=== PATIENT | female | born 1960 | race Caucasian/White ===

== ENCOUNTER 2017-02-24 22:33 | Inpatient (IN) | payer MEDICAID, MEDICARE ==
--- NOTE | 2017-02-24 23:05 | ED Physician Chart ---
ED Chief Complaint/HPI - Patient Information Date Seen:: 02/24/17 Time Seen:: 22:50 Chief Complaint:: depression History of Present Illness:: exhibiting increased sadness and hopelessness at [facility]. Allergies:: Allergies Allergy/AdvReac Type Severity Reaction Status Date / Time No Known Allergies Allergy Verified 02/24/17 22:47 Historian:: Patient Review:: Nurse's Note Reviewed ED Review of Systems - Review of Systems General/Constitutional: No fever, Weight loss Skin: No skin lesions Head: No headache Eyes: No loss of vision ENT: No earache Neck: Neck pain Cardio Vascular: No chest pain Pulmonary: No SOB GI: No nausea, No vomiting G/U: No dysuria, No hematuria Musculoskeletal: No bone or joint pain, No muscle pain Endocrine: No polyuria, No polydipsia Psychiatric: Prior psych history Hematopoietic: No bruising, No lymphadenopathy Allergic/Immuno: No urticaria Neurological: No syncope ED Past Medical History - Past Medical History Past Medical History: Seizures, Thyroid disorder, Other (major depression; schizoaffective disorder; hypothyroidism; cataract; cardiomegaly) Family History: Other (asthma) Social History: Non Smoker, No Alcohol Surgical History: None Psychiatricy History: Depression, Schizophrenia Medication: Reviewed Family Medical History - Family Member Mother History Unknown: Yes ED Physical Exam - Physical Examination General/Constitutional: Well-developed, well-nourished, Alert, No distress Other Gen/Cons comments:: knows the correct date Head: Atraumatic Eyes: Lids, conjuctiva normal, PERRL Skin: Nl inspection, No rash, No skin lesions, No ecchymosis, Well hydrated, No lymphadenopathy ENMT: External ears, nose nl, TM canals nl, Nasal exam nl Other ENMT comments:: edentulous Neck: No nuchal rigidity Respiratory: Nl effort/Exclusion, Clear to Auscultation Cardio Vascular: RRR, No murmur, gallop, rubs GI: No tenderness/rebounding/guarding, No organomegaly, No hernia, Normal BS's : No CVA tenderness Other Extremities comments:: 2/4 pre-tibial pitting edema Neuro/Psych: Alert/oriented, No focal deficits Misc: No paraspinal tenderness ED Labs/Radiology/EKG Results - EKG Interpretations Rate & Rhythm: NSR; rate 70 [place]: left ED Septic Shock - . Is Septic Shock (SBP<90, OR Lactate>4 mmol\L) present?: No ED Reassessment (Disposition) - Reassessment Reassessment Condition:: Unchanged - Diagnosis Diagnosis:: depression - Patient Disposition Admitted to:: [facility] Admitting Medical Physician:: Kwasi Dempsey Admitting Psych Physician:: Meghan Matthew Condition at Disposition:: Stable, Unchanged
[2017-02-24 23:51] LABS: % BASOPHILS 2.2 % (0.0-2.0); % EOSINOPHILS 6.5 % (0.0-5.0); % LYMPHOCYTES 30.3 % (20.0-50.0); % MONOCYTES 8.5 % (2.0-10.0); % NEUTROPHILS 52.5 % (40.0-80.0); HEMATOCRIT 39.4 % (35.0-45.0); HEMOGLOBIN 13.2 gm/dL (11.7-15.5); MEAN CELL VOLUME 85.9 fl (81-100); MEAN CORPUSCULAR HEMOGLOBIN 28.8 pg (27.0-31.0); MEAN CORPUSCULAR HGB CONC 33.5 pg (28.0-36.0); MEAN PLATELET VOLUME 7.3 fl; NEUTROPHILE ABSOLUTE 3.6 Th/cmm (1.8-8.0); RED BLOOD COUNT 4.59 Mil/cmm (3.80-5.10); RED CELL DISTRIBUTION WIDTH 12.7 % (11.5-20.0)
[2017-02-24 23:54] LABS: WHITE BLOOD COUNT 7.1 Th/cmm (4.8-10.8)
[2017-02-24 23:55] LABS: PLATELET COUNT 304 Th/cmm (150-400)
[2017-02-25 00:08] LABS: ANION GAP 7.8 (7.0-16.0); BUN - UREA NITROGEN 16 mg/dL (7-25); CALCIUM SERUM 9.3 mg/dL (8.6-10.3); CARBON DIOXIDE 27.9 mEq/L (21.0-31.0); CHLORIDE 100 mEq/L (98-107); CREATININE - SERUM 0.5 mg/dL (0.6-1.2); GLUCOSE 95 mg/dL (70-105); POTASSIUM SERUM 3.7 mEq/L (3.5-5.1); SODIUM SERUM 132 mEq/L (136-145)
[2017-02-25 00:09] LABS: CHOLESTEROL 242 mg/dL (<200); TRIGLYCERIDES 109 mg/dL (<150)
--- NOTE | 2017-02-25 12:56 | Internal Medicine Prog Note ---
Internal Medicine Subjective - Subjective Service Date: 02/25/17 ([facility] dictated [id number]) Internal Medicine Objective - Results Result Diagrams: 02/24/17 23:45 02/24/17 23:45 Recent Labs: Laboratory Last Values WBC 7.1 Th/cmm (4.8-10.8) D 02/24/17 23:45 RBC 4.59 Mil/cmm (3.80-5.10) 02/24/17 23:45 Hgb 13.2 gm/dL (11.7-15.5) 02/24/17 23:45 Hct 39.4 % (35.0-45.0) 02/24/17 23:45 MCV 85.9 fl (81-100) 02/24/17 23:45 MCH 28.8 pg (27.0-31.0) 02/24/17 23:45 MCHC Differential 33.5 pg (28.0-36.0) 02/24/17 23:45 RDW 12.7 % (11.5-20.0) 02/24/17 23:45 Plt Count 304 Th/cmm (150-400) D 02/24/17 23:45 MPV 7.3 fl 02/24/17 23:45 Neutrophils % 52.5 % (40.0-80.0) 02/24/17 23:45 Lymphocytes % 30.3 % (20.0-50.0) 02/24/17 23:45 Monocytes % 8.5 % (2.0-10.0) 02/24/17 23:45 Eosinophils % 6.5 % (0.0-5.0) H 02/24/17 23:45 Basophils % 2.2 % (0.0-2.0) H 02/24/17 23:45 Sodium 132 mEq/L (136-145) L 02/24/17 23:45 Potassium 3.7 mEq/L (3.5-5.1) 02/24/17 23:45 Chloride 100 mEq/L (98-107) 02/24/17 23:45 Carbon Dioxide 27.9 mEq/L (21.0-31.0) 02/24/17 23:45 Anion Gap 7.8 (7.0-16.0) 02/24/17 23:45 BUN 16 mg/dL (7-25) 02/24/17 23:45 Creatinine 0.5 mg/dL (0.6-1.2) L 02/24/17 23:45 Est GFR ( Amer) > 60.0 ml/min (>90) 02/24/17 23:45 Est GFR (Non-Af Amer) > 60.0 ml/min 02/24/17 23:45 BUN/Creatinine Ratio 32.0 02/24/17 23:45 Glucose 95 mg/dL (70-105) 02/24/17 23:45 Calcium 9.3 mg/dL (8.6-10.3) 02/24/17 23:45 Triglycerides 109 mg/dL (<150) 02/24/17 23:45 Cholesterol 242 mg/dL (<200) H 02/24/17 23:45 LDL Cholesterol Direct 181 mg/dL (75-193) 02/24/17 23:45 HDL Cholesterol 52 mg/dL (23-92) 02/24/17 23:45 TSH 2.67 uIU/ml (0.34-5.60) 02/24/17 23:45 - Physical Exam Vitals and I&O: Vital Signs Temp 97.7 F 02/25/17 06:28 Pulse 64 02/25/17 06:28 Resp 16 02/25/17 06:28 BP 132/69 02/25/17 06:28 Pulse Ox 95 02/25/17 06:28 - Procedures Procedures: Procedures Procedure Code Date GROUP PSYCHOTHERAPY 45159 10/14/15 GROUP PSYCHOTHERAPY GZHZZZZ 10/14/15 Internal Medicine Assmt/Plan - Assessment Assessment: DEPRESSION CATARACT HYPOTHYROIDISM HYPONATREMIA
[2017-02-25] MEDS ORDERED: Fleet Enema 135 mL RC PRN (13:46)
[2017-02-25 15:02] VITALS: BP 136/81
[2017-02-25] MEDS: POLYETHYLENE GLYCOL 3350 17 GM PACK PO SCH (15:40)
--- NOTE | 2017-02-25 19:41 | History & Physical ---
ADMIT DATE: 02/25/2017 CHIEF COMPLAINT: Depression. HISTORY OF PRESENT ILLNESS: This is a 56-year-old female who is a resident of ____ [facility] who was brought here to [facility] for a 1-day history of depression. PAST MEDICAL HISTORY: Seizures, thyroid, major depression, schizoaffective disorder, hypothyroidism, cataract, cardiomegaly. PAST SURGICAL HISTORY: Unknown. SOCIAL HISTORY: The patient is a shelter resident, requiring 24-hour nursing care. PSYCHIATRIC HISTORY: Depression and schizophrenia. MEDICATIONS: Please see medication reconciliation sheet. REVIEW OF SYSTEMS: GENERAL: Denies any fevers and chills. CARDIOVASCULAR: Denies chest pain. RESPIRATORY: Denies any shortness of breath. GASTROINTESTINAL: Denies any nausea, vomiting, abdominal pain. GENITOURINARY: Denies dysuria. All other systems are reviewed by me and are negative. PHYSICAL EXAMINATION: GENERAL: The patient is awake, alert, in no present distress. VITAL SIGNS: Temperature 97.7, heart rate 64, blood pressure is 130/69, respirations 16, O2 95%. HEENT: Head; normocephalic, atraumatic. NECK: Supple. No mass. LUNGS: Clear bilaterally. ABDOMEN: Soft, nontender. LABORATORY DATA: WBC 7.1, H and H 13.2 and 39.4, platelets 304. Sodium 132, potassium 3.7, chloride 100, BUN 16, creatinine 0.5. ASSESSMENT: Depression, hypothyroidism, cataract, cardiomegaly, schizophrenia, hyponatremia. PLAN: The patient to be admitted to the Geropsych Unit, a psychiatrist on board. The patient to continue shelter medications, continue to monitor this patient. JOB# [id number]
[2017-02-26] MEDS: Levothyroxine 0.088 Mg Tab PO SCH (06:42)
[2017-02-26] MEDS: Potassium Chloride 10 mEq ER Tab PO SCH (10:02)
--- NOTE | 2017-02-26 15:24 | Internal Medicine Prog Note ---
Internal Medicine Subjective - Subjective Patient seen and examined:: with staff, chart reviewed Patient is:: awake, verbal, interactive Per staff patient has:: no adverse event, no episodes of fall, eating well, tolerating meds Internal Medicine Objective - Results Result Diagrams: 02/24/17 23:45 02/24/17 23:45 Recent Labs: Laboratory Last Values WBC 7.1 Th/cmm (4.8-10.8) D 02/24/17 23:45 RBC 4.59 Mil/cmm (3.80-5.10) 02/24/17 23:45 Hgb 13.2 gm/dL (11.7-15.5) 02/24/17 23:45 Hct 39.4 % (35.0-45.0) 02/24/17 23:45 MCV 85.9 fl (81-100) 02/24/17 23:45 MCH 28.8 pg (27.0-31.0) 02/24/17 23:45 MCHC Differential 33.5 pg (28.0-36.0) 02/24/17 23:45 RDW 12.7 % (11.5-20.0) 02/24/17 23:45 Plt Count 304 Th/cmm (150-400) D 02/24/17 23:45 MPV 7.3 fl 02/24/17 23:45 Neutrophils % 52.5 % (40.0-80.0) 02/24/17 23:45 Lymphocytes % 30.3 % (20.0-50.0) 02/24/17 23:45 Monocytes % 8.5 % (2.0-10.0) 02/24/17 23:45 Eosinophils % 6.5 % (0.0-5.0) H 02/24/17 23:45 Basophils % 2.2 % (0.0-2.0) H 02/24/17 23:45 Sodium 132 mEq/L (136-145) L 02/24/17 23:45 Potassium 3.7 mEq/L (3.5-5.1) 02/24/17 23:45 Chloride 100 mEq/L (98-107) 02/24/17 23:45 Carbon Dioxide 27.9 mEq/L (21.0-31.0) 02/24/17 23:45 Anion Gap 7.8 (7.0-16.0) 02/24/17 23:45 BUN 16 mg/dL (7-25) 02/24/17 23:45 Creatinine 0.5 mg/dL (0.6-1.2) L 02/24/17 23:45 Est GFR ( Amer) > 60.0 ml/min (>90) 02/24/17 23:45 Est GFR (Non-Af Amer) > 60.0 ml/min 02/24/17 23:45 BUN/Creatinine Ratio 32.0 02/24/17 23:45 Glucose 95 mg/dL (70-105) 02/24/17 23:45 Calcium 9.3 mg/dL (8.6-10.3) 02/24/17 23:45 Triglycerides 109 mg/dL (<150) 02/24/17 23:45 Cholesterol 242 mg/dL (<200) H 02/24/17 23:45 LDL Cholesterol Direct 181 mg/dL (75-193) 02/24/17 23:45 HDL Cholesterol 52 mg/dL (23-92) 02/24/17 23:45 TSH 2.67 uIU/ml (0.34-5.60) 02/24/17 23:45 RPR NONREACTIVE (NONREACTIVE) 02/24/17 23:45 - Physical Exam Vitals and I&O: Vital Signs Temp 98.6 F 02/26/17 06:49 Pulse 76 02/26/17 06:49 Resp 19 02/26/17 06:49 BP 100/65 02/26/17 06:49 Pulse Ox 96 02/26/17 06:49 Intake & Output 02/25/17 02/26/17 02/26/17 18:59 06:59 18:59 Other: # Voids 3 # Bowel Movements 0 Active Medications: Current Medications Acetaminophen (Tylenol) 325 mg PO Q4HR PRN PRN Reason: Pain (Mild) Stop: 04/26/17 13:45 Aripiprazole (Abilify) 2 mg PO DAILY DIA PRN Reason: Protocol Stop: 04/27/17 08:59 Last Admin: 02/26/17 09:56 Dose: 2 mg Bisacodyl (Dulcolax 10 Mg Supp) 10 mg RC DAILY PRN PRN Reason: Constipation Stop: 04/26/17 13:45 Docusate Sodium (Colace) 100 mg PO BID DIA Stop: 04/26/17 16:59 Last Admin: 02/26/17 10:01 Dose: Not Given Duloxetine HCl (Cymbalta) 30 mg PO DAILY DIA PRN Reason: Protocol Stop: 04/27/17 08:59 Last Admin: 02/26/17 10:00 Dose: 30 mg Furosemide (Lasix) 40 mg PO DAILY DIA Stop: 04/27/17 08:59 Last Admin: 02/26/17 09:59 Dose: Not Given Lacosamide (Vimpat) 100 mg PO BID DIA Stop: 04/26/17 16:59 Last Admin: 02/26/17 10:00 Dose: 100 mg Levetiracetam (Keppra) 1,000 mg PO BID DIA Stop: 04/26/17 16:59 Last Admin: 02/26/17 09:58 Dose: 1,000 mg Levothyroxine Sodium (Synthroid) 0.088 mg PO QDAC DIA Stop: 04/27/17 07:29 Last Admin: 02/26/17 06:42 Dose: 0.088 mg Lorazepam (Ativan) 0.5 mg PO Q4HR PRN; Protocol PRN Reason: Anxiety Stop: 03/27/17 14:44 Magnesium Hydroxide (Milk Of Magnesia) 30 ml PO DAILY PRN PRN Reason: Constipation Stop: 04/26/17 13:45 Phenobarbital (Phenobarbital) 64.8 mg PO DAILY DIA Stop: 04/27/17 08:59 Last Admin: 02/26/17 10:00 Dose: 64.8 mg Polyethylene Glycol (Miralax) 17 gm PO Q48HR DIA Stop: 04/26/17 13:59 Last Admin: 02/25/17 15:40 Dose: Not Given Potassium Chloride (Klor-Con) 10 meq PO DAILY DIA Stop: 04/27/17 08:59 Last Admin: 02/26/17 10:02 Dose: Not Given Senna (Senna) 8.6 mg PO HS DIA Stop: 04/26/17 20:59 Last Admin: 02/25/17 20:29 Dose: 8.6 mg Sodium Phosphate (Fleet Enema) 135 ml RC Q48HR PRN PRN Reason: Constipation Stop: 04/26/17 13:45 Sorbitol (Sorbitol) 30 ml PO Q48H DIA Stop: 04/26/17 13:59 Last Admin: 02/25/17 15:40 Dose: Not Given Zolpidem Tartrate (Ambien) 5 mg PO HS PRN PRN Reason: Insomnia Stop: 04/26/17 14:44 General: demented HEENT: NC/AT, PERRLA, EOMI Neck: Supple, No thyromegaly, No LAD Lungs: CTAB Cardiovascular: RRR, Normal S1, Normal S2 Abdomen: soft, non-tender, globular Extremities: excoriation Neurological: no change, disorganized - Procedures Procedures: Procedures Procedure Code Date GROUP PSYCHOTHERAPY 16080 10/14/15 GROUP PSYCHOTHERAPY GZHZZZZ 10/14/15 Internal Medicine Assmt/Plan - Assessment Assessment: Depression, hypothyroidism, cataract, cardiomegaly, schizophrenia, hyponatremia. - Plan Plan: PLAN: The patient to be admitted to the Geropsych Unit, a psychiatrist on board. The patient to continue group home medications, continue to monitor this patient.
--- NOTE | 2017-02-27 03:20 | Psychosocial Evaluation ---
DATE OF SERVICE: 02/25/2017 IDENTIFYING DATA: The patient is a 56-year-old woman, resident of [facility] in [place]. JUSTIFICATION OF HOSPITALIZATION: The patient is admitted on a voluntary basis in view of her aggressive behavior. CHIEF COMPLAINT: "I don't like, people are not caring about my art. I want to hurt myself, the voices are telling me to do so." HISTORY OF PRESENT ILLNESS: This is one of multiple psychiatric hospitalizations for this patient who is reported to have been diagnosed in the past with major depressive disorder, schizoaffective disorder, and patient has been maintained on Cymbalta and Abilify. On the day of hospitalization, the patient is screaming that the people are not recognizing her and appreciating her art work. The patient started to hit herself on the right side of the face in response to the command hallucinations, and the patient has to be hospitalized for stabilization. PAST PSYCHIATRIC HISTORY: The patient reports that she was here at [facility] before. MEDICAL HISTORY: Physical examination is requested and done by Dr. Dempsey. SUBSTANCE ABUSE HISTORY: None. PHYSICAL OR SEXUAL ABUSE HISTORY: None. LEGAL PROBLEMS: None at this time. SOCIAL HISTORY: The patient is single. The patient is stating that she has a brother that keeps an eye on her and she is worried that he is going to be getting upset that she is here. SOCIAL HISTORY: The patient is a resident of [facility]. MENTAL STATUS EXAMINATION: The patient is a 56-year-old woman looking her stated age, superficially cooperative. Eye contact is poor. Mood is noted to be irritable. Affect is constricted. Insight and judgment at this time are noted to be still impaired. Impulse control seems to be poor. Coping skills are also noted to be poor. The patient has been having difficult time to cope with the stress. The patient is still responding to internal stimuli and has been thinking of hurting herself. The patient is not able to contract for safety at this time. The patient's insight and judgment are noted to be very much impaired. Impulse control seems to be limited at this time. The patient is still not able to contract for safety. However, the patient is noted to be alert and oriented x 3. The patient's attention span and concentration are noted to be fair at this time. No memory deficits are noted. The patient in 1 minute has been stating that she wanted to get some attention from people to pay some attention to art work and in the next minute, she is stating that she wanted to hurt herself ____. The patient's behavior is a clear danger to self at this time. The patient is not homicidal. DIAGNOSTIC IMPRESSION: AXIS I: Major depressive disorder, recurrent with psychotic symptoms, rule out schizoaffective disorder. AXIS II: None. AXIS III: As per Dr. Dempsey. IMMEDIATE TREATMENT PLAN: The patient is going to be observed on the inpatient unit, provided with supportive psychotherapy. The patient is going to be closely monitored. Once stabilized, the patient is going to be discharged to the [facility] to be followed up on an outpatient basis. JOB# [id number]
[2017-02-27] MEDS: Levothyroxine 0.088 Mg Tab PO SCH (06:50)
--- NOTE | 2017-02-27 14:14 | Internal Medicine Prog Note ---
Internal Medicine Subjective - Subjective Patient seen and examined:: with staff, chart reviewed Patient is:: awake, verbal, interactive Per staff patient has:: no adverse event, no episodes of fall, eating well, tolerating meds Internal Medicine Objective - Results Result Diagrams: 02/24/17 23:45 02/24/17 23:45 Recent Labs: Laboratory Last Values WBC 7.1 Th/cmm (4.8-10.8) D 02/24/17 23:45 RBC 4.59 Mil/cmm (3.80-5.10) 02/24/17 23:45 Hgb 13.2 gm/dL (11.7-15.5) 02/24/17 23:45 Hct 39.4 % (35.0-45.0) 02/24/17 23:45 MCV 85.9 fl (81-100) 02/24/17 23:45 MCH 28.8 pg (27.0-31.0) 02/24/17 23:45 MCHC Differential 33.5 pg (28.0-36.0) 02/24/17 23:45 RDW 12.7 % (11.5-20.0) 02/24/17 23:45 Plt Count 304 Th/cmm (150-400) D 02/24/17 23:45 MPV 7.3 fl 02/24/17 23:45 Neutrophils % 52.5 % (40.0-80.0) 02/24/17 23:45 Lymphocytes % 30.3 % (20.0-50.0) 02/24/17 23:45 Monocytes % 8.5 % (2.0-10.0) 02/24/17 23:45 Eosinophils % 6.5 % (0.0-5.0) H 02/24/17 23:45 Basophils % 2.2 % (0.0-2.0) H 02/24/17 23:45 Sodium 132 mEq/L (136-145) L 02/24/17 23:45 Potassium 3.7 mEq/L (3.5-5.1) 02/24/17 23:45 Chloride 100 mEq/L (98-107) 02/24/17 23:45 Carbon Dioxide 27.9 mEq/L (21.0-31.0) 02/24/17 23:45 Anion Gap 7.8 (7.0-16.0) 02/24/17 23:45 BUN 16 mg/dL (7-25) 02/24/17 23:45 Creatinine 0.5 mg/dL (0.6-1.2) L 02/24/17 23:45 Est GFR ( Amer) > 60.0 ml/min (>90) 02/24/17 23:45 Est GFR (Non-Af Amer) > 60.0 ml/min 02/24/17 23:45 BUN/Creatinine Ratio 32.0 02/24/17 23:45 Glucose 95 mg/dL (70-105) 02/24/17 23:45 Calcium 9.3 mg/dL (8.6-10.3) 02/24/17 23:45 Triglycerides 109 mg/dL (<150) 02/24/17 23:45 Cholesterol 242 mg/dL (<200) H 02/24/17 23:45 LDL Cholesterol Direct 181 mg/dL (75-193) 02/24/17 23:45 HDL Cholesterol 52 mg/dL (23-92) 02/24/17 23:45 TSH 2.67 uIU/ml (0.34-5.60) 02/24/17 23:45 RPR NONREACTIVE (NONREACTIVE) 02/24/17 23:45 - Physical Exam Vitals and I&O: Vital Signs Temp 98.6 F 02/27/17 06:41 Pulse 73 02/27/17 06:41 Resp 19 02/27/17 06:41 BP 113/67 02/27/17 06:41 Pulse Ox 96 02/27/17 06:41 Intake & Output 02/26/17 02/27/17 02/27/17 18:59 06:59 18:59 Intake Total 1800 120 Balance 1800 120 Intake: Oral 1800 120 Other: # Voids 4 3 # Bowel Movements 1 Stool Characteristics Hard Active Medications: Current Medications Acetaminophen (Tylenol) 325 mg PO Q4HR PRN PRN Reason: Pain (Mild) Stop: 04/26/17 13:45 Last Admin: 02/26/17 18:24 Dose: 325 mg Aripiprazole (Abilify) 2 mg PO DAILY DIA PRN Reason: Protocol Stop: 04/27/17 08:59 Last Admin: 02/27/17 08:56 Dose: 2 mg Bisacodyl (Dulcolax 10 Mg Supp) 10 mg RC DAILY PRN PRN Reason: Constipation Stop: 04/26/17 13:45 Docusate Sodium (Colace) 100 mg PO BID DIA Stop: 04/26/17 16:59 Last Admin: 02/27/17 08:56 Dose: 100 mg Duloxetine HCl (Cymbalta) 30 mg PO DAILY DIA PRN Reason: Protocol Stop: 04/27/17 08:59 Last Admin: 02/27/17 08:56 Dose: 30 mg Furosemide (Lasix) 40 mg PO DAILY DIA Stop: 04/27/17 08:59 Last Admin: 02/26/17 09:59 Dose: Not Given Lacosamide (Vimpat) 100 mg PO BID DIA Stop: 04/26/17 16:59 Last Admin: 02/27/17 08:56 Dose: 100 mg Levetiracetam (Keppra) 1,000 mg PO BID DIA Stop: 04/26/17 16:59 Last Admin: 02/27/17 08:55 Dose: 1,000 mg Levothyroxine Sodium (Synthroid) 0.088 mg PO QDAC DIA Stop: 04/27/17 07:29 Last Admin: 02/27/17 06:50 Dose: 0.088 mg Lorazepam (Ativan) 0.5 mg PO Q4HR PRN; Protocol PRN Reason: Anxiety Stop: 03/27/17 14:44 Magnesium Hydroxide (Milk Of Magnesia) 30 ml PO DAILY PRN PRN Reason: Constipation Stop: 04/26/17 13:45 Phenobarbital (Phenobarbital) 64.8 mg PO DAILY DIA Stop: 04/27/17 08:59 Last Admin: 02/27/17 08:56 Dose: 64.8 mg Polyethylene Glycol (Miralax) 17 gm PO Q48HR DIA Stop: 04/26/17 13:59 Last Admin: 02/25/17 15:40 Dose: Not Given Potassium Chloride (Klor-Con) 10 meq PO DAILY DIA Stop: 04/27/17 08:59 Last Admin: 02/26/17 10:02 Dose: Not Given Senna (Senna) 8.6 mg PO HS DIA Stop: 04/26/17 20:59 Last Admin: 02/26/17 21:36 Dose: Not Given Sodium Phosphate (Fleet Enema) 135 ml RC Q48HR PRN PRN Reason: Constipation Stop: 04/26/17 13:45 Sorbitol (Sorbitol) 30 ml PO Q48H DIA Stop: 04/26/17 13:59 Last Admin: 02/25/17 15:40 Dose: Not Given Zolpidem Tartrate (Ambien) 5 mg PO HS PRN PRN Reason: Insomnia Stop: 04/26/17 14:44 General: demented HEENT: NC/AT, PERRLA, EOMI Neck: Supple, No thyromegaly, No LAD Lungs: CTAB Cardiovascular: RRR, Normal S1, Normal S2 Abdomen: soft, non-tender, globular Extremities: excoriation Neurological: no change, disorganized - Procedures Procedures: Procedures Procedure Code Date GROUP PSYCHOTHERAPY 53389 10/14/15 GROUP PSYCHOTHERAPY GZHZZZZ 10/14/15 Internal Medicine Assmt/Plan - Assessment Assessment: Depression, hypothyroidism, cataract, cardiomegaly, schizophrenia, hyponatremia. - Plan Plan: PLAN: The patient to be admitted to the Geropsych Unit, a psychiatrist on board. The patient to continue assisted medications, continue to monitor this patient.
[2017-02-27] MEDS: POLYETHYLENE GLYCOL 3350 17 GM PACK PO SCH (14:22)
[2017-02-27] MEDS: Potassium Chloride 10 mEq ER Tab PO SCH (14:38)
--- NOTE | 2017-02-27 20:52 | Progress Notes ---
DATE: 02/26/2017 SUBJECTIVE: Staff was spoken to. The patient is interviewed. Mood is noted to be irritable. Affect is constricted. Insight and judgment at this time are noted to be still impaired. Impulse control seems to be limited. Coping skills are also noted to be limited. The patient has been having difficult time to cope with the stress. The patient is stating that no one is paying any attention, that is one of the reasons why she wanted to hurt herself. The patient is still impulsive. The patient is currently on duloxetine and Abilify, and has been able to tolerate the medication. ASSESSMENT: The patient is still impulsive and psychotic. PLAN: To continue the patient with the supportive therapy. I encouraged the patient to verbalize the concerns rather than to act out. JOB# [id number]
--- NOTE | 2017-02-28 04:51 | Progress Notes ---
DATE: 02/27/2017 Staff was spoken to. The patient is interviewed. Mood is noted to be irritable. Affect is constricted. The patient's insight and judgment are very much impaired. The patient is isolative and withdrawn. The patient is very depressed. The patient is stating that she does not like the food in here and does not want eat. The patient's coping skills are noted to be very poor. The patient is currently on duloxetine 30 mg and aripiprazole 2 mg for her depression. The patient has been able to tolerate the medication. ASSESSMENT: The patient is still depressed and suicidal. The patient is not ready to be discharged to a lower level of care. JOB# [id number]
[2017-02-28] MEDS: Levothyroxine 0.088 Mg Tab PO SCH (06:49)
[2017-02-28] MEDS: Potassium Chloride 10 mEq ER Tab PO SCH (09:23)
--- NOTE | 2017-02-28 11:20 | Internal Medicine Prog Note ---
Internal Medicine Subjective - Subjective Service Date: 02/28/17 Patient is:: awake, verbal, interactive Per staff patient has:: no adverse event, no episodes of fall, eating well, tolerating meds Internal Medicine Objective - Results Result Diagrams: 02/24/17 23:45 02/24/17 23:45 Recent Labs: Laboratory Last Values WBC 7.1 Th/cmm (4.8-10.8) D 02/24/17 23:45 RBC 4.59 Mil/cmm (3.80-5.10) 02/24/17 23:45 Hgb 13.2 gm/dL (11.7-15.5) 02/24/17 23:45 Hct 39.4 % (35.0-45.0) 02/24/17 23:45 MCV 85.9 fl (81-100) 02/24/17 23:45 MCH 28.8 pg (27.0-31.0) 02/24/17 23:45 MCHC Differential 33.5 pg (28.0-36.0) 02/24/17 23:45 RDW 12.7 % (11.5-20.0) 02/24/17 23:45 Plt Count 304 Th/cmm (150-400) D 02/24/17 23:45 MPV 7.3 fl 02/24/17 23:45 Neutrophils % 52.5 % (40.0-80.0) 02/24/17 23:45 Lymphocytes % 30.3 % (20.0-50.0) 02/24/17 23:45 Monocytes % 8.5 % (2.0-10.0) 02/24/17 23:45 Eosinophils % 6.5 % (0.0-5.0) H 02/24/17 23:45 Basophils % 2.2 % (0.0-2.0) H 02/24/17 23:45 Sodium 132 mEq/L (136-145) L 02/24/17 23:45 Potassium 3.7 mEq/L (3.5-5.1) 02/24/17 23:45 Chloride 100 mEq/L (98-107) 02/24/17 23:45 Carbon Dioxide 27.9 mEq/L (21.0-31.0) 02/24/17 23:45 Anion Gap 7.8 (7.0-16.0) 02/24/17 23:45 BUN 16 mg/dL (7-25) 02/24/17 23:45 Creatinine 0.5 mg/dL (0.6-1.2) L 02/24/17 23:45 Est GFR ( Amer) > 60.0 ml/min (>90) 02/24/17 23:45 Est GFR (Non-Af Amer) > 60.0 ml/min 02/24/17 23:45 BUN/Creatinine Ratio 32.0 02/24/17 23:45 Glucose 95 mg/dL (70-105) 02/24/17 23:45 Calcium 9.3 mg/dL (8.6-10.3) 02/24/17 23:45 Triglycerides 109 mg/dL (<150) 02/24/17 23:45 Cholesterol 242 mg/dL (<200) H 02/24/17 23:45 LDL Cholesterol Direct 181 mg/dL (75-193) 02/24/17 23:45 HDL Cholesterol 52 mg/dL (23-92) 02/24/17 23:45 TSH 2.67 uIU/ml (0.34-5.60) 02/24/17 23:45 Levetiracetam 33.2 ug/mL (10.0-40.0) 02/24/17 23:45 RPR NONREACTIVE (NONREACTIVE) 02/24/17 23:45 - Physical Exam Vitals and I&O: Vital Signs Temp 98.8 F 02/28/17 06:35 Pulse 75 02/28/17 06:35 Resp 19 02/28/17 06:35 BP 105/68 02/28/17 09:23 Pulse Ox 93 02/28/17 06:35 Intake & Output 02/27/17 02/28/17 02/28/17 18:59 06:59 18:59 Intake Total 900 Balance 900 Intake: Oral 900 Other: # Voids 3 3 # Bowel Movements 1 0 Stool Characteristics Hard Active Medications: Current Medications Acetaminophen (Tylenol) 325 mg PO Q4HR PRN PRN Reason: Pain (Mild) Stop: 04/26/17 13:45 Last Admin: 02/26/17 18:24 Dose: 325 mg Aripiprazole (Abilify) 2 mg PO DAILY DIA PRN Reason: Protocol Stop: 04/27/17 08:59 Last Admin: 02/28/17 09:21 Dose: 2 mg Bisacodyl (Dulcolax 10 Mg Supp) 10 mg RC DAILY PRN PRN Reason: Constipation Stop: 04/26/17 13:45 Docusate Sodium (Colace) 100 mg PO BID DIA Stop: 04/26/17 16:59 Last Admin: 02/27/17 16:25 Dose: 100 mg Duloxetine HCl (Cymbalta) 60 mg PO DAILY DIA PRN Reason: Protocol Stop: 04/27/17 08:59 Furosemide (Lasix) 40 mg PO DAILY DIA Stop: 04/27/17 08:59 Last Admin: 02/28/17 09:23 Dose: Not Given Lacosamide (Vimpat) 100 mg PO BID DIA Stop: 04/26/17 16:59 Last Admin: 02/28/17 09:23 Dose: 100 mg Levetiracetam (Keppra) 1,000 mg PO BID DIA Stop: 04/26/17 16:59 Last Admin: 02/28/17 09:22 Dose: 1,000 mg Levothyroxine Sodium (Synthroid) 0.088 mg PO QDAC DIA Stop: 04/27/17 07:29 Last Admin: 02/28/17 06:49 Dose: 0.088 mg Lorazepam (Ativan) 0.5 mg PO Q4HR PRN; Protocol PRN Reason: Anxiety Stop: 03/27/17 14:44 Magnesium Hydroxide (Milk Of Magnesia) 30 ml PO DAILY PRN PRN Reason: Constipation Stop: 04/26/17 13:45 Phenobarbital (Phenobarbital) 64.8 mg PO DAILY DIA Stop: 04/27/17 08:59 Last Admin: 02/28/17 09:23 Dose: 64.8 mg Polyethylene Glycol (Miralax) 17 gm PO Q48HR DIA Stop: 04/26/17 13:59 Last Admin: 02/27/17 14:22 Dose: 17 gm Potassium Chloride (Klor-Con) 10 meq PO DAILY DIA Stop: 04/27/17 08:59 Last Admin: 02/28/17 09:23 Dose: 10 meq Senna (Senna) 8.6 mg PO HS DIA Stop: 04/26/17 20:59 Last Admin: 02/27/17 20:45 Dose: 8.6 mg Sodium Phosphate (Fleet Enema) 135 ml RC Q48HR PRN PRN Reason: Constipation Stop: 04/26/17 13:45 Sorbitol (Sorbitol) 30 ml PO Q48H DIA Stop: 04/26/17 13:59 Last Admin: 02/27/17 14:22 Dose: 30 ml Zolpidem Tartrate (Ambien) 5 mg PO HS PRN PRN Reason: Insomnia Stop: 04/26/17 14:44 Last Admin: 02/27/17 21:03 Dose: 5 mg General: demented HEENT: NC/AT, PERRLA, EOMI Neck: Supple, No thyromegaly, No LAD Lungs: CTAB Cardiovascular: RRR, Normal S1, Normal S2 Abdomen: soft, non-tender, globular Extremities: excoriation Neurological: no change, disorganized - Procedures Procedures: Procedures Procedure Code Date GROUP PSYCHOTHERAPY 30020 10/14/15 GROUP PSYCHOTHERAPY GZHZZZZ 10/14/15 Internal Medicine Assmt/Plan - Assessment Assessment: DEPRESSION CATARACT HYPOTHYROIDISM HYPONATREMIA - Plan Plan: continue current medications psych f/u
--- NOTE | 2017-03-01 01:28 | Progress Notes ---
DATE: 02/28/2017 SUBJECTIVE: Staff was spoken to. The patient is interviewed. Mood is noted to be depressed. Affect is constricted. Insight and judgment are noted to be still impaired. Impulse control seems to be poor. Coping skills are also noted to be poor. The patient is still feeling depressed and wanted to hurt herself. The patient is not able to contract for safety. No side effects to the medications are noted. The patient has been having difficult time to cope with the stress. ASSESSMENT: The patient is still depressed. PLAN: To increase the dose on the Cymbalta to 60 mg on a daily basis. Encouraged the patient to verbalize the concerns rather than to act out. The patient is not ready to be discharged to a lower level of care yet. JOB# [id number]
[2017-03-01] MEDS: Levothyroxine 0.088 Mg Tab PO SCH (06:43)
[2017-03-01] MEDS: Potassium Chloride 10 mEq ER Tab PO SCH (08:42)
--- NOTE | 2017-03-01 11:29 | Internal Medicine Prog Note ---
Internal Medicine Subjective - Subjective Service Date: 03/01/17 Patient is:: awake, verbal, interactive, in wheelchair Per staff patient has:: no adverse event, no episodes of fall, eating well, tolerating meds Internal Medicine Objective - Results Result Diagrams: 02/24/17 23:45 02/24/17 23:45 Recent Labs: Laboratory Last Values WBC 7.1 Th/cmm (4.8-10.8) D 02/24/17 23:45 RBC 4.59 Mil/cmm (3.80-5.10) 02/24/17 23:45 Hgb 13.2 gm/dL (11.7-15.5) 02/24/17 23:45 Hct 39.4 % (35.0-45.0) 02/24/17 23:45 MCV 85.9 fl (81-100) 02/24/17 23:45 MCH 28.8 pg (27.0-31.0) 02/24/17 23:45 MCHC Differential 33.5 pg (28.0-36.0) 02/24/17 23:45 RDW 12.7 % (11.5-20.0) 02/24/17 23:45 Plt Count 304 Th/cmm (150-400) D 02/24/17 23:45 MPV 7.3 fl 02/24/17 23:45 Neutrophils % 52.5 % (40.0-80.0) 02/24/17 23:45 Lymphocytes % 30.3 % (20.0-50.0) 02/24/17 23:45 Monocytes % 8.5 % (2.0-10.0) 02/24/17 23:45 Eosinophils % 6.5 % (0.0-5.0) H 02/24/17 23:45 Basophils % 2.2 % (0.0-2.0) H 02/24/17 23:45 Sodium 132 mEq/L (136-145) L 02/24/17 23:45 Potassium 3.7 mEq/L (3.5-5.1) 02/24/17 23:45 Chloride 100 mEq/L (98-107) 02/24/17 23:45 Carbon Dioxide 27.9 mEq/L (21.0-31.0) 02/24/17 23:45 Anion Gap 7.8 (7.0-16.0) 02/24/17 23:45 BUN 16 mg/dL (7-25) 02/24/17 23:45 Creatinine 0.5 mg/dL (0.6-1.2) L 02/24/17 23:45 Est GFR ( Amer) > 60.0 ml/min (>90) 02/24/17 23:45 Est GFR (Non-Af Amer) > 60.0 ml/min 02/24/17 23:45 BUN/Creatinine Ratio 32.0 02/24/17 23:45 Glucose 95 mg/dL (70-105) 02/24/17 23:45 Calcium 9.3 mg/dL (8.6-10.3) 02/24/17 23:45 Triglycerides 109 mg/dL (<150) 02/24/17 23:45 Cholesterol 242 mg/dL (<200) H 02/24/17 23:45 LDL Cholesterol Direct 181 mg/dL (75-193) 02/24/17 23:45 HDL Cholesterol 52 mg/dL (23-92) 02/24/17 23:45 TSH 2.67 uIU/ml (0.34-5.60) 02/24/17 23:45 Levetiracetam 33.2 ug/mL (10.0-40.0) 02/24/17 23:45 RPR NONREACTIVE (NONREACTIVE) 02/24/17 23:45 - Physical Exam Vitals and I&O: Vital Signs Temp 98.4 F 03/01/17 06:12 Pulse 65 03/01/17 06:12 Resp 20 03/01/17 06:12 BP 97/57 03/01/17 08:42 Pulse Ox 95 03/01/17 06:12 Intake & Output 02/28/17 03/01/17 03/01/17 18:59 06:59 18:59 Intake Total 330 Balance 330 Intake: Oral 330 Other: # Voids 1 # Bowel Movements 1 0 Active Medications: Current Medications Acetaminophen (Tylenol) 325 mg PO Q4HR PRN PRN Reason: Pain (Mild) Stop: 04/26/17 13:45 Last Admin: 02/26/17 18:24 Dose: 325 mg Aripiprazole (Abilify) 2 mg PO DAILY DIA PRN Reason: Protocol Stop: 04/27/17 08:59 Last Admin: 03/01/17 08:40 Dose: 2 mg Bisacodyl (Dulcolax 10 Mg Supp) 10 mg RC DAILY PRN PRN Reason: Constipation Stop: 04/26/17 13:45 Docusate Sodium (Colace) 100 mg PO BID DIA Stop: 04/26/17 16:59 Last Admin: 03/01/17 08:40 Dose: 100 mg Duloxetine HCl (Cymbalta) 60 mg PO DAILY DIA PRN Reason: Protocol Stop: 04/27/17 08:59 Last Admin: 03/01/17 08:40 Dose: 60 mg Furosemide (Lasix) 40 mg PO DAILY DIA Stop: 04/27/17 08:59 Last Admin: 03/01/17 08:42 Dose: Not Given Lacosamide (Vimpat) 100 mg PO BID DIA Stop: 04/26/17 16:59 Last Admin: 03/01/17 08:40 Dose: 100 mg Levetiracetam (Keppra) 1,000 mg PO BID DIA Stop: 04/26/17 16:59 Last Admin: 03/01/17 08:41 Dose: 1,000 mg Levothyroxine Sodium (Synthroid) 0.088 mg PO QDAC DIA Stop: 04/27/17 07:29 Last Admin: 03/01/17 06:43 Dose: 0.088 mg Lorazepam (Ativan) 0.5 mg PO Q4HR PRN; Protocol PRN Reason: Anxiety Stop: 03/27/17 14:44 Magnesium Hydroxide (Milk Of Magnesia) 30 ml PO DAILY PRN PRN Reason: Constipation Stop: 04/26/17 13:45 Phenobarbital (Phenobarbital) 64.8 mg PO DAILY DIA Stop: 04/27/17 08:59 Last Admin: 03/01/17 08:42 Dose: 64.8 mg Polyethylene Glycol (Miralax) 17 gm PO Q48HR DIA Stop: 04/26/17 13:59 Last Admin: 02/27/17 14:22 Dose: 17 gm Potassium Chloride (Klor-Con) 10 meq PO DAILY DIA Stop: 04/27/17 08:59 Last Admin: 03/01/17 08:42 Dose: 10 meq Senna (Senna) 8.6 mg PO HS DIA Stop: 04/26/17 20:59 Last Admin: 02/28/17 20:47 Dose: 8.6 mg Sodium Phosphate (Fleet Enema) 135 ml RC Q48HR PRN PRN Reason: Constipation Stop: 04/26/17 13:45 Sorbitol (Sorbitol) 30 ml PO Q48H DIA Stop: 04/26/17 13:59 Last Admin: 02/27/17 14:22 Dose: 30 ml Zolpidem Tartrate (Ambien) 5 mg PO HS PRN PRN Reason: Insomnia Stop: 04/26/17 14:44 Last Admin: 02/28/17 21:04 Dose: 5 mg General: demented HEENT: NC/AT, PERRLA, EOMI Neck: Supple, No thyromegaly, No LAD Lungs: CTAB Cardiovascular: RRR, Normal S1, Normal S2 Abdomen: soft, non-tender, globular Extremities: excoriation Neurological: no change, disorganized - Procedures Procedures: Procedures Procedure Code Date GROUP PSYCHOTHERAPY 44370 10/14/15 GROUP PSYCHOTHERAPY GZHZZZZ 10/14/15 Internal Medicine Assmt/Plan - Assessment Assessment: DEPRESSION CATARACT HYPOTHYROIDISM HYPONATREMIA - Plan Plan: continue current medications psych f/u
[2017-03-01] MEDS: POLYETHYLENE GLYCOL 3350 17 GM PACK PO SCH (14:00)
--- NOTE | 2017-03-02 01:32 | Progress Notes ---
DATE: 03/01/[address] Hannah. Case was discussed with staff of the patient, reviewed records. The patient is a 56-year-old female who was originally admitted on 02/25/[address] to the service of Dr. Matthew and yesterday transferred to the service of Dr. Hannah. The patient was admitted because of psychosis, agitation. She came on a voluntary basis because of aggressive behavior. She said ____ people are not getting about me. I want to hurt myself. The voices were telling her to do so. The patient has multiple prior psychiatric hospitalizations for the same reason. The patient continues to be depressed, overwhelmed; continues to be unpredictable, impulsive, and needing redirection. She denies that she is still hearing voices telling her to harm herself. She has been compliant with the medication with no side effects, no sedation, no nausea, no extrapyramidal symptoms. Dr. Matthew had her on Abilify 2 mg daily and Cymbalta 60 mg daily with no side effects, no sedation, no nausea, no extrapyramidal symptoms. We will continue the patient in group therapy, milieu therapy, and adjust the medication as needed. JOB# [id number]
[2017-03-02] MEDS: Levothyroxine 0.088 Mg Tab PO SCH (06:37)
[2017-03-02] MEDS: Potassium Chloride 10 mEq ER Tab PO SCH (08:45)
--- NOTE | 2017-03-02 10:36 | Internal Medicine Prog Note ---
Internal Medicine Subjective - Subjective Service Date: 03/02/17 Patient is:: awake, verbal, interactive, in wheelchair Per staff patient has:: no adverse event, no episodes of fall, eating well, tolerating meds Internal Medicine Objective - Results Result Diagrams: 02/24/17 23:45 02/24/17 23:45 Recent Labs: Laboratory Last Values WBC 7.1 Th/cmm (4.8-10.8) D 02/24/17 23:45 RBC 4.59 Mil/cmm (3.80-5.10) 02/24/17 23:45 Hgb 13.2 gm/dL (11.7-15.5) 02/24/17 23:45 Hct 39.4 % (35.0-45.0) 02/24/17 23:45 MCV 85.9 fl (81-100) 02/24/17 23:45 MCH 28.8 pg (27.0-31.0) 02/24/17 23:45 MCHC Differential 33.5 pg (28.0-36.0) 02/24/17 23:45 RDW 12.7 % (11.5-20.0) 02/24/17 23:45 Plt Count 304 Th/cmm (150-400) D 02/24/17 23:45 MPV 7.3 fl 02/24/17 23:45 Neutrophils % 52.5 % (40.0-80.0) 02/24/17 23:45 Lymphocytes % 30.3 % (20.0-50.0) 02/24/17 23:45 Monocytes % 8.5 % (2.0-10.0) 02/24/17 23:45 Eosinophils % 6.5 % (0.0-5.0) H 02/24/17 23:45 Basophils % 2.2 % (0.0-2.0) H 02/24/17 23:45 Sodium 132 mEq/L (136-145) L 02/24/17 23:45 Potassium 3.7 mEq/L (3.5-5.1) 02/24/17 23:45 Chloride 100 mEq/L (98-107) 02/24/17 23:45 Carbon Dioxide 27.9 mEq/L (21.0-31.0) 02/24/17 23:45 Anion Gap 7.8 (7.0-16.0) 02/24/17 23:45 BUN 16 mg/dL (7-25) 02/24/17 23:45 Creatinine 0.5 mg/dL (0.6-1.2) L 02/24/17 23:45 Est GFR ( Amer) > 60.0 ml/min (>90) 02/24/17 23:45 Est GFR (Non-Af Amer) > 60.0 ml/min 02/24/17 23:45 BUN/Creatinine Ratio 32.0 02/24/17 23:45 Glucose 95 mg/dL (70-105) 02/24/17 23:45 Calcium 9.3 mg/dL (8.6-10.3) 02/24/17 23:45 Triglycerides 109 mg/dL (<150) 02/24/17 23:45 Cholesterol 242 mg/dL (<200) H 02/24/17 23:45 LDL Cholesterol Direct 181 mg/dL (75-193) 02/24/17 23:45 HDL Cholesterol 52 mg/dL (23-92) 02/24/17 23:45 TSH 2.67 uIU/ml (0.34-5.60) 02/24/17 23:45 Levetiracetam 33.2 ug/mL (10.0-40.0) 02/24/17 23:45 RPR NONREACTIVE (NONREACTIVE) 02/24/17 23:45 - Physical Exam Vitals and I&O: Vital Signs Temp 98.4 F 03/02/17 06:32 Pulse 70 03/02/17 06:32 Resp 20 03/02/17 06:32 BP 94/52 03/02/17 10:30 Pulse Ox 95 03/02/17 06:32 Intake & Output 03/01/17 03/02/17 03/02/17 18:59 06:59 18:59 Intake Total 950 120 Balance 950 120 Intake: Oral 950 120 Other: # Voids 4 3 # Bowel Movements 1 0 Active Medications: Current Medications Acetaminophen (Tylenol) 325 mg PO Q4HR PRN PRN Reason: Pain (Mild) Stop: 04/26/17 13:45 Last Admin: 02/26/17 18:24 Dose: 325 mg Aripiprazole (Abilify) 2 mg PO DAILY DIA PRN Reason: Protocol Stop: 04/27/17 08:59 Last Admin: 03/02/17 08:49 Dose: 2 mg Bisacodyl (Dulcolax 10 Mg Supp) 10 mg RC DAILY PRN PRN Reason: Constipation Stop: 04/26/17 13:45 Docusate Sodium (Colace) 100 mg PO BID DIA Stop: 04/26/17 16:59 Last Admin: 03/02/17 08:48 Dose: 100 mg Duloxetine HCl (Cymbalta) 60 mg PO DAILY DIA PRN Reason: Protocol Stop: 04/27/17 08:59 Last Admin: 03/02/17 08:48 Dose: 60 mg Furosemide (Lasix) 40 mg PO DAILY DIA Stop: 04/27/17 08:59 Last Admin: 03/02/17 10:30 Dose: Not Given Lacosamide (Vimpat) 100 mg PO BID DIA Stop: 04/26/17 16:59 Last Admin: 03/02/17 08:47 Dose: 100 mg Levetiracetam (Keppra) 1,000 mg PO BID DIA Stop: 04/26/17 16:59 Last Admin: 03/02/17 08:48 Dose: 1,000 mg Levothyroxine Sodium (Synthroid) 0.088 mg PO QDAC DIA Stop: 04/27/17 07:29 Last Admin: 03/02/17 06:37 Dose: 0.088 mg Lorazepam (Ativan) 0.5 mg PO Q4HR PRN; Protocol PRN Reason: Anxiety Stop: 03/27/17 14:44 Magnesium Hydroxide (Milk Of Magnesia) 30 ml PO DAILY PRN PRN Reason: Constipation Stop: 04/26/17 13:45 Phenobarbital (Phenobarbital) 64.8 mg PO DAILY DIA Stop: 04/27/17 08:59 Last Admin: 03/02/17 08:48 Dose: 64.8 mg Polyethylene Glycol (Miralax) 17 gm PO Q48HR DIA Stop: 04/26/17 13:59 Last Admin: 03/01/17 14:00 Dose: Not Given Potassium Chloride (Klor-Con) 10 meq PO DAILY DIA Stop: 04/27/17 08:59 Last Admin: 03/02/17 08:45 Dose: 10 meq Senna (Senna) 8.6 mg PO HS DIA Stop: 04/26/17 20:59 Last Admin: 03/01/17 20:07 Dose: 8.6 mg Sodium Phosphate (Fleet Enema) 135 ml RC Q48HR PRN PRN Reason: Constipation Stop: 04/26/17 13:45 Sorbitol (Sorbitol) 30 ml PO Q48H DIA Stop: 04/26/17 13:59 Last Admin: 03/01/17 16:40 Dose: 30 ml Zolpidem Tartrate (Ambien) 5 mg PO HS PRN PRN Reason: Insomnia Stop: 04/26/17 14:44 Last Admin: 03/01/17 20:41 Dose: 5 mg General: demented HEENT: NC/AT, PERRLA, EOMI Neck: Supple, No thyromegaly, No LAD Lungs: CTAB Cardiovascular: RRR, Normal S1, Normal S2 Abdomen: soft, non-tender, globular Extremities: excoriation Neurological: no change, disorganized - Procedures Procedures: Procedures Procedure Code Date GROUP PSYCHOTHERAPY 56208 10/14/15 GROUP PSYCHOTHERAPY GZHZZZZ 10/14/15 Internal Medicine Assmt/Plan - Assessment Assessment: DEPRESSION CATARACT HYPOTHYROIDISM HYPONATREMIA - Plan Plan: continue current medications psych f/u
[2017-03-03] MEDS: Levothyroxine 0.088 Mg Tab PO SCH (06:38)
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
[2017-03-03] MEDS: Potassium Chloride 10 mEq ER Tab PO SCH (08:42)
--- NOTE | 2017-03-03 11:28 | Internal Medicine Prog Note ---
Internal Medicine Subjective - Subjective Service Date: 03/03/17 Patient is:: awake, verbal, interactive, in wheelchair Per staff patient has:: no adverse event, no episodes of fall, eating well, tolerating meds Internal Medicine Objective - Results Result Diagrams: 02/24/17 23:45 02/24/17 23:45 Recent Labs: Laboratory Last Values WBC 7.1 Th/cmm (4.8-10.8) D 02/24/17 23:45 RBC 4.59 Mil/cmm (3.80-5.10) 02/24/17 23:45 Hgb 13.2 gm/dL (11.7-15.5) 02/24/17 23:45 Hct 39.4 % (35.0-45.0) 02/24/17 23:45 MCV 85.9 fl (81-100) 02/24/17 23:45 MCH 28.8 pg (27.0-31.0) 02/24/17 23:45 MCHC Differential 33.5 pg (28.0-36.0) 02/24/17 23:45 RDW 12.7 % (11.5-20.0) 02/24/17 23:45 Plt Count 304 Th/cmm (150-400) D 02/24/17 23:45 MPV 7.3 fl 02/24/17 23:45 Neutrophils % 52.5 % (40.0-80.0) 02/24/17 23:45 Lymphocytes % 30.3 % (20.0-50.0) 02/24/17 23:45 Monocytes % 8.5 % (2.0-10.0) 02/24/17 23:45 Eosinophils % 6.5 % (0.0-5.0) H 02/24/17 23:45 Basophils % 2.2 % (0.0-2.0) H 02/24/17 23:45 Sodium 132 mEq/L (136-145) L 02/24/17 23:45 Potassium 3.7 mEq/L (3.5-5.1) 02/24/17 23:45 Chloride 100 mEq/L (98-107) 02/24/17 23:45 Carbon Dioxide 27.9 mEq/L (21.0-31.0) 02/24/17 23:45 Anion Gap 7.8 (7.0-16.0) 02/24/17 23:45 BUN 16 mg/dL (7-25) 02/24/17 23:45 Creatinine 0.5 mg/dL (0.6-1.2) L 02/24/17 23:45 Est GFR ( Amer) > 60.0 ml/min (>90) 02/24/17 23:45 Est GFR (Non-Af Amer) > 60.0 ml/min 02/24/17 23:45 BUN/Creatinine Ratio 32.0 02/24/17 23:45 Glucose 95 mg/dL (70-105) 02/24/17 23:45 Calcium 9.3 mg/dL (8.6-10.3) 02/24/17 23:45 Triglycerides 109 mg/dL (<150) 02/24/17 23:45 Cholesterol 242 mg/dL (<200) H 02/24/17 23:45 LDL Cholesterol Direct 181 mg/dL (75-193) 02/24/17 23:45 HDL Cholesterol 52 mg/dL (23-92) 02/24/17 23:45 TSH 2.67 uIU/ml (0.34-5.60) 02/24/17 23:45 Levetiracetam 33.2 ug/mL (10.0-40.0) 02/24/17 23:45 RPR NONREACTIVE (NONREACTIVE) 02/24/17 23:45 - Physical Exam Vitals and I&O: Vital Signs Temp 97.3 F 03/03/17 06:37 Pulse 82 03/03/17 06:37 Resp 18 03/03/17 06:37 BP 95/54 03/03/17 08:40 Pulse Ox 98 03/03/17 06:37 Intake & Output 03/02/17 03/03/17 03/03/17 18:59 06:59 18:59 Intake Total 1200 120 Balance 1200 120 Intake: Oral 1200 120 Other: # Voids 4 3 # Bowel Movements 1 Stool Characteristics Formed Active Medications: Current Medications Acetaminophen (Tylenol) 325 mg PO Q4HR PRN PRN Reason: Pain (Mild) Stop: 04/26/17 13:45 Last Admin: 02/26/17 18:24 Dose: 325 mg Aripiprazole (Abilify) 2 mg PO DAILY DIA PRN Reason: Protocol Stop: 04/27/17 08:59 Last Admin: 03/03/17 08:39 Dose: 2 mg Bisacodyl (Dulcolax 10 Mg Supp) 10 mg RC DAILY PRN PRN Reason: Constipation Stop: 04/26/17 13:45 Docusate Sodium (Colace) 100 mg PO BID DIA Stop: 04/26/17 16:59 Last Admin: 03/03/17 08:39 Dose: 100 mg Duloxetine HCl (Cymbalta) 60 mg PO DAILY DIA PRN Reason: Protocol Stop: 04/27/17 08:59 Last Admin: 03/03/17 08:39 Dose: 60 mg Furosemide (Lasix) 40 mg PO DAILY DIA Stop: 04/27/17 08:59 Last Admin: 03/03/17 08:40 Dose: Not Given Lacosamide (Vimpat) 100 mg PO BID DIA Stop: 04/26/17 16:59 Last Admin: 03/03/17 08:40 Dose: 100 mg Levetiracetam (Keppra) 1,000 mg PO BID DIA Stop: 04/26/17 16:59 Last Admin: 03/03/17 08:41 Dose: 1,000 mg Levothyroxine Sodium (Synthroid) 0.088 mg PO QDAC DIA Stop: 04/27/17 07:29 Last Admin: 03/03/17 06:38 Dose: 0.088 mg Lorazepam (Ativan) 0.5 mg PO Q4HR PRN; Protocol PRN Reason: Anxiety Stop: 03/27/17 14:44 Magnesium Hydroxide (Milk Of Magnesia) 30 ml PO DAILY PRN PRN Reason: Constipation Stop: 04/26/17 13:45 Phenobarbital (Phenobarbital) 64.8 mg PO DAILY DIA Stop: 04/27/17 08:59 Last Admin: 03/03/17 08:41 Dose: 64.8 mg Polyethylene Glycol (Miralax) 17 gm PO Q48HR DIA Stop: 04/26/17 13:59 Last Admin: 03/01/17 14:00 Dose: Not Given Potassium Chloride (Klor-Con) 10 meq PO DAILY DIA Stop: 04/27/17 08:59 Last Admin: 03/03/17 08:42 Dose: Not Given Senna (Senna) 8.6 mg PO HS DIA Stop: 04/26/17 20:59 Last Admin: 03/02/17 20:40 Dose: 8.6 mg Sodium Phosphate (Fleet Enema) 135 ml RC Q48HR PRN PRN Reason: Constipation Stop: 04/26/17 13:45 Sorbitol (Sorbitol) 30 ml PO Q48H DIA Stop: 04/26/17 13:59 Last Admin: 03/01/17 16:40 Dose: 30 ml Zolpidem Tartrate (Ambien) 5 mg PO HS PRN PRN Reason: Insomnia Stop: 04/26/17 14:44 Last Admin: 03/01/17 20:41 Dose: 5 mg General: demented HEENT: NC/AT, PERRLA, EOMI Neck: Supple, No thyromegaly, No LAD Lungs: CTAB Cardiovascular: RRR, Normal S1, Normal S2 Abdomen: soft, non-tender, globular Extremities: excoriation Neurological: no change, disorganized - Procedures Procedures: Procedures Procedure Code Date GROUP PSYCHOTHERAPY 93327 10/14/15 GROUP PSYCHOTHERAPY GZHZZZZ 10/14/15 Internal Medicine Assmt/Plan - Assessment Assessment: DEPRESSION CATARACT HYPOTHYROIDISM HYPONATREMIA - Plan Plan: continue current medications psych f/u Nutritional Asmnt/Malnutr-PDOC - Dietary Evaluation Malnutrition Findings (Please click <Entered> for more info): Nutritional Asmnt/Malnutrition Start: 03/02/17 14: 15 Text: Status: Complete Freq: Document 03/02/17 14:15 GSUN (Rec: 03/02/17 14:35 [email or web address]) Nutritional Asmnt/Malnutrition Patient General Information Nutritional Screening Moderate Risk Screening Diagnosis 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 Spoke to pt in wheelchair in hallway, pt was pleasant. Pt is concerned with fluid rentention in lower extremities, therefore requested for a low sodium diet. Pt prefers sweet n low over sugar. Pt is aware of her lab draws and appeared to be health nutrition concious. UBW 157lb. Avg PO intake 75-100% of meals since adm, meeting nutritional needs. No muscle fat wasting. Current Diet Order/ Nutrition Support LOIS, mech soft chopped, low fat Pertinent Medications Colace, Lasix, MOM, Miralax, Klor-Con, Senna, Fleet Enema Pertinent Labs 02/24: cholesterol 242H Nutritional Hx/Data Height 5 ft 2 in Height (Calculated Centimeters) 157.5 Current Weight (lbs) 157 lb Weight (Calculated Kilograms) 71.2 Weight (Calculated Grams) 21141.0 Usual body Weight (lbs) 157 [place] Body Weight 110 Recent Weight Change No Weight Status Overweight GI Symptoms Food Allergies Yes Cultural/Ethnic/Adventist Belief Pt reported allergies to chocolate, causes pt to cough when consumed. Usual diet at home [facility] SNF: mech soft , LOIS, low fat Skin Integrity/Comment: Benjamin 20. skin intact, redness to face and neck. Current %PO Good (75-100%) Estimated Nutritional Goals Calories/Kcals/Kg IBW 110lb/50kg Kcals Calculated 1250-1500kcal (25-30kcal/kg) Protein Calculated 50g (1g/kg) Fluid: ml 1250-1500ml (1ml/kcal) Nutritional Problem 1. Problem Problem Excessive sodium intake related to Etiology fluid retention aeb Signs/Symptoms: pt requested for low sodium diet to aid in her lower extremities fluid retention Intervention/Recommendation Comments 1. Recommend low sodium, mech soft chopped, low fat diet per pt's request. Avg PO intake is adequate. Expected Outcomes/Goals Expected Outcomes/Goals 1. PO intake continue to emet at least 75% of estimated nutritional needs.
[2017-03-03] MEDS: POLYETHYLENE GLYCOL 3350 17 GM PACK PO SCH (13:41)
[2017-03-04] MEDS: Levothyroxine 0.088 Mg Tab PO SCH (06:35)
[2017-03-04 07:29] LABS: ANION GAP 8.7 (7.0-16.0); BUN - UREA NITROGEN 10 mg/dL (7-25); BUN/CREATININE RATIO 16.7; CALCIUM SERUM 9.7 mg/dL (8.6-10.3); CARBON DIOXIDE 28.7 mEq/L (21.0-31.0); CHLORIDE 103 mEq/L (98-107); CREATININE - SERUM 0.6 mg/dL (0.6-1.2); GLUCOSE 87 mg/dL (70-105); POTASSIUM SERUM 5.4 mEq/L (3.5-5.1); SODIUM SERUM 135 mEq/L (136-145)
--- NOTE | 2017-03-04 12:00 | Internal Medicine Prog Note ---
Internal Medicine Subjective - Subjective Service Date: 03/04/17 Patient is:: awake, verbal, interactive, in wheelchair Per staff patient has:: no adverse event, no episodes of fall, eating well, tolerating meds Internal Medicine Objective - Results Result Diagrams: 02/24/17 23:45 03/04/17 06:36 Recent Labs: Laboratory Last Values WBC 7.1 Th/cmm (4.8-10.8) D 02/24/17 23:45 RBC 4.59 Mil/cmm (3.80-5.10) 02/24/17 23:45 Hgb 13.2 gm/dL (11.7-15.5) 02/24/17 23:45 Hct 39.4 % (35.0-45.0) 02/24/17 23:45 MCV 85.9 fl (81-100) 02/24/17 23:45 MCH 28.8 pg (27.0-31.0) 02/24/17 23:45 MCHC Differential 33.5 pg (28.0-36.0) 02/24/17 23:45 RDW 12.7 % (11.5-20.0) 02/24/17 23:45 Plt Count 304 Th/cmm (150-400) D 02/24/17 23:45 MPV 7.3 fl 02/24/17 23:45 Neutrophils % 52.5 % (40.0-80.0) 02/24/17 23:45 Lymphocytes % 30.3 % (20.0-50.0) 02/24/17 23:45 Monocytes % 8.5 % (2.0-10.0) 02/24/17 23:45 Eosinophils % 6.5 % (0.0-5.0) H 02/24/17 23:45 Basophils % 2.2 % (0.0-2.0) H 02/24/17 23:45 Sodium 135 mEq/L (136-145) L 03/04/17 06:36 Potassium 5.4 mEq/L (3.5-5.1) H 03/04/17 06:36 Chloride 103 mEq/L (98-107) 03/04/17 06:36 Carbon Dioxide 28.7 mEq/L (21.0-31.0) 03/04/17 06:36 Anion Gap 8.7 (7.0-16.0) 03/04/17 06:36 BUN 10 mg/dL (7-25) 03/04/17 06:36 Creatinine 0.6 mg/dL (0.6-1.2) 03/04/17 06:36 Est GFR ( Amer) > 60.0 ml/min (>90) 03/04/17 06:36 Est GFR (Non-Af Amer) > 60.0 ml/min 03/04/17 06:36 BUN/Creatinine Ratio 16.7 03/04/17 06:36 Glucose 87 mg/dL (70-105) 03/04/17 06:36 Calcium 9.7 mg/dL (8.6-10.3) 03/04/17 06:36 Triglycerides 109 mg/dL (<150) 02/24/17 23:45 Cholesterol 242 mg/dL (<200) H 02/24/17 23:45 LDL Cholesterol Direct 181 mg/dL (75-193) 02/24/17 23:45 HDL Cholesterol 52 mg/dL (23-92) 02/24/17 23:45 TSH 2.67 uIU/ml (0.34-5.60) 02/24/17 23:45 Levetiracetam 33.2 ug/mL (10.0-40.0) 02/24/17 23:45 RPR NONREACTIVE (NONREACTIVE) 02/24/17 23:45 - Physical Exam Vitals and I&O: Vital Signs Temp 97.1 F 03/04/17 06:37 Pulse 86 03/04/17 06:37 Resp 20 03/04/17 06:37 BP 124/79 03/04/17 09:38 Pulse Ox 98 03/04/17 06:37 Intake & Output 03/03/17 03/04/17 03/04/17 18:59 06:59 18:59 Intake Total 1000 120 Balance 1000 120 Intake: Oral 1000 120 Other: # Voids 4 3 # Bowel Movements 1 Active Medications: Current Medications Acetaminophen (Tylenol) 325 mg PO Q4HR PRN PRN Reason: Pain (Mild) Stop: 04/26/17 13:45 Last Admin: 02/26/17 18:24 Dose: 325 mg Aripiprazole (Abilify) 2 mg PO DAILY DIA PRN Reason: Protocol Stop: 04/27/17 08:59 Last Admin: 03/04/17 09:39 Dose: 2 mg Bisacodyl (Dulcolax 10 Mg Supp) 10 mg RC DAILY PRN PRN Reason: Constipation Stop: 04/26/17 13:45 Docusate Sodium (Colace) 100 mg PO BID DIA Stop: 04/26/17 16:59 Last Admin: 03/04/17 09:39 Dose: 100 mg Duloxetine HCl (Cymbalta) 60 mg PO DAILY DIA PRN Reason: Protocol Stop: 04/27/17 08:59 Last Admin: 03/04/17 09:39 Dose: 60 mg Furosemide (Lasix) 40 mg PO DAILY DIA Stop: 04/27/17 08:59 Last Admin: 03/04/17 09:38 Dose: 40 mg Lacosamide (Vimpat) 100 mg PO BID DIA Stop: 04/26/17 16:59 Last Admin: 03/04/17 09:38 Dose: 100 mg Levetiracetam (Keppra) 1,000 mg PO BID DIA Stop: 04/26/17 16:59 Last Admin: 03/04/17 09:38 Dose: 1,000 mg Levothyroxine Sodium (Synthroid) 0.088 mg PO QDAC DIA Stop: 04/27/17 07:29 Last Admin: 03/04/17 06:35 Dose: 0.088 mg Lorazepam (Ativan) 0.5 mg PO Q4HR PRN; Protocol PRN Reason: Anxiety Stop: 03/27/17 14:44 Magnesium Hydroxide (Milk Of Magnesia) 30 ml PO DAILY PRN PRN Reason: Constipation Stop: 04/26/17 13:45 Phenobarbital (Phenobarbital) 64.8 mg PO DAILY DIA Stop: 04/27/17 08:59 Last Admin: 03/04/17 09:37 Dose: 64.8 mg Polyethylene Glycol (Miralax) 17 gm PO Q48HR DIA Stop: 04/26/17 13:59 Last Admin: 03/03/17 13:41 Dose: 17 gm Senna (Senna) 8.6 mg PO HS DIA Stop: 04/26/17 20:59 Last Admin: 03/03/17 20:14 Dose: 8.6 mg Sodium Phosphate (Fleet Enema) 135 ml RC Q48HR PRN PRN Reason: Constipation Stop: 04/26/17 13:45 Sorbitol (Sorbitol) 30 ml PO Q48H DIA Stop: 04/26/17 13:59 Last Admin: 03/03/17 13:42 Dose: 30 ml Zolpidem Tartrate (Ambien) 5 mg PO HS PRN PRN Reason: Insomnia Stop: 04/26/17 14:44 Last Admin: 03/03/17 20:49 Dose: 5 mg General: demented HEENT: NC/AT, PERRLA, EOMI Neck: Supple, No thyromegaly, No LAD Lungs: CTAB Cardiovascular: RRR, Normal S1, Normal S2 Abdomen: soft, non-tender, globular Extremities: excoriation Neurological: no change, disorganized - Procedures Procedures: Procedures Procedure Code Date GROUP PSYCHOTHERAPY 43695 10/14/15 GROUP PSYCHOTHERAPY GZHZZZZ 10/14/15 Internal Medicine Assmt/Plan - Assessment Assessment: DEPRESSION CATARACT HYPOTHYROIDISM HYPONATREMIA - Plan Plan: continue current medications psych f/u Nutritional Asmnt/Malnutr-PDOC - Dietary Evaluation Malnutrition Findings (Please click <Entered> for more info): Nutritional Asmnt/Malnutrition Start: 03/02/17 14: 15 Text: Status: Complete Freq: Document 03/02/17 14:15 GSUN (Rec: 03/02/17 14:35 [email or web address]) Nutritional Asmnt/Malnutrition Patient General Information Nutritional Screening Moderate Risk Screening Diagnosis 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 Spoke to pt in wheelchair in hallway, pt was pleasant. Pt is concerned with fluid rentention in lower extremities, therefore requested for a low sodium diet. Pt prefers sweet n low over sugar. Pt is aware of her lab draws and appeared to be health nutrition concious. UBW 157lb. Avg PO intake 75-100% of meals since adm, meeting nutritional needs. No muscle fat wasting. Current Diet Order/ Nutrition Support LOIS, mech soft chopped, low fat Pertinent Medications Colace, Lasix, MOM, Miralax, Klor-Con, Senna, Fleet Enema Pertinent Labs 02/24: cholesterol 242H Nutritional Hx/Data Height 5 ft 2 in Height (Calculated Centimeters) 157.5 Current Weight (lbs) 157 lb Weight (Calculated Kilograms) 71.2 Weight (Calculated Grams) 16960.0 Usual body Weight (lbs) 157 [place] Body Weight 110 Recent Weight Change No Weight Status Overweight GI Symptoms Food Allergies Yes Cultural/Ethnic/Jain Belief Pt reported allergies to chocolate, causes pt to cough when consumed. Usual diet at home [facility] SNF: mech soft , LOIS, low fat Skin Integrity/Comment: Benjamin 20. skin intact, redness to face and neck. Current %PO Good (75-100%) Estimated Nutritional Goals Calories/Kcals/Kg IBW 110lb/50kg Kcals Calculated 1250-1500kcal (25-30kcal/kg) Protein Calculated 50g (1g/kg) Fluid: ml 1250-1500ml (1ml/kcal) Nutritional Problem 1. Problem Problem Excessive sodium intake related to Etiology fluid retention aeb Signs/Symptoms: pt requested for low sodium diet to aid in her lower extremities fluid retention Intervention/Recommendation Comments 1. Recommend low sodium, mech soft chopped, low fat diet per pt's request. Avg PO intake is adequate. Expected Outcomes/Goals Expected Outcomes/Goals 1. PO intake continue to emet at least 75% of estimated nutritional needs.
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
[2017-03-05] MEDS: Levothyroxine 0.088 Mg Tab PO SCH (06:40)
[2017-03-05 06:56] LABS: ANION GAP 7.9 (7.0-16.0); BUN - UREA NITROGEN 15 mg/dL (7-25); CALCIUM SERUM 9.5 mg/dL (8.6-10.3); CARBON DIOXIDE 34.7 mEq/L (21.0-31.0); CHLORIDE 101 mEq/L (98-107); CREATININE - SERUM 0.6 mg/dL (0.6-1.2); GLUCOSE 94 mg/dL (70-105); POTASSIUM SERUM 4.6 mEq/L (3.5-5.1); SODIUM SERUM 139 mEq/L (136-145)
--- NOTE | 2017-03-05 15:14 | Internal Medicine Prog Note ---
Internal Medicine Subjective - Subjective Service Date: 03/05/17 (k+ is much improved today) Patient is:: awake, verbal, interactive, in wheelchair Per staff patient has:: no adverse event, no episodes of fall, eating well, tolerating meds Internal Medicine Objective - Results Result Diagrams: 02/24/17 23:45 03/05/17 06:26 Recent Labs: Laboratory Last Values WBC 7.1 Th/cmm (4.8-10.8) D 02/24/17 23:45 RBC 4.59 Mil/cmm (3.80-5.10) 02/24/17 23:45 Hgb 13.2 gm/dL (11.7-15.5) 02/24/17 23:45 Hct 39.4 % (35.0-45.0) 02/24/17 23:45 MCV 85.9 fl (81-100) 02/24/17 23:45 MCH 28.8 pg (27.0-31.0) 02/24/17 23:45 MCHC Differential 33.5 pg (28.0-36.0) 02/24/17 23:45 RDW 12.7 % (11.5-20.0) 02/24/17 23:45 Plt Count 304 Th/cmm (150-400) D 02/24/17 23:45 MPV 7.3 fl 02/24/17 23:45 Neutrophils % 52.5 % (40.0-80.0) 02/24/17 23:45 Lymphocytes % 30.3 % (20.0-50.0) 02/24/17 23:45 Monocytes % 8.5 % (2.0-10.0) 02/24/17 23:45 Eosinophils % 6.5 % (0.0-5.0) H 02/24/17 23:45 Basophils % 2.2 % (0.0-2.0) H 02/24/17 23:45 Sodium 139 mEq/L (136-145) 03/05/17 06:26 Potassium 4.6 mEq/L (3.5-5.1) 03/05/17 06:26 Chloride 101 mEq/L (98-107) 03/05/17 06:26 Carbon Dioxide 34.7 mEq/L (21.0-31.0) H 03/05/17 06:26 Anion Gap 7.9 (7.0-16.0) 03/05/17 06:26 BUN 15 mg/dL (7-25) 03/05/17 06:26 Creatinine 0.6 mg/dL (0.6-1.2) 03/05/17 06:26 Est GFR ( Amer) > 60.0 ml/min (>90) 03/05/17 06:26 Est GFR (Non-Af Amer) > 60.0 ml/min 03/05/17 06:26 BUN/Creatinine Ratio 25.0 03/05/17 06:26 Glucose 94 mg/dL (70-105) 03/05/17 06:26 Calcium 9.5 mg/dL (8.6-10.3) 03/05/17 06:26 Triglycerides 109 mg/dL (<150) 02/24/17 23:45 Cholesterol 242 mg/dL (<200) H 02/24/17 23:45 LDL Cholesterol Direct 181 mg/dL (75-193) 02/24/17 23:45 HDL Cholesterol 52 mg/dL (23-92) 02/24/17 23:45 TSH 2.67 uIU/ml (0.34-5.60) 02/24/17 23:45 Levetiracetam 33.2 ug/mL (10.0-40.0) 02/24/17 23:45 RPR NONREACTIVE (NONREACTIVE) 02/24/17 23:45 - Physical Exam Vitals and I&O: Vital Signs Temp 97.2 F 03/05/17 05:55 Pulse 78 03/05/17 05:55 Resp 18 03/05/17 05:55 BP 106/69 03/05/17 09:58 Pulse Ox 98 03/05/17 05:55 Intake & Output 03/04/17 03/05/17 03/05/17 18:59 06:59 18:59 Intake Total 1200 360 Balance 1200 360 Intake: Oral 1200 360 Other: # Voids 4 2 # Bowel Movements 1 Active Medications: Current Medications Acetaminophen (Tylenol) 325 mg PO Q4HR PRN PRN Reason: Pain (Mild) Stop: 04/26/17 13:45 Last Admin: 02/26/17 18:24 Dose: 325 mg Aripiprazole (Abilify) 2 mg PO DAILY DIA PRN Reason: Protocol Stop: 04/27/17 08:59 Last Admin: 03/05/17 09:58 Dose: 2 mg Bisacodyl (Dulcolax 10 Mg Supp) 10 mg RC DAILY PRN PRN Reason: Constipation Stop: 04/26/17 13:45 Docusate Sodium (Colace) 100 mg PO BID DIA Stop: 04/26/17 16:59 Last Admin: 03/05/17 09:59 Dose: 100 mg Duloxetine HCl (Cymbalta) 60 mg PO DAILY DIA PRN Reason: Protocol Stop: 04/27/17 08:59 Last Admin: 03/05/17 09:58 Dose: 60 mg Furosemide (Lasix) 40 mg PO DAILY DIA Stop: 04/27/17 08:59 Last Admin: 03/05/17 09:58 Dose: 40 mg Lacosamide (Vimpat) 100 mg PO BID DIA Stop: 04/26/17 16:59 Last Admin: 03/05/17 09:57 Dose: 100 mg Levetiracetam (Keppra) 1,000 mg PO BID DIA Stop: 04/26/17 16:59 Last Admin: 03/05/17 09:58 Dose: 1,000 mg Levothyroxine Sodium (Synthroid) 0.088 mg PO QDAC DIA Stop: 04/27/17 07:29 Last Admin: 03/05/17 06:40 Dose: 0.088 mg Lorazepam (Ativan) 0.5 mg PO Q4HR PRN; Protocol PRN Reason: Anxiety Stop: 03/27/17 14:44 Magnesium Hydroxide (Milk Of Magnesia) 30 ml PO DAILY PRN PRN Reason: Constipation Stop: 04/26/17 13:45 Phenobarbital (Phenobarbital) 64.8 mg PO DAILY DIA Stop: 04/27/17 08:59 Last Admin: 03/05/17 09:58 Dose: 64.8 mg Polyethylene Glycol (Miralax) 17 gm PO Q48HR DIA Stop: 04/26/17 13:59 Last Admin: 03/03/17 13:41 Dose: 17 gm Senna (Senna) 8.6 mg PO HS DIA Stop: 04/26/17 20:59 Last Admin: 03/04/17 21:41 Dose: 8.6 mg Sodium Phosphate (Fleet Enema) 135 ml RC Q48HR PRN PRN Reason: Constipation Stop: 04/26/17 13:45 Sorbitol (Sorbitol) 30 ml PO Q48H DIA Stop: 04/26/17 13:59 Last Admin: 03/03/17 13:42 Dose: 30 ml Zolpidem Tartrate (Ambien) 5 mg PO HS PRN PRN Reason: Insomnia Stop: 04/26/17 14:44 Last Admin: 03/04/17 21:41 Dose: 5 mg General: demented HEENT: NC/AT, PERRLA, EOMI Neck: Supple, No thyromegaly, No LAD Lungs: CTAB Cardiovascular: RRR, Normal S1, Normal S2 Abdomen: soft, non-tender, globular Extremities: excoriation Neurological: no change, disorganized - Procedures Procedures: Procedures Procedure Code Date GROUP PSYCHOTHERAPY 39930 10/14/15 GROUP PSYCHOTHERAPY GZHZZZZ 10/14/15 Internal Medicine Assmt/Plan - Assessment Assessment: DEPRESSION CATARACT HYPOTHYROIDISM HYPONATREMIA - Plan Plan: continue current medications psych f/u Nutritional Asmnt/Malnutr-PDOC - Dietary Evaluation Malnutrition Findings (Please click <Entered> for more info): Nutritional Asmnt/Malnutrition Start: 03/02/17 14: 15 Text: Status: Complete Freq: Document 03/02/17 14:15 GSUN (Rec: 03/02/17 14:35 [email or web address]) Nutritional Asmnt/Malnutrition Patient General Information Nutritional Screening Moderate Risk Screening Diagnosis 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 Spoke to pt in wheelchair in hallway, pt was pleasant. Pt is concerned with fluid rentention in lower extremities, therefore requested for a low sodium diet. Pt prefers sweet n low over sugar. Pt is aware of her lab draws and appeared to be health nutrition concious. UBW 157lb. Avg PO intake 75-100% of meals since adm, meeting nutritional needs. No muscle fat wasting. Current Diet Order/ Nutrition Support LOIS, mech soft chopped, low fat Pertinent Medications Colace, Lasix, MOM, Miralax, Klor-Con, Senna, Fleet Enema Pertinent Labs 02/24: cholesterol 242H Nutritional Hx/Data Height 5 ft 2 in Height (Calculated Centimeters) 157.5 Current Weight (lbs) 157 lb Weight (Calculated Kilograms) 71.2 Weight (Calculated Grams) 30785.0 Usual body Weight (lbs) 157 [place] Body Weight 110 Recent Weight Change No Weight Status Overweight GI Symptoms Food Allergies Yes Cultural/Ethnic/Holiness Belief Pt reported allergies to chocolate, causes pt to cough when consumed. Usual diet at home [facility] SNF: mech soft , LOIS, low fat Skin Integrity/Comment: Benjamin Alves. skin intact, redness to face and neck. Current %PO Good (75-100%) Estimated Nutritional Goals Calories/Kcals/Kg IBW 110lb/50kg Kcals Calculated 1250-1500kcal (25-30kcal/kg) Protein Calculated 50g (1g/kg) Fluid: ml 1250-1500ml (1ml/kcal) Nutritional Problem 1. Problem Problem Excessive sodium intake related to Etiology fluid retention aeb Signs/Symptoms: pt requested for low sodium diet to aid in her lower extremities fluid retention Intervention/Recommendation Comments 1. Recommend low sodium, mech soft chopped, low fat diet per pt's request. Avg PO intake is adequate. Expected Outcomes/Goals Expected Outcomes/Goals 1. PO intake continue to emet at least 75% of estimated nutritional needs.
[2017-03-05] MEDS: POLYETHYLENE GLYCOL 3350 17 GM PACK PO SCH (17:34)
--- NOTE | 2017-03-05 21:23 | Progress Notes ---
DATE: 03/04/2017 SUBJECTIVE: Chart reviewed and the patient interviewed. Also discussed the patient's condition with the staff and reviewed records and labs. The patient continued to be severely depressed and she is still feeling hopeless and helpless. The patient also is still withdrawn and her interaction with others is minimum. The patient also is still having intermittent thoughts of suicide and at times wants to be left alone. Otherwise, the patient is more visible and getting out of her isolation more. ASSESSMENT: The patient is still depressed and high risk suicide. TREATMENT PLAN: We will continue monitoring her behavior and her condition closely. Also, continue to work on her ineffective coping and continue adjusting the dose of Lexapro. JOB# [id number]
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
[2017-03-06] MEDS: Levothyroxine 0.088 Mg Tab PO SCH (06:40)
[2017-03-06] MEDS: Magnesium Hydroxide (MOM) 30 mL UDC PO PRN (13:14)
--- NOTE | 2017-03-06 15:00 | Internal Medicine Prog Note ---
Internal Medicine Subjective - Subjective Service Date: 03/06/17 Patient is:: awake, verbal, interactive, in wheelchair Per staff patient has:: no adverse event, no episodes of fall, eating well, tolerating meds Internal Medicine Objective - Results Result Diagrams: 02/24/17 23:45 03/05/17 06:26 Recent Labs: Laboratory Last Values WBC 7.1 Th/cmm (4.8-10.8) D 02/24/17 23:45 RBC 4.59 Mil/cmm (3.80-5.10) 02/24/17 23:45 Hgb 13.2 gm/dL (11.7-15.5) 02/24/17 23:45 Hct 39.4 % (35.0-45.0) 02/24/17 23:45 MCV 85.9 fl (81-100) 02/24/17 23:45 MCH 28.8 pg (27.0-31.0) 02/24/17 23:45 MCHC Differential 33.5 pg (28.0-36.0) 02/24/17 23:45 RDW 12.7 % (11.5-20.0) 02/24/17 23:45 Plt Count 304 Th/cmm (150-400) D 02/24/17 23:45 MPV 7.3 fl 02/24/17 23:45 Neutrophils % 52.5 % (40.0-80.0) 02/24/17 23:45 Lymphocytes % 30.3 % (20.0-50.0) 02/24/17 23:45 Monocytes % 8.5 % (2.0-10.0) 02/24/17 23:45 Eosinophils % 6.5 % (0.0-5.0) H 02/24/17 23:45 Basophils % 2.2 % (0.0-2.0) H 02/24/17 23:45 Sodium 139 mEq/L (136-145) 03/05/17 06:26 Potassium 4.6 mEq/L (3.5-5.1) 03/05/17 06:26 Chloride 101 mEq/L (98-107) 03/05/17 06:26 Carbon Dioxide 34.7 mEq/L (21.0-31.0) H 03/05/17 06:26 Anion Gap 7.9 (7.0-16.0) 03/05/17 06:26 BUN 15 mg/dL (7-25) 03/05/17 06:26 Creatinine 0.6 mg/dL (0.6-1.2) 03/05/17 06:26 Est GFR ( Amer) > 60.0 ml/min (>90) 03/05/17 06:26 Est GFR (Non-Af Amer) > 60.0 ml/min 03/05/17 06:26 BUN/Creatinine Ratio 25.0 03/05/17 06:26 Glucose 94 mg/dL (70-105) 03/05/17 06:26 Calcium 9.5 mg/dL (8.6-10.3) 03/05/17 06:26 Triglycerides 109 mg/dL (<150) 02/24/17 23:45 Cholesterol 242 mg/dL (<200) H 02/24/17 23:45 LDL Cholesterol Direct 181 mg/dL (75-193) 02/24/17 23:45 HDL Cholesterol 52 mg/dL (23-92) 02/24/17 23:45 TSH 2.67 uIU/ml (0.34-5.60) 02/24/17 23:45 Levetiracetam 33.2 ug/mL (10.0-40.0) 02/24/17 23:45 RPR NONREACTIVE (NONREACTIVE) 02/24/17 23:45 - Physical Exam Vitals and I&O: Vital Signs Temp 97.9 F 03/06/17 06:48 Pulse 83 03/06/17 06:48 Resp 19 03/06/17 06:48 BP 84/62 03/06/17 09:04 Pulse Ox 98 03/06/17 06:48 Intake & Output 03/05/17 03/06/17 03/06/17 18:59 06:59 18:59 Intake Total 900 480 Balance 900 480 Intake: Oral 900 480 Other: # Voids 3 1 # Bowel Movements 1 Active Medications: Current Medications Acetaminophen (Tylenol) 325 mg PO Q4HR PRN PRN Reason: Pain (Mild) Stop: 04/26/17 13:45 Last Admin: 02/26/17 18:24 Dose: 325 mg Aripiprazole (Abilify) 2 mg PO DAILY DIA PRN Reason: Protocol Stop: 04/27/17 08:59 Last Admin: 03/06/17 08:10 Dose: 2 mg Bisacodyl (Dulcolax 10 Mg Supp) 10 mg RC DAILY PRN PRN Reason: Constipation Stop: 04/26/17 13:45 Docusate Sodium (Colace) 100 mg PO BID DIA Stop: 04/26/17 16:59 Last Admin: 03/06/17 08:07 Dose: 100 mg Duloxetine HCl (Cymbalta) 60 mg PO DAILY DIA PRN Reason: Protocol Stop: 04/27/17 08:59 Last Admin: 03/06/17 08:12 Dose: 60 mg Furosemide (Lasix) 40 mg PO DAILY DIA Stop: 04/27/17 08:59 Last Admin: 03/06/17 09:04 Dose: Not Given Lacosamide (Vimpat) 100 mg PO BID DIA Stop: 04/26/17 16:59 Last Admin: 03/06/17 08:07 Dose: 100 mg Levetiracetam (Keppra) 1,000 mg PO BID DIA Stop: 04/26/17 16:59 Last Admin: 03/06/17 08:09 Dose: 1,000 mg Levothyroxine Sodium (Synthroid) 0.088 mg PO QDAC DIA Stop: 04/27/17 07:29 Last Admin: 03/06/17 06:40 Dose: 0.088 mg Lorazepam (Ativan) 0.5 mg PO Q4HR PRN; Protocol PRN Reason: Anxiety Stop: 03/27/17 14:44 Magnesium Hydroxide (Milk Of Magnesia) 30 ml PO DAILY PRN PRN Reason: Constipation Stop: 04/26/17 13:45 Last Admin: 03/06/17 13:14 Dose: 30 ml Phenobarbital (Phenobarbital) 64.8 mg PO DAILY DIA Stop: 04/27/17 08:59 Last Admin: 03/06/17 08:10 Dose: 64.8 mg Polyethylene Glycol (Miralax) 17 gm PO Q48HR DIA Stop: 04/26/17 13:59 Last Admin: 03/05/17 17:34 Dose: Not Given Senna (Senna) 8.6 mg PO HS DIA Stop: 04/26/17 20:59 Last Admin: 03/05/17 21:23 Dose: 8.6 mg Sodium Phosphate (Fleet Enema) 135 ml RC Q48HR PRN PRN Reason: Constipation Stop: 04/26/17 13:45 Sorbitol (Sorbitol) 30 ml PO Q48H DIA Stop: 04/26/17 13:59 Last Admin: 03/05/17 17:34 Dose: Not Given Zolpidem Tartrate (Ambien) 5 mg PO HS PRN PRN Reason: Insomnia Stop: 04/26/17 14:44 Last Admin: 03/05/17 21:23 Dose: 5 mg General: demented HEENT: NC/AT, PERRLA, EOMI Neck: Supple, No thyromegaly, No LAD Lungs: CTAB Cardiovascular: RRR, Normal S1, Normal S2 Abdomen: soft, non-tender, globular Extremities: excoriation Neurological: no change, disorganized - Procedures Procedures: Procedures Procedure Code Date GROUP PSYCHOTHERAPY 67005 10/14/15 GROUP PSYCHOTHERAPY GZHZZZZ 10/14/15 Internal Medicine Assmt/Plan - Assessment Assessment: DEPRESSION CATARACT HYPOTHYROIDISM HYPONATREMIA - Plan Plan: continue current medications psych f/u Nutritional Asmnt/Malnutr-PDOC - Dietary Evaluation Malnutrition Findings (Please click <Entered> for more info): Nutritional Asmnt/Malnutrition Start: 03/02/17 14: 15 Text: Status: Complete Freq: Document 03/02/17 14:15 GSUN (Rec: 03/02/17 14:35 [email or web address] [email or web address]) Nutritional Asmnt/Malnutrition Patient General Information Nutritional Screening Moderate Risk Screening Diagnosis 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 Spoke to pt in wheelchair in hallway, pt was pleasant. Pt is concerned with fluid rentention in lower extremities, therefore requested for a low sodium diet. Pt prefers sweet n low over sugar. Pt is aware of her lab draws and appeared to be health nutrition concious. UBW 157lb. Avg PO intake 75-100% of meals since adm, meeting nutritional needs. No muscle fat wasting. Current Diet Order/ Nutrition Support LOIS, mech soft chopped, low fat Pertinent Medications Colace, Lasix, MOM, Miralax, Klor-Con, Senna, Fleet Enema Pertinent Labs 02/24: cholesterol 242H Nutritional Hx/Data Height 5 ft 2 in Height (Calculated Centimeters) 157.5 Current Weight (lbs) 157 lb Weight (Calculated Kilograms) 71.2 Weight (Calculated Grams) 39383.0 Usual body Weight (lbs) 157 [place] Body Weight 110 Recent Weight Change No Weight Status Overweight GI Symptoms Food Allergies Yes Cultural/Ethnic/Tenriism Belief Pt reported allergies to chocolate, causes pt to cough when consumed. Usual diet at home [facility] SNF: mech soft , LOIS, low fat Skin Integrity/Comment: Benjamin Alves. skin intact, redness to face and neck. Current %PO Good (75-100%) Estimated Nutritional Goals Calories/Kcals/Kg IBW 110lb/50kg Kcals Calculated 1250-1500kcal (25-30kcal/kg) Protein Calculated 50g (1g/kg) Fluid: ml 1250-1500ml (1ml/kcal) Nutritional Problem 1. Problem Problem Excessive sodium intake related to Etiology fluid retention aeb Signs/Symptoms: pt requested for low sodium diet to aid in her lower extremities fluid retention Intervention/Recommendation Comments 1. Recommend low sodium, mech soft chopped, low fat diet per pt's request. Avg PO intake is adequate. Expected Outcomes/Goals Expected Outcomes/Goals 1. PO intake continue to emet at least 75% of estimated nutritional needs.
--- NOTE | 2017-03-06 20:31 | Progress Notes ---
DATE: 03/06/2017 SUBJECTIVE: Chart reviewed and the patient interviewed. Also discussed the patient's condition with the staff and reviewed records and labs. The patient is still severely depressed. The patient also is still withdrawn and is still guarded. The patient also is still having thoughts of hurting himself, but less than before and she still had guilty feeling about hurting herself and hitting herself on the face. The patient still has poor eye contact with low tone and rate of speech. The patient also still has bruise in her face from hitting herself. She also is still interacting minimally. ASSESSMENT: The patient is still depressed and can be high risk danger to self. TREATMENT PLAN: Continue to monitor her behavior and her condition closely. Also, continue monitoring psychotropic medications and we will continue to follow up. [facility]# [id number]
[2017-03-07] MEDS: Levothyroxine 0.088 Mg Tab PO SCH (06:34)
--- NOTE | 2017-03-07 13:45 | Internal Medicine Prog Note ---
Internal Medicine Subjective - Subjective Service Date: 03/07/17 Patient is:: awake, verbal, interactive, in wheelchair Per staff patient has:: no adverse event, no episodes of fall, eating well, tolerating meds Internal Medicine Objective - Results Result Diagrams: 02/24/17 23:45 03/05/17 06:26 Recent Labs: Laboratory Last Values WBC 7.1 Th/cmm (4.8-10.8) D 02/24/17 23:45 RBC 4.59 Mil/cmm (3.80-5.10) 02/24/17 23:45 Hgb 13.2 gm/dL (11.7-15.5) 02/24/17 23:45 Hct 39.4 % (35.0-45.0) 02/24/17 23:45 MCV 85.9 fl (81-100) 02/24/17 23:45 MCH 28.8 pg (27.0-31.0) 02/24/17 23:45 MCHC Differential 33.5 pg (28.0-36.0) 02/24/17 23:45 RDW 12.7 % (11.5-20.0) 02/24/17 23:45 Plt Count 304 Th/cmm (150-400) D 02/24/17 23:45 MPV 7.3 fl 02/24/17 23:45 Neutrophils % 52.5 % (40.0-80.0) 02/24/17 23:45 Lymphocytes % 30.3 % (20.0-50.0) 02/24/17 23:45 Monocytes % 8.5 % (2.0-10.0) 02/24/17 23:45 Eosinophils % 6.5 % (0.0-5.0) H 02/24/17 23:45 Basophils % 2.2 % (0.0-2.0) H 02/24/17 23:45 Sodium 139 mEq/L (136-145) 03/05/17 06:26 Potassium 4.6 mEq/L (3.5-5.1) 03/05/17 06:26 Chloride 101 mEq/L (98-107) 03/05/17 06:26 Carbon Dioxide 34.7 mEq/L (21.0-31.0) H 03/05/17 06:26 Anion Gap 7.9 (7.0-16.0) 03/05/17 06:26 BUN 15 mg/dL (7-25) 03/05/17 06:26 Creatinine 0.6 mg/dL (0.6-1.2) 03/05/17 06:26 Est GFR ( Amer) > 60.0 ml/min (>90) 03/05/17 06:26 Est GFR (Non-Af Amer) > 60.0 ml/min 03/05/17 06:26 BUN/Creatinine Ratio 25.0 03/05/17 06:26 Glucose 94 mg/dL (70-105) 03/05/17 06:26 Calcium 9.5 mg/dL (8.6-10.3) 03/05/17 06:26 Triglycerides 109 mg/dL (<150) 02/24/17 23:45 Cholesterol 242 mg/dL (<200) H 02/24/17 23:45 LDL Cholesterol Direct 181 mg/dL (75-193) 02/24/17 23:45 HDL Cholesterol 52 mg/dL (23-92) 02/24/17 23:45 TSH 2.67 uIU/ml (0.34-5.60) 02/24/17 23:45 Levetiracetam 33.2 ug/mL (10.0-40.0) 02/24/17 23:45 RPR NONREACTIVE (NONREACTIVE) 02/24/17 23:45 - Physical Exam Vitals and I&O: Vital Signs Temp 98.3 F 03/07/17 06:17 Pulse 77 03/07/17 06:17 Resp 20 03/07/17 06:17 BP 98/55 03/07/17 08:32 Pulse Ox 96 03/07/17 06:17 Intake & Output 03/06/17 03/07/17 03/07/17 18:59 06:59 18:59 Intake Total 1000 360 Balance 1000 360 Intake: Oral 1000 360 Other: # Voids 3 1 # Bowel Movements 1 0 Active Medications: Current Medications Acetaminophen (Tylenol) 325 mg PO Q4HR PRN PRN Reason: Pain (Mild) Stop: 04/26/17 13:45 Last Admin: 02/26/17 18:24 Dose: 325 mg Aripiprazole (Abilify) 2 mg PO DAILY DIA PRN Reason: Protocol Stop: 04/27/17 08:59 Last Admin: 03/07/17 08:31 Dose: 2 mg Bisacodyl (Dulcolax 10 Mg Supp) 10 mg RC DAILY PRN PRN Reason: Constipation Stop: 04/26/17 13:45 Docusate Sodium (Colace) 100 mg PO BID DIA Stop: 04/26/17 16:59 Last Admin: 03/07/17 08:30 Dose: 100 mg Duloxetine HCl (Cymbalta) 60 mg PO DAILY DIA PRN Reason: Protocol Stop: 04/27/17 08:59 Last Admin: 03/07/17 08:30 Dose: 60 mg Furosemide (Lasix) 40 mg PO DAILY DIA Stop: 04/27/17 08:59 Last Admin: 03/07/17 08:32 Dose: Not Given Lacosamide (Vimpat) 100 mg PO BID DIA Stop: 04/26/17 16:59 Last Admin: 03/07/17 08:31 Dose: 100 mg Levetiracetam (Keppra) 1,000 mg PO BID DIA Stop: 04/26/17 16:59 Last Admin: 03/07/17 08:31 Dose: 1,000 mg Levothyroxine Sodium (Synthroid) 0.088 mg PO QDAC DIA Stop: 04/27/17 07:29 Last Admin: 03/07/17 06:34 Dose: 0.088 mg Lorazepam (Ativan) 0.5 mg PO Q4HR PRN; Protocol PRN Reason: Anxiety Stop: 03/27/17 14:44 Magnesium Hydroxide (Milk Of Magnesia) 30 ml PO DAILY PRN PRN Reason: Constipation Stop: 04/26/17 13:45 Last Admin: 03/06/17 13:14 Dose: 30 ml Phenobarbital (Phenobarbital) 64.8 mg PO DAILY DIA Stop: 04/27/17 08:59 Last Admin: 03/07/17 08:31 Dose: 64.8 mg Polyethylene Glycol (Miralax) 17 gm PO Q48HR DIA Stop: 04/26/17 13:59 Last Admin: 03/05/17 17:34 Dose: Not Given Senna (Senna) 8.6 mg PO HS DIA Stop: 04/26/17 20:59 Last Admin: 03/06/17 21:13 Dose: 8.6 mg Sodium Phosphate (Fleet Enema) 135 ml RC Q48HR PRN PRN Reason: Constipation Stop: 04/26/17 13:45 Sorbitol (Sorbitol) 30 ml PO Q48H DIA Stop: 04/26/17 13:59 Last Admin: 03/05/17 17:34 Dose: Not Given Zolpidem Tartrate (Ambien) 5 mg PO HS PRN PRN Reason: Insomnia Stop: 04/26/17 14:44 Last Admin: 03/06/17 21:14 Dose: 5 mg General: demented HEENT: NC/AT, PERRLA, EOMI Neck: Supple, No thyromegaly, No LAD Lungs: CTAB Cardiovascular: RRR, Normal S1, Normal S2 Abdomen: soft, non-tender, globular Extremities: excoriation Neurological: no change, disorganized - Procedures Procedures: Procedures Procedure Code Date GROUP PSYCHOTHERAPY 87725 10/14/15 GROUP PSYCHOTHERAPY GZHZZZZ 10/14/15 Internal Medicine Assmt/Plan - Assessment Assessment: DEPRESSION CATARACT HYPOTHYROIDISM HYPONATREMIA - Plan Plan: continue current medications psych f/u Nutritional Asmnt/Malnutr-PDOC - Dietary Evaluation Malnutrition Findings (Please click <Entered> for more info): Nutritional Asmnt/Malnutrition Start: 03/02/17 14: 15 Text: Status: Complete Freq: Document 03/02/17 14:15 GSUN (Rec: 03/02/17 14:35 GSUN [email or web address]) Nutritional Asmnt/Malnutrition Patient General Information Nutritional Screening Moderate Risk Screening Diagnosis 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 Spoke to pt in wheelchair in hallway, pt was pleasant. Pt is concerned with fluid rentention in lower extremities, therefore requested for a low sodium diet. Pt prefers sweet n low over sugar. Pt is aware of her lab draws and appeared to be health nutrition concious. UBW 157lb. Avg PO intake 75-100% of meals since adm, meeting nutritional needs. No muscle fat wasting. Current Diet Order/ Nutrition Support LOIS, mech soft chopped, low fat Pertinent Medications Colace, Lasix, MOM, Miralax, Klor-Con, Senna, Fleet Enema Pertinent Labs 02/24: cholesterol 242H Nutritional Hx/Data Height 5 ft 2 in Height (Calculated Centimeters) 157.5 Current Weight (lbs) 157 lb Weight (Calculated Kilograms) 71.2 Weight (Calculated Grams) 09908.0 Usual body Weight (lbs) [address] Body Weight 110 Recent Weight Change No Weight Status Overweight GI Symptoms Food Allergies Yes Cultural/Ethnic/Taoism Belief Pt reported allergies to chocolate, causes pt to cough when consumed. Usual diet at home [facility] SNF: mech soft , LOIS, low fat Skin Integrity/Comment: Benjamin Alves. skin intact, redness to face and neck. Current %PO Good (75-100%) Estimated Nutritional Goals Calories/Kcals/Kg IBW 110lb/50kg Kcals Calculated 1250-1500kcal (25-30kcal/kg) Protein Calculated 50g (1g/kg) Fluid: ml 1250-1500ml (1ml/kcal) Nutritional Problem 1. Problem Problem Excessive sodium intake related to Etiology fluid retention aeb Signs/Symptoms: pt requested for low sodium diet to aid in her lower extremities fluid retention Intervention/Recommendation Comments 1. Recommend low sodium, mech soft chopped, low fat diet per pt's request. Avg PO intake is adequate. Expected Outcomes/Goals Expected Outcomes/Goals 1. PO intake continue to emet at least 75% of estimated nutritional needs.
[2017-03-07] MEDS: POLYETHYLENE GLYCOL 3350 17 GM PACK PO SCH (14:41)
--- NOTE | 2017-03-07 22:34 | Progress Notes ---
DATE: 03/07/2017 SUBJECTIVE: Chart reviewed and the patient interviewed. Also discussed the patient's condition with the staff and reviewed records and labs. The patient continued to be in a depressed mood and she is still anxious. The patient also is still having mood swings and she is still feeling hopeless. She also still having intermittent thoughts of suicide and is still having thoughts of hurting herself. Otherwise, the patient is compliant with taking her medications with no side effects of medications. ASSESSMENT: The patient is still depressed and high risk, dangerous to self. TREATMENT PLAN: Continue to monitor her behavior and her condition closely. Also, continue working on her ineffective coping and adjusting psychotropic medications. JOB# [id number]
[2017-03-08] MEDS: Levothyroxine 0.088 Mg Tab PO SCH (06:32)
--- NOTE | 2017-03-08 11:58 | Internal Medicine Prog Note ---
Internal Medicine Subjective - Subjective Service Date: 03/08/17 Patient is:: awake, verbal, interactive, in wheelchair Per staff patient has:: no adverse event, no episodes of fall, eating well, tolerating meds Internal Medicine Objective - Results Result Diagrams: 02/24/17 23:45 03/05/17 06:26 Recent Labs: Laboratory Last Values WBC 7.1 Th/cmm (4.8-10.8) D 02/24/17 23:45 RBC 4.59 Mil/cmm (3.80-5.10) 02/24/17 23:45 Hgb 13.2 gm/dL (11.7-15.5) 02/24/17 23:45 Hct 39.4 % (35.0-45.0) 02/24/17 23:45 MCV 85.9 fl (81-100) 02/24/17 23:45 MCH 28.8 pg (27.0-31.0) 02/24/17 23:45 MCHC Differential 33.5 pg (28.0-36.0) 02/24/17 23:45 RDW 12.7 % (11.5-20.0) 02/24/17 23:45 Plt Count 304 Th/cmm (150-400) D 02/24/17 23:45 MPV 7.3 fl 02/24/17 23:45 Neutrophils % 52.5 % (40.0-80.0) 02/24/17 23:45 Lymphocytes % 30.3 % (20.0-50.0) 02/24/17 23:45 Monocytes % 8.5 % (2.0-10.0) 02/24/17 23:45 Eosinophils % 6.5 % (0.0-5.0) H 02/24/17 23:45 Basophils % 2.2 % (0.0-2.0) H 02/24/17 23:45 Sodium 139 mEq/L (136-145) 03/05/17 06:26 Potassium 4.6 mEq/L (3.5-5.1) 03/05/17 06:26 Chloride 101 mEq/L (98-107) 03/05/17 06:26 Carbon Dioxide 34.7 mEq/L (21.0-31.0) H 03/05/17 06:26 Anion Gap 7.9 (7.0-16.0) 03/05/17 06:26 BUN 15 mg/dL (7-25) 03/05/17 06:26 Creatinine 0.6 mg/dL (0.6-1.2) 03/05/17 06:26 Est GFR ( Amer) > 60.0 ml/min (>90) 03/05/17 06:26 Est GFR (Non-Af Amer) > 60.0 ml/min 03/05/17 06:26 BUN/Creatinine Ratio 25.0 03/05/17 06:26 Glucose 94 mg/dL (70-105) 03/05/17 06:26 Calcium 9.5 mg/dL (8.6-10.3) 03/05/17 06:26 Triglycerides 109 mg/dL (<150) 02/24/17 23:45 Cholesterol 242 mg/dL (<200) H 02/24/17 23:45 LDL Cholesterol Direct 181 mg/dL (75-193) 02/24/17 23:45 HDL Cholesterol 52 mg/dL (23-92) 02/24/17 23:45 TSH 2.67 uIU/ml (0.34-5.60) 02/24/17 23:45 Levetiracetam 33.2 ug/mL (10.0-40.0) 02/24/17 23:45 RPR NONREACTIVE (NONREACTIVE) 02/24/17 23:45 - Physical Exam Vitals and I&O: Vital Signs Temp 98.9 F 03/08/17 06:11 Pulse 74 03/08/17 06:11 Resp 18 03/08/17 06:11 BP 105/53 03/08/17 08:38 Pulse Ox 96 03/08/17 06:11 Intake & Output 03/07/17 03/08/17 03/08/17 18:59 06:59 18:59 Intake Total 1600 240 Balance 1600 240 Intake: Oral 1600 240 Other: # Voids 5 3 # Bowel Movements 0 0 Active Medications: Current Medications Acetaminophen (Tylenol) 325 mg PO Q4HR PRN PRN Reason: Pain (Mild) Stop: 04/26/17 13:45 Last Admin: 02/26/17 18:24 Dose: 325 mg Aripiprazole (Abilify) 2 mg PO DAILY DIA PRN Reason: Protocol Stop: 04/27/17 08:59 Last Admin: 03/08/17 08:36 Dose: 2 mg Bisacodyl (Dulcolax 10 Mg Supp) 10 mg RC DAILY PRN PRN Reason: Constipation Stop: 04/26/17 13:45 Docusate Sodium (Colace) 100 mg PO BID DIA Stop: 04/26/17 16:59 Last Admin: 03/08/17 08:37 Dose: 100 mg Duloxetine HCl (Cymbalta) 60 mg PO DAILY DIA PRN Reason: Protocol Stop: 04/27/17 08:59 Last Admin: 03/08/17 08:37 Dose: 60 mg Furosemide (Lasix) 40 mg PO DAILY DIA Stop: 04/27/17 08:59 Last Admin: 03/08/17 08:38 Dose: Not Given Lacosamide (Vimpat) 100 mg PO BID DIA Stop: 04/26/17 16:59 Last Admin: 03/08/17 08:37 Dose: 100 mg Levetiracetam (Keppra) 1,000 mg PO BID DIA Stop: 04/26/17 16:59 Last Admin: 03/08/17 08:36 Dose: 1,000 mg Levothyroxine Sodium (Synthroid) 0.088 mg PO QDAC DIA Stop: 04/27/17 07:29 Last Admin: 03/08/17 06:32 Dose: 0.088 mg Lorazepam (Ativan) 0.5 mg PO Q4HR PRN; Protocol PRN Reason: Anxiety Stop: 03/27/17 14:44 Magnesium Hydroxide (Milk Of Magnesia) 30 ml PO DAILY PRN PRN Reason: Constipation Stop: 04/26/17 13:45 Last Admin: 03/06/17 13:14 Dose: 30 ml Phenobarbital (Phenobarbital) 64.8 mg PO DAILY DIA Stop: 04/27/17 08:59 Last Admin: 03/08/17 08:36 Dose: 64.8 mg Polyethylene Glycol (Miralax) 17 gm PO Q48HR DIA Stop: 04/26/17 13:59 Last Admin: 03/07/17 14:41 Dose: Not Given Senna (Senna) 8.6 mg PO HS DIA Stop: 04/26/17 20:59 Last Admin: 03/07/17 20:20 Dose: 8.6 mg Sodium Phosphate (Fleet Enema) 135 ml RC Q48HR PRN PRN Reason: Constipation Stop: 04/26/17 13:45 Sorbitol (Sorbitol) 30 ml PO Q48H DIA Stop: 04/26/17 13:59 Last Admin: 03/07/17 14:42 Dose: Not Given Zolpidem Tartrate (Ambien) 5 mg PO HS PRN PRN Reason: Insomnia Stop: 04/26/17 14:44 Last Admin: 03/06/17 21:14 Dose: 5 mg General: demented HEENT: NC/AT, PERRLA, EOMI Neck: Supple, No thyromegaly, No LAD Lungs: CTAB Cardiovascular: RRR, Normal S1, Normal S2 Abdomen: soft, non-tender, globular Extremities: excoriation Neurological: no change, disorganized - Procedures Procedures: Procedures Procedure Code Date GROUP PSYCHOTHERAPY 59578 10/14/15 GROUP PSYCHOTHERAPY GZHZZZZ 10/14/15 Internal Medicine Assmt/Plan - Assessment Assessment: DEPRESSION CATARACT HYPOTHYROIDISM HYPONATREMIA - Plan Plan: continue current medications psych f/u Nutritional Asmnt/Malnutr-PDOC - Dietary Evaluation Malnutrition Findings (Please click <Entered> for more info): Nutritional Asmnt/Malnutrition Start: 03/02/17 14: 15 Text: Status: Complete Freq: Document 03/02/17 14:15 GSUN (Rec: 03/02/17 14:35 GSUN [email or web address]) Nutritional Asmnt/Malnutrition Patient General Information Nutritional Screening Moderate Risk Screening Diagnosis 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 Spoke to pt in wheelchair in hallway, pt was pleasant. Pt is concerned with fluid rentention in lower extremities, therefore requested for a low sodium diet. Pt prefers sweet n low over sugar. Pt is aware of her lab draws and appeared to be health nutrition concious. UBW 157lb. Avg PO intake 75-100% of meals since adm, meeting nutritional needs. No muscle fat wasting. Current Diet Order/ Nutrition Support LOIS, mech soft chopped, low fat Pertinent Medications Colace, Lasix, MOM, Miralax, Klor-Con, Senna, Fleet Enema Pertinent Labs 02/24: cholesterol 242H Nutritional Hx/Data Height 5 ft 2 in Height (Calculated Centimeters) 157.5 Current Weight (lbs) 157 lb Weight (Calculated Kilograms) 71.2 Weight (Calculated Grams) 01724.0 Usual body Weight (lbs) 157 [place] Body Weight 110 Recent Weight Change No Weight Status Overweight GI Symptoms Food Allergies Yes Cultural/Ethnic/Restorationist Belief Pt reported allergies to chocolate, causes pt to cough when consumed. Usual diet at home [facility] SNF: mech soft , LOIS, low fat Skin Integrity/Comment: Benjamin Alves. skin intact, redness to face and neck. Current %PO Good (75-100%) Estimated Nutritional Goals Calories/Kcals/Kg IBW 110lb/50kg Kcals Calculated 1250-1500kcal (25-30kcal/kg) Protein Calculated 50g (1g/kg) Fluid: ml 1250-1500ml (1ml/kcal) Nutritional Problem 1. Problem Problem Excessive sodium intake related to Etiology fluid retention aeb Signs/Symptoms: pt requested for low sodium diet to aid in her lower extremities fluid retention Intervention/Recommendation Comments 1. Recommend low sodium, mech soft chopped, low fat diet per pt's request. Avg PO intake is adequate. Expected Outcomes/Goals Expected Outcomes/Goals 1. PO intake continue to emet at least 75% of estimated nutritional needs.
--- NOTE | 2017-03-08 20:53 | Progress Notes ---
DATE: 03/08/2017 SUBJECTIVE: Chart reviewed and the patient interviewed. Also discussed the patient's condition with the staff and reviewed records and labs. The patient is still in a depressed mood and today seems to be a slight deterioration in her condition and increase in the level of depression. The patient also is isolative and withdrawn and today seems to be talking to herself and has difficulty with her mood and difficulty following directions. She also wants to be left alone. Otherwise, the patient is compliant with taking her medications and no side effects of medications. ASSESSMENT: The patient is still depressed. TREATMENT PLAN: We will continue monitoring her behavior and her condition closely. Also discussed with window caser discharge plans and the possibility of returning to previous placement. Also, we will work on her ineffective coping. JOB# [id number]
[2017-03-09] MEDS: Levothyroxine 0.088 Mg Tab PO SCH (06:42)
[2017-03-09] MEDS: Magnesium Hydroxide (MOM) 30 mL UDC PO PRN (08:21)
--- NOTE | 2017-03-09 12:13 | Discharge Summary ---
DATE OF DISCHARGE: 03/09/2017 AGE: 56. SEX: Female. FINAL DIAGNOSIS/PRIMARY DIAGNOSIS: Major depression, severe, recurrent, without psychotic features. REASON FOR HOSPITALIZATION: The patient was admitted to the hospital because of increased agitation and hitting herself on the face. HOSPITAL COURSE: The patient continued to be severely depressed. The patient also was feeling hopeless and helpless. She also was interacting minimally with peers and with others. The patient was isolative and withdrawn. Gradually, the patient's affect was brighter. The patient was less irritable and less anxious. The patient also interacted more with peers and with others and she was not suicidal or homicidal, and the patient was discharged from the hospital, returning back to [facility]. Physical exam of the patient was basically within normal and the patient had no major medical problems except the patient had some bruises on her face. AFTER DISCHARGE PLAN: The patient discharged from the hospital and plan for follow up her there. EXPECTED OUTCOME AFTER DISCHARGE: Basically within normal. The exam of the patient was with no major medical problems and labs were within normal. [facility]# [id number]
--- NOTE | 2017-03-09 13:09 | Internal Medicine Prog Note ---
Internal Medicine Subjective - Subjective Service Date: 03/09/17 Patient is:: awake, verbal, interactive, in wheelchair Per staff patient has:: no adverse event, no episodes of fall, eating well, tolerating meds Internal Medicine Objective - Results Result Diagrams: 02/24/17 23:45 03/05/17 06:26 Recent Labs: Laboratory Last Values WBC 7.1 Th/cmm (4.8-10.8) D 02/24/17 23:45 RBC 4.59 Mil/cmm (3.80-5.10) 02/24/17 23:45 Hgb 13.2 gm/dL (11.7-15.5) 02/24/17 23:45 Hct 39.4 % (35.0-45.0) 02/24/17 23:45 MCV 85.9 fl (81-100) 02/24/17 23:45 MCH 28.8 pg (27.0-31.0) 02/24/17 23:45 MCHC Differential 33.5 pg (28.0-36.0) 02/24/17 23:45 RDW 12.7 % (11.5-20.0) 02/24/17 23:45 Plt Count 304 Th/cmm (150-400) D 02/24/17 23:45 MPV 7.3 fl 02/24/17 23:45 Neutrophils % 52.5 % (40.0-80.0) 02/24/17 23:45 Lymphocytes % 30.3 % (20.0-50.0) 02/24/17 23:45 Monocytes % 8.5 % (2.0-10.0) 02/24/17 23:45 Eosinophils % 6.5 % (0.0-5.0) H 02/24/17 23:45 Basophils % 2.2 % (0.0-2.0) H 02/24/17 23:45 Sodium 139 mEq/L (136-145) 03/05/17 06:26 Potassium 4.6 mEq/L (3.5-5.1) 03/05/17 06:26 Chloride 101 mEq/L (98-107) 03/05/17 06:26 Carbon Dioxide 34.7 mEq/L (21.0-31.0) H 03/05/17 06:26 Anion Gap 7.9 (7.0-16.0) 03/05/17 06:26 BUN 15 mg/dL (7-25) 03/05/17 06:26 Creatinine 0.6 mg/dL (0.6-1.2) 03/05/17 06:26 Est GFR ( Amer) > 60.0 ml/min (>90) 03/05/17 06:26 Est GFR (Non-Af Amer) > 60.0 ml/min 03/05/17 06:26 BUN/Creatinine Ratio 25.0 03/05/17 06:26 Glucose 94 mg/dL (70-105) 03/05/17 06:26 Calcium 9.5 mg/dL (8.6-10.3) 03/05/17 06:26 Triglycerides 109 mg/dL (<150) 02/24/17 23:45 Cholesterol 242 mg/dL (<200) H 02/24/17 23:45 LDL Cholesterol Direct 181 mg/dL (75-193) 02/24/17 23:45 HDL Cholesterol 52 mg/dL (23-92) 02/24/17 23:45 TSH 2.67 uIU/ml (0.34-5.60) 02/24/17 23:45 Levetiracetam 33.2 ug/mL (10.0-40.0) 02/24/17 23:45 RPR NONREACTIVE (NONREACTIVE) 02/24/17 23:45 - Physical Exam Vitals and I&O: Vital Signs Temp 97.2 F 03/09/17 06:29 Pulse 68 03/09/17 06:29 Resp 19 03/09/17 06:29 BP 116/64 03/09/17 08:20 Pulse Ox 98 03/09/17 06:29 Intake & Output 03/08/17 03/09/17 03/09/17 18:59 06:59 18:59 Intake Total 720 Balance 720 Intake: Oral 720 Other: # Voids 3 # Bowel Movements 1 Active Medications: Current Medications Acetaminophen (Tylenol) 325 mg PO Q4HR PRN PRN Reason: Pain (Mild) Stop: 04/26/17 13:45 Last Admin: 02/26/17 18:24 Dose: 325 mg Aripiprazole (Abilify) 2 mg PO DAILY DIA PRN Reason: Protocol Stop: 04/27/17 08:59 Last Admin: 03/09/17 08:20 Dose: 2 mg Bisacodyl (Dulcolax 10 Mg Supp) 10 mg RC DAILY PRN PRN Reason: Constipation Stop: 04/26/17 13:45 Docusate Sodium (Colace) 100 mg PO BID DIA Stop: 04/26/17 16:59 Last Admin: 03/09/17 08:20 Dose: 100 mg Duloxetine HCl (Cymbalta) 60 mg PO DAILY DIA PRN Reason: Protocol Stop: 04/27/17 08:59 Last Admin: 03/09/17 08:20 Dose: 60 mg Furosemide (Lasix) 40 mg PO DAILY DIA Stop: 04/27/17 08:59 Last Admin: 03/09/17 08:20 Dose: 40 mg Lacosamide (Vimpat) 100 mg PO BID DIA Stop: 04/26/17 16:59 Last Admin: 03/09/17 08:20 Dose: 100 mg Levetiracetam (Keppra) 1,000 mg PO BID DIA Stop: 04/26/17 16:59 Last Admin: 03/09/17 08:19 Dose: 1,000 mg Levothyroxine Sodium (Synthroid) 0.088 mg PO QDAC DIA Stop: 04/27/17 07:29 Last Admin: 03/09/17 06:42 Dose: 0.088 mg Lorazepam (Ativan) 0.5 mg PO Q4HR PRN; Protocol PRN Reason: Anxiety Stop: 03/27/17 14:44 Magnesium Hydroxide (Milk Of Magnesia) 30 ml PO DAILY PRN PRN Reason: Constipation Stop: 04/26/17 13:45 Last Admin: 03/09/17 08:21 Dose: 30 ml Phenobarbital (Phenobarbital) 64.8 mg PO DAILY DIA Stop: 04/27/17 08:59 Last Admin: 03/09/17 08:20 Dose: 64.8 mg Polyethylene Glycol (Miralax) 17 gm PO Q48HR DIA Stop: 04/26/17 13:59 Last Admin: 03/07/17 14:41 Dose: Not Given Senna (Senna) 8.6 mg PO HS DIA Stop: 04/26/17 20:59 Last Admin: 03/08/17 20:34 Dose: 8.6 mg Sodium Phosphate (Fleet Enema) 135 ml RC Q48HR PRN PRN Reason: Constipation Stop: 04/26/17 13:45 Sorbitol (Sorbitol) 30 ml PO Q48H DIA Stop: 04/26/17 13:59 Last Admin: 03/07/17 14:42 Dose: Not Given Zolpidem Tartrate (Ambien) 5 mg PO HS PRN PRN Reason: Insomnia Stop: 04/26/17 14:44 Last Admin: 03/08/17 21:25 Dose: 5 mg General: demented HEENT: NC/AT, PERRLA, EOMI Neck: Supple, No thyromegaly, No LAD Lungs: CTAB Cardiovascular: RRR, Normal S1, Normal S2 Abdomen: soft, non-tender, globular Extremities: excoriation Neurological: no change, disorganized - Procedures Procedures: Procedures Procedure Code Date GROUP PSYCHOTHERAPY 64905 10/14/15 GROUP PSYCHOTHERAPY GZHZZZZ 10/14/15 Internal Medicine Assmt/Plan - Assessment Assessment: DEPRESSION CATARACT HYPOTHYROIDISM HYPONATREMIA - Plan Plan: continue current medications psych f/u Nutritional Asmnt/Malnutr-PDOC - Dietary Evaluation Malnutrition Findings (Please click <Entered> for more info): Nutritional Asmnt/Malnutrition Start: 03/02/17 14: 15 Text: Status: Complete Freq: Document 03/02/17 14:15 GSUN (Rec: 03/02/17 14:35 [email or web address] [id number]) Nutritional Asmnt/Malnutrition Patient General Information Nutritional Screening Moderate Risk Screening Diagnosis 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 Spoke to pt in wheelchair in hallway, pt was pleasant. Pt is concerned with fluid rentention in lower extremities, therefore requested for a low sodium diet. Pt prefers sweet n low over sugar. Pt is aware of her lab draws and appeared to be health nutrition concious. UBW 157lb. Avg PO intake 75-100% of meals since adm, meeting nutritional needs. No muscle fat wasting. Current Diet Order/ Nutrition Support LOIS, mech soft chopped, low fat Pertinent Medications Colace, Lasix, MOM, Miralax, Klor-Con, Senna, Fleet Enema Pertinent Labs 02/24: cholesterol 242H Nutritional Hx/Data Height 5 ft 2 in Height (Calculated Centimeters) 157.5 Current Weight (lbs) 157 lb Weight (Calculated Kilograms) 71.2 Weight (Calculated Grams) 26029.0 Usual body Weight (lbs) 157 [place] Body Weight 110 Recent Weight Change No Weight Status Overweight GI Symptoms Food Allergies Yes Cultural/Ethnic/[employer] Belief Pt reported allergies to chocolate, causes pt to cough when consumed. Usual diet at home [facility] SNF: mech soft , LOIS, low fat Skin Integrity/Comment: Benjamin Alves. skin intact, redness to face and neck. Current %PO Good (75-100%) Estimated Nutritional Goals Calories/Kcals/Kg IBW 110lb/50kg Kcals Calculated 1250-1500kcal (25-30kcal/kg) Protein Calculated 50g (1g/kg) Fluid: ml 1250-1500ml (1ml/kcal) Nutritional Problem 1. Problem Problem Excessive sodium intake related to Etiology fluid retention aeb Signs/Symptoms: pt requested for low sodium diet to aid in her lower extremities fluid retention Intervention/Recommendation Comments 1. Recommend low sodium, mech soft chopped, low fat diet per pt's request. Avg PO intake is adequate. Expected Outcomes/Goals Expected Outcomes/Goals 1. PO intake continue to emet at least 75% of estimated nutritional needs.
== END 2017-03-09 13:45 | disposition home or self-care (01) | DRG 885 ==
LOC: ER 22:33 → TELE 02-25 00:42 → GERO 02-25 13:59
PROVIDERS: ADMIT Psychiatry & Neurology Psychiatry; ATTEND Psychiatry & Neurology Psychiatry
DX: F33.2 Major depressive disorder, recurrent severe without psychotic features (principal); R56.9 Unspecified convulsions; E87.1 Hypo-osmolality and hyponatremia; F25.9 Schizoaffective disorder, unspecified; E03.9 Hypothyroidism, unspecified; H26.9 Unspecified cataract; I51.7 Cardiomegaly
CPT/HCPCS: 36415-UA; 80048-TC; 80061-TC; 80299-90; 84443-TC; 85025-TC; 86592-TC; 90899; 93005; G0410; Z7610

== ENCOUNTER 2017-12-20 16:48 | Inpatient (IN) | payer MEDICARE, OTHER ==
--- NOTE | 2017-12-20 17:40 | ED Physician Chart ---
ED Chief Complaint/HPI - Patient Information Date Seen:: 12/20/17 Time Seen:: 17:05 Chief Complaint:: social issues delusion striking out at nursing staff self aggresive Allergies:: Allergies Allergy/AdvReac Type Severity Reaction Status Date / Time No Known Allergies Allergy Verified 02/24/17 22:47 Vitals:: Vital Signs - 8 hr 12/20/17 17:00 Temp 97.9 F HR 75 RR 16 BP 115/68 Historian:: EMS Review:: Nurse's Note Reviewed ED Review of Systems - Review of Systems General/Constitutional: Fever (unreliable ros), No fever (ros unreliable psyche overtones) ED Past Medical History - Past Medical History Past Medical History: Other (bipolar schizoprenia major depression) Family Medical History - Family Member Mother History Unknown: Yes ED Physical Exam - Physical Examination General/Constitutional: Non-toxic appearing Head: Atraumatic Eyes: Lids, conjuctiva normal Skin: Nl inspection ENMT: External ears, nose nl Neck: Nontender Respiratory: Nl effort/Exclusion Cardio Vascular: RRR, No murmur, gallop, rubs GI: No tenderness/rebounding/guarding Extremities: No tenderness or effusion Misc: Normal back ED Labs/Radiology/EKG Results - Lab Results Results: ua sinificant bacturia levaquin 500 given ED Assessment - Assessment General Assessment: psychotic break ED Septic Shock - . Is Septic Shock (SBP<90, OR Lactate>4 mmol\L) present?: No - <6hrs of presentation: Vital Signs: Vital Signs - 8 hr 12/20/17 17:00 Temp 97.9 F HR 75 RR 16 BP 115/68
[2017-12-20 18:08] LABS: % BASOPHILS 1.2 % (0.0-2.0); % LYMPHOCYTES 18.6 % (20.0-50.0); % MONOCYTES 5.9 % (2.0-10.0); % NEUTROPHILS 68.3 % (40.0-80.0); BASOPHILE ABSOLUTE 0.1 Th/cumm (0-0.2); EOSINOPHILE ABSOLUTE 0.5 Th/cmm (0.1-0.4); HEMATOCRIT 42.5 % (41.0-60); HEMOGLOBIN 13.7 gm/dL (12-16); LYMPHOCYTE ABSOLUTE 1.4 Th/cmm (1.5-3.0); MEAN CELL VOLUME 85.2 fl (81-100); MEAN CORPUSCULAR HEMOGLOBIN 27.5 pg (27.0-31.0); MEAN CORPUSCULAR HGB CONC 32.3 pg (28.0-36.0); MEAN PLATELET VOLUME 6.9 fl; MONOCYTE ABSOLUTE 0.4 Th/cmm (0.3-1.0); NEUTROPHILE ABSOLUTE 5.2 Th/cmm (1.8-8.0); PLATELET COUNT 370 Th/cmm (150-400); RED BLOOD COUNT 4.99 Mil/cmm (3.80-5.10); URINE MICROSCOPIC INDICATED? YES; URINE SOURCE CLEAN C; WHITE BLOOD COUNT 7.6 Th/cmm (4.8-10.8)
[2017-12-20 18:11] LABS: URINE BILIRUBIN NEGATIVE (NEGATIVE); URINE BLOOD TRACE (NEGATIVE); URINE GLUCOSE (UA) NEGATIVE (NEGATIVE); URINE KETONE NEGATIVE (NEGATIVE); URINE LEUKOCYTE ESTERASE LARGE (NEGATIVE); URINE NITRATE NEGATIVE (NEGATIVE); URINE PROTEIN NEGATIVE (NEGATIVE); URINE UROBILINOGEN 0.2 E.U./dL (0.2 - 1.0)
[2017-12-20 18:12] LABS: URINE CLARITY CLOUDY (CLEAR); URINE COLOR YELLOW
[2017-12-20 18:16] LABS: URINE BACTERIA 3+ /hpf (NONE SEEN); URINE EPITHELIAL CELLS FEW /lpf (FEW); URINE WBC 25-50 /hpf (0-5)
[2017-12-20 18:21] LABS: ANION GAP 12.7 (7.0-16.0); BUN - UREA NITROGEN 13 mg/dL (7-25); CALCIUM SERUM 9.8 mg/dL (8.6-10.3); CARBON DIOXIDE 31.1 mEq/L (21.0-31.0); CHLORIDE 97 mEq/L (98-107); CREATININE - SERUM 0.6 mg/dL (0.6-1.2); GFR AFRICAN-AMERICAN > 60.0 ml/min (>90); GFR NON AFRICAN-AMERICAN > 60.0 ml/min; GLUCOSE 108 mg/dL (70-105); POTASSIUM SERUM 3.8 mEq/L (3.5-5.1); SODIUM SERUM 137 mEq/L (136-145)
[2017-12-20 19:58] VITALS: BP 115/68
[2017-12-20] MEDS ORDERED: Magnesium Hydroxide (MOM) 30 mL UDC PO PRN (20:04)
[2017-12-20] MEDS ORDERED: Maalox 30 mL Cup PO PRN (20:04)
[2017-12-20] MEDS ORDERED: POLYETHYLENE GLYCOL 3350 17 GM PACK PO PRN (20:13)
[2017-12-20] MEDS ORDERED: Fleet Enema 135 mL RC PRN (20:13)
[2017-12-21] MEDS: Levothyroxine 0.088 Mg Tab PO SCH (06:33)
[2017-12-21] MEDS ORDERED: Non-Formulary Item 1 EA (Cranberry Fruit Extract [Cranberry] 425 MG) PO SCH (09:00)
[2017-12-21] MEDS: Lacosamide 10 mg/mL 10mL UDC PO SCH ×2 (09:55→18:00)
[2017-12-21] MEDS: Multivitamin Tab PO SCH (09:56)
[2017-12-21] MEDS ORDERED: Magnesium Hydroxide (MOM) 30 mL UDC PO PRN (16:52)
[2017-12-21] MEDS ORDERED: Non-Formulary Item 1 EA (Acetaminophen [Pain Reliever] 650 MG) PO PRN (16:52)
[2017-12-21] MEDS ORDERED: Non-Formulary Item 1 EA (Levetiracetam [Keppra] 1,000 MG) PO SCH (17:00)
[2017-12-21] MEDS ORDERED: Non-Formulary Item 1 EA (Lacosamide 100 MG) PO SCH (17:00)
--- NOTE | 2017-12-21 17:49 | History & Physical ---
ADMIT DATE: 12/20/2017 HISTORY OF PRESENT ILLNESS: The patient apparently was having delusional thinking, striking on the nursing staff. He was very aggressive. He was brought to the Emergency Room, seen here for psych evaluation. He was admitted. The patient complained of possible fever. PAST MEDICAL HISTORY: History of bipolar disorder and major depression. OBJECTIVE: GENERAL: The patient was nontoxic appearing, atraumatic, afebrile. EYES: Pupils equal and reactive to light. NECK: Supple, nontender. LUNGS: Clear. CARDIOVASCULAR SYSTEM: S1, S2 heard. ABDOMEN: Soft. Bowel sounds are heard. DIAGNOSES: The patient had some bacteriuria. The patient had diagnoses of acute psychosis, urinary tract infection, history of bipolar disorder, schizophrenia was made. PLAN: The patient is being admitted to Psych Unit and I will follow along with psychiatrist. JOB# [id number]
[2017-12-21] MEDS ORDERED: Non-Formulary Item 1 EA (Melatonin [Melatonin] 3 MG) PO SCH (21:00)
--- NOTE | 2017-12-22 00:26 | Psychosocial Evaluation ---
DATE OF SERVICE: 12/21/2017 AGE: 57. SEX: Female. PHYSICIAN: Dr. Hannah. CHIEF COMPLAINT: Increased agitation and disruptive behavior. HISTORY OF PRESENT ILLNESS: The patient is a 57-year-old female who lives in [facility] in [place]. The patient has been increasingly agitated and has been disruptive to others and has been having difficulty following any of staff directions. She also has been angry and in irritable mood. The patient also has been aggressive with the staff and resisting care. The patient has been taking Abilify and Cymbalta, but it seems that has not been helping the patient with her aggressive behavior and her agitation. PAST PSYCHIATRIC HISTORY: The patient has history of what seems to be a schizoaffective disorder. The patient has been taking Abilify and Cymbalta. PAST MEDICAL HISTORY: No major medical problems. SOCIAL HISTORY: The patient lives in [facility]. No known alcohol or drug use. ALLERGIES: No known allergies. MENTAL STATUS EXAMINATION: The patient appears older than her stated age. Disheveled. Angry and irritable mood. Thought processes are circumstantial, tangential with flight of ideas. The patient denies any auditory or visual hallucinations, but severely paranoid and delusional. She denies suicidal or homicidal ideations. The patient is alert and oriented to the person and situation and date. Intact immediate, recent and remote memories. Poor insight and poor judgment. ASSESSMENT: PRIMARY DIAGNOSES: Schizoaffective disorder, bipolar type, with psychotic features. TREATMENT PLAN: We will monitor the patient's behavior and condition closely. We will start individual as well as milieu psychotherapy. We will continue Abilify and Cymbalta and will adjust the dose based on further evaluation. ESTIMATED LENGTH OF STAY: 5-7 days. THE PATIENT'S STRENGTHS AND WEAKNESSES: The patient's strength is not clear at this time. Weaknesses is her poor impulse control and disruptive behavior and her psychosis. AFTER DISCHARGE PLAN: The patient will return to [facility] and we will monitor psychotropic medications and will work on behavior modification. AFTER DISCHARGE PLAN: Outpatient treatment and follow up in [facility]. CRITERIA FOR DISCHARGE: Better impulse control and stabilizing psychotropic medications. [facility]# [id number]
[2017-12-22] MEDS: Levothyroxine 0.088 Mg Tab PO SCH ×2 (06:39→06:41)
[2017-12-22] MEDS ORDERED: Probiotic Screen MC PRN (08:30)
[2017-12-22] MEDS ORDERED: PHENOBARBITAL 64.8 MG PO SCH (09:00)
[2017-12-22] MEDS: Multivitamin Tab PO SCH (10:10)
[2017-12-22] MEDS: Lactobacillus Rhamnosus GG 15 Billion CFU CAP.SPRINK PO SCH (10:10)
[2017-12-22] MEDS: Lacosamide 10 mg/mL 10mL UDC PO SCH ×2 (10:24→17:22)
--- NOTE | 2017-12-22 16:55 | General Progress Note ---
Subjective - Review of Systems Subjective: pt. is aggressive Objective - Results Result Diagrams: 12/20/17 18:00 12/20/17 18:00 Recent Labs: Laboratory Last Values WBC 7.6 Th/cmm (4.8-10.8) 12/20/17 18:00 RBC 4.99 Mil/cmm (3.80-5.10) 12/20/17 18:00 Hgb 13.7 gm/dL (12-16) 12/20/17 18:00 Hct 42.5 % (41.0-60) 12/20/17 18:00 MCV 85.2 fl (81-100) 12/20/17 18:00 MCH 27.5 pg (27.0-31.0) 12/20/17 18:00 MCHC Differential 32.3 pg (28.0-36.0) 12/20/17 18:00 RDW 13.0 % (11.5-20.0) 12/20/17 18:00 Plt Count 370 Th/cmm (150-400) 12/20/17 18:00 MPV 6.9 fl 12/20/17 18:00 Neutrophils % 68.3 % (40.0-80.0) 12/20/17 18:00 Lymphocytes % 18.6 % (20.0-50.0) L 12/20/17 18:00 Monocytes % 5.9 % (2.0-10.0) 12/20/17 18:00 Eosinophils % 6.0 % (0.0-5.0) H 12/20/17 18:00 Basophils % 1.2 % (0.0-2.0) 12/20/17 18:00 Sodium 137 mEq/L (136-145) 12/20/17 18:00 Potassium 3.8 mEq/L (3.5-5.1) 12/20/17 18:00 Chloride 97 mEq/L (98-107) L 12/20/17 18:00 Carbon Dioxide 31.1 mEq/L (21.0-31.0) H 12/20/17 18:00 Anion Gap 12.7 (7.0-16.0) 12/20/17 18:00 BUN 13 mg/dL (7-25) 12/20/17 18:00 Creatinine 0.6 mg/dL (0.6-1.2) 12/20/17 18:00 Est GFR ( Amer) > 60.0 ml/min (>90) 12/20/17 18:00 Est GFR (Non-Af Amer) > 60.0 ml/min 12/20/17 18:00 BUN/Creatinine Ratio 21.7 12/20/17 18:00 Glucose 108 mg/dL (70-105) H 12/20/17 18:00 Calcium 9.8 mg/dL (8.6-10.3) 12/20/17 18:00 Urine Source CLEAN C 12/20/17 18:00 Urine Color YELLOW 12/20/17 18:00 Urine Clarity CLOUDY (CLEAR) H 12/20/17 18:00 Urine pH 6.0 (4.6 - 8.0) 12/20/17 18:00 Ur Specific [place] <= 1.005 (1.005-1.030) 12/20/17 18:00 Urine Protein NEGATIVE mg/dL (NEGATIVE) 12/20/17 18:00 Urine Glucose (UA) NEGATIVE mg/dL (NEGATIVE) 12/20/17 18:00 Urine Ketones NEGATIVE mg/dL (NEGATIVE) 12/20/17 18:00 Urine Blood TRACE (NEGATIVE) 12/20/17 18:00 Urine Nitrate NEGATIVE (NEGATIVE) 12/20/17 18:00 Urine Bilirubin NEGATIVE (NEGATIVE) 12/20/17 18:00 Urine Urobilinogen 0.2 E.U./dL (0.2 - 1.0) 12/20/17 18:00 Ur Leukocyte Esterase LARGE (NEGATIVE) H 12/20/17 18:00 Urine RBC 2-5 /hpf (0-5) 12/20/17 18:00 Urine WBC 25-50 /hpf (0-5) H 12/20/17 18:00 Ur Epithelial Cells FEW /lpf (FEW) 12/20/17 18:00 Urine Bacteria 3+ /hpf (NONE SEEN) H 12/20/17 18:00 - Physical Exam Vitals and I&O: Vital Signs Temp 97.0 F 12/22/17 15:58 Pulse 72 12/22/17 15:58 Resp 20 12/22/17 15:58 BP 113/69 12/22/17 15:58 Pulse Ox 97 07/05/18 15:58 Intake & Output 12/21/17 12/22/1718 18:59 06:59 18:59 Intake Total 1200 420 Balance 1200 420 Intake: Oral 1200 420 Other: # Voids 3 1 Active Medications: Current Medications Acetaminophen (Tylenol) 650 mg PO Q4H PRN PRN Reason: Mild Pain / Temp above 100 Stop: 02/18/18 20:03 Last Admin: 12/22/17 12:03 Dose: 650 mg Acetaminophen (Tylenol) 650 mg PO Q4HR PRN PRN Reason: Pain (Mild) Stop: 02/19/18 17:19 Al Hydrox/Mg Hydrox/Simethicone (Maalox) 30 ml PO Q4H PRN PRN Reason: GI DISTRESS Stop: 02/18/18 20:03 Aripiprazole (Abilify) 10 mg PO DAILY [facility]; Protocol Stop: 02/20/18 08:59 Last Admin: 12/22/17 10:07 Dose: 10 mg Bisacodyl (Dulcolax 10 Mg Supp) 10 mg RC DAILY [facility] Stop: 02/19/18 08:59 Last Admin: 12/22/17 10:09 Dose: Not Given Docusate Sodium (Colace) 100 mg PO BID [facility] Stop: 02/19/18 08:59 Last Admin: 12/22/17 10:09 Dose: 100 mg Duloxetine HCl (Cymbalta) 30 mg PO BID [facility]; Protocol Stop: 02/19/18 08:59 Last Admin: 12/22/17 10:11 Dose: 30 mg Furosemide (Lasix) 40 mg PO DAILY [facility] Stop: 02/19/18 08:59 Last Admin: 12/22/17 10:07 Dose: 40 mg Lacosamide (Vimpat) 100 mg PO BID [facility] Stop: 02/19/18 08:59 Last Admin: 12/22/17 10:24 Dose: 100 mg Lactobacillus Rhamnosus (Culturelle 15b) 1 each PO DAILY [facility] Stop: 02/20/18 08:59 Last Admin: 12/22/17 10:10 Dose: 1 each Levetiracetam (Keppra) 1,000 mg PO BID [facility] Stop: 02/19/18 08:59 Last Admin: 12/22/17 10:09 Dose: 1,000 mg Levofloxacin (Levaquin) 500 mg PO DAILY [facility] Stop: 02/19/18 16:59 Last Admin: 12/22/17 10:10 Dose: 500 mg Levothyroxine Sodium (Synthroid) 0.088 mg PO QDAC DIA Stop: 02/19/18 07:29 Last Admin: 12/22/17 06:41 Dose: Not Given Lorazepam (Ativan) 0.5 mg PO Q4HR PRN; Protocol PRN Reason: Anxiety Stop: 01/19/18 20:03 Magnesium Hydroxide (Milk Of Magnesia) 30 ml PO HS PRN PRN Reason: Constipation Magnesium Hydroxide (Milk Of Magnesia) 30 ml PO HS PRN PRN Reason: Constipation Stop: 02/19/18 16:51 Miscellaneous (Probiotic Screen) 1 ea MC PRN PRN PRN Reason: PROTOCOL Stop: 02/20/18 08:29 Multivitamins/Vitamin C (Theragran) 1 tab PO DAILY DIA Stop: 02/19/18 08:59 Last Admin: 12/22/17 10:10 Dose: 1 tab Phenobarbital (Phenobarbital) 64.8 mg PO DAILY [facility] Stop: 02/19/18 08:59 Last Admin: 12/22/17 10:09 Dose: 64.8 mg Polyethylene Glycol (Miralax) 17 gm PO Q2D PRN PRN Reason: Constipation Stop: 02/18/18 20:12 Senna (Senna) 8.6 mg PO HS [facility] Stop: 02/18/18 20:59 Last Admin: 12/21/17 20:45 Dose: 8.6 mg Sodium Phosphate (Fleet Enema) 135 ml RC Q2D PRN PRN Reason: Constipation Stop: 02/18/18 20:12 Sorbitol (Sorbitol) 30 ml PO HS DIA Stop: 02/18/18 20:59 Last Admin: 12/21/17 20:45 Dose: 30 ml Zolpidem Tartrate (Ambien) 5 mg PO HS PRN PRN Reason: Insomnia Stop: 02/18/18 20:03 Last Admin: 12/21/17 21:39 Dose: 5 mg General: Alert, No acute distress HEENT: PERRLA, EOMI Neck: Supple Cardiovascular: Normal S1, Normal S2 Lungs: Clear to auscultation Abdomen: Bowel sounds Psych/Mental Status: Other (pyschosis) - Procedures Procedures: Procedures Procedure Code Date GROUP PSYCHOTHERAPY 48746 10/14/15 GROUP PSYCHOTHERAPY GZHZZZZ 10/14/15 Assessment/Plan - Assessment Assessment: bacteriuria acute psychosis UTI h/o bipolar disorder h/o schizophrenia - Plan Plan: psych eval continue current orders continue present management
--- NOTE | 2017-12-22 18:04 | Infectious Disease Prog Note ---
Infectious Disease Subjective - Review of Systems Service Date: 12/22/17 Subjective: cc uti hpi- pt urine cx e coli s noted abx adjusted, mrsa + bactroban started ros no fevr o/er vss chest claer abd soft ext puiulse dx uti, e coli, mrsa narwes plan as above Infectious Disease Objective - Results Result Diagrams: 12/20/17 18:00 12/20/17 18:00 Recent Labs: Laboratory Last Values WBC 7.6 Th/cmm (4.8-10.8) 12/20/17 18:00 RBC 4.99 Mil/cmm (3.80-5.10) 12/20/17 18:00 Hgb 13.7 gm/dL (12-16) 12/20/17 18:00 Hct 42.5 % (41.0-60) 12/20/17 18:00 MCV 85.2 fl (81-100) 12/20/17 18:00 MCH 27.5 pg (27.0-31.0) 12/20/17 18:00 MCHC Differential 32.3 pg (28.0-36.0) 12/20/17 18:00 RDW 13.0 % (11.5-20.0) 12/20/17 18:00 Plt Count 370 Th/cmm (150-400) 12/20/17 18:00 MPV 6.9 fl 12/20/17 18:00 Neutrophils % 68.3 % (40.0-80.0) 12/20/17 18:00 Lymphocytes % 18.6 % (20.0-50.0) L 12/20/17 18:00 Monocytes % 5.9 % (2.0-10.0) 12/20/17 18:00 Eosinophils % 6.0 % (0.0-5.0) H 12/20/17 18:00 Basophils % 1.2 % (0.0-2.0) 12/20/17 18:00 Sodium 137 mEq/L (136-145) 12/20/17 18:00 Potassium 3.8 mEq/L (3.5-5.1) 12/20/17 18:00 Chloride 97 mEq/L (98-107) L 12/20/17 18:00 Carbon Dioxide 31.1 mEq/L (21.0-31.0) H 12/20/17 18:00 Anion Gap 12.7 (7.0-16.0) 12/20/17 18:00 BUN 13 mg/dL (7-25) 12/20/17 18:00 Creatinine 0.6 mg/dL (0.6-1.2) 12/20/17 18:00 Est GFR ( Amer) > 60.0 ml/min (>90) 12/20/17 18:00 Est GFR (Non-Af Amer) > 60.0 ml/min 12/20/17 18:00 BUN/Creatinine Ratio 21.7 12/20/17 18:00 Glucose 108 mg/dL (70-105) H 12/20/17 18:00 Calcium 9.8 mg/dL (8.6-10.3) 12/20/17 18:00 Urine Source CLEAN C 12/20/17 18:00 Urine Color YELLOW 12/20/17 18:00 Urine Clarity CLOUDY (CLEAR) H 12/20/17 18:00 Urine pH 6.0 (4.6 - 8.0) 12/20/17 18:00 Ur Specific [place] <= 1.005 (1.005-1.030) 12/20/17 18:00 Urine Protein NEGATIVE mg/dL (NEGATIVE) 12/20/17 18:00 Urine Glucose (UA) NEGATIVE mg/dL (NEGATIVE) 12/20/17 18:00 Urine Ketones NEGATIVE mg/dL (NEGATIVE) 12/20/17 18:00 Urine Blood TRACE (NEGATIVE) 12/20/17 18:00 Urine Nitrate NEGATIVE (NEGATIVE) 12/20/17 18:00 Urine Bilirubin NEGATIVE (NEGATIVE) 12/20/17 18:00 Urine Urobilinogen 0.2 E.U./dL (0.2 - 1.0) 12/20/17 18:00 Ur Leukocyte Esterase LARGE (NEGATIVE) H 12/20/17 18:00 Urine RBC 2-5 /hpf (0-5) 12/20/17 18:00 Urine WBC 25-50 /hpf (0-5) H 12/20/17 18:00 Ur Epithelial Cells FEW /lpf (FEW) 12/20/17 18:00 Urine Bacteria 3+ /hpf (NONE SEEN) H 12/20/17 18:00 - Physical Exam Vitals and I&O: Vital Signs Temp 97.0 F 12/22/17 15:58 Pulse 72 12/22/17 15:58 Resp 20 12/22/17 15:58 BP 113/69 12/22/17 15:58 Pulse Ox 97 12/22/17 15:58 Intake & Output 12/21/17 12/22/17 12/22/17 18:59 06:59 18:59 Intake Total 1200 420 Balance 1200 420 Intake: Oral 1200 420 Other: # Voids 3 1 Active Medications: Current Medications Acetaminophen (Tylenol) 650 mg PO Q4H PRN PRN Reason: Mild Pain / Temp above 100 Stop: 02/18/18 20:03 Last Admin: 12/22/17 12:03 Dose: 650 mg Acetaminophen (Tylenol) 650 mg PO Q4HR PRN PRN Reason: Pain (Mild) Stop: 02/19/18 17:19 Al Hydrox/Mg Hydrox/Simethicone (Maalox) 30 ml PO Q4H PRN PRN Reason: GI DISTRESS Stop: 02/18/18 20:03 Amoxicillin (Amoxil) 500 mg PO TID [facility] Stop: 02/20/18 20:59 Aripiprazole (Abilify) 10 mg PO DAILY [facility]; Protocol Stop: 02/20/18 08:59 Last Admin: 12/22/17 10:07 Dose: 10 mg Bisacodyl (Dulcolax 10 Mg Supp) 10 mg RC DAILY [facility] Stop: 02/19/18 08:59 Last Admin: 12/22/17 10:09 Dose: Not Given Docusate Sodium (Colace) 100 mg PO BID [facility] Stop: 02/19/18 08:59 Last Admin: 12/22/17 10:09 Dose: 100 mg Duloxetine HCl (Cymbalta) 30 mg PO BID [facility]; Protocol Stop: 02/19/18 08:59 Last Admin: 12/22/17 10:11 Dose: 30 mg Furosemide (Lasix) 40 mg PO DAILY [facility] Stop: 02/19/18 08:59 Last Admin: 12/22/17 10:07 Dose: 40 mg Lacosamide (Vimpat) 100 mg PO BID [facility] Stop: 02/19/18 08:59 Last Admin: 12/22/17 10:24 Dose: 100 mg Lactobacillus Rhamnosus (Culturelle 15b) 1 each PO DAILY [facility] Stop: 02/20/18 08:59 Last Admin: 12/22/17 10:10 Dose: 1 each Levetiracetam (Keppra) 1,000 mg PO BID [facility] Stop: 02/19/18 08:59 Last Admin: 12/22/17 10:09 Dose: 1,000 mg Levothyroxine Sodium (Synthroid) 0.088 mg PO QDAC [facility] Stop: 02/19/18 07:29 Last Admin: 12/22/17 06:41 Dose: Not Given Lorazepam (Ativan) 0.5 mg PO Q4HR PRN; Protocol PRN Reason: Anxiety Stop: 01/19/18 20:03 Magnesium Hydroxide (Milk Of Magnesia) 30 ml PO HS PRN PRN Reason: Constipation Magnesium Hydroxide (Milk Of Magnesia) 30 ml PO HS PRN PRN Reason: Constipation Stop: 02/19/18 16:51 Miscellaneous (Probiotic Screen) 1 ea MC PRN PRN PRN Reason: PROTOCOL Stop: 02/20/18 08:29 Multivitamins/Vitamin C (Theragran) 1 tab PO DAILY [facility] Stop: 02/19/18 08:59 Last Admin: 12/22/17 10:10 Dose: 1 tab Mupirocin (Bactroban Oint) 1 appl NS BID [facility] Stop: 12/27/17 17:01 Phenobarbital (Phenobarbital) 64.8 mg PO DAILY [facility] Stop: 02/19/18 08:59 Last Admin: 12/22/17 10:09 Dose: 64.8 mg Polyethylene Glycol (Miralax) 17 gm PO Q2D PRN PRN Reason: Constipation Stop: 02/18/18 20:12 Senna (Senna) 8.6 mg PO HS [facility] Stop: 02/18/18 20:59 Last Admin: 12/21/17 20:45 Dose: 8.6 mg Sodium Phosphate (Fleet Enema) 135 ml RC Q2D PRN PRN Reason: Constipation Stop: 02/18/18 20:12 Sorbitol (Sorbitol) 30 ml PO HS [facility] Stop: 02/18/18 20:59 Last Admin: 12/21/17 20:45 Dose: 30 ml Zolpidem Tartrate (Ambien) 5 mg PO HS PRN PRN Reason: Insomnia Stop: 02/18/18 20:03 Last Admin: 12/21/17 21:39 Dose: 5 mg - Procedures Procedures: Procedures Procedure Code Date GROUP PSYCHOTHERAPY 79431 10/14/15 GROUP PSYCHOTHERAPY GZHZZZZ 10/14/15
--- NOTE | 2017-12-22 23:05 | Consultation ---
DATE OF CONSULTATION: 12/21/2017 PRIMARY CARE PHYSICIAN: Dr. Garcia. HISTORY OF PRESENT ILLNESS: This is a 57-year-old female with history of depression, was brought to the Emergency Room with aggressive behavior. The patient was evaluated by psych, evaluated in the hospital and admitted to [facility]. Infectious consultation was called for further treatment for UTI. The patient started on Levaquin. Culture was sent. PAST MEDICAL HISTORY: Marijuana abuse, depression. FAMILY HISTORY: Negative. SOCIAL HISTORY: Nonsmoker. REVIEW OF SYSTEMS: A 14-point review of system negative except for above. PHYSICAL EXAMINATION: GENERAL: The patient is alert, awake, not in distress. VITAL SIGNS: Normal. HEENT: Mild pallor, no icterus or plaque, . NECK: Supple. LUNGS: Breath sounds bilateral vesicular. ABDOMEN: Soft, bowel sounds present. NODES: No cervical lymph nodes. LABORATORY DATA: UA positive for UTI. Cultures are pending. DIAGNOSES: Urinary tract infection, Levaquin; wait for culture, modify antibiotic accordingly; depression, Abilify; constipation, docusate; depression. Also, she is on Cymbalta. Hypothyroid, levothyroxine; Ativan for anxiety; insomnia, Ambien. Thank you Dr. Garcia for this consultation. JOB# [id number]
[2017-12-23] MEDS: Levothyroxine 0.088 Mg Tab PO SCH (07:05)
[2017-12-23] MEDS: Lactobacillus Rhamnosus GG 15 Billion CFU CAP.SPRINK PO SCH (09:32)
[2017-12-23] MEDS: Multivitamin Tab PO SCH (09:33)
[2017-12-23] MEDS: Lacosamide 10 mg/mL 10mL UDC PO SCH ×2 (09:51→17:01)
[2017-12-24] MEDS: Levothyroxine 0.088 Mg Tab PO SCH (06:49)
[2017-12-24] MEDS: Lactobacillus Rhamnosus GG 15 Billion CFU CAP.SPRINK PO SCH (09:57)
[2017-12-24] MEDS: Multivitamin Tab PO SCH (09:57)
[2017-12-24] MEDS: Lacosamide 10 mg/mL 10mL UDC PO SCH ×2 (09:58→17:29)
--- NOTE | 2017-12-24 22:38 | Progress Notes ---
DATE: 12/23/2017 SUBJECTIVE: Chart reviewed and the patient interviewed. Also discussed the patient's condition with the staff and reviewed records and labs. The patient remains depressed and withdrawn. The patient also still wanted to be left alone and she still has flat affect and guarded. The patient also seems to be responding to stimuli and unpredictable behavior. Otherwise, the patient is compliant with taking her medications with no side effect of medications. ASSESSMENT: The patient is still depressed. TREATMENT PLAN: Continue to monitor her behavior and her condition closely. Also continue Cymbalta 30 mg twice a day and Abilify 10 mg every day. Also, continue to work on her ineffective coping and follow up closely. JOB# [id number]
--- NOTE | 2017-12-24 23:10 | Progress Notes ---
DATE: 12/24/2017 SUBJECTIVE: A 57-year-old female who lives in [facility] in [place], increasing agitation, disruptive behaviors, angry, irritable, aggressive towards staff. The patient is refusing to speak with me. I tried to wake her up a few times. She is arousable, but does not want to talk to me. The patient with history of aggressive behaviors as well. Staff noting that she has been depressed, withdrawn, impulsive, anxious, easily agitated, angry, suspicious. Medications were noted. ASSESSMENT: The patient remains symptomatic, unruly, refusing to speak with me. PLAN: We will continue to monitor. We will continue medications. The patient will likely need dose adjustment of medications given her ongoing symptoms. We will continue to monitor and follow up. [facility]# [id number]
--- NOTE | 2017-12-25 03:27 | Progress Notes ---
DATE: 12/24/2017 SUBJECTIVE: The patient was seen in the dining area. The patient appears to be isolated and irritable. The patient has poor concentration and still has some impulsive behaviors, otherwise the patient appears to be in no acute distress. OBJECTIVE: VITAL SIGNS: Temperature 99.2, heart rate 99, blood pressure 136/77, respirations 20, 92% on room air. HEENT: Head is atraumatic and normocephalic. Eyes: Bilateral conjunctivae are clear. Bilateral pupils are equally round and reactive. NECK: Supple. No JVD. CARDIOVASCULAR: S1 and S2, without murmur. PULMONARY: Clear to auscultation. GASTROINTESTINAL: Soft and nontender without guarding. Positive bowel sounds. MUSCULOSKELETAL: No clubbing. No cyanosis noted. ASSESSMENT: 1. Schizoaffective disorder. 2. Urinary tract infection. 3. Hypothyroidism. 4. Anxiety. PLAN: We will keep the patient in inpatient psychiatric unit. We will follow up with a psychiatrist to monitor the patient's behavior. Treatment plans were discussed with the patient's nurse. Treatment plans were discussed with Dr. Garcia. JOB# [id number]
[2017-12-25] MEDS: Levothyroxine 0.088 Mg Tab PO SCH (06:54)
--- NOTE | 2017-12-25 08:10 | Progress Notes ---
DATE: 12/25/2017 SUBJECTIVE: The patient is [facility], agitation, disruptive behaviors. The patient noted to be depressed, withdrawn, sleeping, arousable, but does not want to talk to me. Staff still feeling that she is quite depressed, withdrawn, mostly wants to keep to herself, still disheveled, poor ADLs, noted to be anxious, suspicious, seems to be somewhat internally preoccupied, possibly due to anxiety, worries, severe depressive symptoms. Medications were noted including doses and frequencies. She slept fairly well over the weekend. She is taking medications. She has been redirectable, no agitation. ASSESSMENT: The patient remains symptomatic, highly depressed, withdrawn, mostly keeps to herself, isolative, not engaged in interview today. PLAN: We will continue to monitor, adjust and titrate medications. The patient remains symptomatic, and given the severity of her current symptoms, she is not safe for discharge. JOB# [id number]
[2017-12-25] MEDS: Multivitamin Tab PO SCH (08:59)
[2017-12-25] MEDS: Lactobacillus Rhamnosus GG 15 Billion CFU CAP.SPRINK PO SCH (09:00)
[2017-12-25] MEDS: Lacosamide 10 mg/mL 10mL UDC PO SCH ×2 (09:02→17:13)
--- NOTE | 2017-12-25 11:49 | General Progress Note ---
Subjective - Review of Systems Events since last encounter: patient continues to be depressed withdrawn Subjective: pt. is aggressive Objective - Results Result Diagrams: 12/20/17 18:00 12/20/17 18:00 Recent Labs: Laboratory Last Values WBC 7.6 Th/cmm (4.8-10.8) 12/20/17 18:00 RBC 4.99 Mil/cmm (3.80-5.10) 12/20/17 18:00 Hgb 13.7 gm/dL (12-16) 12/20/17 18:00 Hct 42.5 % (41.0-60) 12/20/17 18:00 MCV 85.2 fl (81-100) 12/20/17 18:00 MCH 27.5 pg (27.0-31.0) 12/20/17 18:00 MCHC Differential 32.3 pg (28.0-36.0) 12/20/17 18:00 RDW 13.0 % (11.5-20.0) 12/20/17 18:00 Plt Count 370 Th/cmm (150-400) 12/20/17 18:00 MPV 6.9 fl 12/20/17 18:00 Neutrophils % 68.3 % (40.0-80.0) 12/20/17 18:00 Lymphocytes % 18.6 % (20.0-50.0) L 12/20/17 18:00 Monocytes % 5.9 % (2.0-10.0) 12/20/17 18:00 Eosinophils % 6.0 % (0.0-5.0) H 12/20/17 18:00 Basophils % 1.2 % (0.0-2.0) 12/20/17 18:00 Sodium 137 mEq/L (136-145) 12/20/17 18:00 Potassium 3.8 mEq/L (3.5-5.1) 12/20/17 18:00 Chloride 97 mEq/L (98-107) L 12/20/17 18:00 Carbon Dioxide 31.1 mEq/L (21.0-31.0) H 12/20/17 18:00 Anion Gap 12.7 (7.0-16.0) 12/20/17 18:00 BUN 13 mg/dL (7-25) 12/20/17 18:00 Creatinine 0.6 mg/dL (0.6-1.2) 12/20/17 18:00 Est GFR ( Amer) > 60.0 ml/min (>90) 12/20/17 18:00 Est GFR (Non-Af Amer) > 60.0 ml/min 12/20/17 18:00 BUN/Creatinine Ratio 21.7 12/20/17 18:00 Glucose 108 mg/dL (70-105) H 12/20/17 18:00 Calcium 9.8 mg/dL (8.6-10.3) 12/20/17 18:00 Urine Source CLEAN C 12/20/17 18:00 Urine Color YELLOW 12/20/17 18:00 Urine Clarity CLOUDY (CLEAR) H 12/20/17 18:00 Urine pH 6.0 (4.6 - 8.0) 12/20/17 18:00 Ur Specific [place] <= 1.005 (1.005-1.030) 12/20/17 18:00 Urine Protein NEGATIVE mg/dL (NEGATIVE) 12/20/17 18:00 Urine Glucose (UA) NEGATIVE mg/dL (NEGATIVE) 12/20/17 18:00 Urine Ketones NEGATIVE mg/dL (NEGATIVE) 12/20/17 18:00 Urine Blood TRACE (NEGATIVE) 12/20/17 18:00 Urine Nitrate NEGATIVE (NEGATIVE) 12/20/17 18:00 Urine Bilirubin NEGATIVE (NEGATIVE) 12/20/17 18:00 Urine Urobilinogen 0.2 E.U./dL (0.2 - 1.0) 12/20/17 18:00 Ur Leukocyte Esterase LARGE (NEGATIVE) H 12/20/17 18:00 Urine RBC 2-5 /hpf (0-5) 12/20/17 18:00 Urine WBC 25-50 /hpf (0-5) H 12/20/17 18:00 Ur Epithelial Cells FEW /lpf (FEW) 12/20/17 18:00 Urine Bacteria 3+ /hpf (NONE SEEN) H 12/20/17 18:00 - Physical Exam Vitals and I&O: Vital Signs Temp 97.6 F 12/24/17 20:00 Pulse 96 12/24/17 20:00 Resp 20 12/24/17 20:00 BP 110/58 07/08/18 09:00 Pulse Ox 96 12/24/17 20:00 Intake & Output 12/24/17 12/25/17 12/25/17 18:59 06:59 18:59 Intake Total 950 Balance 950 Intake: Oral 950 Other: # Voids 4 # Bowel Movements 1 Active Medications: Current Medications Acetaminophen (Tylenol) 650 mg PO Q4H PRN PRN Reason: Mild Pain / Temp above 100 Stop: 02/18/18 20:03 Last Admin: 12/22/17 12:03 Dose: 650 mg Acetaminophen (Tylenol) 650 mg PO Q4HR PRN PRN Reason: Pain (Mild) Stop: 02/19/18 17:19 Al Hydrox/Mg Hydrox/Simethicone (Maalox) 30 ml PO Q4H PRN PRN Reason: GI DISTRESS Stop: 02/18/18 20:03 Amoxicillin (Amoxil) 500 mg PO TID [facility] Stop: 02/20/18 20:59 Last Admin: 12/25/17 09:00 Dose: 500 mg Aripiprazole (Abilify) 10 mg PO DAILY [facility]; Protocol Stop: 02/21/18 11:59 Last Admin: 12/25/17 08:59 Dose: 10 mg Bisacodyl (Dulcolax 10 Mg Supp) 10 mg RC DAILY [facility] Stop: 02/19/18 08:59 Last Admin: 12/25/17 09:01 Dose: Not Given Docusate Sodium (Colace) 100 mg PO BID [facility] Stop: 02/19/18 08:59 Last Admin: 12/25/17 08:59 Dose: 100 mg Duloxetine HCl (Cymbalta) 30 mg PO BID [facility]; Protocol Stop: 02/19/18 08:59 Last Admin: 12/25/17 08:59 Dose: 30 mg Furosemide (Lasix) 40 mg PO DAILY [facility] Stop: 02/19/18 08:59 Last Admin: 12/25/17 09:00 Dose: 40 mg Lacosamide (Vimpat) 100 mg PO BID [facility] Stop: 02/19/18 08:59 Last Admin: 12/25/17 09:02 Dose: Not Given Lactobacillus Rhamnosus (Culturelle 15b) 1 each PO DAILY [facility] Stop: 02/20/18 08:59 Last Admin: 12/25/17 09:00 Dose: 1 each Levetiracetam (Keppra) 1,000 mg PO BID [facility] Stop: 02/19/18 08:59 Last Admin: 12/25/17 09:00 Dose: 1,000 mg Levothyroxine Sodium (Synthroid) 0.088 mg PO QDAC [facility] Stop: 02/19/18 07:29 Last Admin: 12/25/17 06:54 Dose: Not Given Lorazepam (Ativan) 0.5 mg PO Q4HR PRN; Protocol PRN Reason: Anxiety Stop: 01/19/18 20:03 Last Admin: 12/23/17 23:50 Dose: 0.5 mg Magnesium Hydroxide (Milk Of Magnesia) 30 ml PO HS PRN PRN Reason: Constipation Stop: 02/19/18 16:51 Miscellaneous (Probiotic Screen) 1 ea MC PRN PRN PRN Reason: PROTOCOL Stop: 02/20/18 08:29 Multivitamins/Vitamin C (Theragran) 1 tab PO DAILY [facility] Stop: 02/19/18 08:59 Last Admin: 12/25/17 08:59 Dose: 1 tab Mupirocin (Bactroban Oint) 1 appl NS BID [facility] Stop: 12/27/17 17:01 Last Admin: 12/25/17 09:01 Dose: 1 appl Phenobarbital (Phenobarbital) 64.8 mg PO DAILY [facility] Stop: 02/19/18 08:59 Last Admin: 12/25/17 09:00 Dose: 64.8 mg Polyethylene Glycol (Miralax) 17 gm PO Q2D PRN PRN Reason: Constipation Stop: 02/18/18 20:12 Senna (Senna) 8.6 mg PO HS [facility] Stop: 02/18/18 20:59 Last Admin: 12/24/17 20:15 Dose: 8.6 mg Sodium Phosphate (Fleet Enema) 135 ml RC Q2D PRN PRN Reason: Constipation Stop: 02/18/18 20:12 Sorbitol (Sorbitol) 30 ml PO HS [facility] Stop: 02/18/18 20:59 Last Admin: 12/24/17 20:58 Dose: 30 ml Zolpidem Tartrate (Ambien) 5 mg PO HS PRN PRN Reason: Insomnia Stop: 02/18/18 20:03 Last Admin: 12/24/17 20:15 Dose: 5 mg General: Alert, No acute distress HEENT: PERRLA, EOMI Neck: Supple Cardiovascular: Normal S1, Normal S2 Lungs: Clear to auscultation Abdomen: Bowel sounds Psych/Mental Status: Other (pyschosis) - Procedures Procedures: Procedures Procedure Code Date GROUP PSYCHOTHERAPY 70107 10/14/15 GROUP PSYCHOTHERAPY GZHZZZZ 10/14/15 Assessment/Plan - Assessment Assessment: bacteriuria acute psychosis UTI h/o bipolar disorder h/o schizophrenia - Plan Plan: psych eval continue present management Nutritional Asmnt/Malnutr-PDOC - Dietary Evaluation Malnutrition Findings (Please click <Entered> for more info): Nutritional Asmnt/Malnutrition Start: 12/23/17 14: 29 Text: Status: Complete Freq: Protocol: Document 12/23/17 14:29 LCHENG (Rec: 12/23/17 14:41 [email or web address] [id number]) Nutritional Asmnt/Malnutrition Patient General Information Diagnosis psychosis Pertinent Medical Hx/Surgical Hx bipolar, jajor depression Subjective Information pt seen sleeping in bed at time of visit. Per EMR, PO intake 100% of meals. Current Diet Order/ Nutrition Support [facility] soft chopped, LOIS, low fat, low cholesterol Pertinent Medications colace, lasix, culturelle, theragram, senna Pertinent Labs 12/20 cl 97, glucose 108 Nutritional Hx/Data Height 1.57 m Height (Calculated Centimeters) 157.5 Current Weight (lbs) 79.832 kg Weight (Calculated Kilograms) 79.8 Weight (Calculated Grams) 06806.3 [place] Body Weight 110 Body Mass Index (BMI) 32.1 Weight Status Obese GI Symptoms GI Symptoms None Last BM none Difficult in: None Skin Integrity/Comment: intact Current %PO Good (75-100%) Estimated Nutritional Goals BEE in Kcals: Adj wt of IBW Calories/Kcals/Kg 25-30 Kcals Calculated [id number] Protein: Adj wt of IBW Protein g/k Protein Calculated 58 Fluid: ml 1450-1740ml (1ml/kcal) Nutritional Problem No current Nutrition Prob Problem N/A Malnutrition Alert Is there a minimum of two criteria No selected? Query Text:Check all the applicable criteria. A minimum of two criteria are recommended for diagnosis of either severe or non-severe malnutrition. Malnutrition Related to Morbid Obesity Malnutrition related to morbid obesity No Intervention/Recommendation Comments 1. Continue with [facility] sfot chopped, LOIS, low fat low chlesterol diet as ordered. 2. Monitor PO intake, wt, labs and skin integrity 3. F/U as low risk in 7 days, 12/30 Expected Outcomes/Goals Expected Outcomes/Goals 1. PO intake to meet at least 75% of nutritional needs. 2. Wt stability, skin to remain intact, labs to approach WNL.
[2017-12-26] MEDS: Levothyroxine 0.088 Mg Tab PO SCH (06:49)
[2017-12-26] MEDS: Lactobacillus Rhamnosus GG 15 Billion CFU CAP.SPRINK PO SCH (09:51)
[2017-12-26] MEDS: Multivitamin Tab PO SCH (09:51)
[2017-12-26] MEDS: Lacosamide 10 mg/mL 10mL UDC PO SCH ×2 (09:52→16:38)
--- NOTE | 2017-12-26 14:51 | General Progress Note ---
Subjective - Review of Systems Events since last encounter: patient withdrawn depressed Subjective: pt. is aggressive Objective - Results Result Diagrams: 12/20/17 18:00 12/20/17 18:00 Recent Labs: Laboratory Last Values WBC 7.6 Th/cmm (4.8-10.8) 12/20/17 18:00 RBC 4.99 Mil/cmm (3.80-5.10) 12/20/17 18:00 Hgb 13.7 gm/dL (12-16) 12/20/17 18:00 Hct 42.5 % (41.0-60) 12/20/17 18:00 MCV 85.2 fl (81-100) 12/20/17 18:00 MCH 27.5 pg (27.0-31.0) 12/20/17 18:00 MCHC Differential 32.3 pg (28.0-36.0) 12/20/17 18:00 RDW 13.0 % (11.5-20.0) 12/20/17 18:00 Plt Count 370 Th/cmm (150-400) 12/20/17 18:00 MPV 6.9 fl 12/20/17 18:00 Neutrophils % 68.3 % (40.0-80.0) 12/20/17 18:00 Lymphocytes % 18.6 % (20.0-50.0) L 12/20/17 18:00 Monocytes % 5.9 % (2.0-10.0) 12/20/17 18:00 Eosinophils % 6.0 % (0.0-5.0) H 12/20/17 18:00 Basophils % 1.2 % (0.0-2.0) 12/20/17 18:00 Sodium 137 mEq/L (136-145) 12/20/17 18:00 Potassium 3.8 mEq/L (3.5-5.1) 12/20/17 18:00 Chloride 97 mEq/L (98-107) L 12/20/17 18:00 Carbon Dioxide 31.1 mEq/L (21.0-31.0) H 12/20/17 18:00 Anion Gap 12.7 (7.0-16.0) 12/20/17 18:00 BUN 13 mg/dL (7-25) 12/20/17 18:00 Creatinine 0.6 mg/dL (0.6-1.2) 12/20/17 18:00 Est GFR ( Amer) > 60.0 ml/min (>90) 12/20/17 18:00 Est GFR (Non-Af Amer) > 60.0 ml/min 12/20/17 18:00 BUN/Creatinine Ratio 21.7 12/20/17 18:00 Glucose 108 mg/dL (70-105) H 12/20/17 18:00 Calcium 9.8 mg/dL (8.6-10.3) 12/20/17 18:00 Urine Source CLEAN C 12/20/17 18:00 Urine Color YELLOW 12/20/17 18:00 Urine Clarity CLOUDY (CLEAR) H 12/20/17 18:00 Urine pH 6.0 (4.6 - 8.0) 12/20/17 18:00 Ur Specific [place] <= 1.005 (1.005-1.030) 12/20/17 18:00 Urine Protein NEGATIVE mg/dL (NEGATIVE) 12/20/17 18:00 Urine Glucose (UA) NEGATIVE mg/dL (NEGATIVE) 12/20/17 18:00 Urine Ketones NEGATIVE mg/dL (NEGATIVE) 12/20/17 18:00 Urine Blood TRACE (NEGATIVE) 12/20/17 18:00 Urine Nitrate NEGATIVE (NEGATIVE) 12/20/17 18:00 Urine Bilirubin NEGATIVE (NEGATIVE) 12/20/17 18:00 Urine Urobilinogen 0.2 E.U./dL (0.2 - 1.0) 12/20/17 18:00 Ur Leukocyte Esterase LARGE (NEGATIVE) H 12/20/17 18:00 Urine RBC 2-5 /hpf (0-5) 12/20/17 18:00 Urine WBC 25-50 /hpf (0-5) H 12/20/17 18:00 Ur Epithelial Cells FEW /lpf (FEW) 12/20/17 18:00 Urine Bacteria 3+ /hpf (NONE SEEN) H 12/20/17 18:00 - Physical Exam Vitals and I&O: Vital Signs Temp 99.1 F 12/26/17 06:27 Pulse 80 12/26/17 12:53 Resp 20 12/26/17 12:53 BP 106/58 12/26/17 09:52 Pulse Ox 93 12/26/17 06:27 Intake & Output 12/25/17 12/26/17 12/26/17 18:59 06:59 18:59 Intake Total 1000 300 Balance 1000 300 Intake: Oral 1000 300 Other: # Voids 4 1 # Bowel Movements 1 0 Active Medications: Current Medications Acetaminophen (Tylenol) 650 mg PO Q4H PRN PRN Reason: Mild Pain / Temp above 100 Stop: 02/18/18 20:03 Last Admin: 12/22/17 12:03 Dose: 650 mg Acetaminophen (Tylenol) 650 mg PO Q4HR PRN PRN Reason: Pain (Mild) Stop: 02/19/18 17:19 Al Hydrox/Mg Hydrox/Simethicone (Maalox) 30 ml PO Q4H PRN PRN Reason: GI DISTRESS Stop: 02/18/18 20:03 Amoxicillin (Amoxil) 500 mg PO TID [facility] Stop: 02/20/18 20:59 Last Admin: 12/26/17 09:52 Dose: 500 mg Aripiprazole (Abilify) 10 mg PO DAILY [facility]; Protocol Stop: 02/21/18 11:59 Last Admin: 12/26/17 09:51 Dose: 10 mg Bisacodyl (Dulcolax 10 Mg Supp) 10 mg RC DAILY [facility] Stop: 02/19/18 08:59 Last Admin: 12/26/17 09:52 Dose: Not Given Docusate Sodium (Colace) 100 mg PO BID [facility] Stop: 02/19/18 08:59 Last Admin: 12/26/17 09:51 Dose: 100 mg Duloxetine HCl (Cymbalta) 30 mg PO BID [facility]; Protocol Stop: 02/19/18 08:59 Last Admin: 12/26/17 09:52 Dose: 30 mg Furosemide (Lasix) 40 mg PO DAILY [facility] Stop: 02/19/18 08:59 Last Admin: 12/26/17 09:52 Dose: 40 mg Lacosamide (Vimpat) 100 mg PO BID [facility] Stop: 02/19/18 08:59 Last Admin: 12/26/17 09:52 Dose: Not Given Lactobacillus Rhamnosus (Culturelle 15b) 1 each PO DAILY [facility] Stop: 02/20/18 08:59 Last Admin: 12/26/17 09:51 Dose: 1 each Levetiracetam (Keppra) 1,000 mg PO BID [facility] Stop: 02/19/18 08:59 Last Admin: 12/26/17 09:51 Dose: 1,000 mg Levothyroxine Sodium (Synthroid) 0.088 mg PO QDAC [facility] Stop: 02/19/18 07:29 Last Admin: 12/26/17 06:49 Dose: 0.088 mg Lorazepam (Ativan) 0.5 mg PO Q4HR PRN; Protocol PRN Reason: Anxiety Stop: 01/19/18 20:03 Last Admin: 12/23/17 23:50 Dose: 0.5 mg Magnesium Hydroxide (Milk Of Magnesia) 30 ml PO HS PRN PRN Reason: Constipation Stop: 02/19/18 16:51 Miscellaneous (Probiotic Screen) 1 ea MC PRN PRN PRN Reason: PROTOCOL Stop: 02/20/18 08:29 Multivitamins/Vitamin C (Theragran) 1 tab PO DAILY [facility] Stop: 02/19/18 08:59 Last Admin: 12/26/17 09:51 Dose: 1 tab Mupirocin (Bactroban Oint) 1 appl NS BID [facility] Stop: 12/27/17 17:01 Last Admin: 12/26/17 09:52 Dose: Not Given Phenobarbital (Phenobarbital) 64.8 mg PO DAILY [facility] Stop: 02/19/18 08:59 Last Admin: 12/26/17 09:51 Dose: 64.8 mg Polyethylene Glycol (Miralax) 17 gm PO Q2D PRN PRN Reason: Constipation Stop: 02/18/18 20:12 Senna (Senna) 8.6 mg PO HS [facility] Stop: 02/18/18 20:59 Last Admin: 12/25/17 21:15 Dose: Not Given Sodium Phosphate (Fleet Enema) 135 ml RC Q2D PRN PRN Reason: Constipation Stop: 02/18/18 20:12 Sorbitol (Sorbitol) 30 ml PO HS [facility] Stop: 02/18/18 20:59 Last Admin: 12/25/17 21:17 Dose: Not Given Zolpidem Tartrate (Ambien) 5 mg PO HS PRN PRN Reason: Insomnia Stop: 02/18/18 20:03 Last Admin: 12/25/17 21:15 Dose: 5 mg General: Alert, No acute distress HEENT: PERRLA, EOMI Neck: Supple Cardiovascular: Normal S1, Normal S2 Lungs: Clear to auscultation Abdomen: Bowel sounds Psych/Mental Status: Other (pyschosis) - Procedures Procedures: Procedures Procedure Code Date GROUP PSYCHOTHERAPY 63814 10/14/15 GROUP PSYCHOTHERAPY GZHZZZZ 10/14/15 Assessment/Plan - Assessment Assessment: bacteriuria acute psychosis UTI h/o bipolar disorder h/o schizophrenia - Plan Plan: psych eval continue present management Nutritional Asmnt/Malnutr-PDOC - Dietary Evaluation Malnutrition Findings (Please click <Entered> for more info): Nutritional Asmnt/Malnutrition Start: 12/23/17 14: 29 Text: Status: Complete Freq: Protocol: Document 12/23/17 14:29 LCHENG (Rec: 12/23/17 14:41 LCHERMILOG [email or web address]) Nutritional Asmnt/Malnutrition Patient General Information Diagnosis psychosis Pertinent Medical Hx/Surgical Hx bipolar, jajor depression Subjective Information pt seen sleeping in bed at time of visit. Per EMR, PO intake 100% of meals. Current Diet Order/ Nutrition Support [facility] soft chopped, LOIS, low fat, low cholesterol Pertinent Medications colace, lasix, culturelle, theragram, senna Pertinent Labs 12/20 cl 97, glucose 108 Nutritional Hx/Data Height 1.57 m Height (Calculated Centimeters) 157.5 Current Weight (lbs) 79.832 kg Weight (Calculated Kilograms) 79.8 Weight (Calculated Grams) 90852.3 [place] Body Weight 110 Body Mass Index (BMI) 32.1 Weight Status Obese GI Symptoms GI Symptoms None Last BM none Difficult in: None Skin Integrity/Comment: intact Current %PO Good (75-100%) Estimated Nutritional Goals BEE in Kcals: Adj wt of IBW Calories/Kcals/Kg 25-30 Kcals Calculated 8823-0881 Protein: Adj wt of IBW Protein g/k Protein Calculated 58 Fluid: ml 1450-1740ml (1ml/kcal) Nutritional Problem No current Nutrition Prob Problem N/A Malnutrition Alert Is there a minimum of two criteria No selected? Query Text:Check all the applicable criteria. A minimum of two criteria are recommended for diagnosis of either severe or non-severe malnutrition. Malnutrition Related to Morbid Obesity Malnutrition related to morbid obesity No Intervention/Recommendation Comments 1. Continue with [facility] sfot chopped, LOIS, low fat low chlesterol diet as ordered. 2. Monitor PO intake, wt, labs and skin integrity 3. F/U as low risk in 7 days, 12/30 Expected Outcomes/Goals Expected Outcomes/Goals 1. PO intake to meet at least 75% of nutritional needs. 2. Wt stability, skin to remain intact, labs to approach WNL.
--- NOTE | 2017-12-26 21:48 | Progress Notes ---
DATE: 12/26/[address] Hannah. Case was discussed with staff of the patient, reviewed records. This is a 57-year-old female who was admitted on 12/20/2017 because of psychosis, agitation. The patient continues to be withdrawn, depressed, likes to be left alone. Continues to be internally preoccupied. Continues to be hard to redirect, still appearing depressed, easily agitated, compliant with the medication with no side effects, no sedation, no nausea and no extrapyramidal symptoms. Dr. Hannah increased Abilify to 10 mg daily on 12/23/2017. She is also on Cymbalta 30 mg twice a day with no side effects, no sedation, no nausea and no extrapyramidal symptoms. She also has seizure ____ she is on phenobarbital. We will continue to work with the patient in group therapy, milieu therapy and adjust the medications as needed. JOB# [id number]
--- NOTE | 2017-12-26 23:25 | Infectious Disease Prog Note ---
Infectious Disease Subjective - Review of Systems Service Date: 12/26/17 Subjective: doing well. no fever/ Infectious Disease Objective - Results Result Diagrams: 12/20/17 18:00 12/20/17 18:00 Recent Labs: Laboratory Last Values WBC 7.6 Th/cmm (4.8-10.8) 12/20/17 18:00 RBC 4.99 Mil/cmm (3.80-5.10) 12/20/17 18:00 Hgb 13.7 gm/dL (12-16) 12/20/17 18:00 Hct 42.5 % (41.0-60) 12/20/17 18:00 MCV 85.2 fl (81-100) 12/20/17 18:00 MCH 27.5 pg (27.0-31.0) 12/20/17 18:00 MCHC Differential 32.3 pg (28.0-36.0) 12/20/17 18:00 RDW 13.0 % (11.5-20.0) 12/20/17 18:00 Plt Count 370 Th/cmm (150-400) 12/20/17 18:00 MPV 6.9 fl 12/20/17 18:00 Neutrophils % 68.3 % (40.0-80.0) 12/20/17 18:00 Lymphocytes % 18.6 % (20.0-50.0) L 12/20/17 18:00 Monocytes % 5.9 % (2.0-10.0) 12/20/17 18:00 Eosinophils % 6.0 % (0.0-5.0) H 12/20/17 18:00 Basophils % 1.2 % (0.0-2.0) 12/20/17 18:00 Sodium 137 mEq/L (136-145) 12/20/17 18:00 Potassium 3.8 mEq/L (3.5-5.1) 12/20/17 18:00 Chloride 97 mEq/L (98-107) L 12/20/17 18:00 Carbon Dioxide 31.1 mEq/L (21.0-31.0) H 12/20/17 18:00 Anion Gap 12.7 (7.0-16.0) 12/20/17 18:00 BUN 13 mg/dL (7-25) 12/20/17 18:00 Creatinine 0.6 mg/dL (0.6-1.2) 12/20/17 18:00 Est GFR ( Amer) > 60.0 ml/min (>90) 12/20/17 18:00 Est GFR (Non-Af Amer) > 60.0 ml/min 12/20/17 18:00 BUN/Creatinine Ratio 21.7 12/20/17 18:00 Glucose 108 mg/dL (70-105) H 12/20/17 18:00 Calcium 9.8 mg/dL (8.6-10.3) 12/20/17 18:00 Urine Source CLEAN C 12/20/17 18:00 Urine Color YELLOW 12/20/17 18:00 Urine Clarity CLOUDY (CLEAR) H 12/20/17 18:00 Urine pH 6.0 (4.6 - 8.0) 12/20/17 18:00 Ur Specific [place] <= 1.005 (1.005-1.030) 12/20/17 18:00 Urine Protein NEGATIVE mg/dL (NEGATIVE) 12/20/17 18:00 Urine Glucose (UA) NEGATIVE mg/dL (NEGATIVE) 12/20/17 18:00 Urine Ketones NEGATIVE mg/dL (NEGATIVE) 12/20/17 18:00 Urine Blood TRACE (NEGATIVE) 12/20/17 18:00 Urine Nitrate NEGATIVE (NEGATIVE) 12/20/17 18:00 Urine Bilirubin NEGATIVE (NEGATIVE) 12/20/17 18:00 Urine Urobilinogen 0.2 E.U./dL (0.2 - 1.0) 12/20/17 18:00 Ur Leukocyte Esterase LARGE (NEGATIVE) H 12/20/17 18:00 Urine RBC 2-5 /hpf (0-5) 12/20/17 18:00 Urine WBC 25-50 /hpf (0-5) H 12/20/17 18:00 Ur Epithelial Cells FEW /lpf (FEW) 12/20/17 18:00 Urine Bacteria 3+ /hpf (NONE SEEN) H 12/20/17 18:00 - Physical Exam Vitals and I&O: Vital Signs Temp 98.2 F 12/26/17 20:00 Pulse 80 12/26/17 20:00 Resp 20 12/26/17 20:00 BP 109/59 12/26/17 20:00 Pulse Ox 96 12/26/17 20:00 Intake & Output 12/26/17 12/26/17 12/27/17 06:59 18:59 06:59 Intake Total 300 1200 Balance 300 1200 Intake: Oral 300 1200 Other: # Voids 1 3 # Bowel Movements 0 1 Active Medications: Current Medications Acetaminophen (Tylenol) 650 mg PO Q4H PRN PRN Reason: Mild Pain / Temp above 100 Stop: 02/18/18 20:03 Last Admin: 12/22/17 12:03 Dose: 650 mg Al Hydrox/Mg Hydrox/Simethicone (Maalox) 30 ml PO Q4H PRN PRN Reason: GI DISTRESS Stop: 02/18/18 20:03 Amoxicillin (Amoxil) 500 mg PO TID [facility] Stop: 02/20/18 20:59 Last Admin: 12/26/17 21:29 Dose: 500 mg Aripiprazole (Abilify) 10 mg PO DAILY [facility]; Protocol Stop: 02/21/18 11:59 Last Admin: 12/26/17 09:51 Dose: 10 mg Bisacodyl (Dulcolax 10 Mg Supp) 10 mg RC DAILY [facility] Stop: 02/19/18 08:59 Last Admin: 12/26/17 09:52 Dose: Not Given Docusate Sodium (Colace) 100 mg PO BID [facility] Stop: 02/19/18 08:59 Last Admin: 12/26/17 16:38 Dose: 100 mg Duloxetine HCl (Cymbalta) 30 mg PO BID [facility]; Protocol Stop: 02/19/18 08:59 Last Admin: 12/26/17 16:38 Dose: 30 mg Furosemide (Lasix) 40 mg PO DAILY [facility] Stop: 02/19/18 08:59 Last Admin: 12/26/17 09:52 Dose: 40 mg Lacosamide (Vimpat) 100 mg PO BID [facility] Stop: 02/19/18 08:59 Last Admin: 12/26/17 16:38 Dose: Not Given Lactobacillus Rhamnosus (Culturelle 15b) 1 each PO DAILY [facility] Stop: 02/20/18 08:59 Last Admin: 12/26/17 09:51 Dose: 1 each Levetiracetam (Keppra) 1,000 mg PO BID [facility] Stop: 02/19/18 08:59 Last Admin: 12/26/17 16:37 Dose: 1,000 mg Levothyroxine Sodium (Synthroid) 0.088 mg PO QDAC [facility] Stop: 02/19/18 07:29 Last Admin: 12/26/17 06:49 Dose: 0.088 mg Lorazepam (Ativan) 0.5 mg PO Q4HR PRN; Protocol PRN Reason: Anxiety Stop: 01/19/18 20:03 Last Admin: 12/23/17 23:50 Dose: 0.5 mg Magnesium Hydroxide (Milk Of Magnesia) 30 ml PO HS PRN PRN Reason: Constipation Stop: 02/19/18 16:51 Miscellaneous (Probiotic Screen) 1 ea MC PRN PRN PRN Reason: PROTOCOL Stop: 02/20/18 08:29 Multivitamins/Vitamin C (Theragran) 1 tab PO DAILY [facility] Stop: 02/19/18 08:59 Last Admin: 12/26/17 09:51 Dose: 1 tab Mupirocin (Bactroban Oint) 1 appl NS BID [facility] Stop: 12/27/17 17:01 Last Admin: 12/26/17 16:38 Dose: Not Given Phenobarbital (Phenobarbital) 64.8 mg PO DAILY [facility] Stop: 02/19/18 08:59 Last Admin: 12/26/17 09:51 Dose: 64.8 mg Polyethylene Glycol (Miralax) 17 gm PO Q2D PRN PRN Reason: Constipation Stop: 02/18/18 20:12 Senna (Senna) 8.6 mg PO HS [facility] Stop: 02/18/18 20:59 Last Admin: 12/26/17 21:29 Dose: 8.6 mg Sodium Phosphate (Fleet Enema) 135 ml RC Q2D PRN PRN Reason: Constipation Stop: 02/18/18 20:12 Sorbitol (Sorbitol) 30 ml PO HS [facility] Stop: 02/18/18 20:59 Last Admin: 12/26/17 21:32 Dose: Not Given Zolpidem Tartrate (Ambien) 5 mg PO HS PRN PRN Reason: Insomnia Stop: 02/18/18 20:03 Last Admin: 12/26/17 21:29 Dose: 5 mg General: no acute distress, well developed, well nourished HEENT: atraumatic, normocephalic, PERRLA Neck: supple, no thyromegaly Cardiovascular: S1S2, regular Lungs: clear to auscultation bilaterally Abdomen: soft, bowel sounds, no tender, no distended, no mass, no rebound Neurological: awake, alert, oriented Skin: intact - Procedures Procedures: Procedures Procedure Code Date GROUP PSYCHOTHERAPY 27608 10/14/15 GROUP PSYCHOTHERAPY GZHZZZZ 10/14/15 Infectious Disease Assmt/Plan - Assessment Assessment: UTi. - Plan Plan: Continue amoxicillin. Nutritional Asmnt/Malnutr-PDOC - Dietary Evaluation Malnutrition Findings (Please click <Entered> for more info): Nutritional Asmnt/Malnutrition Start: 12/23/17 14: 29 Text: Status: Complete Freq: Protocol: Document 12/23/17 14:29 LCHENG (Rec: 12/23/17 14:41 LCHERMILOG [email or web address]) Nutritional Asmnt/Malnutrition Patient General Information Diagnosis psychosis Pertinent Medical Hx/Surgical Hx bipolar, jajor depression Subjective Information pt seen sleeping in bed at time of visit. Per EMR, PO intake 100% of meals. Current Diet Order/ Nutrition Support [facility] soft chopped, LOIS, low fat, low cholesterol Pertinent Medications colace, lasix, culturelle, theragram, senna Pertinent Labs 12/20 cl 97, glucose 108 Nutritional Hx/Data Height 1.57 m Height (Calculated Centimeters) 157.5 Current Weight (lbs) 79.832 kg Weight (Calculated Kilograms) 79.8 Weight (Calculated Grams) 11245.3 [place] Body Weight 110 Body Mass Index (BMI) 32.1 Weight Status Obese GI Symptoms GI Symptoms None Last BM none Difficult in: None Skin Integrity/Comment: intact Current %PO Good (75-100%) Estimated Nutritional Goals BEE in Kcals: Adj wt of IBW Calories/Kcals/Kg 25-30 Kcals Calculated 8663-1794 Protein: Adj wt of IBW Protein g/k Protein Calculated 58 Fluid: ml 1450-1740ml (1ml/kcal) Nutritional Problem No current Nutrition Prob Problem N/A Malnutrition Alert Is there a minimum of two criteria No selected? Query Text:Check all the applicable criteria. A minimum of two criteria are recommended for diagnosis of either severe or non-severe malnutrition. Malnutrition Related to Morbid Obesity Malnutrition related to morbid obesity No Intervention/Recommendation Comments 1. Continue with [facility] sfot chopped, LOIS, low fat low chlesterol diet as ordered. 2. Monitor PO intake, wt, labs and skin integrity 3. F/U as low risk in 7 days, 12/30 Expected Outcomes/Goals Expected Outcomes/Goals 1. PO intake to meet at least 75% of nutritional needs. 2. Wt stability, skin to remain intact, labs to approach WNL.
[2017-12-27] MEDS: Levothyroxine 0.088 Mg Tab PO SCH (06:35)
[2017-12-27] MEDS: Lactobacillus Rhamnosus GG 15 Billion CFU CAP.SPRINK PO SCH (09:25)
[2017-12-27] MEDS: Multivitamin Tab PO SCH (09:25)
[2017-12-27] MEDS: Lacosamide 10 mg/mL 10mL UDC PO SCH ×2 (09:27→16:12)
--- NOTE | 2017-12-27 11:36 | Internal Medicine Prog Note ---
Internal Medicine Subjective - Subjective Service Date: 12/27/17 Patient seen and examined:: with staff Patient is:: awake Per staff patient has:: tolerating meds Internal Medicine Objective - Results Result Diagrams: 12/20/17 18:00 12/20/17 18:00 Recent Labs: Laboratory Last Values WBC 7.6 Th/cmm (4.8-10.8) 12/20/17 18:00 RBC 4.99 Mil/cmm (3.80-5.10) 12/20/17 18:00 Hgb 13.7 gm/dL (12-16) 12/20/17 18:00 Hct 42.5 % (41.0-60) 12/20/17 18:00 MCV 85.2 fl (81-100) 12/20/17 18:00 MCH 27.5 pg (27.0-31.0) 12/20/17 18:00 MCHC Differential 32.3 pg (28.0-36.0) 12/20/17 18:00 RDW 13.0 % (11.5-20.0) 12/20/17 18:00 Plt Count 370 Th/cmm (150-400) 12/20/17 18:00 MPV 6.9 fl 12/20/17 18:00 Neutrophils % 68.3 % (40.0-80.0) 12/20/17 18:00 Lymphocytes % 18.6 % (20.0-50.0) L 12/20/17 18:00 Monocytes % 5.9 % (2.0-10.0) 12/20/17 18:00 Eosinophils % 6.0 % (0.0-5.0) H 12/20/17 18:00 Basophils % 1.2 % (0.0-2.0) 12/20/17 18:00 Sodium 137 mEq/L (136-145) 12/20/17 18:00 Potassium 3.8 mEq/L (3.5-5.1) 12/20/17 18:00 Chloride 97 mEq/L (98-107) L 12/20/17 18:00 Carbon Dioxide 31.1 mEq/L (21.0-31.0) H 12/20/17 18:00 Anion Gap 12.7 (7.0-16.0) 12/20/17 18:00 BUN 13 mg/dL (7-25) 12/20/17 18:00 Creatinine 0.6 mg/dL (0.6-1.2) 12/20/17 18:00 Est GFR ( Amer) > 60.0 ml/min (>90) 12/20/17 18:00 Est GFR (Non-Af Amer) > 60.0 ml/min 12/20/17 18:00 BUN/Creatinine Ratio 21.7 12/20/17 18:00 Glucose 108 mg/dL (70-105) H 12/20/17 18:00 Calcium 9.8 mg/dL (8.6-10.3) 12/20/17 18:00 Urine Source CLEAN C 12/20/17 18:00 Urine Color YELLOW 12/20/17 18:00 Urine Clarity CLOUDY (CLEAR) H 12/20/17 18:00 Urine pH 6.0 (4.6 - 8.0) 12/20/17 18:00 Ur Specific [place] <= 1.005 (1.005-1.030) 12/20/17 18:00 Urine Protein NEGATIVE mg/dL (NEGATIVE) 12/20/17 18:00 Urine Glucose (UA) NEGATIVE mg/dL (NEGATIVE) 12/20/17 18:00 Urine Ketones NEGATIVE mg/dL (NEGATIVE) 12/20/17 18:00 Urine Blood TRACE (NEGATIVE) 12/20/17 18:00 Urine Nitrate NEGATIVE (NEGATIVE) 12/20/17 18:00 Urine Bilirubin NEGATIVE (NEGATIVE) 12/20/17 18:00 Urine Urobilinogen 0.2 E.U./dL (0.2 - 1.0) 12/20/17 18:00 Ur Leukocyte Esterase LARGE (NEGATIVE) H 12/20/17 18:00 Urine RBC 2-5 /hpf (0-5) 12/20/17 18:00 Urine WBC 25-50 /hpf (0-5) H 12/20/17 18:00 Ur Epithelial Cells FEW /lpf (FEW) 12/20/17 18:00 Urine Bacteria 3+ /hpf (NONE SEEN) H 12/20/17 18:00 - Physical Exam Vitals and I&O: Vital Signs Temp 98.0 F 12/27/17 06:24 Pulse 73 12/27/17 06:24 Resp 17 12/27/17 06:24 BP 99/60 12/27/17 09:26 Pulse Ox 97 12/27/17 06:24 Intake & Output 12/26/17 12/27/17 12/27/17 18:59 06:59 18:59 Intake Total 1200 Balance 1200 Intake: Oral 1200 Other: # Voids 3 # Bowel Movements 1 Active Medications: Current Medications Acetaminophen (Tylenol) 650 mg PO Q4H PRN PRN Reason: Mild Pain / Temp above 100 Stop: 02/18/18 20:03 Last Admin: 12/22/17 12:03 Dose: 650 mg Al Hydrox/Mg Hydrox/Simethicone (Maalox) 30 ml PO Q4H PRN PRN Reason: GI DISTRESS Stop: 02/18/18 20:03 Amoxicillin (Amoxil) 500 mg PO TID [facility] Stop: 02/20/18 20:59 Last Admin: 12/27/17 09:25 Dose: 500 mg Aripiprazole (Abilify) 10 mg PO DAILY [facility]; Protocol Stop: 02/21/18 11:59 Last Admin: 12/27/17 09:26 Dose: 10 mg Bisacodyl (Dulcolax 10 Mg Supp) 10 mg RC DAILY [facility] Stop: 02/19/18 08:59 Last Admin: 12/27/17 09:26 Dose: Not Given Docusate Sodium (Colace) 100 mg PO BID [facility] Stop: 02/19/18 08:59 Last Admin: 12/27/17 09:27 Dose: Not Given Duloxetine HCl (Cymbalta) 30 mg PO BID [facility]; Protocol Stop: 02/19/18 08:59 Last Admin: 12/27/17 09:26 Dose: 30 mg Furosemide (Lasix) 40 mg PO DAILY [facility] Stop: 02/19/18 08:59 Last Admin: 12/27/17 09:26 Dose: 40 mg Lacosamide (Vimpat) 100 mg PO BID [facility] Stop: 02/19/18 08:59 Last Admin: 12/27/17 09:27 Dose: Not Given Lactobacillus Rhamnosus (Culturelle 15b) 1 each PO DAILY [facility] Stop: 02/20/18 08:59 Last Admin: 12/27/17 09:25 Dose: 1 each Levetiracetam (Keppra) 1,000 mg PO BID [facility] Stop: 02/19/18 08:59 Last Admin: 12/27/17 09:25 Dose: 1,000 mg Levothyroxine Sodium (Synthroid) 0.088 mg PO QDAC [facility] Stop: 02/19/18 07:29 Last Admin: 12/27/17 06:35 Dose: 0.088 mg Lorazepam (Ativan) 0.5 mg PO Q4HR PRN; Protocol PRN Reason: Anxiety Stop: 01/19/18 20:03 Last Admin: 12/23/17 23:50 Dose: 0.5 mg Magnesium Hydroxide (Milk Of Magnesia) 30 ml PO HS PRN PRN Reason: Constipation Stop: 02/19/18 16:51 Miscellaneous (Probiotic Screen) 1 ea MC PRN PRN PRN Reason: PROTOCOL Stop: 02/20/18 08:29 Multivitamins/Vitamin C (Theragran) 1 tab PO DAILY [facility] Stop: 02/19/18 08:59 Last Admin: 12/27/17 09:25 Dose: 1 tab Mupirocin (Bactroban Oint) 1 appl NS BID [facility] Stop: 12/27/17 17:01 Last Admin: 12/27/17 09:26 Dose: 1 appl Phenobarbital (Phenobarbital) 64.8 mg PO DAILY [facility] Stop: 02/19/18 08:59 Last Admin: 12/27/17 09:25 Dose: 64.8 mg Polyethylene Glycol (Miralax) 17 gm PO Q2D PRN PRN Reason: Constipation Stop: 02/18/18 20:12 Senna (Senna) 8.6 mg PO HS [facility] Stop: 02/18/18 20:59 Last Admin: 12/26/17 21:29 Dose: 8.6 mg Sodium Phosphate (Fleet Enema) 135 ml RC Q2D PRN PRN Reason: Constipation Stop: 02/18/18 20:12 Sorbitol (Sorbitol) 30 ml PO HS [facility] Stop: 02/18/18 20:59 Last Admin: 12/26/17 21:32 Dose: Not Given Zolpidem Tartrate (Ambien) 5 mg PO HS PRN PRN Reason: Insomnia Stop: 02/18/18 20:03 Last Admin: 12/26/17 21:29 Dose: 5 mg General: alert HEENT: NC/AT, PERRLA Neck: Supple Lungs: CTAB Cardiovascular: RRR, Normal S1, Normal S2, without murmur Abdomen: soft, non-distended - Procedures Procedures: Procedures Procedure Code Date GROUP PSYCHOTHERAPY 01665 10/14/15 GROUP PSYCHOTHERAPY GZHZZZZ 10/14/15 Internal Medicine Assmt/Plan - Assessment Assessment: bacteriuria acute psychosis UTI h/o bipolar disorder h/o schizophrenia - Plan Plan: continue current plan of care Nutritional Asmnt/Malnutr-PDOC - Dietary Evaluation Malnutrition Findings (Please click <Entered> for more info): Nutritional Asmnt/Malnutrition Start: 12/23/17 14: 29 Text: Status: Complete Freq: Protocol: Document 12/23/17 14:29 LCHENG (Rec: 12/23/17 14:41 [email or web address] [email or web address]) Nutritional Asmnt/Malnutrition Patient General Information Diagnosis psychosis Pertinent Medical Hx/Surgical Hx bipolar, jajor depression Subjective Information pt seen sleeping in bed at time of visit. Per EMR, PO intake 100% of meals. Current Diet Order/ Nutrition Support [facility] soft chopped, LOIS, low fat, low cholesterol Pertinent Medications colace, lasix, culturelle, theragram, senna Pertinent Labs 12/20 cl 97, glucose 108 Nutritional Hx/Data Height 5 ft 2 in Height (Calculated Centimeters) 157.5 Current Weight (lbs) 176 lb Weight (Calculated Kilograms) 79.8 Weight (Calculated Grams) 65644.3 [place] Body Weight 110 Body Mass Index (BMI) 32.1 Weight Status Obese GI Symptoms GI Symptoms None Last BM none Difficult in: None Skin Integrity/Comment: intact Current %PO Good (75-100%) Estimated Nutritional Goals BEE in Kcals: Adj wt of IBW Calories/Kcals/Kg 25-30 Kcals Calculated [id number] Protein: Adj wt of IBW Protein g/k Protein Calculated 58 Fluid: ml 1450-1740ml (1ml/kcal) Nutritional Problem No current Nutrition Prob Problem N/A Malnutrition Alert Is there a minimum of two criteria No selected? Query Text:Check all the applicable criteria. A minimum of two criteria are recommended for diagnosis of either severe or non-severe malnutrition. Malnutrition Related to Morbid Obesity Malnutrition related to morbid obesity No Intervention/Recommendation Comments 1. Continue with [facility] sfot chopped, LOIS, low fat low chlesterol diet as ordered. 2. Monitor PO intake, wt, labs and skin integrity 3. F/U as low risk in 7 days, 12/30 Expected Outcomes/Goals Expected Outcomes/Goals 1. PO intake to meet at least 75% of nutritional needs. 2. Wt stability, skin to remain intact, labs to approach WNL.
--- NOTE | 2017-12-27 22:30 | Progress Notes ---
DATE: 12/27/[address] Hannah. Case discussed with staff of the patient, reviewed records. The patient continues to be withdrawn, continues to be depressed, continues to have flat affect, easily agitated, tolerating increase in Abilify and continues to have poor insight about the whole process. No side effects with the medication. No sedation, no nausea, no extrapyramidal symptoms. We will continue to work with the patient in group therapy, milieu therapy, and adjust the medication as needed. JOB# [id number]
[2017-12-28] MEDS: Levothyroxine 0.088 Mg Tab PO SCH (06:35)
[2017-12-28] MEDS: Multivitamin Tab PO SCH (09:10)
[2017-12-28] MEDS: Lactobacillus Rhamnosus GG 15 Billion CFU CAP.SPRINK PO SCH (09:10)
[2017-12-28] MEDS: Lacosamide 10 mg/mL 10mL UDC PO SCH ×2 (09:11→17:36)
--- NOTE | 2017-12-28 13:07 | General Progress Note ---
Subjective - Review of Systems Events since last encounter: patient depressed continues to be withdrawn Subjective: pt. is aggressive Objective - Results Result Diagrams: 12/20/17 18:00 12/20/17 18:00 Recent Labs: Laboratory Last Values WBC 7.6 Th/cmm (4.8-10.8) 12/20/17 18:00 RBC 4.99 Mil/cmm (3.80-5.10) 12/20/17 18:00 Hgb 13.7 gm/dL (12-16) 12/20/17 18:00 Hct 42.5 % (41.0-60) 12/20/17 18:00 MCV 85.2 fl (81-100) 12/20/17 18:00 MCH 27.5 pg (27.0-31.0) 12/20/17 18:00 MCHC Differential 32.3 pg (28.0-36.0) 12/20/17 18:00 RDW 13.0 % (11.5-20.0) 12/20/17 18:00 Plt Count 370 Th/cmm (150-400) 12/20/17 18:00 MPV 6.9 fl 12/20/17 18:00 Neutrophils % 68.3 % (40.0-80.0) 12/20/17 18:00 Lymphocytes % 18.6 % (20.0-50.0) L 12/20/17 18:00 Monocytes % 5.9 % (2.0-10.0) 12/20/17 18:00 Eosinophils % 6.0 % (0.0-5.0) H 12/20/17 18:00 Basophils % 1.2 % (0.0-2.0) 12/20/17 18:00 Sodium 137 mEq/L (136-145) 12/20/17 18:00 Potassium 3.8 mEq/L (3.5-5.1) 12/20/17 18:00 Chloride 97 mEq/L (98-107) L 12/20/17 18:00 Carbon Dioxide 31.1 mEq/L (21.0-31.0) H 12/20/17 18:00 Anion Gap 12.7 (7.0-16.0) 12/20/17 18:00 BUN 13 mg/dL (7-25) 12/20/17 18:00 Creatinine 0.6 mg/dL (0.6-1.2) 12/20/17 18:00 Est GFR ( Amer) > 60.0 ml/min (>90) 12/20/17 18:00 Est GFR (Non-Af Amer) > 60.0 ml/min 12/20/17 18:00 BUN/Creatinine Ratio 21.7 12/20/17 18:00 Glucose 108 mg/dL (70-105) H 12/20/17 18:00 Calcium 9.8 mg/dL (8.6-10.3) 12/20/17 18:00 Urine Source CLEAN C 12/20/17 18:00 Urine Color YELLOW 12/20/17 18:00 Urine Clarity CLOUDY (CLEAR) H 12/20/17 18:00 Urine pH 6.0 (4.6 - 8.0) 12/20/17 18:00 Ur Specific [place] <= 1.005 (1.005-1.030) 12/20/17 18:00 Urine Protein NEGATIVE mg/dL (NEGATIVE) 12/20/17 18:00 Urine Glucose (UA) NEGATIVE mg/dL (NEGATIVE) 12/20/17 18:00 Urine Ketones NEGATIVE mg/dL (NEGATIVE) 12/20/17 18:00 Urine Blood TRACE (NEGATIVE) 12/20/17 18:00 Urine Nitrate NEGATIVE (NEGATIVE) 12/20/17 18:00 Urine Bilirubin NEGATIVE (NEGATIVE) 12/20/17 18:00 Urine Urobilinogen 0.2 E.U./dL (0.2 - 1.0) 12/20/17 18:00 Ur Leukocyte Esterase LARGE (NEGATIVE) H 12/20/17 18:00 Urine RBC 2-5 /hpf (0-5) 12/20/17 18:00 Urine WBC 25-50 /hpf (0-5) H 12/20/17 18:00 Ur Epithelial Cells FEW /lpf (FEW) 12/20/17 18:00 Urine Bacteria 3+ /hpf (NONE SEEN) H 12/20/17 18:00 - Physical Exam Vitals and I&O: Vital Signs Temp 98.6 F 12/28/17 06:18 Pulse 73 12/28/17 12:43 Resp 16 12/28/17 12:43 BP 99/55 07/11/18 09:11 Pulse Ox 94 12/28/17 06:18 Intake & Output 12/27/17 12/28/17 12/28/17 18:59 06:59 18:59 Intake Total 900 180 Balance 900 180 Intake: Oral 900 180 Other: # Voids 3 2 # Bowel Movements 1 0 Stool Characteristics Soft Formed [place] Active Medications: Current Medications Acetaminophen (Tylenol) 650 mg PO Q4H PRN PRN Reason: Mild Pain / Temp above 100 Stop: 02/18/18 20:03 Last Admin: 12/22/17 12:03 Dose: 650 mg Al Hydrox/Mg Hydrox/Simethicone (Maalox) 30 ml PO Q4H PRN PRN Reason: GI DISTRESS Stop: 02/18/18 20:03 Amoxicillin (Amoxil) 500 mg PO TID [facility] Stop: 02/20/18 20:59 Last Admin: 12/28/17 09:10 Dose: 500 mg Aripiprazole (Abilify) 10 mg PO DAILY [facility]; Protocol Stop: 02/21/18 11:59 Last Admin: 12/28/17 09:10 Dose: 10 mg Bisacodyl (Dulcolax 10 Mg Supp) 10 mg RC DAILY [facility] Stop: 02/19/18 08:59 Last Admin: 12/28/17 09:11 Dose: Not Given Docusate Sodium (Colace) 100 mg PO BID [facility] Stop: 02/19/18 08:59 Last Admin: 12/28/17 09:11 Dose: Not Given Duloxetine HCl (Cymbalta) 30 mg PO BID [facility]; Protocol Stop: 02/19/18 08:59 Last Admin: 12/28/17 09:10 Dose: 30 mg Furosemide (Lasix) 40 mg PO DAILY [facility] Stop: 02/19/18 08:59 Last Admin: 12/28/17 09:11 Dose: 40 mg Lacosamide (Vimpat) 100 mg PO BID [facility] Stop: 02/19/18 08:59 Last Admin: 12/28/17 09:11 Dose: Not Given Lactobacillus Rhamnosus (Culturelle 15b) 1 each PO DAILY [facility] Stop: 02/20/18 08:59 Last Admin: 12/28/17 09:10 Dose: 1 each Levetiracetam (Keppra) 1,000 mg PO BID [facility] Stop: 02/19/18 08:59 Last Admin: 12/28/17 09:10 Dose: 1,000 mg Levothyroxine Sodium (Synthroid) 0.088 mg PO QDAC [facility] Stop: 02/19/18 07:29 Last Admin: 12/28/17 06:35 Dose: 0.088 mg Lorazepam (Ativan) 0.5 mg PO Q4HR PRN; Protocol PRN Reason: Anxiety Stop: 01/19/18 20:03 Last Admin: 12/23/17 23:50 Dose: 0.5 mg Magnesium Hydroxide (Milk Of Magnesia) 30 ml PO HS PRN PRN Reason: Constipation Stop: 02/19/18 16:51 Miscellaneous (Probiotic Screen) 1 ea MC PRN PRN PRN Reason: PROTOCOL Stop: 02/20/18 08:29 Multivitamins/Vitamin C (Theragran) 1 tab PO DAILY [facility] Stop: 02/19/18 08:59 Last Admin: 12/28/17 09:10 Dose: 1 tab Phenobarbital (Phenobarbital) 64.8 mg PO DAILY [facility] Stop: 02/19/18 08:59 Last Admin: 12/28/17 09:10 Dose: 64.8 mg Polyethylene Glycol (Miralax) 17 gm PO Q2D PRN PRN Reason: Constipation Stop: 02/18/18 20:12 Senna (Senna) 8.6 mg PO HS [facility] Stop: 02/18/18 20:59 Last Admin: 12/27/17 21:17 Dose: 8.6 mg Sodium Phosphate (Fleet Enema) 135 ml RC Q2D PRN PRN Reason: Constipation Stop: 02/18/18 20:12 Sorbitol (Sorbitol) 30 ml PO HS [facility] Stop: 02/18/18 20:59 Last Admin: 12/27/17 21:00 Dose: Not Given Zolpidem Tartrate (Ambien) 5 mg PO HS PRN PRN Reason: Insomnia Stop: 02/18/18 20:03 Last Admin: 12/27/17 21:17 Dose: 5 mg General: Alert, No acute distress HEENT: PERRLA, EOMI Neck: Supple Cardiovascular: Normal S1, Normal S2 Lungs: Clear to auscultation Abdomen: Bowel sounds Psych/Mental Status: Other (pyschosis) - Procedures Procedures: Procedures Procedure Code Date GROUP PSYCHOTHERAPY 97800 10/14/15 GROUP PSYCHOTHERAPY GZHZZZZ 10/14/15 Assessment/Plan - Assessment Assessment: bacteriuria acute psychosis UTI h/o bipolar disorder h/o schizophrenia - Plan Plan: psych eval continue present management Nutritional Asmnt/Malnutr-PDOC - Dietary Evaluation Malnutrition Findings (Please click <Entered> for more info): Nutritional Asmnt/Malnutrition Start: 12/23/17 14: 29 Text: Status: Complete Freq: Protocol: Document 12/23/17 14:29 LCHERMILOG (Rec: 12/23/17 14:41 LCHERMILOG [id number]) Nutritional Asmnt/Malnutrition Patient General Information Diagnosis psychosis Pertinent Medical Hx/Surgical Hx bipolar, jajor depression Subjective Information pt seen sleeping in bed at time of visit. Per EMR, PO intake 100% of meals. Current Diet Order/ Nutrition Support [facility] soft chopped, LOIS, low fat, low cholesterol Pertinent Medications colace, lasix, culturelle, theragram, senna Pertinent Labs 12/20 cl 97, glucose 108 Nutritional Hx/Data Height 1.57 m Height (Calculated Centimeters) 157.5 Current Weight (lbs) 79.832 kg Weight (Calculated Kilograms) 79.8 Weight (Calculated Grams) 43944.3 [place] Body Weight 110 Body Mass Index (BMI) 32.1 Weight Status Obese GI Symptoms GI Symptoms None Last BM none Difficult in: None Skin Integrity/Comment: intact Current %PO Good (75-100%) Estimated Nutritional Goals BEE in Kcals: Adj wt of IBW Calories/Kcals/Kg 25-30 Kcals Calculated [id number] Protein: Adj wt of IBW Protein g/k Protein Calculated 58 Fluid: ml 1450-1740ml (1ml/kcal) Nutritional Problem No current Nutrition Prob Problem N/A Malnutrition Alert Is there a minimum of two criteria No selected? Query Text:Check all the applicable criteria. A minimum of two criteria are recommended for diagnosis of either severe or non-severe malnutrition. Malnutrition Related to Morbid Obesity Malnutrition related to morbid obesity No Intervention/Recommendation Comments 1. Continue with [facility] sfot chopped, LOIS, low fat low chlesterol diet as ordered. 2. Monitor PO intake, wt, labs and skin integrity 3. F/U as low risk in 7 days, 12/30 Expected Outcomes/Goals Expected Outcomes/Goals 1. PO intake to meet at least 75% of nutritional needs. 2. Wt stability, skin to remain intact, labs to approach WNL.
--- NOTE | 2017-12-28 23:55 | Infectious Disease Prog Note ---
Infectious Disease Subjective - Review of Systems Service Date: 12/28/17 Subjective: doing well. no fever/ Infectious Disease Objective - Results Result Diagrams: 12/20/17 18:00 12/20/17 18:00 Recent Labs: Laboratory Last Values WBC 7.6 Th/cmm (4.8-10.8) 12/20/17 18:00 RBC 4.99 Mil/cmm (3.80-5.10) 12/20/17 18:00 Hgb 13.7 gm/dL (12-16) 12/20/17 18:00 Hct 42.5 % (41.0-60) 12/20/17 18:00 MCV 85.2 fl (81-100) 12/20/17 18:00 MCH 27.5 pg (27.0-31.0) 12/20/17 18:00 MCHC Differential 32.3 pg (28.0-36.0) 12/20/17 18:00 RDW 13.0 % (11.5-20.0) 12/20/17 18:00 Plt Count 370 Th/cmm (150-400) 12/20/17 18:00 MPV 6.9 fl 12/20/17 18:00 Neutrophils % 68.3 % (40.0-80.0) 12/20/17 18:00 Lymphocytes % 18.6 % (20.0-50.0) L 12/20/17 18:00 Monocytes % 5.9 % (2.0-10.0) 12/20/17 18:00 Eosinophils % 6.0 % (0.0-5.0) H 12/20/17 18:00 Basophils % 1.2 % (0.0-2.0) 12/20/17 18:00 Sodium 137 mEq/L (136-145) 12/20/17 18:00 Potassium 3.8 mEq/L (3.5-5.1) 12/20/17 18:00 Chloride 97 mEq/L (98-107) L 12/20/17 18:00 Carbon Dioxide 31.1 mEq/L (21.0-31.0) H 12/20/17 18:00 Anion Gap 12.7 (7.0-16.0) 12/20/17 18:00 BUN 13 mg/dL (7-25) 12/20/17 18:00 Creatinine 0.6 mg/dL (0.6-1.2) 12/20/17 18:00 Est GFR ( Amer) > 60.0 ml/min (>90) 12/20/17 18:00 Est GFR (Non-Af Amer) > 60.0 ml/min 12/20/17 18:00 BUN/Creatinine Ratio 21.7 12/20/17 18:00 Glucose 108 mg/dL (70-105) H 12/20/17 18:00 Calcium 9.8 mg/dL (8.6-10.3) 12/20/17 18:00 Urine Source CLEAN C 12/20/17 18:00 Urine Color YELLOW 12/20/17 18:00 Urine Clarity CLOUDY (CLEAR) H 12/20/17 18:00 Urine pH 6.0 (4.6 - 8.0) 12/20/17 18:00 Ur Specific [place] <= 1.005 (1.005-1.030) 12/20/17 18:00 Urine Protein NEGATIVE mg/dL (NEGATIVE) 12/20/17 18:00 Urine Glucose (UA) NEGATIVE mg/dL (NEGATIVE) 12/20/17 18:00 Urine Ketones NEGATIVE mg/dL (NEGATIVE) 12/20/17 18:00 Urine Blood TRACE (NEGATIVE) 12/20/17 18:00 Urine Nitrate NEGATIVE (NEGATIVE) 12/20/17 18:00 Urine Bilirubin NEGATIVE (NEGATIVE) 12/20/17 18:00 Urine Urobilinogen 0.2 E.U./dL (0.2 - 1.0) 12/20/17 18:00 Ur Leukocyte Esterase LARGE (NEGATIVE) H 12/20/17 18:00 Urine RBC 2-5 /hpf (0-5) 12/20/17 18:00 Urine WBC 25-50 /hpf (0-5) H 12/20/17 18:00 Ur Epithelial Cells FEW /lpf (FEW) 12/20/17 18:00 Urine Bacteria 3+ /hpf (NONE SEEN) H 12/20/17 18:00 - Physical Exam Vitals and I&O: Vital Signs Temp 98.2 F 12/28/17 14:00 Pulse 88 12/28/17 14:00 Resp 18 12/28/17 14:00 BP 98/57 12/28/17 14:00 Pulse Ox 96 12/28/17 14:00 Intake & Output 12/28/17 12/28/17 12/29/17 06:59 18:59 06:59 Intake Total 180 Balance 180 Intake: Oral 180 Other: # Voids 2 # Bowel Movements 0 Active Medications: Current Medications Acetaminophen (Tylenol) 650 mg PO Q4H PRN PRN Reason: Mild Pain / Temp above 100 Stop: 02/18/18 20:03 Last Admin: 12/22/17 12:03 Dose: 650 mg Al Hydrox/Mg Hydrox/Simethicone (Maalox) 30 ml PO Q4H PRN PRN Reason: GI DISTRESS Stop: 02/18/18 20:03 Amoxicillin (Amoxil) 500 mg PO TID [facility] Stop: 02/20/18 20:59 Last Admin: 12/28/17 21:18 Dose: 500 mg Aripiprazole (Abilify) 10 mg PO DAILY [facility]; Protocol Stop: 02/21/18 11:59 Last Admin: 12/28/17 09:10 Dose: 10 mg Bisacodyl (Dulcolax 10 Mg Supp) 10 mg RC DAILY [facility] Stop: 02/19/18 08:59 Last Admin: 12/28/17 09:11 Dose: Not Given Docusate Sodium (Colace) 100 mg PO BID [facility] Stop: 02/19/18 08:59 Last Admin: 12/28/17 17:36 Dose: Not Given Duloxetine HCl (Cymbalta) 30 mg PO BID [facility]; Protocol Stop: 02/19/18 08:59 Last Admin: 12/28/17 17:36 Dose: 30 mg Furosemide (Lasix) 40 mg PO DAILY [facility] Stop: 02/19/18 08:59 Last Admin: 12/28/17 09:11 Dose: 40 mg Lactobacillus Rhamnosus (Culturelle 15b) 1 each PO DAILY [facility] Stop: 02/20/18 08:59 Last Admin: 12/28/17 09:10 Dose: 1 each Levetiracetam (Keppra) 1,000 mg PO BID [facility] Stop: 02/19/18 08:59 Last Admin: 12/28/17 17:35 Dose: 1,000 mg Levothyroxine Sodium (Synthroid) 0.088 mg PO QDAC [facility] Stop: 02/19/18 07:29 Last Admin: 12/28/17 06:35 Dose: 0.088 mg Lorazepam (Ativan) 0.5 mg PO Q4HR PRN; Protocol PRN Reason: Anxiety Stop: 01/19/18 20:03 Last Admin: 12/23/17 23:50 Dose: 0.5 mg Magnesium Hydroxide (Milk Of Magnesia) 30 ml PO HS PRN PRN Reason: Constipation Stop: 02/19/18 16:51 Miscellaneous (Probiotic Screen) 1 ea MC PRN PRN PRN Reason: PROTOCOL Stop: 02/20/18 08:29 Multivitamins/Vitamin C (Theragran) 1 tab PO DAILY [facility] Stop: 02/19/18 08:59 Last Admin: 12/28/17 09:10 Dose: 1 tab Phenobarbital (Phenobarbital) 64.8 mg PO DAILY [facility] Stop: 02/19/18 08:59 Last Admin: 12/28/17 09:10 Dose: 64.8 mg Polyethylene Glycol (Miralax) 17 gm PO Q2D PRN PRN Reason: Constipation Stop: 02/18/18 20:12 Senna (Senna) 8.6 mg PO HS [facility] Stop: 02/18/18 20:59 Last Admin: 12/28/17 21:18 Dose: 8.6 mg Sodium Phosphate (Fleet Enema) 135 ml RC Q2D PRN PRN Reason: Constipation Stop: 02/18/18 20:12 Sorbitol (Sorbitol) 30 ml PO HS [facility] Stop: 02/18/18 20:59 Last Admin: 12/28/17 21:18 Dose: 30 ml Zolpidem Tartrate (Ambien) 5 mg PO HS PRN PRN Reason: Insomnia Stop: 02/18/18 20:03 Last Admin: 12/28/17 21:19 Dose: 5 mg General: no acute distress, well developed, well nourished HEENT: atraumatic, normocephalic, PERRLA, EOMI Neck: supple, no thyromegaly, no lymphadenopathy Cardiovascular: S1S2, regular, no irregular Lungs: no crackles Abdomen: soft, distended, mass - Procedures Procedures: Procedures Procedure Code Date GROUP PSYCHOTHERAPY 59386 10/14/15 GROUP PSYCHOTHERAPY GZHZZZZ 10/14/15 Infectious Disease Assmt/Plan - Assessment Assessment: UTi. - Plan Plan: Continue amoxicillin. Nutritional Asmnt/Malnutr-PDOC - Dietary Evaluation Malnutrition Findings (Please click <Entered> for more info): Nutritional Asmnt/Malnutrition Start: 12/23/17 14: 29 Text: Status: Complete Freq: Protocol: Document 12/23/17 14:29 FERNIE (Rec: 12/23/17 14:41 FERNIE [email or web address]) Nutritional Asmnt/Malnutrition Patient General Information Diagnosis psychosis Pertinent Medical Hx/Surgical Hx bipolar, jajor depression Subjective Information pt seen sleeping in bed at time of visit. Per EMR, PO intake 100% of meals. Current Diet Order/ Nutrition Support [facility] soft chopped, LOIS, low fat, low cholesterol Pertinent Medications colace, lasix, culturelle, theragram, senna Pertinent Labs 12/20 cl 97, glucose 108 Nutritional Hx/Data Height 1.57 m Height (Calculated Centimeters) 157.5 Current Weight (lbs) 79.832 kg Weight (Calculated Kilograms) 79.8 Weight (Calculated Grams) 92975.3 [place] Body Weight 110 Body Mass Index (BMI) 32.1 Weight Status Obese GI Symptoms GI Symptoms None Last BM none Difficult in: None Skin Integrity/Comment: intact Current %PO Good (75-100%) Estimated Nutritional Goals BEE in Kcals: Adj wt of IBW Calories/Kcals/Kg 25-30 Kcals Calculated 3992-1862 Protein: Adj wt of IBW Protein g/k Protein Calculated 58 Fluid: ml 1450-1740ml (1ml/kcal) Nutritional Problem No current Nutrition Prob Problem N/A Malnutrition Alert Is there a minimum of two criteria No selected? Query Text:Check all the applicable criteria. A minimum of two criteria are recommended for diagnosis of either severe or non-severe malnutrition. Malnutrition Related to Morbid Obesity Malnutrition related to morbid obesity No Intervention/Recommendation Comments 1. Continue with [facility] sfot chopped, LOIS, low fat low chlesterol diet as ordered. 2. Monitor PO intake, wt, labs and skin integrity 3. F/U as low risk in 7 days, 12/30 Expected Outcomes/Goals Expected Outcomes/Goals 1. PO intake to meet at least 75% of nutritional needs. 2. Wt stability, skin to remain intact, labs to approach WNL.
[2017-12-29] MEDS: Levothyroxine 0.088 Mg Tab PO SCH (06:51)
[2017-12-29] MEDS: Multivitamin Tab PO SCH (08:48)
[2017-12-29] MEDS: Lactobacillus Rhamnosus GG 15 Billion CFU CAP.SPRINK PO SCH (08:48)
--- NOTE | 2017-12-29 13:06 | Infectious Disease Prog Note ---
Infectious Disease Subjective - Review of Systems Service Date: 12/29/17 Subjective: doing well. no fever/ Infectious Disease Objective - Results Result Diagrams: 12/20/17 18:00 12/20/17 18:00 Recent Labs: Laboratory Last Values WBC 7.6 Th/cmm (4.8-10.8) 12/20/17 18:00 RBC 4.99 Mil/cmm (3.80-5.10) 12/20/17 18:00 Hgb 13.7 gm/dL (12-16) 12/20/17 18:00 Hct 42.5 % (41.0-60) 12/20/17 18:00 MCV 85.2 fl (81-100) 12/20/17 18:00 MCH 27.5 pg (27.0-31.0) 12/20/17 18:00 MCHC Differential 32.3 pg (28.0-36.0) 12/20/17 18:00 RDW 13.0 % (11.5-20.0) 12/20/17 18:00 Plt Count 370 Th/cmm (150-400) 12/20/17 18:00 MPV 6.9 fl 12/20/17 18:00 Neutrophils % 68.3 % (40.0-80.0) 12/20/17 18:00 Lymphocytes % 18.6 % (20.0-50.0) L 12/20/17 18:00 Monocytes % 5.9 % (2.0-10.0) 12/20/17 18:00 Eosinophils % 6.0 % (0.0-5.0) H 12/20/17 18:00 Basophils % 1.2 % (0.0-2.0) 12/20/17 18:00 Sodium 137 mEq/L (136-145) 12/20/17 18:00 Potassium 3.8 mEq/L (3.5-5.1) 12/20/17 18:00 Chloride 97 mEq/L (98-107) L 12/20/17 18:00 Carbon Dioxide 31.1 mEq/L (21.0-31.0) H 12/20/17 18:00 Anion Gap 12.7 (7.0-16.0) 12/20/17 18:00 BUN 13 mg/dL (7-25) 12/20/17 18:00 Creatinine 0.6 mg/dL (0.6-1.2) 12/20/17 18:00 Est GFR ( Amer) > 60.0 ml/min (>90) 12/20/17 18:00 Est GFR (Non-Af Amer) > 60.0 ml/min 12/20/17 18:00 BUN/Creatinine Ratio 21.7 12/20/17 18:00 Glucose 108 mg/dL (70-105) H 12/20/17 18:00 Calcium 9.8 mg/dL (8.6-10.3) 12/20/17 18:00 Urine Source CLEAN C 12/20/17 18:00 Urine Color YELLOW 12/20/17 18:00 Urine Clarity CLOUDY (CLEAR) H 12/20/17 18:00 Urine pH 6.0 (4.6 - 8.0) 12/20/17 18:00 Ur Specific [place] <= 1.005 (1.005-1.030) 12/20/17 18:00 Urine Protein NEGATIVE mg/dL (NEGATIVE) 12/20/17 18:00 Urine Glucose (UA) NEGATIVE mg/dL (NEGATIVE) 12/20/17 18:00 Urine Ketones NEGATIVE mg/dL (NEGATIVE) 12/20/17 18:00 Urine Blood TRACE (NEGATIVE) 12/20/17 18:00 Urine Nitrate NEGATIVE (NEGATIVE) 12/20/17 18:00 Urine Bilirubin NEGATIVE (NEGATIVE) 12/20/17 18:00 Urine Urobilinogen 0.2 E.U./dL (0.2 - 1.0) 12/20/17 18:00 Ur Leukocyte Esterase LARGE (NEGATIVE) H 12/20/17 18:00 Urine RBC 2-5 /hpf (0-5) 12/20/17 18:00 Urine WBC 25-50 /hpf (0-5) H 12/20/17 18:00 Ur Epithelial Cells FEW /lpf (FEW) 12/20/17 18:00 Urine Bacteria 3+ /hpf (NONE SEEN) H 12/20/17 18:00 - Physical Exam Vitals and I&O: Vital Signs Temp 98.2 F 12/28/17 14:00 Pulse 79 12/29/17 09:46 Resp 19 12/29/17 09:46 BP 101/56 12/29/17 08:48 Pulse Ox 96 12/28/17 14:00 Active Medications: Current Medications Acetaminophen (Tylenol) 650 mg PO Q4H PRN PRN Reason: Mild Pain / Temp above 100 Stop: 02/18/18 20:03 Last Admin: 12/22/17 12:03 Dose: 650 mg Al Hydrox/Mg Hydrox/Simethicone (Maalox) 30 ml PO Q4H PRN PRN Reason: GI DISTRESS Stop: 02/18/18 20:03 Amoxicillin (Amoxil) 500 mg PO TID [facility] Stop: 02/20/18 20:59 Last Admin: 12/29/17 08:48 Dose: 500 mg Aripiprazole (Abilify) 10 mg PO DAILY [facility]; Protocol Stop: 02/21/18 11:59 Last Admin: 12/29/17 08:48 Dose: 10 mg Bisacodyl (Dulcolax 10 Mg Supp) 10 mg RC DAILY [facility] Stop: 02/19/18 08:59 Last Admin: 12/29/17 08:49 Dose: Not Given Docusate Sodium (Colace) 100 mg PO BID [facility] Stop: 02/19/18 08:59 Last Admin: 12/29/17 08:48 Dose: 100 mg Duloxetine HCl (Cymbalta) 30 mg PO BID [facility]; Protocol Stop: 02/19/18 08:59 Last Admin: 12/29/17 08:48 Dose: 30 mg Furosemide (Lasix) 40 mg PO DAILY [facility] Stop: 02/19/18 08:59 Last Admin: 12/29/17 08:48 Dose: 40 mg Lactobacillus Rhamnosus (Culturelle 15b) 1 each PO DAILY [facility] Stop: 02/20/18 08:59 Last Admin: 12/29/17 08:48 Dose: 1 each Levetiracetam (Keppra) 1,000 mg PO BID [facility] Stop: 02/19/18 08:59 Last Admin: 12/29/17 08:48 Dose: 1,000 mg Levothyroxine Sodium (Synthroid) 0.088 mg PO QDAC [facility] Stop: 02/19/18 07:29 Last Admin: 12/29/17 06:51 Dose: 0.088 mg Lorazepam (Ativan) 0.5 mg PO Q4HR PRN; Protocol PRN Reason: Anxiety Stop: 01/19/18 20:03 Last Admin: 12/23/17 23:50 Dose: 0.5 mg Magnesium Hydroxide (Milk Of Magnesia) 30 ml PO HS PRN PRN Reason: Constipation Stop: 02/19/18 16:51 Miscellaneous (Probiotic Screen) 1 ea MC PRN PRN PRN Reason: PROTOCOL Stop: 02/20/18 08:29 Multivitamins/Vitamin C (Theragran) 1 tab PO DAILY [facility] Stop: 02/19/18 08:59 Last Admin: 12/29/17 08:48 Dose: 1 tab Phenobarbital (Phenobarbital) 64.8 mg PO DAILY [facility] Stop: 02/19/18 08:59 Last Admin: 12/29/17 08:47 Dose: 64.8 mg Polyethylene Glycol (Miralax) 17 gm PO Q2D PRN PRN Reason: Constipation Stop: 02/18/18 20:12 Senna (Senna) 8.6 mg PO HS [facility] Stop: 02/18/18 20:59 Last Admin: 12/28/17 21:18 Dose: 8.6 mg Sodium Phosphate (Fleet Enema) 135 ml RC Q2D PRN PRN Reason: Constipation Stop: 02/18/18 20:12 Sorbitol (Sorbitol) 30 ml PO HS [facility] Stop: 02/18/18 20:59 Last Admin: 12/28/17 21:18 Dose: 30 ml Zolpidem Tartrate (Ambien) 5 mg PO HS PRN PRN Reason: Insomnia Stop: 02/18/18 20:03 Last Admin: 12/28/17 21:19 Dose: 5 mg General: no acute distress, well developed, well nourished HEENT: atraumatic, normocephalic, PERRLA, EOMI, moist mucous membrane Neck: supple, no thyromegaly Cardiovascular: S1S2, regular Lungs: clear to auscultation bilaterally, clear to percussion Abdomen: soft, no tender, no distended Extremities: no cyanosis, no clubbing, no edema Neurological: awake, alert, oriented Skin: intact - Procedures Procedures: Procedures Procedure Code Date GROUP PSYCHOTHERAPY 38859 10/14/15 GROUP PSYCHOTHERAPY GZHZZZZ 10/14/15 Infectious Disease Assmt/Plan - Assessment Assessment: UTi. - Plan Plan: Continue amoxicillin for few more days. Nutritional Asmnt/Malnutr-PDOC - Dietary Evaluation Malnutrition Findings (Please click <Entered> for more info): Nutritional Asmnt/Malnutrition Start: 12/23/17 14: 29 Text: Status: Complete Freq: Protocol: Document 12/23/17 14:29 EVONWARREN (Rec: 12/23/17 14:41 LCWARREN [email or web address]) Nutritional Asmnt/Malnutrition Patient General Information Diagnosis psychosis Pertinent Medical Hx/Surgical Hx bipolar, jajor depression Subjective Information pt seen sleeping in bed at time of visit. Per EMR, PO intake 100% of meals. Current Diet Order/ Nutrition Support [facility] soft chopped, LOIS, low fat, low cholesterol Pertinent Medications colace, lasix, culturelle, theragram, senna Pertinent Labs 12/20 cl 97, glucose 108 Nutritional Hx/Data Height 1.57 m Height (Calculated Centimeters) 157.5 Current Weight (lbs) 79.832 kg Weight (Calculated Kilograms) 79.8 Weight (Calculated Grams) 57335.3 [place] Body Weight 110 Body Mass Index (BMI) 32.1 Weight Status Obese GI Symptoms GI Symptoms None Last BM none Difficult in: None Skin Integrity/Comment: intact Current %PO Good (75-100%) Estimated Nutritional Goals BEE in Kcals: Adj wt of IBW Calories/Kcals/Kg 25-30 Kcals Calculated 8211-8952 Protein: Adj wt of IBW Protein g/k Protein Calculated 58 Fluid: ml 1450-1740ml (1ml/kcal) Nutritional Problem No current Nutrition Prob Problem N/A Malnutrition Alert Is there a minimum of two criteria No selected? Query Text:Check all the applicable criteria. A minimum of two criteria are recommended for diagnosis of either severe or non-severe malnutrition. Malnutrition Related to Morbid Obesity Malnutrition related to morbid obesity No Intervention/Recommendation Comments 1. Continue with [facility] sfot chopped, LOIS, low fat low chlesterol diet as ordered. 2. Monitor PO intake, wt, labs and skin integrity 3. F/U as low risk in 7 days, 12/30 Expected Outcomes/Goals Expected Outcomes/Goals 1. PO intake to meet at least 75% of nutritional needs. 2. Wt stability, skin to remain intact, labs to approach WNL.
--- NOTE | 2017-12-29 15:59 | General Progress Note ---
Subjective - Review of Systems Events since last encounter: Pt. continues to be depressed Subjective: pt. is aggressive Objective - Results Result Diagrams: 12/20/17 18:00 12/20/17 18:00 Recent Labs: Laboratory Last Values WBC 7.6 Th/cmm (4.8-10.8) 12/20/17 18:00 RBC 4.99 Mil/cmm (3.80-5.10) 12/20/17 18:00 Hgb 13.7 gm/dL (12-16) 12/20/17 18:00 Hct 42.5 % (41.0-60) 12/20/17 18:00 MCV 85.2 fl (81-100) 12/20/17 18:00 MCH 27.5 pg (27.0-31.0) 12/20/17 18:00 MCHC Differential 32.3 pg (28.0-36.0) 12/20/17 18:00 RDW 13.0 % (11.5-20.0) 12/20/17 18:00 Plt Count 370 Th/cmm (150-400) 12/20/17 18:00 MPV 6.9 fl 12/20/17 18:00 Neutrophils % 68.3 % (40.0-80.0) 12/20/17 18:00 Lymphocytes % 18.6 % (20.0-50.0) L 12/20/17 18:00 Monocytes % 5.9 % (2.0-10.0) 12/20/17 18:00 Eosinophils % 6.0 % (0.0-5.0) H 12/20/17 18:00 Basophils % 1.2 % (0.0-2.0) 12/20/17 18:00 Sodium 137 mEq/L (136-145) 12/20/17 18:00 Potassium 3.8 mEq/L (3.5-5.1) 12/20/17 18:00 Chloride 97 mEq/L (98-107) L 12/20/17 18:00 Carbon Dioxide 31.1 mEq/L (21.0-31.0) H 12/20/17 18:00 Anion Gap 12.7 (7.0-16.0) 12/20/17 18:00 BUN 13 mg/dL (7-25) 12/20/17 18:00 Creatinine 0.6 mg/dL (0.6-1.2) 12/20/17 18:00 Est GFR ( Amer) > 60.0 ml/min (>90) 12/20/17 18:00 Est GFR (Non-Af Amer) > 60.0 ml/min 12/20/17 18:00 BUN/Creatinine Ratio 21.7 12/20/17 18:00 Glucose 108 mg/dL (70-105) H 12/20/17 18:00 Calcium 9.8 mg/dL (8.6-10.3) 12/20/17 18:00 Urine Source CLEAN C 12/20/17 18:00 Urine Color YELLOW 12/20/17 18:00 Urine Clarity CLOUDY (CLEAR) H 12/20/17 18:00 Urine pH 6.0 (4.6 - 8.0) 12/20/17 18:00 Ur Specific [place] <= 1.005 (1.005-1.030) 12/20/17 18:00 Urine Protein NEGATIVE mg/dL (NEGATIVE) 12/20/17 18:00 Urine Glucose (UA) NEGATIVE mg/dL (NEGATIVE) 12/20/17 18:00 Urine Ketones NEGATIVE mg/dL (NEGATIVE) 12/20/17 18:00 Urine Blood TRACE (NEGATIVE) 12/20/17 18:00 Urine Nitrate NEGATIVE (NEGATIVE) 12/20/17 18:00 Urine Bilirubin NEGATIVE (NEGATIVE) 12/20/17 18:00 Urine Urobilinogen 0.2 E.U./dL (0.2 - 1.0) 12/20/17 18:00 Ur Leukocyte Esterase LARGE (NEGATIVE) H 12/20/17 18:00 Urine RBC 2-5 /hpf (0-5) 12/20/17 18:00 Urine WBC 25-50 /hpf (0-5) H 12/20/17 18:00 Ur Epithelial Cells FEW /lpf (FEW) 12/20/17 18:00 Urine Bacteria 3+ /hpf (NONE SEEN) H 12/20/17 18:00 - Physical Exam Vitals and I&O: Vital Signs Temp 97.4 F 12/29/17 14:00 Pulse 73 12/29/17 14:00 Resp 18 12/29/17 14:00 BP 105/50 12/29/17 14:00 Pulse Ox 96 12/29/17 14:00 Active Medications: Current Medications Acetaminophen (Tylenol) 650 mg PO Q4H PRN PRN Reason: Mild Pain / Temp above 100 Stop: 02/18/18 20:03 Last Admin: 12/22/17 12:03 Dose: 650 mg Al Hydrox/Mg Hydrox/Simethicone (Maalox) 30 ml PO Q4H PRN PRN Reason: GI DISTRESS Stop: 02/18/18 20:03 Amoxicillin (Amoxil) 500 mg PO TID [facility] Stop: 02/20/18 20:59 Last Admin: 12/29/17 14:57 Dose: 500 mg Aripiprazole (Abilify) 10 mg PO DAILY [facility]; Protocol Stop: 02/21/18 11:59 Last Admin: 12/29/17 08:48 Dose: 10 mg Bisacodyl (Dulcolax 10 Mg Supp) 10 mg RC DAILY [facility] Stop: 02/19/18 08:59 Last Admin: 12/29/17 08:49 Dose: Not Given Docusate Sodium (Colace) 100 mg PO BID [facility] Stop: 02/19/18 08:59 Last Admin: 12/29/17 08:48 Dose: 100 mg Duloxetine HCl (Cymbalta) 30 mg PO BID [facility]; Protocol Stop: 02/19/18 08:59 Last Admin: 12/29/17 08:48 Dose: 30 mg Furosemide (Lasix) 40 mg PO DAILY [facility] Stop: 02/19/18 08:59 Last Admin: 12/29/17 08:48 Dose: 40 mg Lactobacillus Rhamnosus (Culturelle 15b) 1 each PO DAILY [facility] Stop: 02/20/18 08:59 Last Admin: 12/29/17 08:48 Dose: 1 each Levetiracetam (Keppra) 1,000 mg PO BID [facility] Stop: 02/19/18 08:59 Last Admin: 12/29/17 08:48 Dose: 1,000 mg Levothyroxine Sodium (Synthroid) 0.088 mg PO QDAC [facility] Stop: 02/19/18 07:29 Last Admin: 12/29/17 06:51 Dose: 0.088 mg Lorazepam (Ativan) 0.5 mg PO Q4HR PRN; Protocol PRN Reason: Anxiety Stop: 01/19/18 20:03 Last Admin: 12/23/17 23:50 Dose: 0.5 mg Magnesium Hydroxide (Milk Of Magnesia) 30 ml PO HS PRN PRN Reason: Constipation Stop: 02/19/18 16:51 Miscellaneous (Probiotic Screen) 1 ea MC PRN PRN PRN Reason: PROTOCOL Stop: 02/20/18 08:29 Multivitamins/Vitamin C (Theragran) 1 tab PO DAILY [facility] Stop: 02/19/18 08:59 Last Admin: 12/29/17 08:48 Dose: 1 tab Phenobarbital (Phenobarbital) 64.8 mg PO DAILY [facility] Stop: 02/19/18 08:59 Last Admin: 12/29/17 08:47 Dose: 64.8 mg Polyethylene Glycol (Miralax) 17 gm PO Q2D PRN PRN Reason: Constipation Stop: 02/18/18 20:12 Senna (Senna) 8.6 mg PO HS [facility] Stop: 02/18/18 20:59 Last Admin: 12/28/17 21:18 Dose: 8.6 mg Sodium Phosphate (Fleet Enema) 135 ml RC Q2D PRN PRN Reason: Constipation Stop: 02/18/18 20:12 Sorbitol (Sorbitol) 30 ml PO HS [facility] Stop: 02/18/18 20:59 Last Admin: 12/28/17 21:18 Dose: 30 ml Zolpidem Tartrate (Ambien) 5 mg PO HS PRN PRN Reason: Insomnia Stop: 02/18/18 20:03 Last Admin: 12/28/17 21:19 Dose: 5 mg General: Alert, No acute distress HEENT: PERRLA, EOMI Neck: Supple Cardiovascular: Normal S1, Normal S2 Lungs: Clear to auscultation Abdomen: Bowel sounds Psych/Mental Status: Other (pyschosis) - Procedures Procedures: Procedures Procedure Code Date GROUP PSYCHOTHERAPY 36234 10/14/15 GROUP PSYCHOTHERAPY GZHZZZZ 10/14/15 Assessment/Plan - Assessment Assessment: bacteriuria acute psychosis UTI h/o bipolar disorder h/o schizophrenia - Plan Plan: psych eval continue present management Nutritional Asmnt/Malnutr-PDOC - Dietary Evaluation Malnutrition Findings (Please click <Entered> for more info): Nutritional Asmnt/Malnutrition Start: 12/23/17 14: 29 Text: Status: Complete Freq: Protocol: Document 12/23/17 14:29 LCHERMILOG (Rec: 12/23/17 14:41 LCHERMILOG [email or web address]) Nutritional Asmnt/Malnutrition Patient General Information Diagnosis psychosis Pertinent Medical Hx/Surgical Hx bipolar, jajor depression Subjective Information pt seen sleeping in bed at time of visit. Per EMR, PO intake 100% of meals. Current Diet Order/ Nutrition Support [facility] soft chopped, LOIS, low fat, low cholesterol Pertinent Medications colace, lasix, culturelle, theragram, senna Pertinent Labs 12/20 cl 97, glucose 108 Nutritional Hx/Data Height 1.57 m Height (Calculated Centimeters) 157.5 Current Weight (lbs) 79.832 kg Weight (Calculated Kilograms) 79.8 Weight (Calculated Grams) 19723.3 [place] Body Weight 110 Body Mass Index (BMI) 32.1 Weight Status Obese GI Symptoms GI Symptoms None Last BM none Difficult in: None Skin Integrity/Comment: intact Current %PO Good (75-100%) Estimated Nutritional Goals BEE in Kcals: Adj wt of IBW Calories/Kcals/Kg 25-30 Kcals Calculated 0413-3992 Protein: Adj wt of IBW Protein g/k Protein Calculated 58 Fluid: ml 1450-1740ml (1ml/kcal) Nutritional Problem No current Nutrition Prob Problem N/A Malnutrition Alert Is there a minimum of two criteria No selected? Query Text:Check all the applicable criteria. A minimum of two criteria are recommended for diagnosis of either severe or non-severe malnutrition. Malnutrition Related to Morbid Obesity Malnutrition related to morbid obesity No Intervention/Recommendation Comments 1. Continue with [facility] sfot chopped, LOIS, low fat low chlesterol diet as ordered. 2. Monitor PO intake, wt, labs and skin integrity 3. F/U as low risk in 7 days, 12/30 Expected Outcomes/Goals Expected Outcomes/Goals 1. PO intake to meet at least 75% of nutritional needs. 2. Wt stability, skin to remain intact, labs to approach WNL.
--- NOTE | 2017-12-29 16:49 | Progress Notes ---
DATE: 12/28/2017 PSYCHIATRIC PROGRESS NOTE SUBJECTIVE: Chart reviewed and the patient interviewed. Also discussed the patient's condition with the staff and reviewed records and labs. The patient is still depressed and she is still withdrawn. The patient also is interacting minimally with peers and with others. The patient also has talked about her place where she lives and "they only speak [place] and they are old and I don't know if I should go back there." She is still feeling hopeless and helpless. She also still feels that she needs more help in regard to her depression. Otherwise, the patient is compliant with taking her medications with no side effects of medications. ASSESSMENT: The patient is still depressed and high risk suicide. TREATMENT PLAN: Continue to monitor her behavior and her condition closely. Also, continue to work on her ineffective coping and follow up closely. [facility]# [id number]
--- NOTE | 2017-12-30 03:01 | Progress Notes ---
DATE: 12/29/2017 SUBJECTIVE: Chart reviewed and the patient interviewed. Also, discussed the patient's condition with the staff and reviewed records and labs. The patient remains in a depressed mood. The patient also is still anxious and withdrawn. She also seems to be preoccupied and at times seems to be responding to stimuli. The patient also wants to be left alone and tends to isolate herself. Otherwise, the patient is compliant with taking her medications with no side effects of medications. ASSESSMENT: The patient is still depressed and needs close monitoring. TREATMENT PLAN: Continue to monitor her behavior and her condition closely. Also, continue to work on her ineffective coping and followup. JOB# [id number]
[2017-12-30] MEDS: Levothyroxine 0.088 Mg Tab PO SCH (06:46)
[2017-12-30] MEDS: Multivitamin Tab PO SCH (09:14)
[2017-12-30] MEDS: Lactobacillus Rhamnosus GG 15 Billion CFU CAP.SPRINK PO SCH (09:14)
--- NOTE | 2017-12-30 22:11 | General Progress Note ---
Subjective - Review of Systems Service Date: 12/30/17 Subjective: pt. is aggressive Objective - Results Result Diagrams: 12/20/17 18:00 12/20/17 18:00 Recent Labs: Laboratory Last Values WBC 7.6 Th/cmm (4.8-10.8) 12/20/17 18:00 RBC 4.99 Mil/cmm (3.80-5.10) 12/20/17 18:00 Hgb 13.7 gm/dL (12-16) 12/20/17 18:00 Hct 42.5 % (41.0-60) 12/20/17 18:00 MCV 85.2 fl (81-100) 12/20/17 18:00 MCH 27.5 pg (27.0-31.0) 12/20/17 18:00 MCHC Differential 32.3 pg (28.0-36.0) 12/20/17 18:00 RDW 13.0 % (11.5-20.0) 12/20/17 18:00 Plt Count 370 Th/cmm (150-400) 12/20/17 18:00 MPV 6.9 fl 12/20/17 18:00 Neutrophils % 68.3 % (40.0-80.0) 12/20/17 18:00 Lymphocytes % 18.6 % (20.0-50.0) L 12/20/17 18:00 Monocytes % 5.9 % (2.0-10.0) 12/20/17 18:00 Eosinophils % 6.0 % (0.0-5.0) H 12/20/17 18:00 Basophils % 1.2 % (0.0-2.0) 12/20/17 18:00 Sodium 137 mEq/L (136-145) 12/20/17 18:00 Potassium 3.8 mEq/L (3.5-5.1) 12/20/17 18:00 Chloride 97 mEq/L (98-107) L 12/20/17 18:00 Carbon Dioxide 31.1 mEq/L (21.0-31.0) H 12/20/17 18:00 Anion Gap 12.7 (7.0-16.0) 12/20/17 18:00 BUN 13 mg/dL (7-25) 12/20/17 18:00 Creatinine 0.6 mg/dL (0.6-1.2) 12/20/17 18:00 Est GFR ( Amer) > 60.0 ml/min (>90) 12/20/17 18:00 Est GFR (Non-Af Amer) > 60.0 ml/min 12/20/17 18:00 BUN/Creatinine Ratio 21.7 12/20/17 18:00 Glucose 108 mg/dL (70-105) H 12/20/17 18:00 Calcium 9.8 mg/dL (8.6-10.3) 12/20/17 18:00 Urine Source CLEAN C 12/20/17 18:00 Urine Color YELLOW 12/20/17 18:00 Urine Clarity CLOUDY (CLEAR) H 12/20/17 18:00 Urine pH 6.0 (4.6 - 8.0) 12/20/17 18:00 Ur Specific [place] <= 1.005 (1.005-1.030) 12/20/17 18:00 Urine Protein NEGATIVE mg/dL (NEGATIVE) 12/20/17 18:00 Urine Glucose (UA) NEGATIVE mg/dL (NEGATIVE) 12/20/17 18:00 Urine Ketones NEGATIVE mg/dL (NEGATIVE) 12/20/17 18:00 Urine Blood TRACE (NEGATIVE) 12/20/17 18:00 Urine Nitrate NEGATIVE (NEGATIVE) 12/20/17 18:00 Urine Bilirubin NEGATIVE (NEGATIVE) 12/20/17 18:00 Urine Urobilinogen 0.2 E.U./dL (0.2 - 1.0) 12/20/17 18:00 Ur Leukocyte Esterase LARGE (NEGATIVE) H 12/20/17 18:00 Urine RBC 2-5 /hpf (0-5) 12/20/17 18:00 Urine WBC 25-50 /hpf (0-5) H 12/20/17 18:00 Ur Epithelial Cells FEW /lpf (FEW) 12/20/17 18:00 Urine Bacteria 3+ /hpf (NONE SEEN) H 12/20/17 18:00 - Physical Exam Vitals and I&O: Vital Signs Temp 97.4 F 12/30/17 15:24 Pulse 72 12/30/17 15:24 Resp 20 12/30/17 15:24 BP 107/67 12/30/17 16:10 Pulse Ox 97 12/30/17 15:24 Intake & Output 12/30/17 12/30/17 12/31/17 06:59 18:59 06:59 Intake Total 1200 Balance 1200 Intake: Oral 1200 Other: # Voids 3 # Bowel Movements 1 Stool Characteristics Formed Formed Active Medications: Current Medications Acetaminophen (Tylenol) 650 mg PO Q4H PRN PRN Reason: Mild Pain / Temp above 100 Stop: 02/18/18 20:03 Last Admin: 12/22/17 12:03 Dose: 650 mg Al Hydrox/Mg Hydrox/Simethicone (Maalox) 30 ml PO Q4H PRN PRN Reason: GI DISTRESS Stop: 02/18/18 20:03 Aripiprazole (Abilify) 10 mg PO DAILY [facility]; Protocol Stop: 02/21/18 11:59 Last Admin: 12/30/17 09:15 Dose: 10 mg Bisacodyl (Dulcolax 10 Mg Supp) 10 mg RC DAILY DIA Stop: 02/19/18 08:59 Last Admin: 12/30/17 16:08 Dose: Not Given Docusate Sodium (Colace) 100 mg PO BID DIA Stop: 02/19/18 08:59 Last Admin: 12/30/17 16:10 Dose: 100 mg Duloxetine HCl (Cymbalta) 30 mg PO BID [facility]; Protocol Stop: 02/19/18 08:59 Last Admin: 12/30/17 16:08 Dose: 30 mg Furosemide (Lasix) 40 mg PO DAILY DIA Stop: 02/19/18 08:59 Last Admin: 12/30/17 16:10 Dose: 40 mg Lactobacillus Rhamnosus (Culturelle 15b) 1 each PO DAILY DIA Stop: 02/20/18 08:59 Last Admin: 12/30/17 09:14 Dose: 1 each Levetiracetam (Keppra) 1,000 mg PO BID DIA Stop: 02/19/18 08:59 Last Admin: 12/30/17 16:08 Dose: 1,000 mg Levothyroxine Sodium (Synthroid) 0.088 mg PO QDAC DIA Stop: 02/19/18 07:29 Last Admin: 12/30/17 06:46 Dose: 0.088 mg Lorazepam (Ativan) 0.5 mg PO Q4HR PRN; Protocol PRN Reason: Anxiety Stop: 08/02/18 20:03 Last Admin: 12/23/17 23:50 Dose: 0.5 mg Magnesium Hydroxide (Milk Of Magnesia) 30 ml PO HS PRN PRN Reason: Constipation Stop: 02/19/18 16:51 Miscellaneous (Probiotic Screen) 1 ea MC PRN PRN PRN Reason: PROTOCOL Stop: 02/20/18 08:29 Multivitamins/Vitamin C (Theragran) 1 tab PO DAILY DIA Stop: 02/19/18 08:59 Last Admin: 12/30/17 09:14 Dose: 1 tab Phenobarbital (Phenobarbital) 64.8 mg PO DAILY DIA Stop: 02/19/18 08:59 Last Admin: 12/30/17 09:14 Dose: 64.8 mg Polyethylene Glycol (Miralax) 17 gm PO Q2D PRN PRN Reason: Constipation Stop: 02/18/18 20:12 Senna (Senna) 8.6 mg PO HS DIA Stop: 02/18/18 20:59 Last Admin: 12/30/17 20:32 Dose: 8.6 mg Sodium Phosphate (Fleet Enema) 135 ml RC Q2D PRN PRN Reason: Constipation Stop: 02/18/18 20:12 Sorbitol (Sorbitol) 30 ml PO HS DIA Stop: 02/18/18 20:59 Last Admin: 12/30/17 20:32 Dose: 30 ml Zolpidem Tartrate (Ambien) 5 mg PO HS PRN PRN Reason: Insomnia Stop: 02/18/18 20:03 Last Admin: 12/29/17 21:44 Dose: 5 mg General: Alert, No acute distress HEENT: PERRLA, EOMI Neck: Supple Cardiovascular: Normal S1, Normal S2 Lungs: Clear to auscultation Abdomen: Bowel sounds Psych/Mental Status: Other (pyschosis) - Procedures Procedures: Procedures Procedure Code Date GROUP PSYCHOTHERAPY 85540 10/14/15 GROUP PSYCHOTHERAPY GZHZZZZ 10/14/15 Assessment/Plan - Assessment Assessment: bacteriuria acute psychosis UTI h/o bipolar disorder h/o schizophrenia - Plan Plan: psych eval continue present management Nutritional Asmnt/Malnutr-PDOC - Dietary Evaluation Malnutrition Findings (Please click <Entered> for more info): Nutritional Asmnt/Malnutrition Start: 12/23/17 14: 29 Text: Status: Complete Freq: Protocol: Document 12/23/17 14:29 LCHENG (Rec: 12/23/17 14:41 [email or web address]) Nutritional Asmnt/Malnutrition Patient General Information Diagnosis psychosis Pertinent Medical Hx/Surgical Hx bipolar, jajor depression Subjective Information pt seen sleeping in bed at time of visit. Per EMR, PO intake 100% of meals. Current Diet Order/ Nutrition Support [facility] soft chopped, LOIS, low fat, low cholesterol Pertinent Medications colace, lasix, culturelle, theragram, senna Pertinent Labs 12/20 cl 97, glucose 108 Nutritional Hx/Data Height 1.57 m Height (Calculated Centimeters) 157.5 Current Weight (lbs) 79.832 kg Weight (Calculated Kilograms) 79.8 Weight (Calculated Grams) 92135.3 [place] Body Weight 110 Body Mass Index (BMI) 32.1 Weight Status Obese GI Symptoms GI Symptoms None Last BM none Difficult in: None Skin Integrity/Comment: intact Current %PO Good (75-100%) Estimated Nutritional Goals BEE in Kcals: Adj wt of IBW Calories/Kcals/Kg 25-30 Kcals Calculated 8335-2186 Protein: Adj wt of IBW Protein g/k Protein Calculated 58 Fluid: ml 1450-1740ml (1ml/kcal) Nutritional Problem No current Nutrition Prob Problem N/A Malnutrition Alert Is there a minimum of two criteria No selected? Query Text:Check all the applicable criteria. A minimum of two criteria are recommended for diagnosis of either severe or non-severe malnutrition. Malnutrition Related to Morbid Obesity Malnutrition related to morbid obesity No Intervention/Recommendation Comments 1. Continue with [facility] sfot chopped, LOIS, low fat low chlesterol diet as ordered. 2. Monitor PO intake, wt, labs and skin integrity 3. F/U as low risk in 7 days, 12/30 Expected Outcomes/Goals Expected Outcomes/Goals 1. PO intake to meet at least 75% of nutritional needs. 2. Wt stability, skin to remain intact, labs to approach WNL.
[2017-12-31] MEDS: Levothyroxine 0.088 Mg Tab PO SCH (06:46)
[2017-12-31] MEDS: Multivitamin Tab PO SCH (09:06)
[2017-12-31] MEDS: Lactobacillus Rhamnosus GG 15 Billion CFU CAP.SPRINK PO SCH (09:07)
--- NOTE | 2017-12-31 10:43 | Progress Notes ---
DATE: 12/30/2017 PSYCHIATRIC PROGRESS NOTE SUBJECTIVE: Chart reviewed and the patient interviewed. Also discussed the patient's condition with the staff and reviewed records and labs. The patient is still demanding. She also seems to be preoccupied. The patient also seems to be attention seeking. She also still had periods of irritability and agitation. Otherwise, the patient is compliant with taking her medications with no side effects of medications. ASSESSMENT: The patient is still agitated and psychotic. TREATMENT PLAN: Continue monitoring her behavior and her condition. Also, continue to work on her agitation and her ineffective coping. JOB# [id number]
--- NOTE | 2017-12-31 20:42 | Progress Notes ---
DATE: 12/31/2017 SUBJECTIVE: The patient was seen in the hallway. The patient appears to be irritable, easily gets upset, is agitated. Otherwise, the patient is in no acute distress. OBJECTIVE: VITAL SIGNS: Temperature 97.4, heart rate 73, blood pressure 107/67, respiration of 20, 98% on room air. HEENT: Head is atraumatic and normocephalic. Eyes: Bilateral conjunctivae are clear. Bilateral pupils are equally round and reactive. NECK: Supple. No JVD. CARDIOVASCULAR: S1 and S2, without murmur. PULMONARY: Clear to auscultation. GASTROINTESTINAL: Soft and nontender without guarding. Positive bowel sounds. MUSCULOSKELETAL: No clubbing. No cyanosis noted. ASSESSMENT: 1. Schizoaffective disorder. 2. Hypothyroidism. 3. Anxiety. 4. Seizure disorder. PLAN: We will continue to keep the patient inpatient Psychiatric Unit. We will follow up with a psychiatrist to monitor the patient's condition and behavior. Treatment plans were discussed with the patient's nurse. Treatment plans were discussed with Dr. Garcia. JOB# [id number]
--- NOTE | 2017-12-31 22:05 | Progress Notes ---
DATE: 12/31/2017 SUBJECTIVE: Chart reviewed and the patient interviewed. Also discussed the patient's condition with the staff and reviewed records and labs. The patient is anxious mood. The patient also is at times demanding and easily agitated and restless at times. The patient also is having unpredictable behavior and at times she is attention seeking. Otherwise, the patient is compliant with taking her medications. There were no side effects of medications. ASSESSMENT: The patient is still agitated and psychotic. TREATMENT PLAN: We will continue monitoring her behavior and her condition closely. Also, continue adjusting psychotropic medications and follow up closely. [facility]# [id number]
[2018-01-01] MEDS: Levothyroxine 0.088 Mg Tab PO SCH (06:42)
[2018-01-01] MEDS: Multivitamin Tab PO SCH (09:30)
[2018-01-01] MEDS: Lactobacillus Rhamnosus GG 15 Billion CFU CAP.SPRINK PO SCH (09:31)
--- NOTE | 2018-01-01 13:27 | General Progress Note ---
Subjective - Review of Systems Events since last encounter: in no distress seems irritable in no distress Subjective: pt. is aggressive Objective - Results Result Diagrams: 12/20/17 18:00 12/20/17 18:00 Recent Labs: Laboratory Last Values WBC 7.6 Th/cmm (4.8-10.8) 12/20/17 18:00 RBC 4.99 Mil/cmm (3.80-5.10) 12/20/17 18:00 Hgb 13.7 gm/dL (12-16) 12/20/17 18:00 Hct 42.5 % (41.0-60) 12/20/17 18:00 MCV 85.2 fl (81-100) 12/20/17 18:00 MCH 27.5 pg (27.0-31.0) 12/20/17 18:00 MCHC Differential 32.3 pg (28.0-36.0) 12/20/17 18:00 RDW 13.0 % (11.5-20.0) 12/20/17 18:00 Plt Count 370 Th/cmm (150-400) 12/20/17 18:00 MPV 6.9 fl 12/20/17 18:00 Neutrophils % 68.3 % (40.0-80.0) 12/20/17 18:00 Lymphocytes % 18.6 % (20.0-50.0) L 12/20/17 18:00 Monocytes % 5.9 % (2.0-10.0) 12/20/17 18:00 Eosinophils % 6.0 % (0.0-5.0) H 12/20/17 18:00 Basophils % 1.2 % (0.0-2.0) 12/20/17 18:00 Sodium 137 mEq/L (136-145) 12/20/17 18:00 Potassium 3.8 mEq/L (3.5-5.1) 12/20/17 18:00 Chloride 97 mEq/L (98-107) L 12/20/17 18:00 Carbon Dioxide 31.1 mEq/L (21.0-31.0) H 12/20/17 18:00 Anion Gap 12.7 (7.0-16.0) 12/20/17 18:00 BUN 13 mg/dL (7-25) 12/20/17 18:00 Creatinine 0.6 mg/dL (0.6-1.2) 12/20/17 18:00 Est GFR ( Amer) > 60.0 ml/min (>90) 12/20/17 18:00 Est GFR (Non-Af Amer) > 60.0 ml/min 12/20/17 18:00 BUN/Creatinine Ratio 21.7 12/20/17 18:00 Glucose 108 mg/dL (70-105) H 12/20/17 18:00 Calcium 9.8 mg/dL (8.6-10.3) 12/20/17 18:00 Urine Source CLEAN C 12/20/17 18:00 Urine Color YELLOW 12/20/17 18:00 Urine Clarity CLOUDY (CLEAR) H 12/20/17 18:00 Urine pH 6.0 (4.6 - 8.0) 12/20/17 18:00 Ur Specific [place] <= 1.005 (1.005-1.030) 12/20/17 18:00 Urine Protein NEGATIVE mg/dL (NEGATIVE) 12/20/17 18:00 Urine Glucose (UA) NEGATIVE mg/dL (NEGATIVE) 12/20/17 18:00 Urine Ketones NEGATIVE mg/dL (NEGATIVE) 12/20/17 18:00 Urine Blood TRACE (NEGATIVE) 12/20/17 18:00 Urine Nitrate NEGATIVE (NEGATIVE) 12/20/17 18:00 Urine Bilirubin NEGATIVE (NEGATIVE) 12/20/17 18:00 Urine Urobilinogen 0.2 E.U./dL (0.2 - 1.0) 12/20/17 18:00 Ur Leukocyte Esterase LARGE (NEGATIVE) H 12/20/17 18:00 Urine RBC 2-5 /hpf (0-5) 12/20/17 18:00 Urine WBC 25-50 /hpf (0-5) H 12/20/17 18:00 Ur Epithelial Cells FEW /lpf (FEW) 12/20/17 18:00 Urine Bacteria 3+ /hpf (NONE SEEN) H 12/20/17 18:00 - Physical Exam Vitals and I&O: Vital Signs Temp 98.0 F 12/31/17 15:55 Pulse 75 12/31/17 20:00 Resp 18 12/31/17 20:00 BP 126/68 01/01/18 09:31 Pulse Ox 97 12/31/17 15:55 Intake & Output 12/31/17 01/01/18 01/01/18 18:59 06:59 18:59 Intake Total 1200 Balance 1200 Intake: Oral 1200 Other: # Voids 3 # Bowel Movements 1 Stool Characteristics Soft Soft Formed Formed [place] Active Medications: Current Medications Acetaminophen (Tylenol) 650 mg PO Q4H PRN PRN Reason: Mild Pain / Temp above 100 Stop: 02/18/18 20:03 Last Admin: 12/22/17 12:03 Dose: 650 mg Al Hydrox/Mg Hydrox/Simethicone (Maalox) 30 ml PO Q4H PRN PRN Reason: GI DISTRESS Stop: 02/18/18 20:03 Aripiprazole (Abilify) 10 mg PO DAILY [facility]; Protocol Stop: 02/21/18 11:59 Last Admin: 01/01/18 09:32 Dose: 10 mg Bisacodyl (Dulcolax 10 Mg Supp) 10 mg RC DAILY [facility] Stop: 02/19/18 08:59 Last Admin: 01/01/18 09:34 Dose: Not Given Docusate Sodium (Colace) 100 mg PO BID DIA Stop: 02/19/18 08:59 Last Admin: 01/01/18 09:30 Dose: 100 mg Duloxetine HCl (Cymbalta) 30 mg PO BID [facility]; Protocol Stop: 02/19/18 08:59 Last Admin: 01/01/18 09:30 Dose: 30 mg Furosemide (Lasix) 40 mg PO DAILY [facility] Stop: 02/19/18 08:59 Last Admin: 01/01/18 09:31 Dose: 40 mg Lactobacillus Rhamnosus (Culturelle 15b) 1 each PO DAILY DIA Stop: 02/20/18 08:59 Last Admin: 01/01/18 09:31 Dose: 1 each Levetiracetam (Keppra) 1,000 mg PO BID [facility] Stop: 02/19/18 08:59 Last Admin: 01/01/18 09:32 Dose: 1,000 mg Levothyroxine Sodium (Synthroid) 0.088 mg PO QDAC DIA Stop: 02/19/18 07:29 Last Admin: 01/01/18 06:42 Dose: 0.088 mg Lorazepam (Ativan) 0.5 mg PO Q4HR PRN; Protocol PRN Reason: Anxiety Stop: 01/19/18 20:03 Last Admin: 12/23/17 23:50 Dose: 0.5 mg Magnesium Hydroxide (Milk Of Magnesia) 30 ml PO HS PRN PRN Reason: Constipation Stop: 02/19/18 16:51 Miscellaneous (Probiotic Screen) 1 ea MC PRN PRN PRN Reason: PROTOCOL Stop: 02/20/18 08:29 Multivitamins/Vitamin C (Theragran) 1 tab PO DAILY DIA Stop: 02/19/18 08:59 Last Admin: 01/01/18 09:30 Dose: 1 tab Phenobarbital (Phenobarbital) 64.8 mg PO DAILY DIA Stop: 02/19/18 08:59 Last Admin: 01/01/18 09:31 Dose: 64.8 mg Polyethylene Glycol (Miralax) 17 gm PO Q2D PRN PRN Reason: Constipation Stop: 02/18/18 20:12 Senna (Senna) 8.6 mg PO HS DIA Stop: 02/18/18 20:59 Last Admin: 12/31/17 21:24 Dose: 8.6 mg Sodium Phosphate (Fleet Enema) 135 ml RC Q2D PRN PRN Reason: Constipation Stop: 02/18/18 20:12 Sorbitol (Sorbitol) 30 ml PO HS DIA Stop: 02/18/18 20:59 Last Admin: 12/31/17 21:24 Dose: 30 ml Zolpidem Tartrate (Ambien) 5 mg PO HS PRN PRN Reason: Insomnia Stop: 02/18/18 20:03 Last Admin: 12/31/17 22:04 Dose: 5 mg General: Alert, No acute distress HEENT: PERRLA, EOMI Neck: Supple Cardiovascular: Normal S1, Normal S2 Lungs: Clear to auscultation Abdomen: Bowel sounds Psych/Mental Status: Other (pyschosis) - Procedures Procedures: Procedures Procedure Code Date GROUP PSYCHOTHERAPY 39500 10/14/15 GROUP PSYCHOTHERAPY GZHZZZZ 10/14/15 Assessment/Plan - Problem List Patient Problems: All Active Problems Anxiety (Acute) F41.9 Hypothyroid (Acute) E03.9 Schizophrenia (Acute) F20.9 Seizure disorder (Acute) G40.909 - Assessment Assessment: bacteriuria acute psychosis UTI h/o bipolar disorder h/o schizophrenia - Plan Plan: psych eval continue present management Nutritional Asmnt/Malnutr-PDOC - Dietary Evaluation Malnutrition Findings (Please click <Entered> for more info): Nutritional Asmnt/Malnutrition Start: 12/23/17 14: 29 Text: Status: Complete Freq: Protocol: Document 12/23/17 14:29 LCHERMILOG (Rec: 12/23/17 14:41 LCHERMILOG [email or web address]) Nutritional Asmnt/Malnutrition Patient General Information Diagnosis psychosis Pertinent Medical Hx/Surgical Hx bipolar, jajor depression Subjective Information pt seen sleeping in bed at time of visit. Per EMR, PO intake 100% of meals. Current Diet Order/ Nutrition Support [facility] soft chopped, LOIS, low fat, low cholesterol Pertinent Medications colace, lasix, culturelle, theragram, senna Pertinent Labs 12/20 cl 97, glucose 108 Nutritional Hx/Data Height 1.57 m Height (Calculated Centimeters) 157.5 Current Weight (lbs) 79.832 kg Weight (Calculated Kilograms) 79.8 Weight (Calculated Grams) 94957.3 [place] Body Weight 110 Body Mass Index (BMI) 32.1 Weight Status Obese GI Symptoms GI Symptoms None Last BM none Difficult in: None Skin Integrity/Comment: intact Current %PO Good (75-100%) Estimated Nutritional Goals BEE in Kcals: Adj wt of IBW Calories/Kcals/Kg 25-30 Kcals Calculated 2380-5458 Protein: Adj wt of IBW Protein g/k Protein Calculated 58 Fluid: ml 1450-1740ml (1ml/kcal) Nutritional Problem No current Nutrition Prob Problem N/A Malnutrition Alert Is there a minimum of two criteria No selected? Query Text:Check all the applicable criteria. A minimum of two criteria are recommended for diagnosis of either severe or non-severe malnutrition. Malnutrition Related to Morbid Obesity Malnutrition related to morbid obesity No Intervention/Recommendation Comments 1. Continue with [facility] sfot chopped, LOIS, low fat low chlesterol diet as ordered. 2. Monitor PO intake, wt, labs and skin integrity 3. F/U as low risk in 7 days, 12/30 Expected Outcomes/Goals Expected Outcomes/Goals 1. PO intake to meet at least 75% of nutritional needs. 2. Wt stability, skin to remain intact, labs to approach WNL.
--- NOTE | 2018-01-02 01:30 | Progress Notes ---
DATE: 01/01/2018 SUBJECTIVE: Chart reviewed and the patient interviewed. Also, discussed the patient's condition with the staff and reviewed records and labs. The patient is still depressed and is still withdrawn. The patient also is preoccupied. The patient also is still having unpredictable behavior. She also is still confused. Otherwise, the patient is compliant with taking her medications with no side effects of medications. ASSESSMENT: The patient is still agitated and depressed. TREATMENT PLAN: Continue to monitor her behavior closely and continue to work on her ineffective coping. [facility]# [id number]
[2018-01-02] MEDS: Levothyroxine 0.088 Mg Tab PO SCH (06:40)
[2018-01-02] MEDS: Multivitamin Tab PO SCH (10:06)
[2018-01-02] MEDS: Lactobacillus Rhamnosus GG 15 Billion CFU CAP.SPRINK PO SCH (10:06)
--- NOTE | 2018-01-03 22:12 | Discharge Summary ---
DATE OF DISCHARGE: 01/02/2018 THE PATIENT'S AGE: 57. SEX: Female. PHYSICIAN: Dr. Hannah. FINAL DIAGNOSIS/PRIMARY DIAGNOSIS: Schizoaffective disorder, bipolar type, with psychotic features. REASON FOR HOSPITALIZATION: The patient was admitted to the hospital because of increased agitation and disruptive behavior. The patient also was in angry and in irritable mood and aggressive with the staff. HOSPITAL COURSE: The patient continued to be agitated and in irritable mood. She also was restless and angry and needed lots of redirections. She also was resisting care. The patient was started on Cymbalta in a dose of 30 mg twice a day and continued to take Abilify and the dose adjusted to 10 mg every day. The patient also was less irritable and was easy to redirect her. The patient was accepted back by [facility] patient was monitored closely by Dr. Garcia. AFTER DISCHARGE PLANS: The patient discharged from the hospital with plans to continue treatment in [facility]. EXPECTED OUTCOME AFTER DISCHARGE: Fair if the patient continues with her treatment and with discharge plans. JOB# [id number]
== END 2018-01-02 14:10 | DRG 885 ==
LOC: ER 16:48 → GERO 18:30
PROVIDERS: ADMIT Psychiatry & Neurology Psychiatry; ATTEND Psychiatry & Neurology Psychiatry
DX: F25.0 Schizoaffective disorder, bipolar type (principal); N39.0 Urinary tract infection, site not specified; F23 Brief psychotic disorder; R82.71 Bacteriuria; K59.00 Constipation, unspecified; E03.9 Hypothyroidism, unspecified; F41.9 Anxiety disorder, unspecified; G47.00 Insomnia, unspecified; B96.20 Unspecified Escherichia coli [E. coli] as the cause of diseases classified elsewhere; B95.62 Methicillin resistant Staphylococcus aureus infection as the cause of diseases classified elsewhere; G40.909 Epilepsy, unspecified, not intractable, without status epilepticus
CPT/HCPCS: 36415-UA; 80048-TC; 81001-TC; 85025-TC; 87086-90; G0410; Z7610

== ENCOUNTER 2018-09-20 16:20 | Inpatient (IN) | payer MEDICARE, OTHER ==
[2018-09-20 17:05] LABS: % BASOPHILS 0.6 % (0.0-2.0); % EOSINOPHILS 6.5 % (0.0-5.0); % LYMPHOCYTES 19.2 % (20.0-50.0); % MONOCYTES 4.1 % (2.0-10.0); % NEUTROPHILS 69.6 % (40.0-80.0); EOSINOPHILE ABSOLUTE 0.5 Th/cmm (0.1-0.4); HEMATOCRIT 41.4 % (41.0-60); HEMOGLOBIN 13.4 gm/dL (12-16); LYMPHOCYTE ABSOLUTE 1.5 Th/cmm (1.5-3.0); MEAN CELL VOLUME 86.3 fl (81-100); MEAN CORPUSCULAR HGB CONC 32.4 pg (28.0-36.0); MEAN PLATELET VOLUME 7.2 fl; MONOCYTE ABSOLUTE 0.3 Th/cmm (0.3-1.0); NEUTROPHILE ABSOLUTE 5.6 Th/cmm (1.8-8.0); PLATELET COUNT 410 Th/cmm (150-400); RED CELL DISTRIBUTION WIDTH 13.5 % (11.5-20.0); WHITE BLOOD COUNT 7.9 Th/cmm (4.8-10.8)
--- NOTE | 2018-09-20 17:17 | ED Physician Chart ---
ED Chief Complaint/HPI - Patient Information Date Seen:: 09/20/18 Time Seen:: 16:55 Chief Complaint:: Agitation History of Present Illness:: onset x 3 days of agitation and anxiety; no report of trauma, SIs, H/As, S/T, neck pain, C/P, SOB, Abd. Pain, or urinary s/s Allergies:: Allergies Allergy/AdvReac Type Severity Reaction Status Date / Time No Known Allergies Allergy Verified 02/24/17 22:47 Vitals:: Vital Signs - 8 hr 09/20/18 16:55 Temp 98.5 F HR 69 RR 16 BP 103/55 O2 Sat % 97 Historian:: Patient Review:: Nurse's Note Reviewed, Old Chart Reviewed ED Review of Systems - Review of Systems General/Constitutional: No fever, No chills, No weight loss, No weakness, No diaphoresis, No edema, No loss of appetite Skin: No skin lesions, No rash, No bruising Head: No headache, No light-headedness Eyes: No loss of vision, No pain, No diplopia ENT: No earache, No nasal drainage, No sore throat, No tinnitus Neck: No neck pain, No swelling, No thyromegaly, No stiffness, No mass noted Cardio Vascular: No chest pain, No palpitations, No PND, No orthopnea, No edema Pulmonary: No SOB, No cough, No sputum, No wheezing GI: No nausea, No vomiting, No diarrhea, No pain, No melena, No hematochezia, No constipation, No hematemesis G/U: No dysuria, No frequency, No hematuria, No nacturia [employer] Lifting Supervisor: No vaginal discharge, No abnormal vaginal bleed, No contraction Musculoskeletal: No bone or joint pain, No back pain, No muscle pain Endocrine: No polyuria, No polydipsia Psychiatric: Prior psych history, Depression, Anxiety, No suicidal ideation, No homicidal ideation, No auditory hallucination, No visual hallucination Hematopoietic: No bruising, No lymphadenopathy Allergic/Immuno: No urticaria, No angioedema Neurological: No syncope, No focal symptoms, No weakness, No paresthesia, No headache, No seizure, No dizziness, No confusion, No vertigo ED Past Medical History - Past Medical History Obtainable: Yes Past Medical History: Dyslipidemia, Seizures, Thyroid disorder Family History: HTN Social History: Non Smoker, No Alcohol, No Drug Use, Single Surgical History: None Psychiatricy History: Depression, Bipolar Medication: Reviewed Family Medical History - Family Member Mother History Unknown: Yes Ethnicity: Unknown Living Status: ED Physical Exam - Physical Examination General/Constitutional: Awake, Well-developed, well-nourished, Alert, No distress, GCS 15, Non-toxic appearing, Ambulatory Head: Atraumatic Eyes: Lids, conjuctiva normal, PERRL, EOMI Skin: Nl inspection, No rash, No skin lesions, No ecchymosis, Well hydrated, No lymphadenopathy ENMT: External ears, nose nl, TM canals nl, Nasal exam nl, Lips, teeth, gums nl , Oropharynx nl, Tonsils nl Neck: Nontender, Full ROM w/o pain, No JVD, No nuchal rigidity, No bruit, No mass, No stridor Other Neck comments:: supple; no meningeal signs; no cervical tenderness Respiratory: Nl effort/Exclusion, Clear to Auscultation, No Wheeze/Rhonchi/Rales Cardio Vascular: RRR, No murmur, gallop, rubs, NL S1 S2, Carotid/Femoral/Distal pulses equal bilaterally GI: No tenderness/rebounding/guarding, No organomegaly, No hernia, Normal BS's, Nondistended, No mass/bruits, No McBurney tenderness Other GI comments:: no pulsatile masses : No CVA tenderness Extremities: No tenderness or effusion, Full ROM, normal strength in all extremities, No edema, Normal digits & nails Neuro/Psych: Alert/oriented, DTR's symmetric, Normal sensory exam, Normal motor strength, Judgement/insight normal, Mood normal, Normal gait, No focal deficits Other Neuro/Psych comments:: + Psychomotor Agitation; no SIs; Mood/Affect: Stable Misc: Normal back, No paraspinal tenderness ED Labs/Radiology/EKG Results - Lab Results Results: Laboratory Tests 09/20/18 16:55 WBC 7.9 RBC 4.80 Hgb 13.4 Hct 41.4 MCV 86.3 MCH 28.0 MCHC Differential 32.4 RDW 13.5 Plt Count 410 H MPV 7.2 Neutrophils % 69.6 Lymphocytes % 19.2 L Monocytes % 4.1 Eosinophils % 6.5 H Basophils % 0.6 Comments:: Reviewed - EKG Interpretations EKG Time:: 17:01 Rate & Rhythm: 64; NSR Comments:: non-specific st-t changes ED Septic Shock - . Is Septic Shock (SBP<90, OR Lactate>4 mmol\L) present?: No - <6hrs of presentation: Vital Signs: Vital Signs - 8 hr 09/20/18 16:55 Temp 98.5 F HR 69 RR 16 BP 103/55 O2 Sat % 97 ED Reassessment (Disposition) - Reassessment Reassessment Condition:: Improved - Diagnosis Diagnosis:: Agitation; Anxiety; Medical Clearance; Psychosis; Bipolar Disorder - Aftercare/Follow up Instructions Aftercare/Follow-Up Instructions:: Counseled pt regarding lab results/diagnosis & need follow up, Counseled pt & family regarding lab results/diagnosis & need follow up - Patient Disposition Discharge/Transfer:: Acute Care w/in this hosp Admitted to:: [facility] Condition at Disposition:: Stable, Improved
[2018-09-20 17:21] LABS: ALB/GLOB RATIO 1.1 (1.0-1.8); ALBUMIN 4.2 gm/dL (3.7-5.3); ALKALINE PHOSPHATASE 119 U/L (34-104); ANION GAP 12.7 (7.0-16.0); BILIRUBIN,TOTAL 0.3 mg/dL (0.3-1.0); BUN - UREA NITROGEN 15 mg/dL (7-25); CALCIUM SERUM 9.9 mg/dL (8.6-10.3); CARBON DIOXIDE 28.9 mEq/L (21.0-31.0); CHLORIDE 98 mEq/L (98-107); CHOLESTEROL 201 mg/dL (<200); CREATININE - SERUM 0.7 mg/dL (0.6-1.2); GFR AFRICAN-AMERICAN > 60.0 ml/min (>90); GFR NON AFRICAN-AMERICAN > 60.0 ml/min; GLUCOSE 169 mg/dL (70-105); HDL -HIGH DENSITY LIPOPROTEIN 45 mg/dL (23-92); POTASSIUM SERUM 3.6 mEq/L (3.5-5.1); SGOT 13 U/L (13-39); SGPT/ALT 10 U/L (7-52); SODIUM SERUM 136 mEq/L (136-145); TRIGLYCERIDES 117 mg/dL (<150)
[2018-09-20 17:22] LABS: ACETAMINOPHEN < 10.0 ug/mL (10.0-30.0); SALICYLATES (ASPIRIN) < 25.0 mg/L (30.0-100.0)
[2018-09-20 17:48] LABS: URINE SOURCE CLEAN C
[2018-09-20 17:56] LABS: URINE BILIRUBIN NEGATIVE (NEGATIVE); URINE BLOOD NEGATIVE (NEGATIVE); URINE GLUCOSE (UA) NEGATIVE (NEGATIVE); URINE KETONE NEGATIVE (NEGATIVE); URINE LEUKOCYTE ESTERASE LARGE (NEGATIVE); URINE NITRATE NEGATIVE (NEGATIVE); URINE PH 5.5 (4.6 - 8.0); URINE PROTEIN NEGATIVE (NEGATIVE); URINE UROBILINOGEN 0.2 E.U./dL (0.2 - 1.0)
[2018-09-20 18:06] LABS: AMPHETAMINE URINE NEGATIVE (NEGATIVE); BENZODIAZEPINES QUAL URINE NEGATIVE (NEGATIVE); CANNABINOID THC NEGATIVE (NEGATIVE); COCAINE METABOLITE QUAL URINE NEGATIVE (NEGATIVE); METHADONE URINE NEGATIVE (NEGATIVE); METHAMPHETAMINES QUAL URINE NEGATIVE (NEGATIVE); OPIATES (MORPHINE) QUAL. URINE NEGATIVE (NEGATIVE); PHENCYCLIDINE (PCP) URINE NEGATIVE (NEGATIVE); TRICYCLICS (TCA) QUAL. URINE NEGATIVE (NEGATIVE)
[2018-09-20 18:07] LABS: BARBITURATES URINE POSITIVE (NEGATIVE)
[2018-09-20 18:08] LABS: URINE COLOR YELLOW
[2018-09-20 18:09] LABS: URINE CLARITY HAZY (CLEAR); URINE MICROSCOPIC INDICATED? YES
[2018-09-20 18:11] LABS: URINE BACTERIA 2+ /hpf (NONE SEEN); URINE EPITHELIAL CELLS FEW /lpf (FEW); URINE RBC 0-2 /hpf (0-5)
[2018-09-20] MEDS ORDERED: Maalox 30 mL Cup PO PRN (19:39)
[2018-09-20] MEDS ORDERED: Fleet Enema 135 mL RC PRN (19:39)
[2018-09-20 19:50] VITALS: BP 120/58
[2018-09-20] MEDS ORDERED: Magnesium Hydroxide (MOM) 30 mL UDC PO PRN (19:50)
--- NOTE | 2018-09-20 20:00 | History & Physical ---
ADMIT DATE: 09/20/2018 HISTORY OF PRESENT ILLNESS: The patient came to the Emergency Room around 5:00 to [facility]. She had three days onset of agitation and anxiety. The patient was admitted for psych evaluation in Geropsych Unit. The patient has a history of hyperlipidemia, seizures and history of thyroid disorder. PHYSICAL EXAMINATION: HEAD: Normal. ENT: Normal. NECK: Supple, nontender. LUNGS: Clear. CARDIOVASCULAR SYSTEM: S1 and S2 heard. ABDOMEN: Soft. Bowel sounds are heard. CENTRAL NERVOUS SYSTEM: Grossly normal. LABORATORY DA: I reviewed all her labs, looks she also has urinary tract infection. EKG is normal. DIAGNOSES: Agitation, psychosis, urinary tract infection, history of hyperlipidemia, history of seizures and history of thyroid disorder. PLAN: The patient is being admitted. I will follow medically and also we will start her on Macrobid 100 mg p.o. b.i.d. for 5 days. JOB# [id number]
[2018-09-20 20:23] LABS: CHOLESTEROL 201 mg/dL (<200); HDL -HIGH DENSITY LIPOPROTEIN 46 mg/dL (23-92); TRIGLYCERIDES 119 mg/dL (<150)
[2018-09-21] MEDS: Levothyroxine 0.088 Mg Tab PO SCH (06:49)
[2018-09-21] MEDS: Lactobacillus Rhamnosus GG 15 Billion CFU CAP.SPRINK PO SCH (08:45)
[2018-09-21] MEDS ORDERED: Non-Formulary Item 1 EA (Levetiracetam [Keppra] 1,000 MG) PO SCH (09:00)
--- NOTE | 2018-09-21 12:09 | History & Physical ---
ADMIT DATE: 09/20/[address] Hannah. IDENTIFYING INFORMATION: The patient is a 58-year-old female. CHIEF COMPLAINT: "I was injuring myself." HISTORY OF PRESENT ILLNESS: The patient was seen from a nursing facility because of agitation and anxiety. The patient reports that she has been hitting herself, enjoying herself. She reported that she has not been sleeping or eating well. She denies visual hallucination, paranoias and intent to harm self or anybody. The patient denies substance abuse. PAST PSYCHIATRIC HISTORY: The patient was hospitalized here before back in December of last year with a history of anger, outburst, irritable mood and aggressive behavior with staff. The patient with a history of schizoaffective disorder. The patient came from [facility]. MEDICAL HISTORY: According to Dr. Garcia. The patient with a history of urinary tract infection, hyperlipidemia, seizure and history of thyroid disorder. ALLERGIES: The patient has no known drug allergy. MEDICATIONS: The patient has been on Abilify 10 mg daily, Cymbalta 30 mg twice a day and she is also on Lasix, Keppra, Levaquin for UTI infection and levothyroxine for hypothyroidism was given. FAMILY AND SOCIAL HISTORY: The patient reported that she is single, never , no children. She reports no substance abuse problem. No family psychotic disorder. MENTAL STATUS EXAMINATION: The patient is appropriately dressed, not well groomed. She was in a wheelchair. She was alert. She was able to tell me the date 09/21/2018. She reports that she has not been sleeping or eating well, has been depressed, trying to harm herself. However, she denies any current intent to harm herself. She denies any drug or hallucination, paranoia. She has been having mood swings or irritability. Denies any intent to harm anyone. She seems to have average intelligence just prior to give information, fund of knowledge and knowledge of the President of [employer]. Her long-term memory is good. She cannot remember age, date of . Recent memory is good. She events that are coming here. Her insight about illness is fair. judgment is poor with her self-destructive behavior. IMPRESSION: Schizoaffective disorder bipolar type. MEDICAL DIAGNOSIS: As per Dr. Garcia. PLAN: The patient will be started back on her medications. We will do group therapy, milieu therapy, and individual therapy. ESTIMATED LENGTH OF STAY: 3-7 days. DISCHARGE CRITERIA: Decreasing agitation, no longer self-destructive after discharge, outpatient treatment. JOB# [id number] TITUS
--- NOTE | 2018-09-21 14:36 | General Progress Note ---
Subjective - Review of Systems Service Date: 09/21/18 Subjective: A rapid response was called on this patient. Patient reportedly had had a tonic -clonic seizure. When I arrived patient was alert and in NAD. 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 She is on Keppra plus another of the newer anticonvulsants. Patient has a history of seizures. Plan: observation. Objective - Results Result Diagrams: 09/20/18 16:55 09/20/18 16:55 Recent Labs: Laboratory Last Values WBC 7.9 Th/cmm (4.8-10.8) 09/20/18 16:55 RBC 4.80 Mil/cmm (3.80-5.10) 09/20/18 16:55 Hgb 13.4 gm/dL (12-16) 09/20/18 16:55 Hct 41.4 % (41.0-60) 09/20/18 16:55 MCV 86.3 fl (81-100) 09/20/18 16:55 MCH 28.0 pg (27.0-31.0) 09/20/18 16:55 MCHC Differential 32.4 pg (28.0-36.0) 09/20/18 16:55 RDW 13.5 % (11.5-20.0) 09/20/18 16:55 Plt Count 410 Th/cmm (150-400) H 09/20/18 16:55 MPV 7.2 fl 09/20/18 16:55 Neutrophils % 69.6 % (40.0-80.0) 09/20/18 16:55 Lymphocytes % 19.2 % (20.0-50.0) L 09/20/18 16:55 Monocytes % 4.1 % (2.0-10.0) 09/20/18 16:55 Eosinophils % 6.5 % (0.0-5.0) H 09/20/18 16:55 Basophils % 0.6 % (0.0-2.0) 09/20/18 16:55 Sodium 136 mEq/L (136-145) 09/20/18 16:55 Potassium 3.6 mEq/L (3.5-5.1) 09/20/18 16:55 Chloride 98 mEq/L (98-107) 09/20/18 16:55 Carbon Dioxide 28.9 mEq/L (21.0-31.0) 09/20/18 16:55 Anion Gap 12.7 (7.0-16.0) 09/20/18 16:55 BUN 15 mg/dL (7-25) 09/20/18 16:55 Creatinine 0.7 mg/dL (0.6-1.2) 09/20/18 16:55 Est GFR ( Amer) > 60.0 ml/min (>90) 09/20/18 16:55 Est GFR (Non-Af Amer) > 60.0 ml/min 09/20/18 16:55 BUN/Creatinine Ratio 21.4 09/20/18 16:55 Glucose 169 mg/dL (70-105) H 09/20/18 16:55 Calcium 9.9 mg/dL (8.6-10.3) 09/20/18 16:55 Total Bilirubin 0.3 mg/dL (0.3-1.0) 09/20/18 16:55 AST 13 U/L (13-39) 09/20/18 16:55 ALT 10 U/L (7-52) 09/20/18 16:55 Alkaline Phosphatase 119 U/L (34-104) H 09/20/18 16:55 Troponin I 0.01 ng/mL (0.01-0.05) 09/20/18 16:55 Total Protein 8.0 gm/dL (6.0-8.3) 09/20/18 16:55 Albumin 4.2 gm/dL (3.7-5.3) 09/20/18 16:55 Globulin 3.8 gm/dL 09/20/18 16:55 Albumin/Globulin Ratio 1.1 (1.0-1.8) 09/20/18 16:55 Triglycerides 119 mg/dL (<150) 09/20/18 16:55 Cholesterol 201 mg/dL (<200) H 09/20/18 16:55 LDL Cholesterol Direct 144 mg/dL (75-193) 09/20/18 16:55 HDL Cholesterol 46 mg/dL (23-92) 09/20/18 16:55 TSH 1.85 uIU/ml (0.34-5.60) 09/20/18 16:55 Serum , Qual NEGATIVE (NEGATIVE) 09/20/18 16:55 Urine Source CLEAN C 09/20/18 17:47 Urine Color YELLOW 09/20/18 17:47 Urine Clarity HAZY (CLEAR) 09/20/18 17:47 Urine pH 5.5 (4.6 - 8.0) 09/20/18 17:47 Ur Specific [place] 1.010 (1.005-1.030) 09/20/18 17:47 Urine Protein NEGATIVE mg/dL (NEGATIVE) 09/20/18 17:47 Urine Glucose (UA) NEGATIVE mg/dL (NEGATIVE) 09/20/18 17:47 Urine Ketones NEGATIVE mg/dL (NEGATIVE) 09/20/18 17:47 Urine Blood NEGATIVE (NEGATIVE) 09/20/18 17:47 Urine Nitrate NEGATIVE (NEGATIVE) 09/20/18 17:47 Urine Bilirubin NEGATIVE (NEGATIVE) 09/20/18 17:47 Urine Urobilinogen 0.2 E.U./dL (0.2 - 1.0) 09/20/18 17:47 Ur Leukocyte Esterase LARGE (NEGATIVE) H 09/20/18 17:47 Urine RBC 0-2 /hpf (0-5) 09/20/18 17:47 Urine WBC 6-10 /hpf (0-5) H 09/20/18 17:47 Ur Epithelial Cells FEW /lpf (FEW) 09/20/18 17:47 Urine Bacteria 2+ /hpf (NONE SEEN) H 09/20/18 17:47 Salicylates < 25.0 mg/L (30.0-100.0) L 09/20/18 16:55 Urine Opiates Screen NEGATIVE (NEGATIVE) 09/20/18 17:48 Urine Methadone Screen NEGATIVE (NEGATIVE) 09/20/18 17:48 Acetaminophen < 10.0 ug/mL (10.0-30.0) L 09/20/18 16:55 Ur Barbiturates Screen POSITIVE (NEGATIVE) H 09/20/18 17:48 Ur Tricyclics Screen NEGATIVE (NEGATIVE) 09/20/18 17:48 Ur Phencyclidine Scrn NEGATIVE (NEGATIVE) 09/20/18 17:48 Amphetamines Screen NEGATIVE (NEGATIVE) 09/20/18 17:48 U Methamphetamines Scrn NEGATIVE (NEGATIVE) 09/20/18 17:48 U Benzodiazepines Scrn NEGATIVE (NEGATIVE) 09/20/18 17:48 U Cocaine Metab Screen NEGATIVE (NEGATIVE) 09/20/18 17:48 U Cannabinoids Screen NEGATIVE (NEGATIVE) 09/20/18 17:48 Ethyl Alcohol < 10 mg/dL (0-10) 09/20/18 16:55 - Physical Exam Vitals and I&O: Vital Signs Temp 97.1 F 09/21/18 06:27 Pulse 71 09/21/18 06:27 Resp 19 09/21/18 06:27 BP 102/56 09/21/18 08:43 Pulse Ox 97 09/21/18 06:27 Intake & Output 09/20/18 09/21/18 09/21/18 18:59 06:59 18:59 Weight (lbs) 81.647 kg Other: Weight Source Estimated Active Medications: Current Medications Acetaminophen (Tylenol) 650 mg PO Q4H PRN PRN Reason: Mild Pain / Temp above 100 Stop: 11/19/18 19:38 Al Hydrox/Mg Hydrox/Simethicone (Maalox) 30 ml PO Q4H PRN PRN Reason: GI DISTRESS Stop: 11/19/18 19:38 Aripiprazole (Abilify) 10 mg PO DAILY [facility]; Protocol Stop: 11/20/18 08:59 Last Admin: 09/21/18 08:45 Dose: 10 mg Bisacodyl (Dulcolax 10 Mg Supp) 10 mg RC DAILY [facility] Stop: 11/20/18 08:59 Last Admin: 09/21/18 08:43 Dose: 10 mg Docusate Sodium (Colace) 100 mg PO BID [facility] Stop: 11/20/18 08:59 Last Admin: 09/21/18 08:45 Dose: 100 mg Duloxetine HCl (Cymbalta) 30 mg PO BID [facility]; Protocol Stop: 11/20/18 08:59 Last Admin: 09/21/18 08:44 Dose: 30 mg Furosemide (Lasix) 40 mg PO DAILY [facility] Stop: 11/20/18 08:59 Last Admin: 09/21/18 08:43 Dose: 40 mg Lacosamide (Vimpat) 100 mg PO BID [facility] Stop: 11/20/18 08:59 Last Admin: 09/21/18 08:45 Dose: 100 mg Lactobacillus Rhamnosus (Culturelle 15b) 1 each PO DAILY [facility] Stop: 11/20/18 08:59 Last Admin: 09/21/18 08:45 Dose: 1 each Levetiracetam (Keppra) 1,000 mg PO BID [facility] Stop: 11/20/18 08:59 Last Admin: 09/21/18 08:43 Dose: 1,000 mg Levofloxacin (Levaquin) 250 mg PO DAILY [facility] Stop: 11/20/18 08:59 Last Admin: 09/21/18 08:44 Dose: 250 mg Levothyroxine Sodium (Synthroid) 0.088 mg PO QDAC [facility] Stop: 11/20/18 07:29 Last Admin: 09/21/18 06:49 Dose: 0.088 mg Lorazepam (Ativan) 0.5 mg PO Q6HR PRN; Protocol PRN Reason: Agitation Stop: 11/19/18 20:56 Magnesium Hydroxide (Milk Of Magnesia) 30 ml PO HS PRN PRN Reason: Constipation Sodium Phosphate (Fleet Enema) 135 ml RC Q2D PRN PRN Reason: Constipation Stop: 11/19/18 19:38 Zolpidem Tartrate (Ambien) 5 mg PO HS PRN PRN Reason: Insomnia Stop: 11/19/18 19:49 Last Admin: 09/20/18 22:33 Dose: 5 mg - Procedures Procedures: Procedures Procedure Code Date GROUP PSYCHOTHERAPY 23974 10/14/15 GROUP PSYCHOTHERAPY GZHZZZZ 10/14/15
--- NOTE | 2018-09-21 18:42 | Internal Medicine Prog Note ---
Internal Medicine Subjective - Subjective Service Date: 09/21/18 (patient had an episode of tonic clonic seizure this afternoon) Patient seen and examined:: with staff Patient is:: awake, verbal Per staff patient has:: tolerating meds Internal Medicine Objective - Results Result Diagrams: 09/20/18 16:55 09/20/18 16:55 Recent Labs: Laboratory Last Values WBC 7.9 Th/cmm (4.8-10.8) 09/20/18 16:55 RBC 4.80 Mil/cmm (3.80-5.10) 09/20/18 16:55 Hgb 13.4 gm/dL (12-16) 09/20/18 16:55 Hct 41.4 % (41.0-60) 09/20/18 16:55 MCV 86.3 fl (81-100) 09/20/18 16:55 MCH 28.0 pg (27.0-31.0) 09/20/18 16:55 MCHC Differential 32.4 pg (28.0-36.0) 09/20/18 16:55 RDW 13.5 % (11.5-20.0) 09/20/18 16:55 Plt Count 410 Th/cmm (150-400) H 09/20/18 16:55 MPV 7.2 fl 09/20/18 16:55 Neutrophils % 69.6 % (40.0-80.0) 09/20/18 16:55 Lymphocytes % 19.2 % (20.0-50.0) L 09/20/18 16:55 Monocytes % 4.1 % (2.0-10.0) 09/20/18 16:55 Eosinophils % 6.5 % (0.0-5.0) H 09/20/18 16:55 Basophils % 0.6 % (0.0-2.0) 09/20/18 16:55 Sodium 136 mEq/L (136-145) 09/20/18 16:55 Potassium 3.6 mEq/L (3.5-5.1) 09/20/18 16:55 Chloride 98 mEq/L (98-107) 09/20/18 16:55 Carbon Dioxide 28.9 mEq/L (21.0-31.0) 09/20/18 16:55 Anion Gap 12.7 (7.0-16.0) 09/20/18 16:55 BUN 15 mg/dL (7-25) 09/20/18 16:55 Creatinine 0.7 mg/dL (0.6-1.2) 09/20/18 16:55 Est GFR ( Amer) > 60.0 ml/min (>90) 09/20/18 16:55 Est GFR (Non-Af Amer) > 60.0 ml/min 09/20/18 16:55 BUN/Creatinine Ratio 21.4 09/20/18 16:55 Glucose 169 mg/dL (70-105) H 09/20/18 16:55 Calcium 9.9 mg/dL (8.6-10.3) 09/20/18 16:55 Total Bilirubin 0.3 mg/dL (0.3-1.0) 09/20/18 16:55 AST 13 U/L (13-39) 09/20/18 16:55 ALT 10 U/L (7-52) 09/20/18 16:55 Alkaline Phosphatase 119 U/L (34-104) H 09/20/18 16:55 Troponin I 0.01 ng/mL (0.01-0.05) 09/20/18 16:55 Total Protein 8.0 gm/dL (6.0-8.3) 09/20/18 16:55 Albumin 4.2 gm/dL (3.7-5.3) 09/20/18 16:55 Globulin 3.8 gm/dL 09/20/18 16:55 Albumin/Globulin Ratio 1.1 (1.0-1.8) 09/20/18 16:55 Triglycerides 119 mg/dL (<150) 09/20/18 16:55 Cholesterol 201 mg/dL (<200) H 09/20/18 16:55 LDL Cholesterol Direct 144 mg/dL (75-193) 09/20/18 16:55 HDL Cholesterol 46 mg/dL (23-92) 09/20/18 16:55 TSH 1.85 uIU/ml (0.34-5.60) 09/20/18 16:55 Serum , Qual NEGATIVE (NEGATIVE) 09/20/18 16:55 Urine Source CLEAN C 09/20/18 17:47 Urine Color YELLOW 09/20/18 17:47 Urine Clarity HAZY (CLEAR) 09/20/18 17:47 Urine pH 5.5 (4.6 - 8.0) 09/20/18 17:47 Ur Specific [place] 1.010 (1.005-1.030) 09/20/18 17:47 Urine Protein NEGATIVE mg/dL (NEGATIVE) 09/20/18 17:47 Urine Glucose (UA) NEGATIVE mg/dL (NEGATIVE) 09/20/18 17:47 Urine Ketones NEGATIVE mg/dL (NEGATIVE) 09/20/18 17:47 Urine Blood NEGATIVE (NEGATIVE) 09/20/18 17:47 Urine Nitrate NEGATIVE (NEGATIVE) 09/20/18 17:47 Urine Bilirubin NEGATIVE (NEGATIVE) 09/20/18 17:47 Urine Urobilinogen 0.2 E.U./dL (0.2 - 1.0) 09/20/18 17:47 Ur Leukocyte Esterase LARGE (NEGATIVE) H 09/20/18 17:47 Urine RBC 0-2 /hpf (0-5) 09/20/18 17:47 Urine WBC 6-10 /hpf (0-5) H 09/20/18 17:47 Ur Epithelial Cells FEW /lpf (FEW) 09/20/18 17:47 Urine Bacteria 2+ /hpf (NONE SEEN) H 09/20/18 17:47 Salicylates < 25.0 mg/L (30.0-100.0) L 09/20/18 16:55 Urine Opiates Screen NEGATIVE (NEGATIVE) 09/20/18 17:48 Urine Methadone Screen NEGATIVE (NEGATIVE) 09/20/18 17:48 Acetaminophen < 10.0 ug/mL (10.0-30.0) L 09/20/18 16:55 Ur Barbiturates Screen POSITIVE (NEGATIVE) H 09/20/18 17:48 Ur Tricyclics Screen NEGATIVE (NEGATIVE) 09/20/18 17:48 Ur Phencyclidine Scrn NEGATIVE (NEGATIVE) 09/20/18 17:48 Amphetamines Screen NEGATIVE (NEGATIVE) 09/20/18 17:48 U Methamphetamines Scrn NEGATIVE (NEGATIVE) 09/20/18 17:48 U Benzodiazepines Scrn NEGATIVE (NEGATIVE) 09/20/18 17:48 U Cocaine Metab Screen NEGATIVE (NEGATIVE) 09/20/18 17:48 U Cannabinoids Screen NEGATIVE (NEGATIVE) 09/20/18 17:48 Ethyl Alcohol < 10 mg/dL (0-10) 09/20/18 16:55 - Physical Exam Vitals and I&O: Vital Signs Temp 97.9 F 09/21/18 14:00 Pulse 91 09/21/18 14:00 Resp 18 09/21/18 14:00 BP 120/66 09/21/18 14:00 Pulse Ox 98 09/21/18 14:00 Intake & Output 09/20/18 09/21/18 09/21/18 18:59 06:59 18:59 Intake Total 120 1080 Balance 120 1080 Weight (lbs) 180 lb Intake: Oral 120 1080 Other: # Voids 3 4 # Bowel Movements 1 Weight Source Estimated Active Medications: Current Medications Acetaminophen (Tylenol) 650 mg PO Q4H PRN PRN Reason: Mild Pain / Temp above 100 Stop: 11/19/18 19:38 Last Admin: 09/21/18 16:24 Dose: 650 mg Al Hydrox/Mg Hydrox/Simethicone (Maalox) 30 ml PO Q4H PRN PRN Reason: GI DISTRESS Stop: 11/19/18 19:38 Aripiprazole (Abilify) 10 mg PO DAILY [facility]; Protocol Stop: 11/20/18 08:59 Last Admin: 09/21/18 08:45 Dose: 10 mg Bisacodyl (Dulcolax 10 Mg Supp) 10 mg RC DAILY [facility] Stop: 11/20/18 08:59 Last Admin: 09/21/18 08:43 Dose: 10 mg Docusate Sodium (Colace) 100 mg PO BID [facility] Stop: 11/20/18 08:59 Last Admin: 09/21/18 17:38 Dose: 100 mg Duloxetine HCl (Cymbalta) 30 mg PO BID [facility]; Protocol Stop: 11/20/18 08:59 Last Admin: 09/21/18 17:38 Dose: 30 mg Furosemide (Lasix) 40 mg PO DAILY [facility] Stop: 11/20/18 08:59 Last Admin: 09/21/18 08:43 Dose: 40 mg Lacosamide (Vimpat) 100 mg PO BID [facility] Stop: 11/20/18 08:59 Last Admin: 09/21/18 17:38 Dose: 100 mg Lactobacillus Rhamnosus (Culturelle 15b) 1 each PO DAILY [facility] Stop: 11/20/18 08:59 Last Admin: 09/21/18 08:45 Dose: 1 each Levetiracetam (Keppra) 1,000 mg PO BID [facility] Stop: 11/20/18 08:59 Last Admin: 09/21/18 17:07 Dose: 1,000 mg Levofloxacin (Levaquin) 250 mg PO DAILY [facility] Stop: 11/20/18 08:59 Last Admin: 09/21/18 08:44 Dose: 250 mg Levothyroxine Sodium (Synthroid) 0.088 mg PO QDAC [facility] Stop: 11/20/18 07:29 Last Admin: 09/21/18 06:49 Dose: 0.088 mg Lorazepam (Ativan) 0.5 mg PO Q6HR PRN; Protocol PRN Reason: Agitation Stop: 11/19/18 20:56 Magnesium Hydroxide (Milk Of Magnesia) 30 ml PO HS PRN PRN Reason: Constipation Sodium Phosphate (Fleet Enema) 135 ml RC Q2D PRN PRN Reason: Constipation Stop: 11/19/18 19:38 Zolpidem Tartrate (Ambien) 5 mg PO HS PRN PRN Reason: Insomnia Stop: 11/19/18 19:49 Last Admin: 09/20/18 22:33 Dose: 5 mg General: alert HEENT: NC/AT, PERRLA Neck: Supple Lungs: CTAB Cardiovascular: RRR, Normal S1, Normal S2, without murmur Abdomen: soft, non-tender, non-distended, positive bowel sound Extremities: excoriation Neurological: alert - Procedures Procedures: Procedures Procedure Code Date GROUP PSYCHOTHERAPY 23472 10/14/15 GROUP PSYCHOTHERAPY GZHZZZZ 10/14/15 Internal Medicine Assmt/Plan - Assessment Assessment: psychosis Dyslipidemia Seizures hypothyroid - Plan Plan: fall precautions seizure precautions cpm
[2018-09-22] MEDS: Levothyroxine 0.088 Mg Tab PO SCH (06:37)
[2018-09-22] MEDS: Lactobacillus Rhamnosus GG 15 Billion CFU CAP.SPRINK PO SCH (09:42)
[2018-09-22] MEDS ORDERED: Probiotic Screen MC PRN (10:12)
--- NOTE | 2018-09-22 14:29 | Internal Medicine Prog Note ---
Internal Medicine Subjective - Subjective Service Date: 09/22/18 Patient seen and examined:: chart reviewed Patient is:: awake, verbal, other (depressive mood) Per staff patient has:: tolerating meds Internal Medicine Objective - Results Result Diagrams: 09/20/18 16:55 09/20/18 16:55 Recent Labs: Laboratory Last Values WBC 7.9 Th/cmm (4.8-10.8) 09/20/18 16:55 RBC 4.80 Mil/cmm (3.80-5.10) 09/20/18 16:55 Hgb 13.4 gm/dL (12-16) 09/20/18 16:55 Hct 41.4 % (41.0-60) 09/20/18 16:55 MCV 86.3 fl (81-100) 09/20/18 16:55 MCH 28.0 pg (27.0-31.0) 09/20/18 16:55 MCHC Differential 32.4 pg (28.0-36.0) 09/20/18 16:55 RDW 13.5 % (11.5-20.0) 09/20/18 16:55 Plt Count 410 Th/cmm (150-400) H 09/20/18 16:55 MPV 7.2 fl 09/20/18 16:55 Neutrophils % 69.6 % (40.0-80.0) 09/20/18 16:55 Lymphocytes % 19.2 % (20.0-50.0) L 09/20/18 16:55 Monocytes % 4.1 % (2.0-10.0) 09/20/18 16:55 Eosinophils % 6.5 % (0.0-5.0) H 09/20/18 16:55 Basophils % 0.6 % (0.0-2.0) 09/20/18 16:55 Sodium 136 mEq/L (136-145) 09/20/18 16:55 Potassium 3.6 mEq/L (3.5-5.1) 09/20/18 16:55 Chloride 98 mEq/L (98-107) 09/20/18 16:55 Carbon Dioxide 28.9 mEq/L (21.0-31.0) 09/20/18 16:55 Anion Gap 12.7 (7.0-16.0) 09/20/18 16:55 BUN 15 mg/dL (7-25) 09/20/18 16:55 Creatinine 0.7 mg/dL (0.6-1.2) 09/20/18 16:55 Est GFR ( Amer) > 60.0 ml/min (>90) 09/20/18 16:55 Est GFR (Non-Af Amer) > 60.0 ml/min 09/20/18 16:55 BUN/Creatinine Ratio 21.4 09/20/18 16:55 Glucose 169 mg/dL (70-105) H 09/20/18 16:55 Calcium 9.9 mg/dL (8.6-10.3) 09/20/18 16:55 Total Bilirubin 0.3 mg/dL (0.3-1.0) 09/20/18 16:55 AST 13 U/L (13-39) 09/20/18 16:55 ALT 10 U/L (7-52) 09/20/18 16:55 Alkaline Phosphatase 119 U/L (34-104) H 09/20/18 16:55 Troponin I 0.01 ng/mL (0.01-0.05) 09/20/18 16:55 Total Protein 8.0 gm/dL (6.0-8.3) 09/20/18 16:55 Albumin 4.2 gm/dL (3.7-5.3) 09/20/18 16:55 Globulin 3.8 gm/dL 09/20/18 16:55 Albumin/Globulin Ratio 1.1 (1.0-1.8) 09/20/18 16:55 Triglycerides 119 mg/dL (<150) 09/20/18 16:55 Cholesterol 201 mg/dL (<200) H 09/20/18 16:55 LDL Cholesterol Direct 144 mg/dL (75-193) 09/20/18 16:55 HDL Cholesterol 46 mg/dL (23-92) 09/20/18 16:55 TSH 1.85 uIU/ml (0.34-5.60) 09/20/18 16:55 Serum , Qual NEGATIVE (NEGATIVE) 09/20/18 16:55 Urine Source CLEAN C 09/20/18 17:47 Urine Color YELLOW 09/20/18 17:47 Urine Clarity HAZY (CLEAR) 09/20/18 17:47 Urine pH 5.5 (4.6 - 8.0) 09/20/18 17:47 Ur Specific [place] 1.010 (1.005-1.030) 09/20/18 17:47 Urine Protein NEGATIVE mg/dL (NEGATIVE) 09/20/18 17:47 Urine Glucose (UA) NEGATIVE mg/dL (NEGATIVE) 09/20/18 17:47 Urine Ketones NEGATIVE mg/dL (NEGATIVE) 09/20/18 17:47 Urine Blood NEGATIVE (NEGATIVE) 09/20/18 17:47 Urine Nitrate NEGATIVE (NEGATIVE) 09/20/18 17:47 Urine Bilirubin NEGATIVE (NEGATIVE) 09/20/18 17:47 Urine Urobilinogen 0.2 E.U./dL (0.2 - 1.0) 09/20/18 17:47 Ur Leukocyte Esterase LARGE (NEGATIVE) H 09/20/18 17:47 Urine RBC 0-2 /hpf (0-5) 09/20/18 17:47 Urine WBC 6-10 /hpf (0-5) H 09/20/18 17:47 Ur Epithelial Cells FEW /lpf (FEW) 09/20/18 17:47 Urine Bacteria 2+ /hpf (NONE SEEN) H 09/20/18 17:47 Salicylates < 25.0 mg/L (30.0-100.0) L 09/20/18 16:55 Urine Opiates Screen NEGATIVE (NEGATIVE) 09/20/18 17:48 Urine Methadone Screen NEGATIVE (NEGATIVE) 09/20/18 17:48 Acetaminophen < 10.0 ug/mL (10.0-30.0) L 09/20/18 16:55 Ur Barbiturates Screen POSITIVE (NEGATIVE) H 09/20/18 17:48 Ur Tricyclics Screen NEGATIVE (NEGATIVE) 09/20/18 17:48 Ur Phencyclidine Scrn NEGATIVE (NEGATIVE) 09/20/18 17:48 Amphetamines Screen NEGATIVE (NEGATIVE) 09/20/18 17:48 U Methamphetamines Scrn NEGATIVE (NEGATIVE) 09/20/18 17:48 U Benzodiazepines Scrn NEGATIVE (NEGATIVE) 09/20/18 17:48 U Cocaine Metab Screen NEGATIVE (NEGATIVE) 09/20/18 17:48 U Cannabinoids Screen NEGATIVE (NEGATIVE) 09/20/18 17:48 Ethyl Alcohol < 10 mg/dL (0-10) 09/20/18 16:55 - Physical Exam Vitals and I&O: Vital Signs Temp 98.1 F 09/22/18 06:41 Pulse 69 09/22/18 06:41 Resp 18 09/22/18 06:41 BP 114/64 09/22/18 09:41 Pulse Ox 98 09/22/18 06:41 Intake & Output 09/21/18 09/22/18 09/22/18 18:59 06:59 18:59 Intake Total 1080 240 Balance 1080 240 Intake: Oral 1080 240 Other: # Voids 4 1 # Bowel Movements 1 Active Medications: Current Medications Acetaminophen (Tylenol) 650 mg PO Q4H PRN PRN Reason: Mild Pain / Temp above 100 Stop: 11/19/18 19:38 Last Admin: 09/22/18 11:18 Dose: 650 mg Al Hydrox/Mg Hydrox/Simethicone (Maalox) 30 ml PO Q4H PRN PRN Reason: GI DISTRESS Stop: 11/19/18 19:38 Aripiprazole (Abilify) 10 mg PO DAILY [facility]; Protocol Stop: 11/20/18 08:59 Last Admin: 09/22/18 09:40 Dose: 10 mg Bisacodyl (Dulcolax 10 Mg Supp) 10 mg RC DAILY [facility] Stop: 11/20/18 08:59 Last Admin: 09/22/18 09:42 Dose: Not Given Docusate Sodium (Colace) 100 mg PO BID [facility] Stop: 11/20/18 08:59 Last Admin: 09/22/18 09:40 Dose: 100 mg Duloxetine HCl (Cymbalta) 30 mg PO BID [facility]; Protocol Stop: 11/20/18 08:59 Last Admin: 09/22/18 09:41 Dose: 30 mg Furosemide (Lasix) 40 mg PO DAILY [facility] Stop: 11/20/18 08:59 Last Admin: 09/22/18 09:41 Dose: 40 mg Lacosamide (Vimpat) 100 mg PO BID [facility] Stop: 11/20/18 08:59 Last Admin: 09/22/18 09:41 Dose: 100 mg Lactobacillus Rhamnosus (Culturelle 15b) 1 each PO DAILY [facility] Stop: 11/20/18 08:59 Last Admin: 09/22/18 09:42 Dose: 1 each Levetiracetam (Keppra) 1,000 mg PO BID [facility] Stop: 11/20/18 08:59 Last Admin: 09/22/18 09:40 Dose: 1,000 mg Levofloxacin (Levaquin) 250 mg PO DAILY [facility] Stop: 11/20/18 08:59 Last Admin: 09/22/18 09:42 Dose: 250 mg Levothyroxine Sodium (Synthroid) 0.088 mg PO QDAC [facility] Stop: 11/20/18 07:29 Last Admin: 09/22/18 06:37 Dose: 0.088 mg Lorazepam (Ativan) 0.5 mg PO Q6HR PRN; Protocol PRN Reason: Agitation Stop: 11/19/18 20:56 Magnesium Hydroxide (Milk Of Magnesia) 30 ml PO HS PRN PRN Reason: Constipation Miscellaneous (Probiotic Screen) 1 ea MC PRN PRN PRN Reason: PROTOCOL Stop: 11/21/18 10:11 Sodium Phosphate (Fleet Enema) 135 ml RC Q2D PRN PRN Reason: Constipation Stop: 11/19/18 19:38 Zolpidem Tartrate (Ambien) 5 mg PO HS PRN PRN Reason: Insomnia Stop: 11/19/18 19:49 Last Admin: 09/20/18 22:33 Dose: 5 mg General: alert HEENT: NC/AT, PERRLA Neck: Supple Lungs: CTAB Cardiovascular: RRR, Normal S1, Normal S2, without murmur Abdomen: soft, non-tender, non-distended, positive bowel sound Extremities: excoriation Neurological: alert - Procedures Procedures: Procedures Procedure Code Date GROUP PSYCHOTHERAPY 90695 10/14/15 GROUP PSYCHOTHERAPY GZHZZZZ 10/14/15
[2018-09-23] MEDS: Levothyroxine 0.088 Mg Tab PO SCH (06:43)
--- NOTE | 2018-09-23 06:58 | Progress Notes ---
DATE: 09/22/2018 SUBJECTIVE: Chart reviewed and the patient interviewed. Also discussed the patient's condition with the staff and reviewed the records and labs. The patient is still anxious and is still in a depressed mood. The patient also said that she had 2 seizure episodes yesterday, which increased her depression and her agitation. The patient also is still severely anxious. She also wants to be left alone. Otherwise, the patient is compliant with taking her medications with no side effects of medications. ASSESSMENT: The patient is still agitated and psychotic. TREATMENT PLAN: Continue to monitor her behavior and condition closely. Also, continue Abilify and Cymbalta and continue to adjust the dose and followup and work on behavioral modification. [facility]# [id number]
[2018-09-23] MEDS ORDERED: Lactobacillus Rhamnosus GG 15 Billion CFU CAP.SPRINK PO SCH (09:00)
[2018-09-23] MEDS: Lactobacillus Rhamnosus GG 15 Billion CFU CAP.SPRINK PO SCH (09:08)
--- NOTE | 2018-09-23 22:12 | Progress Notes ---
DATE: 09/23/2018 SUBJECTIVE: The patient was seen in her room. The patient appears to be guarded, isolated, and withdrawn. The patient appears to be in no acute distress. OBJECTIVE: VITAL SIGNS: Temperature 97.8, heart rate 68, blood pressure 115/75, respirations 20, and 95% on room air. HEENT: Head is atraumatic and normocephalic. Eyes: Bilateral conjunctivae are clear. Bilateral pupils are equally round and reactive. NECK: Supple. No JVD. CARDIOVASCULAR: S1 and S2 without murmur. PULMONARY: Clear to auscultation. GASTROINTESTINAL: Soft and nontender without guarding. Positive bowel sounds. MUSCULOSKELETAL: No clubbing. No cyanosis noted. ASSESSMENT: 1. Schizoaffective disorder. 2. Seizure. 3. Hypertension. 4. Hypothyroidism. PLAN: We will keep the patient in inpatient psychiatric unit. We will follow up with a psychiatrist to monitor the patient's condition and behavior. Treatment plans were discussed with the patient's nurse. Treatment plans were discussed with Dr. Garcia. JOB# [id number]
--- NOTE | 2018-09-24 05:06 | Progress Notes ---
DATE: 09/23/2018 FOLLOWUP PROGRESS NOTE COVERING FOR: Max Hannah M.D. PROGRESS ON THE UNIT: Case was discussed with staff of the patient, reviewed records. This is a well-known case to me covering for Dr. Hannah. The patient continues to be depressed. She continues to be unpredictable and impulsive. She continues to be anxious. She continues to be easily agitated. She is compliant with her medication with no side effects. She continues to be at times psychotic, needing redirection. No side effects with the medication, no sedation, no nausea, no extrapyramidal symptoms. We will continue to work with the patient in group therapy and milieu therapy, adjust the medication as needed. JOB# [id number] TITUS
[2018-09-24] MEDS: Levothyroxine 0.088 Mg Tab PO SCH (06:49)
[2018-09-24] MEDS: Lactobacillus Rhamnosus GG 15 Billion CFU CAP.SPRINK PO SCH (09:22)
--- NOTE | 2018-09-24 13:58 | Internal Medicine Prog Note ---
Internal Medicine Subjective - Subjective Service Date: 09/24/18 Patient is:: awake, verbal, other (depressive mood) Per staff patient has:: tolerating meds Internal Medicine Objective - Results Result Diagrams: 09/20/18 16:55 09/20/18 16:55 Recent Labs: Laboratory Last Values WBC 7.9 Th/cmm (4.8-10.8) 09/20/18 16:55 RBC 4.80 Mil/cmm (3.80-5.10) 09/20/18 16:55 Hgb 13.4 gm/dL (12-16) 09/20/18 16:55 Hct 41.4 % (41.0-60) 09/20/18 16:55 MCV 86.3 fl (81-100) 09/20/18 16:55 MCH 28.0 pg (27.0-31.0) 09/20/18 16:55 MCHC Differential 32.4 pg (28.0-36.0) 09/20/18 16:55 RDW 13.5 % (11.5-20.0) 09/20/18 16:55 Plt Count 410 Th/cmm (150-400) H 09/20/18 16:55 MPV 7.2 fl 09/20/18 16:55 Neutrophils % 69.6 % (40.0-80.0) 09/20/18 16:55 Lymphocytes % 19.2 % (20.0-50.0) L 09/20/18 16:55 Monocytes % 4.1 % (2.0-10.0) 09/20/18 16:55 Eosinophils % 6.5 % (0.0-5.0) H 09/20/18 16:55 Basophils % 0.6 % (0.0-2.0) 09/20/18 16:55 Sodium 136 mEq/L (136-145) 09/20/18 16:55 Potassium 3.6 mEq/L (3.5-5.1) 09/20/18 16:55 Chloride 98 mEq/L (98-107) 09/20/18 16:55 Carbon Dioxide 28.9 mEq/L (21.0-31.0) 09/20/18 16:55 Anion Gap 12.7 (7.0-16.0) 09/20/18 16:55 BUN 15 mg/dL (7-25) 09/20/18 16:55 Creatinine 0.7 mg/dL (0.6-1.2) 09/20/18 16:55 Est GFR ( Amer) > 60.0 ml/min (>90) 09/20/18 16:55 Est GFR (Non-Af Amer) > 60.0 ml/min 09/20/18 16:55 BUN/Creatinine Ratio 21.4 09/20/18 16:55 Glucose 169 mg/dL (70-105) H 09/20/18 16:55 Calcium 9.9 mg/dL (8.6-10.3) 09/20/18 16:55 Total Bilirubin 0.3 mg/dL (0.3-1.0) 09/20/18 16:55 AST 13 U/L (13-39) 09/20/18 16:55 ALT 10 U/L (7-52) 09/20/18 16:55 Alkaline Phosphatase 119 U/L (34-104) H 09/20/18 16:55 Troponin I 0.01 ng/mL (0.01-0.05) 09/20/18 16:55 Total Protein 8.0 gm/dL (6.0-8.3) 09/20/18 16:55 Albumin 4.2 gm/dL (3.7-5.3) 09/20/18 16:55 Globulin 3.8 gm/dL 09/20/18 16:55 Albumin/Globulin Ratio 1.1 (1.0-1.8) 09/20/18 16:55 Triglycerides 119 mg/dL (<150) 09/20/18 16:55 Cholesterol 201 mg/dL (<200) H 09/20/18 16:55 LDL Cholesterol Direct 144 mg/dL (75-193) 09/20/18 16:55 HDL Cholesterol 46 mg/dL (23-92) 09/20/18 16:55 TSH 1.85 uIU/ml (0.34-5.60) 09/20/18 16:55 Serum , Qual NEGATIVE (NEGATIVE) 09/20/18 16:55 Urine Source CLEAN C 09/20/18 17:47 Urine Color YELLOW 09/20/18 17:47 Urine Clarity HAZY (CLEAR) 09/20/18 17:47 Urine pH 5.5 (4.6 - 8.0) 09/20/18 17:47 Ur Specific [place] 1.010 (1.005-1.030) 09/20/18 17:47 Urine Protein NEGATIVE mg/dL (NEGATIVE) 09/20/18 17:47 Urine Glucose (UA) NEGATIVE mg/dL (NEGATIVE) 09/20/18 17:47 Urine Ketones NEGATIVE mg/dL (NEGATIVE) 09/20/18 17:47 Urine Blood NEGATIVE (NEGATIVE) 09/20/18 17:47 Urine Nitrate NEGATIVE (NEGATIVE) 09/20/18 17:47 Urine Bilirubin NEGATIVE (NEGATIVE) 09/20/18 17:47 Urine Urobilinogen 0.2 E.U./dL (0.2 - 1.0) 09/20/18 17:47 Ur Leukocyte Esterase LARGE (NEGATIVE) H 09/20/18 17:47 Urine RBC 0-2 /hpf (0-5) 09/20/18 17:47 Urine WBC 6-10 /hpf (0-5) H 09/20/18 17:47 Ur Epithelial Cells FEW /lpf (FEW) 09/20/18 17:47 Urine Bacteria 2+ /hpf (NONE SEEN) H 09/20/18 17:47 Salicylates < 25.0 mg/L (30.0-100.0) L 09/20/18 16:55 Urine Opiates Screen NEGATIVE (NEGATIVE) 09/20/18 17:48 Urine Methadone Screen NEGATIVE (NEGATIVE) 09/20/18 17:48 Acetaminophen < 10.0 ug/mL (10.0-30.0) L 09/20/18 16:55 Ur Barbiturates Screen POSITIVE (NEGATIVE) H 09/20/18 17:48 Ur Tricyclics Screen NEGATIVE (NEGATIVE) 09/20/18 17:48 Ur Phencyclidine Scrn NEGATIVE (NEGATIVE) 09/20/18 17:48 Amphetamines Screen NEGATIVE (NEGATIVE) 09/20/18 17:48 U Methamphetamines Scrn NEGATIVE (NEGATIVE) 09/20/18 17:48 U Benzodiazepines Scrn NEGATIVE (NEGATIVE) 09/20/18 17:48 U Cocaine Metab Screen NEGATIVE (NEGATIVE) 09/20/18 17:48 U Cannabinoids Screen NEGATIVE (NEGATIVE) 09/20/18 17:48 Ethyl Alcohol < 10 mg/dL (0-10) 09/20/18 16:55 RPR NONREACTIVE (NONREACTIVE) 09/20/18 16:55 - Physical Exam Vitals and I&O: Vital Signs Temp 98 F 09/24/18 06:24 Pulse 78 09/24/18 06:24 Resp 18 09/24/18 06:24 BP 128/66 09/24/18 06:24 Pulse Ox 98 09/24/18 06:24 Intake & Output 09/23/18 09/24/18 09/24/18 18:59 06:59 18:59 Intake Total 1500 120 Balance 1500 120 Intake: Oral 1500 120 Other: # Voids 3 3 # Bowel Movements 0 Active Medications: Current Medications Acetaminophen (Tylenol) 650 mg PO Q4H PRN PRN Reason: Mild Pain / Temp above 100 Stop: 11/19/18 19:38 Last Admin: 09/22/18 11:18 Dose: 650 mg Al Hydrox/Mg Hydrox/Simethicone (Maalox) 30 ml PO Q4H PRN PRN Reason: GI DISTRESS Stop: 11/19/18 19:38 Aripiprazole (Abilify) 10 mg PO DAILY [facility]; Protocol Stop: 11/20/18 08:59 Last Admin: 09/24/18 09:22 Dose: 10 mg Bisacodyl (Dulcolax 10 Mg Supp) 10 mg RC DAILY [facility] Stop: 11/20/18 08:59 Last Admin: 09/24/18 09:22 Dose: 10 mg Docusate Sodium (Colace) 100 mg PO BID [facility] Stop: 11/20/18 08:59 Last Admin: 09/24/18 09:22 Dose: 100 mg Duloxetine HCl (Cymbalta) 30 mg PO BID [facility]; Protocol Stop: 11/20/18 08:59 Last Admin: 09/24/18 09:21 Dose: 30 mg Furosemide (Lasix) 40 mg PO DAILY [facility] Stop: 11/20/18 08:59 Last Admin: 09/24/18 09:20 Dose: 40 mg Lacosamide (Vimpat) 100 mg PO BID [facility] Stop: 11/20/18 08:59 Last Admin: 09/23/18 16:39 Dose: 100 mg Lactobacillus Rhamnosus (Culturelle 15b) 1 each PO DAILY [facility] Stop: 11/20/18 08:59 Last Admin: 09/24/18 09:22 Dose: 1 each Levetiracetam (Keppra) 1,000 mg PO BID [facility] Stop: 11/20/18 08:59 Last Admin: 09/24/18 09:20 Dose: 1,000 mg Levofloxacin (Levaquin) 250 mg PO DAILY [facility] Stop: 11/20/18 08:59 Last Admin: 09/24/18 09:17 Dose: 250 mg Levothyroxine Sodium (Synthroid) 0.088 mg PO QDAC [facility] Stop: 11/20/18 07:29 Last Admin: 09/24/18 06:49 Dose: 0.088 mg Lorazepam (Ativan) 0.5 mg PO Q6HR PRN; Protocol PRN Reason: Agitation Stop: 11/19/18 20:56 Magnesium Hydroxide (Milk Of Magnesia) 30 ml PO HS PRN PRN Reason: Constipation Miscellaneous (Probiotic Screen) 1 ea MC PRN PRN PRN Reason: PROTOCOL Stop: 11/21/18 10:11 Sodium Phosphate (Fleet Enema) 135 ml RC Q2D PRN PRN Reason: Constipation Stop: 11/19/18 19:38 Zolpidem Tartrate (Ambien) 5 mg PO HS PRN PRN Reason: Insomnia Stop: 11/19/18 19:49 Last Admin: 09/23/18 22:00 Dose: 5 mg General: alert HEENT: NC/AT, PERRLA Neck: Supple Lungs: CTAB Cardiovascular: RRR, Normal S1, Normal S2, without murmur Abdomen: soft, non-tender, non-distended, positive bowel sound Extremities: excoriation Neurological: alert - Procedures Procedures: Procedures Procedure Code Date GROUP PSYCHOTHERAPY 44332 10/14/15 GROUP PSYCHOTHERAPY GZHZZZZ 10/14/15 Internal Medicine Assmt/Plan - Assessment Assessment: psychosis Dyslipidemia Seizures hypothyroid - Plan Plan: fall precautions seizure precautions cpm Nutritional Asmnt/Malnutr-PDOC - Dietary Evaluation Malnutrition Findings (Please click <Entered> for more info): Nutritional Asmnt/Malnutrition Start: 09/23/18 09: 40 Text: Status: Complete Freq: Protocol: Document 09/23/18 09:40 LIANE (Rec: 09/23/18 09:46 LIANE VITALE- [email or web address]) Nutritional Asmnt/Malnutrition Patient General Information Diagnosis psychosis, bipolar Pertinent Medical Hx/Surgical Hx hyperlipidemia, thyroid disorder Subjective Information Pt sitting up in bed at time of visit and stated she had a good appetite and liked the food so far. Pt reported she liked liver and fish. Current Diet Order/ Nutrition Support mechanical soft Pertinent Medications maalox, bisacodyl, coalce, lasix, culturelle, synthroid, MOM, fleet enema Pertinent Labs 09/20: Na 136, K 3.6, Cl 98, CO2 28.9, BUN 15, Cr 0.7, glucose 169, cholesterol 201 Nutritional Hx/Data Height 5 ft 2 in Height (Calculated Centimeters) 157.5 Current Weight (lbs) 180 lb Weight (Calculated Kilograms) 81.6 Weight (Calculated Grams) 92714.6 Body Mass Index (BMI) 32.9 Weight Status Obese GI Symptoms GI Symptoms None Last BM 4/5 x1 Cultural/Ethnic/Amish Belief unknown Usual diet at home mechanical soft Skin Integrity/Comment: Benjamin score 18, edema Current %PO Good (75-100%) Estimated Nutritional Goals BEE in Kcals: Adj wt of IBW Calories/Kcals/Kg 25-30kcals/kg Kcals Calculated 1450-1740kcals/day Protein: Adj wt of IBW Protein g/kg: ~1g/kg Protein Calculated 58g/day Fluid: ml 1450-1740ml/day Nutritional Problem 1. Problem Problem Altered nutrition related lab values related to Etiology cardiovascular dysfunction as evidenced by Signs/Symptoms: cholesterol 201 Intervention/Recommendation Comments Recommend low fat, low cholesterol mechanical soft diet Expected Outcomes/Goals Expected Outcomes/Goals weight trend toward IBW
--- NOTE | 2018-09-25 03:00 | Progress Notes ---
DATE: 09/24/2018 SUBJECTIVE: Case was discussed with staff of the patient, reviewed records. The patient continues to be unpredictable, impulsive, depressed. Continues to be anxious, easily agitated, at times acting psychotic. Continues to have poor insight. No side effects to the medication, no sedation, no nausea, no extrapyramidal symptoms. We will continue to work with the patient in group therapy, milieu therapy, and adjust medication as needed. [facility]# [id number]
[2018-09-25] MEDS: Levothyroxine 0.088 Mg Tab PO SCH (06:41)
[2018-09-25] MEDS: Lactobacillus Rhamnosus GG 15 Billion CFU CAP.SPRINK PO SCH (09:06)
--- NOTE | 2018-09-25 12:53 | Internal Medicine Prog Note ---
Internal Medicine Subjective - Subjective Service Date: 09/25/18 Patient is:: awake, verbal, other (depressive mood) Per staff patient has:: tolerating meds Internal Medicine Objective - Results Result Diagrams: 09/20/18 16:55 09/20/18 16:55 Recent Labs: Laboratory Last Values WBC 7.9 Th/cmm (4.8-10.8) 09/20/18 16:55 RBC 4.80 Mil/cmm (3.80-5.10) 09/20/18 16:55 Hgb 13.4 gm/dL (12-16) 09/20/18 16:55 Hct 41.4 % (41.0-60) 09/20/18 16:55 MCV 86.3 fl (81-100) 09/20/18 16:55 MCH 28.0 pg (27.0-31.0) 09/20/18 16:55 MCHC Differential 32.4 pg (28.0-36.0) 09/20/18 16:55 RDW 13.5 % (11.5-20.0) 09/20/18 16:55 Plt Count 410 Th/cmm (150-400) H 09/20/18 16:55 MPV 7.2 fl 09/20/18 16:55 Neutrophils % 69.6 % (40.0-80.0) 09/20/18 16:55 Lymphocytes % 19.2 % (20.0-50.0) L 09/20/18 16:55 Monocytes % 4.1 % (2.0-10.0) 09/20/18 16:55 Eosinophils % 6.5 % (0.0-5.0) H 09/20/18 16:55 Basophils % 0.6 % (0.0-2.0) 09/20/18 16:55 Sodium 136 mEq/L (136-145) 09/20/18 16:55 Potassium 3.6 mEq/L (3.5-5.1) 09/20/18 16:55 Chloride 98 mEq/L (98-107) 09/20/18 16:55 Carbon Dioxide 28.9 mEq/L (21.0-31.0) 09/20/18 16:55 Anion Gap 12.7 (7.0-16.0) 09/20/18 16:55 BUN 15 mg/dL (7-25) 09/20/18 16:55 Creatinine 0.7 mg/dL (0.6-1.2) 09/20/18 16:55 Est GFR ( Amer) > 60.0 ml/min (>90) 09/20/18 16:55 Est GFR (Non-Af Amer) > 60.0 ml/min 09/20/18 16:55 BUN/Creatinine Ratio 21.4 09/20/18 16:55 Glucose 169 mg/dL (70-105) H 09/20/18 16:55 Calcium 9.9 mg/dL (8.6-10.3) 09/20/18 16:55 Total Bilirubin 0.3 mg/dL (0.3-1.0) 09/20/18 16:55 AST 13 U/L (13-39) 09/20/18 16:55 ALT 10 U/L (7-52) 09/20/18 16:55 Alkaline Phosphatase 119 U/L (34-104) H 09/20/18 16:55 Troponin I 0.01 ng/mL (0.01-0.05) 09/20/18 16:55 Total Protein 8.0 gm/dL (6.0-8.3) 09/20/18 16:55 Albumin 4.2 gm/dL (3.7-5.3) 09/20/18 16:55 Globulin 3.8 gm/dL 09/20/18 16:55 Albumin/Globulin Ratio 1.1 (1.0-1.8) 09/20/18 16:55 Triglycerides 119 mg/dL (<150) 09/20/18 16:55 Cholesterol 201 mg/dL (<200) H 09/20/18 16:55 LDL Cholesterol Direct 144 mg/dL (75-193) 09/20/18 16:55 HDL Cholesterol 46 mg/dL (23-92) 09/20/18 16:55 TSH 1.85 uIU/ml (0.34-5.60) 09/20/18 16:55 Serum , Qual NEGATIVE (NEGATIVE) 09/20/18 16:55 Urine Source CLEAN C 09/20/18 17:47 Urine Color YELLOW 09/20/18 17:47 Urine Clarity HAZY (CLEAR) 09/20/18 17:47 Urine pH 5.5 (4.6 - 8.0) 09/20/18 17:47 Ur Specific [place] 1.010 (1.005-1.030) 09/20/18 17:47 Urine Protein NEGATIVE mg/dL (NEGATIVE) 09/20/18 17:47 Urine Glucose (UA) NEGATIVE mg/dL (NEGATIVE) 09/20/18 17:47 Urine Ketones NEGATIVE mg/dL (NEGATIVE) 09/20/18 17:47 Urine Blood NEGATIVE (NEGATIVE) 09/20/18 17:47 Urine Nitrate NEGATIVE (NEGATIVE) 09/20/18 17:47 Urine Bilirubin NEGATIVE (NEGATIVE) 09/20/18 17:47 Urine Urobilinogen 0.2 E.U./dL (0.2 - 1.0) 09/20/18 17:47 Ur Leukocyte Esterase LARGE (NEGATIVE) H 09/20/18 17:47 Urine RBC 0-2 /hpf (0-5) 09/20/18 17:47 Urine WBC 6-10 /hpf (0-5) H 09/20/18 17:47 Ur Epithelial Cells FEW /lpf (FEW) 09/20/18 17:47 Urine Bacteria 2+ /hpf (NONE SEEN) H 09/20/18 17:47 Salicylates < 25.0 mg/L (30.0-100.0) L 09/20/18 16:55 Urine Opiates Screen NEGATIVE (NEGATIVE) 09/20/18 17:48 Urine Methadone Screen NEGATIVE (NEGATIVE) 09/20/18 17:48 Acetaminophen < 10.0 ug/mL (10.0-30.0) L 09/20/18 16:55 Ur Barbiturates Screen POSITIVE (NEGATIVE) H 09/20/18 17:48 Ur Tricyclics Screen NEGATIVE (NEGATIVE) 09/20/18 17:48 Ur Phencyclidine Scrn NEGATIVE (NEGATIVE) 09/20/18 17:48 Amphetamines Screen NEGATIVE (NEGATIVE) 09/20/18 17:48 U Methamphetamines Scrn NEGATIVE (NEGATIVE) 09/20/18 17:48 U Benzodiazepines Scrn NEGATIVE (NEGATIVE) 09/20/18 17:48 U Cocaine Metab Screen NEGATIVE (NEGATIVE) 09/20/18 17:48 U Cannabinoids Screen NEGATIVE (NEGATIVE) 09/20/18 17:48 Ethyl Alcohol < 10 mg/dL (0-10) 09/20/18 16:55 RPR NONREACTIVE (NONREACTIVE) 09/20/18 16:55 - Physical Exam Vitals and I&O: Vital Signs Temp 97.2 F 09/25/18 06:29 Pulse 67 09/25/18 06:29 Resp 20 09/25/18 06:29 BP 110/58 09/25/18 09:09 Pulse Ox 97 09/25/18 06:29 Intake & Output 09/24/18 09/25/18 09/25/18 18:59 06:59 18:59 Intake Total 800 240 Balance 800 240 Intake: Oral 800 240 Other: # Voids 3 1 # Bowel Movements 1 Active Medications: Current Medications Acetaminophen (Tylenol) 650 mg PO Q4H PRN PRN Reason: Mild Pain / Temp above 100 Stop: 11/19/18 19:38 Last Admin: 09/22/18 11:18 Dose: 650 mg Al Hydrox/Mg Hydrox/Simethicone (Maalox) 30 ml PO Q4H PRN PRN Reason: GI DISTRESS Stop: 11/19/18 19:38 Aripiprazole (Abilify) 10 mg PO DAILY [facility]; Protocol Stop: 11/20/18 08:59 Last Admin: 09/25/18 09:10 Dose: 10 mg Bisacodyl (Dulcolax 10 Mg Supp) 10 mg RC DAILY [facility] Stop: 11/20/18 08:59 Last Admin: 09/25/18 09:09 Dose: 10 mg Docusate Sodium (Colace) 100 mg PO BID [facility] Stop: 11/20/18 08:59 Last Admin: 09/25/18 09:06 Dose: 100 mg Duloxetine HCl (Cymbalta) 30 mg PO BID [facility]; Protocol Stop: 11/20/18 08:59 Last Admin: 09/25/18 09:06 Dose: 30 mg Furosemide (Lasix) 40 mg PO DAILY [facility] Stop: 11/20/18 08:59 Last Admin: 09/25/18 09:09 Dose: Not Given Lacosamide (Vimpat) 100 mg PO BID [facility] Stop: 11/20/18 08:59 Last Admin: 09/25/18 09:07 Dose: 100 mg Lactobacillus Rhamnosus (Culturelle 15b) 1 each PO DAILY [facility] Stop: 11/20/18 08:59 Last Admin: 09/25/18 09:06 Dose: 1 each Levetiracetam (Keppra) 1,000 mg PO BID [facility] Stop: 11/20/18 08:59 Last Admin: 09/25/18 09:00 Dose: 1,000 mg Levofloxacin (Levaquin) 250 mg PO DAILY [facility] Stop: 11/20/18 08:59 Last Admin: 09/25/18 09:06 Dose: 250 mg Levothyroxine Sodium (Synthroid) 0.088 mg PO QDAC [facility] Stop: 11/20/18 07:29 Last Admin: 09/25/18 06:41 Dose: 0.088 mg Lorazepam (Ativan) 0.5 mg PO Q6HR PRN; Protocol PRN Reason: Agitation Stop: 11/19/18 20:56 Magnesium Hydroxide (Milk Of Magnesia) 30 ml PO HS PRN PRN Reason: Constipation Miscellaneous (Probiotic Screen) 1 ea MC PRN PRN PRN Reason: PROTOCOL Stop: 11/21/18 10:11 Sodium Phosphate (Fleet Enema) 135 ml RC Q2D PRN PRN Reason: Constipation Stop: 11/19/18 19:38 Zolpidem Tartrate (Ambien) 5 mg PO HS PRN PRN Reason: Insomnia Stop: 11/19/18 19:49 Last Admin: 09/24/18 21:42 Dose: 5 mg General: alert HEENT: NC/AT, PERRLA Neck: Supple Lungs: CTAB Cardiovascular: RRR, Normal S1, Normal S2, without murmur Abdomen: soft, non-tender, non-distended, positive bowel sound Extremities: excoriation Neurological: alert - Procedures Procedures: Procedures Procedure Code Date GROUP PSYCHOTHERAPY 97864 10/14/15 GROUP PSYCHOTHERAPY GZHZZZZ 10/14/15 Internal Medicine Assmt/Plan - Assessment Assessment: psychosis Dyslipidemia Seizures hypothyroid - Plan Plan: fall precautions seizure precautions cpm Nutritional Asmnt/Malnutr-PDOC - Dietary Evaluation Malnutrition Findings (Please click <Entered> for more info): Nutritional Asmnt/Malnutrition Start: 09/23/18 09: 40 Text: Status: Complete Freq: Protocol: Document 09/23/18 09:40 LIANE (Rec: 09/23/18 09:46 LIANE VITALE FN) Nutritional Asmnt/Malnutrition Patient General Information Diagnosis psychosis, bipolar Pertinent Medical Hx/Surgical Hx hyperlipidemia, thyroid disorder Subjective Information Pt sitting up in bed at time of visit and stated she had a good appetite and liked the food so far. Pt reported she liked liver and fish. Current Diet Order/ Nutrition Support mechanical soft Pertinent Medications maalox, bisacodyl, coalce, lasix, culturelle, synthroid, MOM, fleet enema Pertinent Labs 09/20: Na 136, K 3.6, Cl 98, CO2 28.9, BUN 15, Cr 0.7, glucose 169, cholesterol 201 Nutritional Hx/Data Height 5 ft 2 in Height (Calculated Centimeters) 157.5 Current Weight (lbs) 180 lb Weight (Calculated Kilograms) 81.6 Weight (Calculated Grams) 94691.6 Body Mass Index (BMI) 32.9 Weight Status Obese GI Symptoms GI Symptoms None Last BM 4/ x1 Cultural/Ethnic/Hinduism Belief unknown Usual diet at home mechanical soft Skin Integrity/Comment: Benjamin score 18, edema Current %PO Good (75-100%) Estimated Nutritional Goals BEE in Kcals: Adj wt of IBW Calories/Kcals/Kg 25-30kcals/kg Kcals Calculated 1450-1740kcals/day Protein: Adj wt of IBW Protein g/kg: ~1g/kg Protein Calculated 58g/day Fluid: ml 1450-1740ml/day Nutritional Problem 1. Problem Problem Altered nutrition related lab values related to Etiology cardiovascular dysfunction as evidenced by Signs/Symptoms: cholesterol 201 Intervention/Recommendation Comments Recommend low fat, low cholesterol mechanical soft diet Expected Outcomes/Goals Expected Outcomes/Goals weight trend toward IBW
--- NOTE | 2018-09-26 00:30 | Progress Notes ---
DATE: 09/25/2018 Case was discussed with staff of the patient, reviewed records. The patient has been going to the dining room, but she hardly say much. She is internally preoccupied. She is sleeping well, eating well, has been compliant with the medication with no side effects. Episodes of agitation and irritability. No side effects of the medication, no sedation, no nausea, no extrapyramidal symptoms. We will continue outpatient group therapy, milieu therapy, adjust medications as needed. JOB# [id number]
[2018-09-26] MEDS: Levothyroxine 0.088 Mg Tab PO SCH (06:41)
[2018-09-26] MEDS: Lactobacillus Rhamnosus GG 15 Billion CFU CAP.SPRINK PO SCH (08:48)
--- NOTE | 2018-09-27 00:24 | Progress Notes ---
DATE: 09/26/2018 Case was discussed with staff of the patient and reviewed records. The patient continues to have episodes of irritability, continues to be overwhelmed, very poor insight, unpredictable, impulsive, needing redirection, multiple somatic complaints. She continues to be depressed. I will be increasing Cymbalta to 60 mg twice a day to help with her depression, currently she is on 30 mg twice a day. No side effects to the medication, no sedation, no nausea, no extrapyramidal symptoms. We will continue to work with the patient in group therapy, milieu therapy, and adjust the medication as needed. JOB# [id number]
[2018-09-27] MEDS: Levothyroxine 0.088 Mg Tab PO SCH (06:35)
[2018-09-27] MEDS: Lactobacillus Rhamnosus GG 15 Billion CFU CAP.SPRINK PO SCH (08:25)
--- NOTE | 2018-09-27 11:59 | Internal Medicine Prog Note ---
Internal Medicine Subjective - Subjective Service Date: 09/26/18 Patient seen and examined:: with staff, chart reviewed Patient is:: awake, verbal, other (depressive mood and irritable mood.) Patient Complaints of:: other (very impulsive.) Per staff patient has:: no adverse event, no episodes of fall, tolerating meds Internal Medicine Objective - Results Result Diagrams: 09/20/18 16:55 09/20/18 16:55 Recent Labs: Laboratory Last Values WBC 7.9 Th/cmm (4.8-10.8) 09/20/18 16:55 RBC 4.80 Mil/cmm (3.80-5.10) 09/20/18 16:55 Hgb 13.4 gm/dL (12-16) 09/20/18 16:55 Hct 41.4 % (41.0-60) 09/20/18 16:55 MCV 86.3 fl (81-100) 09/20/18 16:55 MCH 28.0 pg (27.0-31.0) 09/20/18 16:55 MCHC Differential 32.4 pg (28.0-36.0) 09/20/18 16:55 RDW 13.5 % (11.5-20.0) 09/20/18 16:55 Plt Count 410 Th/cmm (150-400) H 09/20/18 16:55 MPV 7.2 fl 09/20/18 16:55 Neutrophils % 69.6 % (40.0-80.0) 09/20/18 16:55 Lymphocytes % 19.2 % (20.0-50.0) L 09/20/18 16:55 Monocytes % 4.1 % (2.0-10.0) 09/20/18 16:55 Eosinophils % 6.5 % (0.0-5.0) H 09/20/18 16:55 Basophils % 0.6 % (0.0-2.0) 09/20/18 16:55 Sodium 136 mEq/L (136-145) 09/20/18 16:55 Potassium 3.6 mEq/L (3.5-5.1) 09/20/18 16:55 Chloride 98 mEq/L (98-107) 09/20/18 16:55 Carbon Dioxide 28.9 mEq/L (21.0-31.0) 09/20/18 16:55 Anion Gap 12.7 (7.0-16.0) 09/20/18 16:55 BUN 15 mg/dL (7-25) 09/20/18 16:55 Creatinine 0.7 mg/dL (0.6-1.2) 09/20/18 16:55 Est GFR ( Amer) > 60.0 ml/min (>90) 09/20/18 16:55 Est GFR (Non-Af Amer) > 60.0 ml/min 09/20/18 16:55 BUN/Creatinine Ratio 21.4 09/20/18 16:55 Glucose 169 mg/dL (70-105) H 09/20/18 16:55 Calcium 9.9 mg/dL (8.6-10.3) 09/20/18 16:55 Total Bilirubin 0.3 mg/dL (0.3-1.0) 09/20/18 16:55 AST 13 U/L (13-39) 09/20/18 16:55 ALT 10 U/L (7-52) 09/20/18 16:55 Alkaline Phosphatase 119 U/L (34-104) H 09/20/18 16:55 Troponin I 0.01 ng/mL (0.01-0.05) 09/20/18 16:55 Total Protein 8.0 gm/dL (6.0-8.3) 09/20/18 16:55 Albumin 4.2 gm/dL (3.7-5.3) 09/20/18 16:55 Globulin 3.8 gm/dL 09/20/18 16:55 Albumin/Globulin Ratio 1.1 (1.0-1.8) 09/20/18 16:55 Triglycerides 119 mg/dL (<150) 09/20/18 16:55 Cholesterol 201 mg/dL (<200) H 09/20/18 16:55 LDL Cholesterol Direct 144 mg/dL (75-193) 09/20/18 16:55 HDL Cholesterol 46 mg/dL (23-92) 09/20/18 16:55 TSH 1.85 uIU/ml (0.34-5.60) 09/20/18 16:55 Serum , Qual NEGATIVE (NEGATIVE) 09/20/18 16:55 Urine Source CLEAN C 09/20/18 17:47 Urine Color YELLOW 09/20/18 17:47 Urine Clarity HAZY (CLEAR) 09/20/18 17:47 Urine pH 5.5 (4.6 - 8.0) 09/20/18 17:47 Ur Specific [place] 1.010 (1.005-1.030) 09/20/18 17:47 Urine Protein NEGATIVE mg/dL (NEGATIVE) 09/20/18 17:47 Urine Glucose (UA) NEGATIVE mg/dL (NEGATIVE) 09/20/18 17:47 Urine Ketones NEGATIVE mg/dL (NEGATIVE) 09/20/18 17:47 Urine Blood NEGATIVE (NEGATIVE) 09/20/18 17:47 Urine Nitrate NEGATIVE (NEGATIVE) 09/20/18 17:47 Urine Bilirubin NEGATIVE (NEGATIVE) 09/20/18 17:47 Urine Urobilinogen 0.2 E.U./dL (0.2 - 1.0) 09/20/18 17:47 Ur Leukocyte Esterase LARGE (NEGATIVE) H 09/20/18 17:47 Urine RBC 0-2 /hpf (0-5) 09/20/18 17:47 Urine WBC 6-10 /hpf (0-5) H 09/20/18 17:47 Ur Epithelial Cells FEW /lpf (FEW) 09/20/18 17:47 Urine Bacteria 2+ /hpf (NONE SEEN) H 09/20/18 17:47 Salicylates < 25.0 mg/L (30.0-100.0) L 09/20/18 16:55 Urine Opiates Screen NEGATIVE (NEGATIVE) 09/20/18 17:48 Urine Methadone Screen NEGATIVE (NEGATIVE) 09/20/18 17:48 Acetaminophen < 10.0 ug/mL (10.0-30.0) L 09/20/18 16:55 Ur Barbiturates Screen POSITIVE (NEGATIVE) H 09/20/18 17:48 Ur Tricyclics Screen NEGATIVE (NEGATIVE) 09/20/18 17:48 Ur Phencyclidine Scrn NEGATIVE (NEGATIVE) 09/20/18 17:48 Amphetamines Screen NEGATIVE (NEGATIVE) 09/20/18 17:48 U Methamphetamines Scrn NEGATIVE (NEGATIVE) 09/20/18 17:48 U Benzodiazepines Scrn NEGATIVE (NEGATIVE) 09/20/18 17:48 U Cocaine Metab Screen NEGATIVE (NEGATIVE) 09/20/18 17:48 U Cannabinoids Screen NEGATIVE (NEGATIVE) 09/20/18 17:48 Ethyl Alcohol < 10 mg/dL (0-10) 09/20/18 16:55 RPR NONREACTIVE (NONREACTIVE) 09/20/18 16:55 - Physical Exam Vitals and I&O: Vital Signs Temp 98.0 F 09/27/18 06:26 Pulse 70 09/27/18 06:26 Resp 18 09/27/18 06:26 BP 95/52 09/27/18 08:25 Pulse Ox 94 09/27/18 06:26 Intake & Output 09/26/18 09/27/18 09/27/18 18:59 06:59 18:59 Intake Total 1000 120 Balance 1000 120 Intake: Oral 1000 120 Other: # Voids 4 2 # Bowel Movements 0 0 Active Medications: Current Medications Acetaminophen (Tylenol) 650 mg PO Q4H PRN PRN Reason: Mild Pain / Temp above 100 Stop: 11/19/18 19:38 Last Admin: 09/22/18 11:18 Dose: 650 mg Al Hydrox/Mg Hydrox/Simethicone (Maalox) 30 ml PO Q4H PRN PRN Reason: GI DISTRESS Stop: 11/19/18 19:38 Aripiprazole (Abilify) 10 mg PO DAILY [facility]; Protocol Stop: 11/20/18 08:59 Last Admin: 09/27/18 08:26 Dose: 10 mg Bisacodyl (Dulcolax 10 Mg Supp) 10 mg RC DAILY [facility] Stop: 11/20/18 08:59 Last Admin: 09/27/18 08:26 Dose: Not Given Docusate Sodium (Colace) 100 mg PO BID [facility] Stop: 11/20/18 08:59 Last Admin: 09/27/18 08:26 Dose: 100 mg Duloxetine HCl (Cymbalta) 60 mg PO BID [facility]; Protocol Stop: 11/25/18 16:59 Last Admin: 09/27/18 08:24 Dose: 60 mg Furosemide (Lasix) 40 mg PO DAILY [facility] Stop: 11/20/18 08:59 Last Admin: 09/27/18 08:25 Dose: Not Given Lacosamide (Vimpat) 100 mg PO BID [facility] Stop: 11/20/18 08:59 Last Admin: 09/27/18 08:26 Dose: 100 mg Lactobacillus Rhamnosus (Culturelle 15b) 1 each PO DAILY [facility] Stop: 11/20/18 08:59 Last Admin: 09/27/18 08:25 Dose: 1 each Levetiracetam (Keppra) 1,000 mg PO BID [facility] Stop: 11/20/18 08:59 Last Admin: 09/27/18 08:25 Dose: 1,000 mg Levothyroxine Sodium (Synthroid) 0.088 mg PO QDAC [facility] Stop: 11/20/18 07:29 Last Admin: 09/27/18 06:35 Dose: 0.088 mg Lorazepam (Ativan) 0.5 mg PO Q6HR PRN; Protocol PRN Reason: Agitation Stop: 11/19/18 20:56 Magnesium Hydroxide (Milk Of Magnesia) 30 ml PO HS PRN PRN Reason: Constipation Miscellaneous (Probiotic Screen) 1 ea MC PRN PRN PRN Reason: PROTOCOL Stop: 11/21/18 10:11 Sodium Phosphate (Fleet Enema) 135 ml RC Q2D PRN PRN Reason: Constipation Stop: 11/19/18 19:38 Zolpidem Tartrate (Ambien) 5 mg PO HS PRN PRN Reason: Insomnia Stop: 11/19/18 19:49 Last Admin: 09/26/18 21:33 Dose: 5 mg General: alert HEENT: NC/AT, PERRLA Neck: Supple Lungs: CTAB Cardiovascular: RRR, Normal S1, Normal S2, without murmur Abdomen: soft, non-tender, non-distended, positive bowel sound Extremities: excoriation Neurological: alert - Procedures Procedures: Procedures Procedure Code Date GROUP PSYCHOTHERAPY 40911 10/14/15 GROUP PSYCHOTHERAPY GZHZZZZ 10/14/15 Internal Medicine Assmt/Plan - Assessment Assessment: Psychosis. Dyslipidemia. Seizures. Hypothyroidism. Depression. Irritable, agitated. - Plan Plan: Continuation of care continue present meds as directed fall precaution seizure precautions patient will follow up with psych continue present care management. Nutritional Asmnt/Malnutr-PDOC - Dietary Evaluation Malnutrition Findings (Please click <Entered> for more info): Nutritional Asmnt/Malnutrition Start: 09/23/18 09: 40 Text: Status: Complete Freq: Protocol: Document 09/23/18 09:40 LIANE (Rec: 09/23/18 09:46 LIANE VITALE- [email or web address]) Nutritional Asmnt/Malnutrition Patient General Information Diagnosis psychosis, bipolar Pertinent Medical Hx/Surgical Hx hyperlipidemia, thyroid disorder Subjective Information Pt sitting up in bed at time of visit and stated she had a good appetite and liked the food so far. Pt reported she liked liver and fish. Current Diet Order/ Nutrition Support mechanical soft Pertinent Medications maalox, bisacodyl, coalce, lasix, culturelle, synthroid, MOM, fleet enema Pertinent Labs 09/20: Na 136, K 3.6, Cl 98, CO2 28.9, BUN 15, Cr 0.7, glucose 169, cholesterol 201 Nutritional Hx/Data Height 1.57 m Height (Calculated Centimeters) 157.5 Current Weight (lbs) 81.647 kg Weight (Calculated Kilograms) 81.6 Weight (Calculated Grams) 76681.6 Body Mass Index (BMI) 32.9 Weight Status Obese GI Symptoms GI Symptoms None Last BM 4/5 x1 Cultural/Ethnic/Worship Belief unknown Usual diet at home mechanical soft Skin Integrity/Comment: Benjamin score 18, edema Current %PO Good (75-100%) Estimated Nutritional Goals BEE in Kcals: Adj wt of IBW Calories/Kcals/Kg 25-30kcals/kg Kcals Calculated 1450-1740kcals/day Protein: Adj wt of IBW Protein g/kg: ~1g/kg Protein Calculated 58g/day Fluid: ml 1450-1740ml/day Nutritional Problem 1. Problem Problem Altered nutrition related lab values related to Etiology cardiovascular dysfunction as evidenced by Signs/Symptoms: cholesterol 201 Intervention/Recommendation Comments Recommend low fat, low cholesterol mechanical soft diet Expected Outcomes/Goals Expected Outcomes/Goals weight trend toward IBW
--- NOTE | 2018-09-27 14:46 | Internal Medicine Prog Note ---
Internal Medicine Subjective - Subjective Service Date: 09/27/18 Patient is:: awake, verbal, other (depressive mood and irritable mood.) Patient Complaints of:: other (very impulsive.) Per staff patient has:: no adverse event, no episodes of fall, tolerating meds Internal Medicine Objective - Results Result Diagrams: 09/20/18 16:55 09/20/18 16:55 Recent Labs: Laboratory Last Values WBC 7.9 Th/cmm (4.8-10.8) 09/20/18 16:55 RBC 4.80 Mil/cmm (3.80-5.10) 09/20/18 16:55 Hgb 13.4 gm/dL (12-16) 09/20/18 16:55 Hct 41.4 % (41.0-60) 09/20/18 16:55 MCV 86.3 fl (81-100) 09/20/18 16:55 MCH 28.0 pg (27.0-31.0) 09/20/18 16:55 MCHC Differential 32.4 pg (28.0-36.0) 09/20/18 16:55 RDW 13.5 % (11.5-20.0) 09/20/18 16:55 Plt Count 410 Th/cmm (150-400) H 09/20/18 16:55 MPV 7.2 fl 09/20/18 16:55 Neutrophils % 69.6 % (40.0-80.0) 09/20/18 16:55 Lymphocytes % 19.2 % (20.0-50.0) L 09/20/18 16:55 Monocytes % 4.1 % (2.0-10.0) 09/20/18 16:55 Eosinophils % 6.5 % (0.0-5.0) H 09/20/18 16:55 Basophils % 0.6 % (0.0-2.0) 09/20/18 16:55 Sodium 136 mEq/L (136-145) 09/20/18 16:55 Potassium 3.6 mEq/L (3.5-5.1) 09/20/18 16:55 Chloride 98 mEq/L (98-107) 09/20/18 16:55 Carbon Dioxide 28.9 mEq/L (21.0-31.0) 09/20/18 16:55 Anion Gap 12.7 (7.0-16.0) 09/20/18 16:55 BUN 15 mg/dL (7-25) 09/20/18 16:55 Creatinine 0.7 mg/dL (0.6-1.2) 09/20/18 16:55 Est GFR ( Amer) > 60.0 ml/min (>90) 09/20/18 16:55 Est GFR (Non-Af Amer) > 60.0 ml/min 09/20/18 16:55 BUN/Creatinine Ratio 21.4 09/20/18 16:55 Glucose 169 mg/dL (70-105) H 09/20/18 16:55 Calcium 9.9 mg/dL (8.6-10.3) 09/20/18 16:55 Total Bilirubin 0.3 mg/dL (0.3-1.0) 09/20/18 16:55 AST 13 U/L (13-39) 09/20/18 16:55 ALT 10 U/L (7-52) 09/20/18 16:55 Alkaline Phosphatase 119 U/L (34-104) H 09/20/18 16:55 Troponin I 0.01 ng/mL (0.01-0.05) 09/20/18 16:55 Total Protein 8.0 gm/dL (6.0-8.3) 09/20/18 16:55 Albumin 4.2 gm/dL (3.7-5.3) 09/20/18 16:55 Globulin 3.8 gm/dL 09/20/18 16:55 Albumin/Globulin Ratio 1.1 (1.0-1.8) 09/20/18 16:55 Triglycerides 119 mg/dL (<150) 09/20/18 16:55 Cholesterol 201 mg/dL (<200) H 09/20/18 16:55 LDL Cholesterol Direct 144 mg/dL (75-193) 09/20/18 16:55 HDL Cholesterol 46 mg/dL (23-92) 09/20/18 16:55 TSH 1.85 uIU/ml (0.34-5.60) 09/20/18 16:55 Serum , Qual NEGATIVE (NEGATIVE) 09/20/18 16:55 Urine Source CLEAN C 09/20/18 17:47 Urine Color YELLOW 09/20/18 17:47 Urine Clarity HAZY (CLEAR) 09/20/18 17:47 Urine pH 5.5 (4.6 - 8.0) 09/20/18 17:47 Ur Specific [place] 1.010 (1.005-1.030) 09/20/18 17:47 Urine Protein NEGATIVE mg/dL (NEGATIVE) 09/20/18 17:47 Urine Glucose (UA) NEGATIVE mg/dL (NEGATIVE) 09/20/18 17:47 Urine Ketones NEGATIVE mg/dL (NEGATIVE) 09/20/18 17:47 Urine Blood NEGATIVE (NEGATIVE) 09/20/18 17:47 Urine Nitrate NEGATIVE (NEGATIVE) 09/20/18 17:47 Urine Bilirubin NEGATIVE (NEGATIVE) 09/20/18 17:47 Urine Urobilinogen 0.2 E.U./dL (0.2 - 1.0) 09/20/18 17:47 Ur Leukocyte Esterase LARGE (NEGATIVE) H 09/20/18 17:47 Urine RBC 0-2 /hpf (0-5) 09/20/18 17:47 Urine WBC 6-10 /hpf (0-5) H 09/20/18 17:47 Ur Epithelial Cells FEW /lpf (FEW) 09/20/18 17:47 Urine Bacteria 2+ /hpf (NONE SEEN) H 09/20/18 17:47 Salicylates < 25.0 mg/L (30.0-100.0) L 09/20/18 16:55 Urine Opiates Screen NEGATIVE (NEGATIVE) 09/20/18 17:48 Urine Methadone Screen NEGATIVE (NEGATIVE) 09/20/18 17:48 Acetaminophen < 10.0 ug/mL (10.0-30.0) L 09/20/18 16:55 Ur Barbiturates Screen POSITIVE (NEGATIVE) H 09/20/18 17:48 Ur Tricyclics Screen NEGATIVE (NEGATIVE) 09/20/18 17:48 Ur Phencyclidine Scrn NEGATIVE (NEGATIVE) 09/20/18 17:48 Amphetamines Screen NEGATIVE (NEGATIVE) 09/20/18 17:48 U Methamphetamines Scrn NEGATIVE (NEGATIVE) 09/20/18 17:48 U Benzodiazepines Scrn NEGATIVE (NEGATIVE) 09/20/18 17:48 U Cocaine Metab Screen NEGATIVE (NEGATIVE) 09/20/18 17:48 U Cannabinoids Screen NEGATIVE (NEGATIVE) 09/20/18 17:48 Ethyl Alcohol < 10 mg/dL (0-10) 09/20/18 16:55 RPR NONREACTIVE (NONREACTIVE) 09/20/18 16:55 - Physical Exam Vitals and I&O: Vital Signs Temp 98.0 F 09/27/18 06:26 Pulse 70 09/27/18 06:26 Resp 18 09/27/18 06:26 BP 95/52 09/27/18 08:25 Pulse Ox 94 09/27/18 06:26 Intake & Output 09/26/18 09/27/18 09/27/18 18:59 06:59 18:59 Intake Total 1000 120 Balance 1000 120 Intake: Oral 1000 120 Other: # Voids 4 2 # Bowel Movements 0 0 Active Medications: Current Medications Acetaminophen (Tylenol) 650 mg PO Q4H PRN PRN Reason: Mild Pain / Temp above 100 Stop: 11/19/18 19:38 Last Admin: 09/22/18 11:18 Dose: 650 mg Al Hydrox/Mg Hydrox/Simethicone (Maalox) 30 ml PO Q4H PRN PRN Reason: GI DISTRESS Stop: 11/19/18 19:38 Aripiprazole (Abilify) 10 mg PO DAILY [facility]; Protocol Stop: 11/20/18 08:59 Last Admin: 09/27/18 08:26 Dose: 10 mg Bisacodyl (Dulcolax 10 Mg Supp) 10 mg RC DAILY [facility] Stop: 11/20/18 08:59 Last Admin: 09/27/18 08:26 Dose: Not Given Docusate Sodium (Colace) 100 mg PO BID [facility] Stop: 11/20/18 08:59 Last Admin: 09/27/18 08:26 Dose: 100 mg Duloxetine HCl (Cymbalta) 60 mg PO BID [facility]; Protocol Stop: 11/25/18 16:59 Last Admin: 09/27/18 08:24 Dose: 60 mg Furosemide (Lasix) 40 mg PO DAILY [facility] Stop: 11/20/18 08:59 Last Admin: 09/27/18 08:25 Dose: Not Given Lacosamide (Vimpat) 100 mg PO BID [facility] Stop: 11/20/18 08:59 Last Admin: 09/27/18 08:26 Dose: 100 mg Lactobacillus Rhamnosus (Culturelle 15b) 1 each PO DAILY [facility] Stop: 11/20/18 08:59 Last Admin: 09/27/18 08:25 Dose: 1 each Levetiracetam (Keppra) 1,000 mg PO BID [facility] Stop: 11/20/18 08:59 Last Admin: 09/27/18 08:25 Dose: 1,000 mg Levothyroxine Sodium (Synthroid) 0.088 mg PO QDAC D[facility] Stop: 11/20/18 07:29 Last Admin: 09/27/18 06:35 Dose: 0.088 mg Lorazepam (Ativan) 0.5 mg PO Q6HR PRN; Protocol PRN Reason: Agitation Stop: 11/19/18 20:56 Magnesium Hydroxide (Milk Of Magnesia) 30 ml PO HS PRN PRN Reason: Constipation Miscellaneous (Probiotic Screen) 1 ea MC PRN PRN PRN Reason: PROTOCOL Stop: 11/21/18 10:11 Sodium Phosphate (Fleet Enema) 135 ml RC Q2D PRN PRN Reason: Constipation Stop: 11/19/18 19:38 Zolpidem Tartrate (Ambien) 5 mg PO HS PRN PRN Reason: Insomnia Stop: 11/19/18 19:49 Last Admin: 09/26/18 21:33 Dose: 5 mg General: alert HEENT: NC/AT, PERRLA Neck: Supple Lungs: CTAB Cardiovascular: RRR, Normal S1, Normal S2, without murmur Abdomen: soft, non-tender, non-distended, positive bowel sound Extremities: excoriation Neurological: alert - Procedures Procedures: Procedures Procedure Code Date GROUP PSYCHOTHERAPY 73325 10/14/15 GROUP PSYCHOTHERAPY GZHZZZZ 10/14/15 Internal Medicine Assmt/Plan - Assessment Assessment: psychosis Dyslipidemia Seizures hypothyroid - Plan Plan: fall precautions seizure precautions cpm Nutritional Asmnt/Malnutr-PDOC - Dietary Evaluation Malnutrition Findings (Please click <Entered> for more info): Nutritional Asmnt/Malnutrition Start: 09/23/18 09: 40 Text: Status: Complete Freq: Protocol: Document 09/23/18 09:40 LIANE (Rec: 09/23/18 09:46 [facility] Nutritional Asmnt/Malnutrition Patient General Information Diagnosis psychosis, bipolar Pertinent Medical Hx/Surgical Hx hyperlipidemia, thyroid disorder Subjective Information Pt sitting up in bed at time of visit and stated she had a good appetite and liked the food so far. Pt reported she liked liver and fish. Current Diet Order/ Nutrition Support mechanical soft Pertinent Medications maalox, bisacodyl, coalce, lasix, culturelle, synthroid, MOM, fleet enema Pertinent Labs 09/20: Na 136, K 3.6, Cl 98, CO2 28.9, BUN 15, Cr 0.7, glucose 169, cholesterol 201 Nutritional Hx/Data Height 5 ft 2 in Height (Calculated Centimeters) 157.5 Current Weight (lbs) 180 lb Weight (Calculated Kilograms) 81.6 Weight (Calculated Grams) 11802.6 Body Mass Index (BMI) 32.9 Weight Status Obese GI Symptoms GI Symptoms None Last BM / x1 Cultural/Ethnic/Zoroastrianism Belief unknown Usual diet at home mechanical soft Skin Integrity/Comment: Benjamin score 18, edema Current %PO Good (75-100%) Estimated Nutritional Goals BEE in Kcals: Adj wt of IBW Calories/Kcals/Kg 25-30kcals/kg Kcals Calculated 1450-1740kcals/day Protein: Adj wt of IBW Protein g/kg: ~1g/kg Protein Calculated 58g/day Fluid: ml 1450-1740ml/day Nutritional Problem 1. Problem Problem Altered nutrition related lab values related to Etiology cardiovascular dysfunction as evidenced by Signs/Symptoms: cholesterol 201 Intervention/Recommendation Comments Recommend low fat, low cholesterol mechanical soft diet Expected Outcomes/Goals Expected Outcomes/Goals weight trend toward IBW
--- NOTE | 2018-09-28 05:07 | Progress Notes ---
DATE: 09/27/2018 SUBJECTIVE: Chart reviewed and the patient interviewed. Also, discussed the patient's condition with the staff and reviewed records and labs. The patient seems to be slightly calmer and seems to be less irritable and less agitated. She also seems to be interacting more and talking more to others. She is still making noise that is not clear why she is doing that and she still seems to be preoccupied and responding to stimuli. On the other hand, the patient is cooperative with her treatment and she is compliant with taking her medications. ASSESSMENT: The patient is still psychotic and is still agitated. TREATMENT PLAN: Continue to monitor her behavior and her condition closely. Also, continue Cymbalta 60 mg twice a day and Abilify 10 mg every day and continue to work on behavioral modification and her irritability. JOB# [id number]
[2018-09-28] MEDS: Levothyroxine 0.088 Mg Tab PO SCH (06:38)
[2018-09-28] MEDS: Lactobacillus Rhamnosus GG 15 Billion CFU CAP.SPRINK PO SCH (09:21)
--- NOTE | 2018-09-28 21:57 | Progress Notes ---
DATE: 09/28/2018 SUBJECTIVE: Chart reviewed and the patient interviewed. Also discussed the patient's condition with the staff and reviewed records and labs. The patient is still withdrawn and is still interacting minimally with others. The patient also still has flat affect and she is still delusional. She continues to make noises, mimicking animal noises and animal sounds. She also is still easily agitated and easily irritable. Otherwise, the patient is compliant with taking her medications with no side effects of medications. ASSESSMENT: The patient is still psychotic. TREATMENT PLAN: Continue to monitor her behavior and her condition closely. Also, we will increase Abilify to 15 mg every day and continue Cymbalta 60 mg twice a day and will continue to follow up with her behavior closely. Also, working with manager of case management in regard to discharge plans. JOB# [id number]
--- NOTE | 2018-09-28 22:27 | Internal Medicine Prog Note ---
Internal Medicine Subjective - Subjective Service Date: 09/28/18 Patient is:: awake, verbal, other (depressive mood and irritable mood.) Patient Complaints of:: other (very impulsive.) Per staff patient has:: no adverse event, no episodes of fall, tolerating meds Internal Medicine Objective - Results Result Diagrams: 09/20/18 16:55 09/20/18 16:55 Recent Labs: Laboratory Last Values WBC 7.9 Th/cmm (4.8-10.8) 09/20/18 16:55 RBC 4.80 Mil/cmm (3.80-5.10) 09/20/18 16:55 Hgb 13.4 gm/dL (12-16) 09/20/18 16:55 Hct 41.4 % (41.0-60) 09/20/18 16:55 MCV 86.3 fl (81-100) 09/20/18 16:55 MCH 28.0 pg (27.0-31.0) 09/20/18 16:55 MCHC Differential 32.4 pg (28.0-36.0) 09/20/18 16:55 RDW 13.5 % (11.5-20.0) 09/20/18 16:55 Plt Count 410 Th/cmm (150-400) H 09/20/18 16:55 MPV 7.2 fl 09/20/18 16:55 Neutrophils % 69.6 % (40.0-80.0) 09/20/18 16:55 Lymphocytes % 19.2 % (20.0-50.0) L 09/20/18 16:55 Monocytes % 4.1 % (2.0-10.0) 09/20/18 16:55 Eosinophils % 6.5 % (0.0-5.0) H 09/20/18 16:55 Basophils % 0.6 % (0.0-2.0) 09/20/18 16:55 Sodium 136 mEq/L (136-145) 09/20/18 16:55 Potassium 3.6 mEq/L (3.5-5.1) 09/20/18 16:55 Chloride 98 mEq/L (98-107) 09/20/18 16:55 Carbon Dioxide 28.9 mEq/L (21.0-31.0) 09/20/18 16:55 Anion Gap 12.7 (7.0-16.0) 09/20/18 16:55 BUN 15 mg/dL (7-25) 09/20/18 16:55 Creatinine 0.7 mg/dL (0.6-1.2) 09/20/18 16:55 Est GFR ( Amer) > 60.0 ml/min (>90) 09/20/18 16:55 Est GFR (Non-Af Amer) > 60.0 ml/min 09/20/18 16:55 BUN/Creatinine Ratio 21.4 09/20/18 16:55 Glucose 169 mg/dL (70-105) H 09/20/18 16:55 Calcium 9.9 mg/dL (8.6-10.3) 09/20/18 16:55 Total Bilirubin 0.3 mg/dL (0.3-1.0) 09/20/18 16:55 AST 13 U/L (13-39) 09/20/18 16:55 ALT 10 U/L (7-52) 09/20/18 16:55 Alkaline Phosphatase 119 U/L (34-104) H 09/20/18 16:55 Troponin I 0.01 ng/mL (0.01-0.05) 09/20/18 16:55 Total Protein 8.0 gm/dL (6.0-8.3) 09/20/18 16:55 Albumin 4.2 gm/dL (3.7-5.3) 09/20/18 16:55 Globulin 3.8 gm/dL 09/20/18 16:55 Albumin/Globulin Ratio 1.1 (1.0-1.8) 09/20/18 16:55 Triglycerides 119 mg/dL (<150) 09/20/18 16:55 Cholesterol 201 mg/dL (<200) H 09/20/18 16:55 LDL Cholesterol Direct 144 mg/dL (75-193) 09/20/18 16:55 HDL Cholesterol 46 mg/dL (23-92) 09/20/18 16:55 TSH 1.85 uIU/ml (0.34-5.60) 09/20/18 16:55 Serum , Qual NEGATIVE (NEGATIVE) 09/20/18 16:55 Urine Source CLEAN C 09/20/18 17:47 Urine Color YELLOW 09/20/18 17:47 Urine Clarity HAZY (CLEAR) 09/20/18 17:47 Urine pH 5.5 (4.6 - 8.0) 09/20/18 17:47 Ur Specific [place] 1.010 (1.005-1.030) 09/20/18 17:47 Urine Protein NEGATIVE mg/dL (NEGATIVE) 09/20/18 17:47 Urine Glucose (UA) NEGATIVE mg/dL (NEGATIVE) 09/20/18 17:47 Urine Ketones NEGATIVE mg/dL (NEGATIVE) 09/20/18 17:47 Urine Blood NEGATIVE (NEGATIVE) 09/20/18 17:47 Urine Nitrate NEGATIVE (NEGATIVE) 09/20/18 17:47 Urine Bilirubin NEGATIVE (NEGATIVE) 09/20/18 17:47 Urine Urobilinogen 0.2 E.U./dL (0.2 - 1.0) 09/20/18 17:47 Ur Leukocyte Esterase LARGE (NEGATIVE) H 09/20/18 17:47 Urine RBC 0-2 /hpf (0-5) 09/20/18 17:47 Urine WBC 6-10 /hpf (0-5) H 09/20/18 17:47 Ur Epithelial Cells FEW /lpf (FEW) 09/20/18 17:47 Urine Bacteria 2+ /hpf (NONE SEEN) H 09/20/18 17:47 Salicylates < 25.0 mg/L (30.0-100.0) L 09/20/18 16:55 Urine Opiates Screen NEGATIVE (NEGATIVE) 09/20/18 17:48 Urine Methadone Screen NEGATIVE (NEGATIVE) 09/20/18 17:48 Acetaminophen < 10.0 ug/mL (10.0-30.0) L 09/20/18 16:55 Ur Barbiturates Screen POSITIVE (NEGATIVE) H 09/20/18 17:48 Ur Tricyclics Screen NEGATIVE (NEGATIVE) 09/20/18 17:48 Ur Phencyclidine Scrn NEGATIVE (NEGATIVE) 09/20/18 17:48 Amphetamines Screen NEGATIVE (NEGATIVE) 09/20/18 17:48 U Methamphetamines Scrn NEGATIVE (NEGATIVE) 09/20/18 17:48 U Benzodiazepines Scrn NEGATIVE (NEGATIVE) 09/20/18 17:48 U Cocaine Metab Screen NEGATIVE (NEGATIVE) 09/20/18 17:48 U Cannabinoids Screen NEGATIVE (NEGATIVE) 09/20/18 17:48 Ethyl Alcohol < 10 mg/dL (0-10) 09/20/18 16:55 RPR NONREACTIVE (NONREACTIVE) 09/20/18 16:55 - Physical Exam Vitals and I&O: Vital Signs Temp 97 F 09/28/18 20:00 Pulse 68 09/28/18 20:00 Resp 18 09/28/18 20:00 BP 101/60 09/28/18 20:00 Pulse Ox 96 09/28/18 20:00 Intake & Output 09/28/18 09/28/18 09/29/18 06:59 18:59 06:59 Intake Total 470 1000 Balance 470 1000 Intake: Oral 470 1000 Other: # Voids 3 4 # Bowel Movements 1 Active Medications: Current Medications Acetaminophen (Tylenol) 650 mg PO Q4H PRN PRN Reason: Mild Pain / Temp above 100 Stop: 11/19/18 19:38 Last Admin: 09/22/18 11:18 Dose: 650 mg Al Hydrox/Mg Hydrox/Simethicone (Maalox) 30 ml PO Q4H PRN PRN Reason: GI DISTRESS Stop: 11/19/18 19:38 Aripiprazole (Abilify) 15 mg PO DAILY [facility]; Protocol Stop: 11/27/18 08:59 Last Admin: 09/28/18 09:21 Dose: 15 mg Bisacodyl (Dulcolax 10 Mg Supp) 10 mg RC DAILY [facility] Stop: 11/20/18 08:59 Last Admin: 09/28/18 09:21 Dose: 10 mg Docusate Sodium (Colace) 100 mg PO BID [facility] Stop: 11/20/18 08:59 Last Admin: 09/28/18 16:59 Dose: 100 mg Duloxetine HCl (Cymbalta) 60 mg PO BID [facility]; Protocol Stop: 11/25/18 16:59 Last Admin: 09/28/18 16:59 Dose: 60 mg Furosemide (Lasix) 40 mg PO DAILY [facility] Stop: 11/20/18 08:59 Last Admin: 09/28/18 09:23 Dose: 40 mg Lacosamide (Vimpat) 100 mg PO BID [facility] Stop: 11/20/18 08:59 Last Admin: 09/28/18 16:59 Dose: 100 mg Lactobacillus Rhamnosus (Culturelle 15b) 1 each PO DAILY [facility] Stop: 11/20/18 08:59 Last Admin: 09/28/18 09:21 Dose: 1 each Levetiracetam (Keppra) 1,000 mg PO BID [facility] Stop: 11/20/18 08:59 Last Admin: 09/28/18 16:59 Dose: 1,000 mg Levothyroxine Sodium (Synthroid) 0.088 mg PO QDAC DIA Stop: 11/20/18 07:29 Last Admin: 09/28/18 06:38 Dose: 0.088 mg Lorazepam (Ativan) 0.5 mg PO Q6HR PRN; Protocol PRN Reason: Agitation Stop: 11/19/18 20:56 Magnesium Hydroxide (Milk Of Magnesia) 30 ml PO HS PRN PRN Reason: Constipation Miscellaneous (Probiotic Screen) 1 ea MC PRN PRN PRN Reason: PROTOCOL Stop: 11/21/18 10:11 Sodium Phosphate (Fleet Enema) 135 ml RC Q2D PRN PRN Reason: Constipation Stop: 11/19/18 19:38 Zolpidem Tartrate (Ambien) 5 mg PO HS PRN PRN Reason: Insomnia Stop: 11/19/18 19:49 Last Admin: 09/28/18 21:16 Dose: 5 mg General: alert HEENT: NC/AT, PERRLA Neck: Supple Lungs: CTAB Cardiovascular: RRR, Normal S1, Normal S2, without murmur Abdomen: soft, non-tender, non-distended, positive bowel sound Extremities: excoriation Neurological: alert - Procedures Procedures: Procedures Procedure Code Date GROUP PSYCHOTHERAPY 89103 10/14/15 GROUP PSYCHOTHERAPY GZHZZZZ 10/14/15 Internal Medicine Assmt/Plan - Assessment Assessment: Psychosis. Dyslipidemia. Seizures. Hypothyroidism. Depression. Irritable, agitated. - Plan Plan: Continuation of care continue present meds as directed fall precaution seizure precautions patient will follow up with psych continue present care management. Nutritional Asmnt/Malnutr-PDOC - Dietary Evaluation Malnutrition Findings (Please click <Entered> for more info): Nutritional Asmnt/Malnutrition Start: 09/23/18 09: 40 Text: Status: Complete Freq: Protocol: Document 09/23/18 09:40 LIANE (Rec: 09/23/18 09:46 LAINE VITALE- [email or web address]) Nutritional Asmnt/Malnutrition Patient General Information Diagnosis psychosis, bipolar Pertinent Medical Hx/Surgical Hx hyperlipidemia, thyroid disorder Subjective Information Pt sitting up in bed at time of visit and stated she had a good appetite and liked the food so far. Pt reported she liked liver and fish. Current Diet Order/ Nutrition Support mechanical soft Pertinent Medications maalox, bisacodyl, coalce, lasix, culturelle, synthroid, MOM, fleet enema Pertinent Labs 09/20: Na 136, K 3.6, Cl 98, CO2 28.9, BUN 15, Cr 0.7, glucose 169, cholesterol 201 Nutritional Hx/Data Height 1.57 m Height (Calculated Centimeters) 157.5 Current Weight (lbs) 81.647 kg Weight (Calculated Kilograms) 81.6 Weight (Calculated Grams) 50020.6 Body Mass Index (BMI) 32.9 Weight Status Obese GI Symptoms GI Symptoms None Last BM 4/5 x1 Cultural/Ethnic/Amish Belief unknown Usual diet at home mechanical soft Skin Integrity/Comment: Benjamin score 18, edema Current %PO Good (75-100%) Estimated Nutritional Goals BEE in Kcals: Adj wt of IBW Calories/Kcals/Kg 25-30kcals/kg Kcals Calculated 1450-1740kcals/day Protein: Adj wt of IBW Protein g/kg: ~1g/kg Protein Calculated 58g/day Fluid: ml 1450-1740ml/day Nutritional Problem 1. Problem Problem Altered nutrition related lab values related to Etiology cardiovascular dysfunction as evidenced by Signs/Symptoms: cholesterol 201 Intervention/Recommendation Comments Recommend low fat, low cholesterol mechanical soft diet Expected Outcomes/Goals Expected Outcomes/Goals weight trend toward IBW
[2018-09-29] MEDS: Levothyroxine 0.088 Mg Tab PO SCH (06:29)
[2018-09-29] MEDS: Lactobacillus Rhamnosus GG 15 Billion CFU CAP.SPRINK PO SCH (08:24)
--- NOTE | 2018-09-29 15:03 | Internal Medicine Prog Note ---
Internal Medicine Subjective - Subjective Service Date: 09/29/18 Patient seen and examined:: with staff, chart reviewed Patient is:: awake, verbal, other (depressive mood and irritable mood.) Patient Complaints of:: other (very impulsive.) Per staff patient has:: no adverse event, no episodes of fall, agitated, tolerating meds Internal Medicine Objective - Results Result Diagrams: 09/20/18 16:55 09/20/18 16:55 Recent Labs: Laboratory Last Values WBC 7.9 Th/cmm (4.8-10.8) 09/20/18 16:55 RBC 4.80 Mil/cmm (3.80-5.10) 09/20/18 16:55 Hgb 13.4 gm/dL (12-16) 09/20/18 16:55 Hct 41.4 % (41.0-60) 09/20/18 16:55 MCV 86.3 fl (81-100) 09/20/18 16:55 MCH 28.0 pg (27.0-31.0) 09/20/18 16:55 MCHC Differential 32.4 pg (28.0-36.0) 09/20/18 16:55 RDW 13.5 % (11.5-20.0) 09/20/18 16:55 Plt Count 410 Th/cmm (150-400) H 09/20/18 16:55 MPV 7.2 fl 09/20/18 16:55 Neutrophils % 69.6 % (40.0-80.0) 09/20/18 16:55 Lymphocytes % 19.2 % (20.0-50.0) L 09/20/18 16:55 Monocytes % 4.1 % (2.0-10.0) 09/20/18 16:55 Eosinophils % 6.5 % (0.0-5.0) H 09/20/18 16:55 Basophils % 0.6 % (0.0-2.0) 09/20/18 16:55 Sodium 136 mEq/L (136-145) 09/20/18 16:55 Potassium 3.6 mEq/L (3.5-5.1) 09/20/18 16:55 Chloride 98 mEq/L (98-107) 09/20/18 16:55 Carbon Dioxide 28.9 mEq/L (21.0-31.0) 09/20/18 16:55 Anion Gap 12.7 (7.0-16.0) 09/20/18 16:55 BUN 15 mg/dL (7-25) 09/20/18 16:55 Creatinine 0.7 mg/dL (0.6-1.2) 09/20/18 16:55 Est GFR ( Amer) > 60.0 ml/min (>90) 09/20/18 16:55 Est GFR (Non-Af Amer) > 60.0 ml/min 09/20/18 16:55 BUN/Creatinine Ratio 21.4 09/20/18 16:55 Glucose 169 mg/dL (70-105) H 09/20/18 16:55 Calcium 9.9 mg/dL (8.6-10.3) 09/20/18 16:55 Total Bilirubin 0.3 mg/dL (0.3-1.0) 09/20/18 16:55 AST 13 U/L (13-39) 09/20/18 16:55 ALT 10 U/L (7-52) 09/20/18 16:55 Alkaline Phosphatase 119 U/L (34-104) H 09/20/18 16:55 Troponin I 0.01 ng/mL (0.01-0.05) 09/20/18 16:55 Total Protein 8.0 gm/dL (6.0-8.3) 09/20/18 16:55 Albumin 4.2 gm/dL (3.7-5.3) 09/20/18 16:55 Globulin 3.8 gm/dL 09/20/18 16:55 Albumin/Globulin Ratio 1.1 (1.0-1.8) 09/20/18 16:55 Triglycerides 119 mg/dL (<150) 09/20/18 16:55 Cholesterol 201 mg/dL (<200) H 09/20/18 16:55 LDL Cholesterol Direct 144 mg/dL (75-193) 09/20/18 16:55 HDL Cholesterol 46 mg/dL (23-92) 09/20/18 16:55 TSH 1.85 uIU/ml (0.34-5.60) 09/20/18 16:55 Serum , Qual NEGATIVE (NEGATIVE) 09/20/18 16:55 Urine Source CLEAN C 09/20/18 17:47 Urine Color YELLOW 09/20/18 17:47 Urine Clarity HAZY (CLEAR) 09/20/18 17:47 Urine pH 5.5 (4.6 - 8.0) 09/20/18 17:47 Ur Specific [place] 1.010 (1.005-1.030) 09/20/18 17:47 Urine Protein NEGATIVE mg/dL (NEGATIVE) 09/20/18 17:47 Urine Glucose (UA) NEGATIVE mg/dL (NEGATIVE) 09/20/18 17:47 Urine Ketones NEGATIVE mg/dL (NEGATIVE) 09/20/18 17:47 Urine Blood NEGATIVE (NEGATIVE) 09/20/18 17:47 Urine Nitrate NEGATIVE (NEGATIVE) 09/20/18 17:47 Urine Bilirubin NEGATIVE (NEGATIVE) 09/20/18 17:47 Urine Urobilinogen 0.2 E.U./dL (0.2 - 1.0) 09/20/18 17:47 Ur Leukocyte Esterase LARGE (NEGATIVE) H 09/20/18 17:47 Urine RBC 0-2 /hpf (0-5) 09/20/18 17:47 Urine WBC 6-10 /hpf (0-5) H 09/20/18 17:47 Ur Epithelial Cells FEW /lpf (FEW) 09/20/18 17:47 Urine Bacteria 2+ /hpf (NONE SEEN) H 09/20/18 17:47 Salicylates < 25.0 mg/L (30.0-100.0) L 09/20/18 16:55 Urine Opiates Screen NEGATIVE (NEGATIVE) 09/20/18 17:48 Urine Methadone Screen NEGATIVE (NEGATIVE) 09/20/18 17:48 Acetaminophen < 10.0 ug/mL (10.0-30.0) L 09/20/18 16:55 Ur Barbiturates Screen POSITIVE (NEGATIVE) H 09/20/18 17:48 Ur Tricyclics Screen NEGATIVE (NEGATIVE) 09/20/18 17:48 Ur Phencyclidine Scrn NEGATIVE (NEGATIVE) 09/20/18 17:48 Amphetamines Screen NEGATIVE (NEGATIVE) 09/20/18 17:48 U Methamphetamines Scrn NEGATIVE (NEGATIVE) 09/20/18 17:48 U Benzodiazepines Scrn NEGATIVE (NEGATIVE) 09/20/18 17:48 U Cocaine Metab Screen NEGATIVE (NEGATIVE) 09/20/18 17:48 U Cannabinoids Screen NEGATIVE (NEGATIVE) 09/20/18 17:48 Ethyl Alcohol < 10 mg/dL (0-10) 09/20/18 16:55 RPR NONREACTIVE (NONREACTIVE) 09/20/18 16:55 - Physical Exam Vitals and I&O: Vital Signs Temp 97 F 09/29/18 05:45 Pulse 77 09/29/18 05:45 Resp 18 09/29/18 08:00 BP 103/62 09/29/18 08:22 Pulse Ox 97 09/29/18 05:45 Intake & Output 09/28/18 09/29/18 09/29/18 18:59 06:59 18:59 Intake Total 1000 420 Balance 1000 420 Intake: Oral 1000 420 Other: # Voids 4 1 # Bowel Movements 1 Active Medications: Current Medications Acetaminophen (Tylenol) 650 mg PO Q4H PRN PRN Reason: Mild Pain / Temp above 100 Stop: 11/19/18 19:38 Last Admin: 09/29/18 13:15 Dose: 650 mg Al Hydrox/Mg Hydrox/Simethicone (Maalox) 30 ml PO Q4H PRN PRN Reason: GI DISTRESS Stop: 11/19/18 19:38 Aripiprazole (Abilify) 15 mg PO DAILY [facility]; Protocol Stop: 11/27/18 08:59 Last Admin: 09/29/18 08:23 Dose: 15 mg Bisacodyl (Dulcolax 10 Mg Supp) 10 mg RC DAILY [facility] Stop: 11/20/18 08:59 Last Admin: 09/29/18 08:24 Dose: 10 mg Docusate Sodium (Colace) 100 mg PO BID [facility] Stop: 11/20/18 08:59 Last Admin: 09/29/18 08:23 Dose: 100 mg Duloxetine HCl (Cymbalta) 60 mg PO BID [facility]; Protocol Stop: 11/25/18 16:59 Last Admin: 09/29/18 08:24 Dose: 60 mg Furosemide (Lasix) 40 mg PO DAILY [facility] Stop: 11/20/18 08:59 Last Admin: 09/29/18 08:22 Dose: Not Given Lactobacillus Rhamnosus (Culturelle 15b) 1 each PO DAILY [facility] Stop: 11/20/18 08:59 Last Admin: 09/29/18 08:24 Dose: 1 each Levetiracetam (Keppra) 1,000 mg PO BID DAI Stop: 11/20/18 08:59 Last Admin: 09/29/18 08:21 Dose: 1,000 mg Levothyroxine Sodium (Synthroid) 0.088 mg PO QDAC [facility] Stop: 11/20/18 07:29 Last Admin: 09/29/18 06:29 Dose: 0.088 mg Lorazepam (Ativan) 0.5 mg PO Q6HR PRN; Protocol PRN Reason: Agitation Stop: 11/19/18 20:56 Magnesium Hydroxide (Milk Of Magnesia) 30 ml PO HS PRN PRN Reason: Constipation Miscellaneous (Probiotic Screen) 1 ea MC PRN PRN PRN Reason: PROTOCOL Stop: 11/21/18 10:11 Sodium Phosphate (Fleet Enema) 135 ml RC Q2D PRN PRN Reason: Constipation Stop: 11/19/18 19:38 Zolpidem Tartrate (Ambien) 5 mg PO HS PRN PRN Reason: Insomnia Stop: 11/19/18 19:49 Last Admin: 09/28/18 21:16 Dose: 5 mg General: alert HEENT: NC/AT, PERRLA Neck: Supple Lungs: CTAB Cardiovascular: RRR, Normal S1, Normal S2, without murmur Abdomen: soft, non-tender, non-distended, positive bowel sound Extremities: excoriation Neurological: alert - Procedures Procedures: Procedures Procedure Code Date GROUP PSYCHOTHERAPY 52120 10/14/15 GROUP PSYCHOTHERAPY GZHZZZZ 10/14/15 Internal Medicine Assmt/Plan - Assessment Assessment: Psychosis. Dyslipidemia. Seizures. Hypothyroidism. Depression. Irritable, agitated. - Plan Plan: Continuation of care continue present meds as directed fall precaution seizure precautions patient will follow up with psych continue present care management. Nutritional Asmnt/Malnutr-PDOC - Dietary Evaluation Malnutrition Findings (Please click <Entered> for more info): Nutritional Asmnt/Malnutrition Start: 09/23/18 09: 40 Text: Status: Complete Freq: Protocol: Document 09/23/18 09:40 LIANE (Rec: 09/23/18 09:46 LIANE VITALE- [email or web address]) Nutritional Asmnt/Malnutrition Patient General Information Diagnosis psychosis, bipolar Pertinent Medical Hx/Surgical Hx hyperlipidemia, thyroid disorder Subjective Information Pt sitting up in bed at time of visit and stated she had a good appetite and liked the food so far. Pt reported she liked liver and fish. Current Diet Order/ Nutrition Support mechanical soft Pertinent Medications maalox, bisacodyl, coalce, lasix, culturelle, synthroid, MOM, fleet enema Pertinent Labs 09/20: Na 136, K 3.6, Cl 98, CO2 28.9, BUN 15, Cr 0.7, glucose 169, cholesterol 201 Nutritional Hx/Data Height 1.57 m Height (Calculated Centimeters) 157.5 Current Weight (lbs) 81.647 kg Weight (Calculated Kilograms) 81.6 Weight (Calculated Grams) 82374.6 Body Mass Index (BMI) 32.9 Weight Status Obese GI Symptoms GI Symptoms None Last BM 4/5 x1 Cultural/Ethnic/[employer] Belief unknown Usual diet at home mechanical soft Skin Integrity/Comment: Benjamin score 18, edema Current %PO Good (75-100%) Estimated Nutritional Goals BEE in Kcals: Adj wt of IBW Calories/Kcals/Kg 25-30kcals/kg Kcals Calculated 1450-1740kcals/day Protein: Adj wt of IBW Protein g/kg: ~1g/kg Protein Calculated 58g/day Fluid: ml 1450-1740ml/day Nutritional Problem 1. Problem Problem Altered nutrition related lab values related to Etiology cardiovascular dysfunction as evidenced by Signs/Symptoms: cholesterol 201 Intervention/Recommendation Comments Recommend low fat, low cholesterol mechanical soft diet Expected Outcomes/Goals Expected Outcomes/Goals weight trend toward IBW
[2018-09-30] MEDS: Levothyroxine 0.088 Mg Tab PO SCH (06:41)
[2018-09-30] MEDS: Lactobacillus Rhamnosus GG 15 Billion CFU CAP.SPRINK PO SCH (09:00)
--- NOTE | 2018-09-30 13:21 | Progress Notes ---
DATE: 09/29/2018 SUBJECTIVE: Chart reviewed and the patient interviewed. Also, discussed the patient's condition with the staff and reviewed records and labs. The patient continued to make animal sounds likes and she is still agitated at times. The patient also still having flat affect and guarded. She also is still resisting care at times. Otherwise, the patient is compliant with taking her medications with no side effect of medications. ASSESSMENT: The patient is still psychotic and needs close monitoring. TREATMENT PLAN: Continue to monitor behavior and condition closely. Also, continue adjusting psychotropic medications and followup and also working on discharge plans. JOB# [id number]
--- NOTE | 2018-10-01 02:05 | Progress Notes ---
DATE: 09/30/2018 SUBJECTIVE: The patient was seen and evaluated. The patient's chart reviewed. Dr. Ames covering for Dr. Hannah. IDENTIFYING DATA: A 58-year-old female who came in after the patient endorsed that she was not hurting herself, presented anxious and hitting herself. Today on [id number] evaluation, the patient reports that she has been hurting herself by hitting herself in the wall. She continues to report agitated and continued to be intense. MENTAL STATUS EXAMINATION: Easily agitated at times, making animal sounds, with poor affect with thought about hitting herself. ASSESSMENT AND PLAN: Due to patient's ongoing bizarre delusions of hitting herself and unable to formulate a safe plan, we will continue with current medication reconciliation, which include Abilify 15 mg a day, Colace, Cymbalta 60 mg p.o. b.i.d., Lasix, Keppra, Synthroid, Ativan as needed. [facility]# [id number]
[2018-10-01] MEDS: Levothyroxine 0.088 Mg Tab PO SCH (06:36)
[2018-10-01] MEDS: Lactobacillus Rhamnosus GG 15 Billion CFU CAP.SPRINK PO SCH (08:33)
--- NOTE | 2018-10-01 11:54 | Internal Medicine Prog Note ---
Internal Medicine Subjective - Subjective Patient seen and examined:: chart reviewed Patient is:: awake, verbal, other (confuse,agressive at times irritable mood.) Patient Complaints of:: other (very impulsive.) Per staff patient has:: no adverse event, no episodes of fall, tolerating meds Internal Medicine Objective - Results Result Diagrams: 09/20/18 16:55 09/20/18 16:55 Recent Labs: Laboratory Last Values WBC 7.9 Th/cmm (4.8-10.8) 09/20/18 16:55 RBC 4.80 Mil/cmm (3.80-5.10) 09/20/18 16:55 Hgb 13.4 gm/dL (12-16) 09/20/18 16:55 Hct 41.4 % (41.0-60) 09/20/18 16:55 MCV 86.3 fl (81-100) 09/20/18 16:55 MCH 28.0 pg (27.0-31.0) 09/20/18 16:55 MCHC Differential 32.4 pg (28.0-36.0) 09/20/18 16:55 RDW 13.5 % (11.5-20.0) 09/20/18 16:55 Plt Count 410 Th/cmm (150-400) H 09/20/18 16:55 MPV 7.2 fl 09/20/18 16:55 Neutrophils % 69.6 % (40.0-80.0) 09/20/18 16:55 Lymphocytes % 19.2 % (20.0-50.0) L 09/20/18 16:55 Monocytes % 4.1 % (2.0-10.0) 09/20/18 16:55 Eosinophils % 6.5 % (0.0-5.0) H 09/20/18 16:55 Basophils % 0.6 % (0.0-2.0) 09/20/18 16:55 Sodium 136 mEq/L (136-145) 09/20/18 16:55 Potassium 3.6 mEq/L (3.5-5.1) 09/20/18 16:55 Chloride 98 mEq/L (98-107) 09/20/18 16:55 Carbon Dioxide 28.9 mEq/L (21.0-31.0) 09/20/18 16:55 Anion Gap 12.7 (7.0-16.0) 09/20/18 16:55 BUN 15 mg/dL (7-25) 09/20/18 16:55 Creatinine 0.7 mg/dL (0.6-1.2) 09/20/18 16:55 Est GFR ( Amer) > 60.0 ml/min (>90) 09/20/18 16:55 Est GFR (Non-Af Amer) > 60.0 ml/min 09/20/18 16:55 BUN/Creatinine Ratio 21.4 09/20/18 16:55 Glucose 169 mg/dL (70-105) H 09/20/18 16:55 Calcium 9.9 mg/dL (8.6-10.3) 09/20/18 16:55 Total Bilirubin 0.3 mg/dL (0.3-1.0) 09/20/18 16:55 AST 13 U/L (13-39) 09/20/18 16:55 ALT 10 U/L (7-52) 09/20/18 16:55 Alkaline Phosphatase 119 U/L (34-104) H 09/20/18 16:55 Troponin I 0.01 ng/mL (0.01-0.05) 09/20/18 16:55 Total Protein 8.0 gm/dL (6.0-8.3) 09/20/18 16:55 Albumin 4.2 gm/dL (3.7-5.3) 09/20/18 16:55 Globulin 3.8 gm/dL 09/20/18 16:55 Albumin/Globulin Ratio 1.1 (1.0-1.8) 09/20/18 16:55 Triglycerides 119 mg/dL (<150) 09/20/18 16:55 Cholesterol 201 mg/dL (<200) H 09/20/18 16:55 LDL Cholesterol Direct 144 mg/dL (75-193) 09/20/18 16:55 HDL Cholesterol 46 mg/dL (23-92) 09/20/18 16:55 TSH 1.85 uIU/ml (0.34-5.60) 09/20/18 16:55 Serum , Qual NEGATIVE (NEGATIVE) 09/20/18 16:55 Urine Source CLEAN C 09/20/18 17:47 Urine Color YELLOW 09/20/18 17:47 Urine Clarity HAZY (CLEAR) 09/20/18 17:47 Urine pH 5.5 (4.6 - 8.0) 09/20/18 17:47 Ur Specific [place] 1.010 (1.005-1.030) 09/20/18 17:47 Urine Protein NEGATIVE mg/dL (NEGATIVE) 09/20/18 17:47 Urine Glucose (UA) NEGATIVE mg/dL (NEGATIVE) 09/20/18 17:47 Urine Ketones NEGATIVE mg/dL (NEGATIVE) 09/20/18 17:47 Urine Blood NEGATIVE (NEGATIVE) 09/20/18 17:47 Urine Nitrate NEGATIVE (NEGATIVE) 09/20/18 17:47 Urine Bilirubin NEGATIVE (NEGATIVE) 09/20/18 17:47 Urine Urobilinogen 0.2 E.U./dL (0.2 - 1.0) 09/20/18 17:47 Ur Leukocyte Esterase LARGE (NEGATIVE) H 09/20/18 17:47 Urine RBC 0-2 /hpf (0-5) 09/20/18 17:47 Urine WBC 6-10 /hpf (0-5) H 09/20/18 17:47 Ur Epithelial Cells FEW /lpf (FEW) 09/20/18 17:47 Urine Bacteria 2+ /hpf (NONE SEEN) H 09/20/18 17:47 Salicylates < 25.0 mg/L (30.0-100.0) L 09/20/18 16:55 Urine Opiates Screen NEGATIVE (NEGATIVE) 09/20/18 17:48 Urine Methadone Screen NEGATIVE (NEGATIVE) 09/20/18 17:48 Acetaminophen < 10.0 ug/mL (10.0-30.0) L 09/20/18 16:55 Ur Barbiturates Screen POSITIVE (NEGATIVE) H 09/20/18 17:48 Ur Tricyclics Screen NEGATIVE (NEGATIVE) 09/20/18 17:48 Ur Phencyclidine Scrn NEGATIVE (NEGATIVE) 09/20/18 17:48 Amphetamines Screen NEGATIVE (NEGATIVE) 09/20/18 17:48 U Methamphetamines Scrn NEGATIVE (NEGATIVE) 09/20/18 17:48 U Benzodiazepines Scrn NEGATIVE (NEGATIVE) 09/20/18 17:48 U Cocaine Metab Screen NEGATIVE (NEGATIVE) 09/20/18 17:48 U Cannabinoids Screen NEGATIVE (NEGATIVE) 09/20/18 17:48 Ethyl Alcohol < 10 mg/dL (0-10) 09/20/18 16:55 RPR NONREACTIVE (NONREACTIVE) 09/20/18 16:55 - Physical Exam Vitals and I&O: Vital Signs Temp 98.3 F 10/01/18 05:59 Pulse 83 10/01/18 05:59 Resp 18 10/01/18 08:00 BP 110/67 10/01/18 08:32 Pulse Ox 98 10/01/18 05:59 Intake & Output 09/30/18 10/01/18 10/01/18 18:59 06:59 18:59 Intake Total 950 360 Output Total 1 Balance 950 359 Intake: Oral 950 360 Output: Urine/Stool Mix 1 Other: # Voids 4 1 # Bowel Movements 1 Active Medications: Current Medications Acetaminophen (Tylenol) 650 mg PO Q4H PRN PRN Reason: Mild Pain / Temp above 100 Stop: 11/19/18 19:38 Last Admin: 09/29/18 13:15 Dose: 650 mg Al Hydrox/Mg Hydrox/Simethicone (Maalox) 30 ml PO Q4H PRN PRN Reason: GI DISTRESS Stop: 11/19/18 19:38 Aripiprazole (Abilify) 15 mg PO DAILY [facility]; Protocol Stop: 11/27/18 08:59 Last Admin: 10/01/18 08:32 Dose: 15 mg Bisacodyl (Dulcolax 10 Mg Supp) 10 mg RC DAILY [facility] Stop: 11/20/18 08:59 Last Admin: 10/01/18 08:32 Dose: 10 mg Docusate Sodium (Colace) 100 mg PO BID [facility] Stop: 11/20/18 08:59 Last Admin: 10/01/18 08:32 Dose: 100 mg Duloxetine HCl (Cymbalta) 60 mg PO BID [facility]; Protocol Stop: 11/25/18 16:59 Last Admin: 10/01/18 08:32 Dose: 60 mg Furosemide (Lasix) 40 mg PO DAILY [facility] Stop: 11/20/18 08:59 Last Admin: 10/01/18 08:32 Dose: 40 mg Lactobacillus Rhamnosus (Culturelle 15b) 1 each PO DAILY [facility] Stop: 11/20/18 08:59 Last Admin: 10/01/18 08:33 Dose: 1 each Levetiracetam (Keppra) 1,000 mg PO BID [facility] Stop: 11/20/18 08:59 Last Admin: 10/01/18 08:33 Dose: 1,000 mg Levothyroxine Sodium (Synthroid) 0.088 mg PO QDAC [facility] Stop: 11/20/18 07:29 Last Admin: 10/01/18 06:36 Dose: 0.088 mg Lorazepam (Ativan) 0.5 mg PO Q6HR PRN; Protocol PRN Reason: Agitation Stop: 11/19/18 20:56 Magnesium Hydroxide (Milk Of Magnesia) 30 ml PO HS PRN PRN Reason: Constipation Miscellaneous (Probiotic Screen) 1 ea MC PRN PRN PRN Reason: PROTOCOL Stop: 11/21/18 10:11 Sodium Phosphate (Fleet Enema) 135 ml RC Q2D PRN PRN Reason: Constipation Stop: 11/19/18 19:38 Zolpidem Tartrate (Ambien) 5 mg PO HS PRN PRN Reason: Insomnia Stop: 11/19/18 19:49 Last Admin: 09/30/18 20:31 Dose: 5 mg General: alert, other (confused) HEENT: NC/AT, PERRLA Neck: Supple Lungs: CTAB Cardiovascular: RRR, Normal S1, Normal S2, without murmur Abdomen: soft, non-tender, non-distended, positive bowel sound Extremities: excoriation Neurological: alert - Procedures Procedures: Procedures Procedure Code Date GROUP PSYCHOTHERAPY 36692 10/14/15 GROUP PSYCHOTHERAPY GZHZZZZ 10/14/15 Internal Medicine Assmt/Plan - Assessment Assessment: Psychosis. Dyslipidemia. Seizures. Hypothyroidism. Depression. Irritable, agitated. - Plan Plan: Continuation of care continue present meds as directed fall precaution seizure precautions patient will follow up with psych continue present care management. Nutritional Asmnt/Malnutr-PDOC - Dietary Evaluation Malnutrition Findings (Please click <Entered> for more info): Nutritional Asmnt/Malnutrition Start: 09/23/18 09: 40 Text: Status: Complete Freq: Protocol: Document 09/23/18 09:40 LIANE (Rec: 09/23/18 09:46 LIANE VITALE- [email or web address]) Nutritional Asmnt/Malnutrition Patient General Information Diagnosis psychosis, bipolar Pertinent Medical Hx/Surgical Hx hyperlipidemia, thyroid disorder Subjective Information Pt sitting up in bed at time of visit and stated she had a good appetite and liked the food so far. Pt reported she liked liver and fish. Current Diet Order/ Nutrition Support mechanical soft Pertinent Medications maalox, bisacodyl, coalce, lasix, culturelle, synthroid, MOM, fleet enema Pertinent Labs 09/20: Na 136, K 3.6, Cl 98, CO2 28.9, BUN 15, Cr 0.7, glucose 169, cholesterol 201 Nutritional Hx/Data Height 1.57 m Height (Calculated Centimeters) 157.5 Current Weight (lbs) 81.647 kg Weight (Calculated Kilograms) 81.6 Weight (Calculated Grams) 89268.6 Body Mass Index (BMI) 32.9 Weight Status Obese GI Symptoms GI Symptoms None Last BM 4/5 x1 Cultural/Ethnic/[employer]ism Belief unknown Usual diet at home mechanical soft Skin Integrity/Comment: Benjamin score 18, edema Current %PO Good (75-100%) Estimated Nutritional Goals BEE in Kcals: Adj wt of IBW Calories/Kcals/Kg 25-30kcals/kg Kcals Calculated 1450-1740kcals/day Protein: Adj wt of IBW Protein g/kg: ~1g/kg Protein Calculated 58g/day Fluid: ml 1450-1740ml/day Nutritional Problem 1. Problem Problem Altered nutrition related lab values related to Etiology cardiovascular dysfunction as evidenced by Signs/Symptoms: cholesterol 201 Intervention/Recommendation Comments Recommend low fat, low cholesterol mechanical soft diet Expected Outcomes/Goals Expected Outcomes/Goals weight trend toward IBW
--- NOTE | 2018-10-02 02:02 | Progress Notes ---
DATE: 10/01/2018 SUBJECTIVE: The patient was seen and evaluated. The patient's chart reviewed. Covering for Dr. Hannah. Today on [id number] evaluation, the patient still needs lot of redirection. She finds herself, reportedly she was hitting herself. She was reporting that she lot of redirection to make linear conversation. MENTAL STATUS EXAMINATION: Easily agitated, making animal sounds, thought about hurting herself continues to persist. ASSESSMENT AND PLAN: Due to the patient's ongoing bizarre delusions, we will continue with the current medication regimen as she continues to reach steady state to target the patient's ongoing delusional state. JOB# [id number]
[2018-10-02] MEDS: Levothyroxine 0.088 Mg Tab PO SCH (06:34)
[2018-10-02] MEDS ORDERED: Haloperidol Lactate 5 mg/mL 1mL Vial IM ONE (09:00)
[2018-10-02] MEDS: Lactobacillus Rhamnosus GG 15 Billion CFU CAP.SPRINK PO SCH (09:21)
--- NOTE | 2018-10-02 11:11 | Internal Medicine Prog Note ---
Internal Medicine Subjective - Subjective Service Date: 10/02/18 Patient seen and examined:: with staff Patient is:: awake, verbal, other (agitated.) Patient Complaints of:: other (very impulsive.) Per staff patient has:: no adverse event, no episodes of fall, tolerating meds Internal Medicine Objective - Results Result Diagrams: 09/20/18 16:55 09/20/18 16:55 Recent Labs: Laboratory Last Values WBC 7.9 Th/cmm (4.8-10.8) 09/20/18 16:55 RBC 4.80 Mil/cmm (3.80-5.10) 09/20/18 16:55 Hgb 13.4 gm/dL (12-16) 09/20/18 16:55 Hct 41.4 % (41.0-60) 09/20/18 16:55 MCV 86.3 fl (81-100) 09/20/18 16:55 MCH 28.0 pg (27.0-31.0) 09/20/18 16:55 MCHC Differential 32.4 pg (28.0-36.0) 09/20/18 16:55 RDW 13.5 % (11.5-20.0) 09/20/18 16:55 Plt Count 410 Th/cmm (150-400) H 09/20/18 16:55 MPV 7.2 fl 09/20/18 16:55 Neutrophils % 69.6 % (40.0-80.0) 09/20/18 16:55 Lymphocytes % 19.2 % (20.0-50.0) L 09/20/18 16:55 Monocytes % 4.1 % (2.0-10.0) 09/20/18 16:55 Eosinophils % 6.5 % (0.0-5.0) H 09/20/18 16:55 Basophils % 0.6 % (0.0-2.0) 09/20/18 16:55 Sodium 136 mEq/L (136-145) 09/20/18 16:55 Potassium 3.6 mEq/L (3.5-5.1) 09/20/18 16:55 Chloride 98 mEq/L (98-107) 09/20/18 16:55 Carbon Dioxide 28.9 mEq/L (21.0-31.0) 09/20/18 16:55 Anion Gap 12.7 (7.0-16.0) 09/20/18 16:55 BUN 15 mg/dL (7-25) 09/20/18 16:55 Creatinine 0.7 mg/dL (0.6-1.2) 09/20/18 16:55 Est GFR ( Amer) > 60.0 ml/min (>90) 09/20/18 16:55 Est GFR (Non-Af Amer) > 60.0 ml/min 09/20/18 16:55 BUN/Creatinine Ratio 21.4 09/20/18 16:55 Glucose 169 mg/dL (70-105) H 09/20/18 16:55 Calcium 9.9 mg/dL (8.6-10.3) 09/20/18 16:55 Total Bilirubin 0.3 mg/dL (0.3-1.0) 09/20/18 16:55 AST 13 U/L (13-39) 09/20/18 16:55 ALT 10 U/L (7-52) 09/20/18 16:55 Alkaline Phosphatase 119 U/L (34-104) H 09/20/18 16:55 Troponin I 0.01 ng/mL (0.01-0.05) 09/20/18 16:55 Total Protein 8.0 gm/dL (6.0-8.3) 09/20/18 16:55 Albumin 4.2 gm/dL (3.7-5.3) 09/20/18 16:55 Globulin 3.8 gm/dL 09/20/18 16:55 Albumin/Globulin Ratio 1.1 (1.0-1.8) 09/20/18 16:55 Triglycerides 119 mg/dL (<150) 09/20/18 16:55 Cholesterol 201 mg/dL (<200) H 09/20/18 16:55 LDL Cholesterol Direct 144 mg/dL (75-193) 09/20/18 16:55 HDL Cholesterol 46 mg/dL (23-92) 09/20/18 16:55 TSH 1.85 uIU/ml (0.34-5.60) 09/20/18 16:55 Serum , Qual NEGATIVE (NEGATIVE) 09/20/18 16:55 Urine Source CLEAN C 09/20/18 17:47 Urine Color YELLOW 09/20/18 17:47 Urine Clarity HAZY (CLEAR) 09/20/18 17:47 Urine pH 5.5 (4.6 - 8.0) 09/20/18 17:47 Ur Specific [place] 1.010 (1.005-1.030) 09/20/18 17:47 Urine Protein NEGATIVE mg/dL (NEGATIVE) 09/20/18 17:47 Urine Glucose (UA) NEGATIVE mg/dL (NEGATIVE) 09/20/18 17:47 Urine Ketones NEGATIVE mg/dL (NEGATIVE) 09/20/18 17:47 Urine Blood NEGATIVE (NEGATIVE) 09/20/18 17:47 Urine Nitrate NEGATIVE (NEGATIVE) 09/20/18 17:47 Urine Bilirubin NEGATIVE (NEGATIVE) 09/20/18 17:47 Urine Urobilinogen 0.2 E.U./dL (0.2 - 1.0) 09/20/18 17:47 Ur Leukocyte Esterase LARGE (NEGATIVE) H 09/20/18 17:47 Urine RBC 0-2 /hpf (0-5) 09/20/18 17:47 Urine WBC 6-10 /hpf (0-5) H 09/20/18 17:47 Ur Epithelial Cells FEW /lpf (FEW) 09/20/18 17:47 Urine Bacteria 2+ /hpf (NONE SEEN) H 09/20/18 17:47 Salicylates < 25.0 mg/L (30.0-100.0) L 09/20/18 16:55 Urine Opiates Screen NEGATIVE (NEGATIVE) 09/20/18 17:48 Urine Methadone Screen NEGATIVE (NEGATIVE) 09/20/18 17:48 Acetaminophen < 10.0 ug/mL (10.0-30.0) L 09/20/18 16:55 Ur Barbiturates Screen POSITIVE (NEGATIVE) H 09/20/18 17:48 Ur Tricyclics Screen NEGATIVE (NEGATIVE) 09/20/18 17:48 Ur Phencyclidine Scrn NEGATIVE (NEGATIVE) 09/20/18 17:48 Amphetamines Screen NEGATIVE (NEGATIVE) 09/20/18 17:48 U Methamphetamines Scrn NEGATIVE (NEGATIVE) 09/20/18 17:48 U Benzodiazepines Scrn NEGATIVE (NEGATIVE) 09/20/18 17:48 U Cocaine Metab Screen NEGATIVE (NEGATIVE) 09/20/18 17:48 U Cannabinoids Screen NEGATIVE (NEGATIVE) 09/20/18 17:48 Ethyl Alcohol < 10 mg/dL (0-10) 09/20/18 16:55 RPR NONREACTIVE (NONREACTIVE) 09/20/18 16:55 - Physical Exam Vitals and I&O: Vital Signs Temp 98.4 F 10/02/18 06:11 Pulse 103 10/02/18 06:11 Resp 18 10/02/18 08:00 BP 125/70 10/02/18 09:21 Pulse Ox 92 10/02/18 06:11 Intake & Output 10/01/18 10/02/18 10/02/18 18:59 06:59 18:59 Intake Total 950 360 Balance 950 360 Intake: Oral 950 360 Other: # Voids 4 1 # Bowel Movements 1 0 Active Medications: Current Medications Acetaminophen (Tylenol) 650 mg PO Q4H PRN PRN Reason: Mild Pain / Temp above 100 Stop: 11/19/18 19:38 Last Admin: 09/29/18 13:15 Dose: 650 mg Al Hydrox/Mg Hydrox/Simethicone (Maalox) 30 ml PO Q4H PRN PRN Reason: GI DISTRESS Stop: 11/19/18 19:38 Aripiprazole (Abilify) 15 mg PO DAILY DIA; Protocol Stop: 11/27/18 08:59 Last Admin: 10/02/18 09:22 Dose: 15 mg Bisacodyl (Dulcolax 10 Mg Supp) 10 mg RC DAILY [facility]IA Stop: 11/20/18 08:59 Last Admin: 10/02/18 09:22 Dose: Not Given Docusate Sodium (Colace) 100 mg PO BID DIA Stop: 11/20/18 08:59 Last Admin: 10/02/18 09:22 Dose: 100 mg Duloxetine HCl (Cymbalta) 60 mg PO BID DIA; Protocol Stop: 11/25/18 16:59 Last Admin: 10/02/18 09:21 Dose: 60 mg Furosemide (Lasix) 40 mg PO DAILY DIA Stop: 11/20/18 08:59 Last Admin: 10/02/18 09:21 Dose: 40 mg Lactobacillus Rhamnosus (Culturelle 15b) 1 each PO DAILY DIA Stop: 11/20/18 08:59 Last Admin: 10/02/18 09:21 Dose: 1 each Levetiracetam (Keppra) 1,000 mg PO BID DIA Stop: 11/20/18 08:59 Last Admin: 10/02/18 09:21 Dose: 1,000 mg Levothyroxine Sodium (Synthroid) 0.088 mg PO QDAC DIA Stop: 11/20/18 07:29 Last Admin: 10/02/18 06:34 Dose: 0.088 mg Lorazepam (Ativan) 0.5 mg PO Q6HR PRN; Protocol PRN Reason: Agitation Stop: 11/19/18 20:56 Magnesium Hydroxide (Milk Of Magnesia) 30 ml PO HS PRN PRN Reason: Constipation Miscellaneous (Probiotic Screen) 1 ea MC PRN PRN PRN Reason: PROTOCOL Stop: 11/21/18 10:11 Sodium Phosphate (Fleet Enema) 135 ml RC Q2D PRN PRN Reason: Constipation Stop: 11/19/18 19:38 Trazodone HCl (Desyrel) 25 mg PO HS DIA; Protocol Stop: 12/01/18 20:59 Zolpidem Tartrate (Ambien) 5 mg PO HS PRN PRN Reason: Insomnia Stop: 11/19/18 19:49 Last Admin: 10/01/18 21:14 Dose: 5 mg Physical Exam: 58 y/o female patient has been agitated and has been hitting herself. General: alert, other (confused, hurting herself.) HEENT: NC/AT, PERRLA Neck: Supple Lungs: CTAB Cardiovascular: RRR, Normal S1, Normal S2, without murmur Abdomen: soft, non-tender, non-distended, positive bowel sound Extremities: excoriation Neurological: alert - Procedures Procedures: Procedures Procedure Code Date GROUP PSYCHOTHERAPY 85456 10/14/15 GROUP PSYCHOTHERAPY GZHZZZZ 10/14/15 Internal Medicine Assmt/Plan - Assessment Assessment: Psychosis. Dyslipidemia. Seizures. Hypothyroidism. Depression. Irritable, agitated. - Plan Plan: Continuation of care continue present meds as directed fall precaution seizure precautions safety precaution patient will follow up with psych continue present care management. Nutritional Asmnt/Malnutr-PDOC - Dietary Evaluation Malnutrition Findings (Please click <Entered> for more info): Nutritional Asmnt/Malnutrition Start: 09/23/18 09: 40 Text: Status: Complete Freq: Protocol: Document 09/23/18 09:40 LIANE (Rec: 09/23/18 09:46 LIANE VITALE- [email or web address]) Nutritional Asmnt/Malnutrition Patient General Information Diagnosis psychosis, bipolar Pertinent Medical Hx/Surgical Hx hyperlipidemia, thyroid disorder Subjective Information Pt sitting up in bed at time of visit and stated she had a good appetite and liked the food so far. Pt reported she liked liver and fish. Current Diet Order/ Nutrition Support mechanical soft Pertinent Medications maalox, bisacodyl, coalce, lasix, culturelle, synthroid, MOM, fleet enema Pertinent Labs 09/20: Na 136, K 3.6, Cl 98, CO2 28.9, BUN 15, Cr 0.7, glucose 169, cholesterol 201 Nutritional Hx/Data Height 1.57 m Height (Calculated Centimeters) 157.5 Current Weight (lbs) 81.647 kg Weight (Calculated Kilograms) 81.6 Weight (Calculated Grams) 43559.6 Body Mass Index (BMI) 32.9 Weight Status Obese GI Symptoms GI Symptoms None Last BM 4/5 x1 Cultural/Ethnic/Amish Belief unknown Usual diet at home mechanical soft Skin Integrity/Comment: Benjamin score 18, edema Current %PO Good (75-100%) Estimated Nutritional Goals BEE in Kcals: Adj wt of IBW Calories/Kcals/Kg 25-30kcals/kg Kcals Calculated 1450-1740kcals/day Protein: Adj wt of IBW Protein g/kg: ~1g/kg Protein Calculated 58g/day Fluid: ml 1450-1740ml/day Nutritional Problem 1. Problem Problem Altered nutrition related lab values related to Etiology cardiovascular dysfunction as evidenced by Signs/Symptoms: cholesterol 201 Intervention/Recommendation Comments Recommend low fat, low cholesterol mechanical soft diet Expected Outcomes/Goals Expected Outcomes/Goals weight trend toward IBW
[2018-10-03] MEDS: Levothyroxine 0.088 Mg Tab PO SCH (06:42)
--- NOTE | 2018-10-03 07:57 | Discharge Summary ---
DATE OF DISCHARGE: 10/03/2018 DATE OF DISCHARGE: 10/03. PATIENT'S AGE: 58. SEX: Female. PHYSICIAN: Dr. Hannah. FINAL DIAGNOSIS/PRIMARY DIAGNOSIS: Schizoaffective disorder, bipolar type, severe, without psychotic features. REASON FOR HOSPITALIZATION: The patient was admitted to the hospital from [facility] because of increased agitation and the patient was hitting herself and was not able to sleep at night and not eating well and she also was getting more anxious. HOSPITAL COURSE: The patient continued to be anxious and continued to be restless. The patient was getting Abilify and dose adjusted to 15 mg every day and Cymbalta adjusted to 60 mg twice a day. Gradually, the patient's affect was brighter. The patient was less irritable and less agitated. Also, the patient was given trazodone 25 mg at bedtime that helped her sleep better at night. The patient was calmer and she was not suicidal or homicidal or exhibiting any symptoms of being dangerous to self and the patient was discharged back to [facility]. Physical examination of the patient showed the patient had seizure disorder and hypertension, but the patient had no major medical issues while in the hospital. AFTER DISCHARGE PLANS: The patient discharged from the hospital and returned to [facility] with plans to follow her there. EXPECTED OUTCOME AFTER DISCHARGE: Fair if the patient continues to take her psychotropic medications and work on her behavior. JOB# [id number]
[2018-10-03] MEDS: Lactobacillus Rhamnosus GG 15 Billion CFU CAP.SPRINK PO SCH (09:12)
--- NOTE | 2018-10-03 10:56 | Progress Notes ---
DATE: 10/02/2018 SUBJECTIVE: Chart reviewed and the patient interviewed. Also discussed the patient's condition with the staff and reviewed records and labs. The patient complaining of "I can't sleep at night." She has trouble with her sleep at night. The patient also is still irritable and agitated during the day. The patient also seems to be less agitated and she was moving around with a wheelchair exposing herself and others to dangerous situation, but the patient currently seems to be slightly calmer and also not making as much noise as before. She still needs lots of redirections and a lot of prompt instructions. At the same time, she is compliant with taking her medications and no side effects of Abilify, Cymbalta or Keppra. ASSESSMENT: The patient is still agitated and is still aggressive. TREATMENT PLAN: Continue monitoring her behavior and her condition and continue adjusting psychotropic medications and followup. [facility]# [id number]
--- NOTE | 2018-10-03 16:55 | Internal Medicine Prog Note ---
Internal Medicine Subjective - Subjective Service Date: 10/03/18 Patient is:: awake, verbal, other (agitated.) Patient Complaints of:: other (very impulsive.) Per staff patient has:: no adverse event, no episodes of fall, tolerating meds Internal Medicine Objective - Results Result Diagrams: 09/20/18 16:55 09/20/18 16:55 Recent Labs: Laboratory Last Values WBC 7.9 Th/cmm (4.8-10.8) 09/20/18 16:55 RBC 4.80 Mil/cmm (3.80-5.10) 09/20/18 16:55 Hgb 13.4 gm/dL (12-16) 09/20/18 16:55 Hct 41.4 % (41.0-60) 09/20/18 16:55 MCV 86.3 fl (81-100) 09/20/18 16:55 MCH 28.0 pg (27.0-31.0) 09/20/18 16:55 MCHC Differential 32.4 pg (28.0-36.0) 09/20/18 16:55 RDW 13.5 % (11.5-20.0) 09/20/18 16:55 Plt Count 410 Th/cmm (150-400) H 09/20/18 16:55 MPV 7.2 fl 09/20/18 16:55 Neutrophils % 69.6 % (40.0-80.0) 09/20/18 16:55 Lymphocytes % 19.2 % (20.0-50.0) L 09/20/18 16:55 Monocytes % 4.1 % (2.0-10.0) 09/20/18 16:55 Eosinophils % 6.5 % (0.0-5.0) H 09/20/18 16:55 Basophils % 0.6 % (0.0-2.0) 09/20/18 16:55 Sodium 136 mEq/L (136-145) 09/20/18 16:55 Potassium 3.6 mEq/L (3.5-5.1) 09/20/18 16:55 Chloride 98 mEq/L (98-107) 09/20/18 16:55 Carbon Dioxide 28.9 mEq/L (21.0-31.0) 09/20/18 16:55 Anion Gap 12.7 (7.0-16.0) 09/20/18 16:55 BUN 15 mg/dL (7-25) 09/20/18 16:55 Creatinine 0.7 mg/dL (0.6-1.2) 09/20/18 16:55 Est GFR ( Amer) > 60.0 ml/min (>90) 09/20/18 16:55 Est GFR (Non-Af Amer) > 60.0 ml/min 09/20/18 16:55 BUN/Creatinine Ratio 21.4 09/20/18 16:55 Glucose 169 mg/dL (70-105) H 09/20/18 16:55 Calcium 9.9 mg/dL (8.6-10.3) 09/20/18 16:55 Total Bilirubin 0.3 mg/dL (0.3-1.0) 09/20/18 16:55 AST 13 U/L (13-39) 09/20/18 16:55 ALT 10 U/L (7-52) 09/20/18 16:55 Alkaline Phosphatase 119 U/L (34-104) H 09/20/18 16:55 Troponin I 0.01 ng/mL (0.01-0.05) 09/20/18 16:55 Total Protein 8.0 gm/dL (6.0-8.3) 09/20/18 16:55 Albumin 4.2 gm/dL (3.7-5.3) 09/20/18 16:55 Globulin 3.8 gm/dL 09/20/18 16:55 Albumin/Globulin Ratio 1.1 (1.0-1.8) 09/20/18 16:55 Triglycerides 119 mg/dL (<150) 09/20/18 16:55 Cholesterol 201 mg/dL (<200) H 09/20/18 16:55 LDL Cholesterol Direct 144 mg/dL (75-193) 09/20/18 16:55 HDL Cholesterol 46 mg/dL (23-92) 09/20/18 16:55 TSH 1.85 uIU/ml (0.34-5.60) 09/20/18 16:55 Serum , Qual NEGATIVE (NEGATIVE) 09/20/18 16:55 Urine Source CLEAN C 09/20/18 17:47 Urine Color YELLOW 09/20/18 17:47 Urine Clarity HAZY (CLEAR) 09/20/18 17:47 Urine pH 5.5 (4.6 - 8.0) 09/20/18 17:47 Ur Specific [place] 1.010 (1.005-1.030) 09/20/18 17:47 Urine Protein NEGATIVE mg/dL (NEGATIVE) 09/20/18 17:47 Urine Glucose (UA) NEGATIVE mg/dL (NEGATIVE) 09/20/18 17:47 Urine Ketones NEGATIVE mg/dL (NEGATIVE) 09/20/18 17:47 Urine Blood NEGATIVE (NEGATIVE) 09/20/18 17:47 Urine Nitrate NEGATIVE (NEGATIVE) 09/20/18 17:47 Urine Bilirubin NEGATIVE (NEGATIVE) 09/20/18 17:47 Urine Urobilinogen 0.2 E.U./dL (0.2 - 1.0) 09/20/18 17:47 Ur Leukocyte Esterase LARGE (NEGATIVE) H 09/20/18 17:47 Urine RBC 0-2 /hpf (0-5) 09/20/18 17:47 Urine WBC 6-10 /hpf (0-5) H 09/20/18 17:47 Ur Epithelial Cells FEW /lpf (FEW) 09/20/18 17:47 Urine Bacteria 2+ /hpf (NONE SEEN) H 09/20/18 17:47 Salicylates < 25.0 mg/L (30.0-100.0) L 09/20/18 16:55 Urine Opiates Screen NEGATIVE (NEGATIVE) 09/20/18 17:48 Urine Methadone Screen NEGATIVE (NEGATIVE) 09/20/18 17:48 Acetaminophen < 10.0 ug/mL (10.0-30.0) L 09/20/18 16:55 Ur Barbiturates Screen POSITIVE (NEGATIVE) H 09/20/18 17:48 Ur Tricyclics Screen NEGATIVE (NEGATIVE) 09/20/18 17:48 Ur Phencyclidine Scrn NEGATIVE (NEGATIVE) 09/20/18 17:48 Amphetamines Screen NEGATIVE (NEGATIVE) 09/20/18 17:48 U Methamphetamines Scrn NEGATIVE (NEGATIVE) 09/20/18 17:48 U Benzodiazepines Scrn NEGATIVE (NEGATIVE) 09/20/18 17:48 U Cocaine Metab Screen NEGATIVE (NEGATIVE) 09/20/18 17:48 U Cannabinoids Screen NEGATIVE (NEGATIVE) 09/20/18 17:48 Ethyl Alcohol < 10 mg/dL (0-10) 09/20/18 16:55 RPR NONREACTIVE (NONREACTIVE) 09/20/18 16:55 - Physical Exam Vitals and I&O: Vital Signs Temp 98.0 F 10/02/18 20:32 Pulse 79 10/02/18 20:32 Resp 18 10/03/18 08:00 BP 139/75 10/03/18 09:12 Pulse Ox 98 10/02/18 20:32 Intake & Output 10/02/18 10/03/18 10/03/18 18:59 06:59 18:59 Intake Total 180 Balance 180 Intake: Oral 180 Other: # Voids 1 # Bowel Movements 0 Active Medications: Current Medications Acetaminophen (Tylenol) 650 mg PO Q4H PRN PRN Reason: Mild Pain / Temp above 100 Stop: 11/19/18 19:38 Last Admin: 09/29/18 13:15 Dose: 650 mg Al Hydrox/Mg Hydrox/Simethicone (Maalox) 30 ml PO Q4H PRN PRN Reason: GI DISTRESS Stop: 11/19/18 19:38 Aripiprazole (Abilify) 15 mg PO DAILY [facility]; Protocol Stop: 11/27/18 08:59 Last Admin: 10/03/18 09:12 Dose: 15 mg Bisacodyl (Dulcolax 10 Mg Supp) 10 mg RC DAILY [facility] Stop: 11/20/18 08:59 Last Admin: 10/02/18 09:22 Dose: Not Given Docusate Sodium (Colace) 100 mg PO BID [facility] Stop: 11/20/18 08:59 Last Admin: 10/03/18 09:11 Dose: 100 mg Duloxetine HCl (Cymbalta) 60 mg PO BID [facility]; Protocol Stop: 11/25/18 16:59 Last Admin: 10/03/18 09:12 Dose: 60 mg Furosemide (Lasix) 40 mg PO DAILY [facility] Stop: 11/20/18 08:59 Last Admin: 10/03/18 09:12 Dose: 40 mg Lactobacillus Rhamnosus (Culturelle 15b) 1 each PO DAILY [facility] Stop: 11/20/18 08:59 Last Admin: 10/03/18 09:12 Dose: 1 each Levetiracetam (Keppra) 1,000 mg PO BID [facility] Stop: 11/20/18 08:59 Last Admin: 10/03/18 09:12 Dose: 1,000 mg Levothyroxine Sodium (Synthroid) 0.088 mg PO QDAC DIA Stop: 11/20/18 07:29 Last Admin: 10/03/18 06:42 Dose: 0.088 mg Lorazepam (Ativan) 0.5 mg PO Q6HR PRN; Protocol PRN Reason: Agitation Stop: 11/19/18 20:56 Magnesium Hydroxide (Milk Of Magnesia) 30 ml PO HS PRN PRN Reason: Constipation Miscellaneous (Probiotic Screen) 1 ea MC PRN PRN PRN Reason: PROTOCOL Stop: 11/21/18 10:11 Sodium Phosphate (Fleet Enema) 135 ml RC Q2D PRN PRN Reason: Constipation Stop: 11/19/18 19:38 Trazodone HCl (Desyrel) 25 mg PO HS DIA; Protocol Stop: 12/01/18 20:59 Last Admin: 10/02/18 20:52 Dose: 25 mg Zolpidem Tartrate (Ambien) 5 mg PO HS PRN PRN Reason: Insomnia Stop: 11/19/18 19:49 Last Admin: 10/02/18 20:53 Dose: 5 mg General: alert, other (confused, hurting herself.) HEENT: NC/AT, PERRLA Neck: Supple Lungs: CTAB Cardiovascular: RRR, Normal S1, Normal S2, without murmur Abdomen: soft, non-tender, non-distended, positive bowel sound Extremities: excoriation Neurological: alert - Procedures Procedures: Procedures Procedure Code Date GROUP PSYCHOTHERAPY 19902 10/14/15 GROUP PSYCHOTHERAPY GZHZZZZ 10/14/15 Internal Medicine Assmt/Plan - Assessment Assessment: psychosis Dyslipidemia Seizures hypothyroid - Plan Plan: fall precautions seizure precautions cpm Nutritional Asmnt/Malnutr-PDOC - Dietary Evaluation Malnutrition Findings (Please click <Entered> for more info): Nutritional Asmnt/Malnutrition Start: 09/23/18 09: 40 Text: Status: Complete Freq: Protocol: Document 09/23/18 09:40 LIANE (Rec: 09/23/18 09:46 EGRIFFITH IAM- FN) Nutritional Asmnt/Malnutrition Patient General Information Diagnosis psychosis, bipolar Pertinent Medical Hx/Surgical Hx hyperlipidemia, thyroid disorder Subjective Information Pt sitting up in bed at time of visit and stated she had a good appetite and liked the food so far. Pt reported she liked liver and fish. Current Diet Order/ Nutrition Support mechanical soft Pertinent Medications maalox, bisacodyl, coalce, lasix, culturelle, synthroid, MOM, fleet enema Pertinent Labs 09/20: Na 136, K 3.6, Cl 98, CO2 28.9, BUN 15, Cr 0.7, glucose 169, cholesterol 201 Nutritional Hx/Data Height 5 ft 2 in Height (Calculated Centimeters) 157.5 Current Weight (lbs) 180 lb Weight (Calculated Kilograms) 81.6 Weight (Calculated Grams) 16466.6 Body Mass Index (BMI) 32.9 Weight Status Obese GI Symptoms GI Symptoms None Last BM 4/5 x1 Cultural/Ethnic/Jewish Belief unknown Usual diet at home mechanical soft Skin Integrity/Comment: Benjamin score 18, edema Current %PO Good (75-100%) Estimated Nutritional Goals BEE in Kcals: Adj wt of IBW Calories/Kcals/Kg 25-30kcals/kg Kcals Calculated 1450-1740kcals/day Protein: Adj wt of IBW Protein g/kg: ~1g/kg Protein Calculated 58g/day Fluid: ml 1450-1740ml/day Nutritional Problem 1. Problem Problem Altered nutrition related lab values related to Etiology cardiovascular dysfunction as evidenced by Signs/Symptoms: cholesterol 201 Intervention/Recommendation Comments Recommend low fat, low cholesterol mechanical soft diet Expected Outcomes/Goals Expected Outcomes/Goals weight trend toward IBW
== END 2018-10-03 12:25 | DRG 885 ==
LOC: ER 16:20 → GERO 18:20
PROVIDERS: ADMIT Psychiatry & Neurology Psychiatry; ATTEND Psychiatry & Neurology Psychiatry
DX: F25.0 Schizoaffective disorder, bipolar type (principal); N39.0 Urinary tract infection, site not specified; F29 Unspecified psychosis not due to a substance or known physiological condition; E78.5 Hyperlipidemia, unspecified; R56.9 Unspecified convulsions; F41.9 Anxiety disorder, unspecified; E03.9 Hypothyroidism, unspecified
CPT/HCPCS: 36415-UA; 80053-TC; 80061-TC; 80307; 80320-TC; 80329-TC; 81001-TC; 83036-90; 84443-TC; 84484-TC; 84703-TC; 85025-TC; 86592-TC; 87086-90; 93005; G0410; Z7610